=== PATIENT | female | born 1940 | race African-American/Black ===

== ENCOUNTER 2019-12-19 13:45 | Inpatient (IN) | payer MEDICARE, BC, MEDICAID ==
[~2019-12-19] VITALS: Ht 167.6 cm; Wt 73.5 kg
--- NOTE | 2019-12-19 14:00 | NUR ---
ED Nurse Note: Pt brought in by ambulance from [facility] d/t tachypnea, low O2 sat of 88% with cough. Respirations even, but labored with a RR 28. Temp 98.4 @ triage. Pt A+Ox2. Public health called and patient has positive Covid test result. Pt c/o lower back pain. Pt tachy @ 102. O2 saturation of 96% on 4 L NC
[2019-12-19 14:09] VITALS: BP 161/99
--- NOTE | 2019-12-19 14:37 | Emergency Room Report ---
History of Present Illness General Chief Complaint: Dyspnea/Respdistress Source: Medical Record Present Illness HPI Disclaimer: Please note that this report is being documented using [employer] technology. This can lead to erroneous entry secondary to incorrect interpretation by the dictating instrument. HPI: 79-year-old female history of COPD CHF hypertension diabetes, schizophrenia presented from intermediate facility due to hypoxia. Patient reports cough and hypoxia for the past few days. Coronavirus testing was sent and came back positive. Patient sent to the ER for further treatment. Patient denied any fevers nausea or vomiting to me. She uses 2 L of oxygen at baseline currently on 4 L nasal cannula. Allergies: Coded Allergies: ASPIRIN (Verified Allergy, Unknown, 12/19/19) PENICILLINS (Verified Allergy, Unknown, 12/19/19) COVID-19 Screening Contact w/high risk pt: Yes Recent Travel to affected area: No Experienced COVID-19 symptoms?: Yes COVID-19 symptoms experienced: Cough Patient History Reviewed Nursing Documentation: PMH: Agreed; PSxH: Agreed Nursing Documentation-PMH Past Medical History: No History, Except For Hx Cardiac Problems: Yes - Heart failure, UTI Hx COPD: Yes History Of Psychiatric Problem: Yes - Schizophrenia Review of Systems All Other Systems: negative except mentioned in HPI Physical Exam Vital Signs Date Time Temp Pulse Resp B/P (MAP) Pulse Ox O2 Delivery O2 Flow Rate FiO2 12/19/19 13:46 98.1 94 34 148/106 (120) 96 Nasal Cannula 4.0 Sp02 EP Interpretation: reviewed, normal General Appearance: no apparent distress, thin Head: normocephalic, atraumatic Eyes: bilateral eye PERRL, bilateral eye EOMI ENT: hearing grossly normal, moist mucus membranes Neck: full range of motion, supple Respiratory: no retraction, other - Speaking in full sentences, patient tachypneic Cardiovascular #1: normal peripheral pulses, regular rate, rhythm, no murmur Gastrointestinal: non tender, soft, non-distended, no guarding Neurologic: alert, oriented x3, no focal defects Skin: normal color, warm/dry Procedures Critical Care Time Critical Care Time Critical care is made on the patient to presentation with COVID-19 requiring my acute intervention. Critical care time is approximately 35 minutes and excludes procedures. Medical Decision Making Diagnostic Impression: Primary Impression: COVID-19 Additional Impression: UTI (urinary tract infection) ER Course MDM: Patient presented for hypoxia and concern for COVID-19. Coronavirus testing was positive at intermediate facility. Patient has had an increase in oxygen requirement. On my exam she was speaking in full sentences but mildly tachypneic. Septic work-up initiated. Clinical course-IV inserted cardiac monitoring pulse oximetry, patient given IV fluids, IV antibiotics, azithromycin given for diagnosis of coronavirus in addition urinalysis did demonstrate evidence of UTI so Rocephin was given. Patient will be admitted to the medical floor. Labs -sodium 125, urinalysis showed evidence of WBCs in the urine Plan is to admit patient to the hospital. Case discussed with Dr. Alberto Laboratory Tests Test 12/19/19 14:35 White Blood Count 11.8 K/UL (4.8-10.8) H Red Blood Count 4.69 M/UL (4.20-5.40) Hemoglobin 14.1 G/DL (12.0-16.0) Hematocrit 41.4 % (37.0-47.0) Mean Corpuscular Volume 88 FL (80-99) Mean Corpuscular Hemoglobin 30.1 PG (27.0-31.0) Mean Corpuscular Hemoglobin Concent 34.1 G/DL (32.0-36.0) Red Cell Distribution Width 11.3 % (11.6-14.8) L Platelet Count 292 K/UL (150-450) Mean Platelet Volume 5.5 FL (6.5-10.1) L Neutrophils (%) (Auto) % (45.0-75.0) Lymphocytes (%) (Auto) % (20.0-45.0) Monocytes (%) (Auto) % (1.0-10.0) Eosinophils (%) (Auto) % (0.0-3.0) Basophils (%) (Auto) % (0.0-2.0) Differential Total Cells Counted 100 Neutrophils % (Manual) 87 % (45-75) H Lymphocytes % (Manual) 10 % (20-45) L Monocytes % (Manual) 3 % (1-10) Eosinophils % (Manual) 0 % (0-3) Basophils % (Manual) 0 % (0-2) Band Neutrophils 0 % (0-8) Platelet Estimate Adequate Platelet Morphology Normal Red Blood Cell Morphology Normal Urine Color Pale yellow Urine Appearance Cloudy Urine pH 7 (4.5-8.0) Urine Specific [place] 1.005 (1.005-1.035) Urine Protein 2+ (NEGATIVE) H Urine Glucose (UA) 1+ (NEGATIVE) H Urine Ketones Negative (NEGATIVE) Urine Blood 3+ (NEGATIVE) H Urine Nitrite Negative (NEGATIVE) Urine Bilirubin Negative (NEGATIVE) Urine Urobilinogen Normal MG/DL (0.0-1.0) Urine Leukocyte Esterase 3+ (NEGATIVE) H Urine RBC 5-10 /HPF (0 - 2) H Urine WBC Tntc /HPF (0 - 2) H Urine Squamous Epithelial Cells Moderate /LPF (NONE/OCC) H Urine Bacteria Many /HPF (NONE) H Sodium Level 125 MMOL/L (136-145) L Potassium Level 4.5 MMOL/L (3.5-5.1) Chloride Level 84 MMOL/L (98-107) L Carbon Dioxide Level 37 MMOL/L (21-32) H Anion Gap 4 mmol/L (5-15) L Blood Urea Nitrogen 24 mg/dL (7-18) H Creatinine 1.4 MG/DL (0.55-1.30) H Estimated Glomerular Filtration Rate 43.9 mL/min (>60) Glucose Level 259 MG/DL (74-106) H Lactic Acid Level 1.80 mmol/L (0.4-2.0) Calcium Level 9.1 MG/DL (8.5-10.1) Total Bilirubin 0.6 MG/DL (0.2-1.0) Aspartate Amino Transferase (AST) 42 U/L (15-37) H Alanine Aminotransferase (ALT) 35 U/L (12-78) Alkaline Phosphatase 106 U/L (46-116) Total Creatine Kinase 191 U/L (26-308) Creatine Kinase MB 1.5 NG/ML (0.0-3.6) Creatine Kinase MB Relative Index 0.7 Troponin I 0.010 ng/mL (0.000-0.056) Pro-B-Type Natriuretic Peptide 785 pg/mL (0-125) H Total Protein 7.7 G/DL (6.4-8.2) Albumin 3.3 G/DL (3.4-5.0) L Globulin 4.4 g/dL Albumin/Globulin Ratio 0.8 (1.0-2.7) L EKG Diagnostic Results Rate: normal Rhythm: NSR Other Impression Sinus rhythm, rate of 77, incomplete right bundle branch block, peaked T waves laterally. Abnormal EKG Rhythm Strip Diag. Results EP Interpretation: yes Rate: 93 Rhythm: NSR, no PVC's, no ectopy Chest X-Ray Diagnostic Results Chest X-Ray Diagnostic Results : Chest X-Ray Ordered: Yes # of Views/Limited/Complete: 1 View Indication: Shortness of Breath EP Interpretation: Yes Interpretation: no effusion, no pneumothorax, other - Haziness noted in right lung. Impression: Other - Turn for pneumonia and infiltrate Electronically Signed by: Tray Katz MD Last Vital Signs Date Time Temp Pulse Resp B/P (MAP) Pulse Ox O2 Delivery O2 Flow Rate FiO2 12/19/19 14:09 98.2 101 34 161/99 97 Nasal Cannula 4.0 Disposition: ADMITTED INPATIENT Condition: Serious Referrals: Jennifer Alberto MD (PCP) Tray Katz M.D. December 19, 2019 14:37
[2019-12-19] MEDS ORDERED: FAMOTIDINE20 MG ORAL (14:42)
[2019-12-19] MEDS ORDERED: DULCOLAX10 MG RC (14:42)
[2019-12-19] MEDS ORDERED: LISINOPRIL5 MG ORAL (14:42)
[2019-12-19] MEDS ORDERED: DUONEB 0.5-3(2.53 ML HHN (14:42)
[2019-12-19] MEDS ORDERED: PLAVIX75 MG ORAL (14:42)
[2019-12-19] MEDS ORDERED: METOPROLOL TART25 MG ORAL (14:42)
[2019-12-19] MEDS ORDERED: HALOPERIDOL5 MG ORAL (14:42)
[2019-12-19] MEDS ORDERED: ACETAMINOPHEN120 MG RECTAL (14:42)
[2019-12-19] MEDS ORDERED: PROMETHAZI6.25 MG/2 ORAL (14:42)
[2019-12-19] MEDS ORDERED: ATORVASTATIN CA20 MG ORAL (14:42)
[2019-12-19] MEDS ORDERED: HUMALOG100 UNIT/4 SUBQ (14:42)
[2019-12-19] MEDS ORDERED: FLEET ENEMA133 M1 RC (14:42)
[2019-12-19] MEDS ORDERED: MULTIVITAMINS1 EAC8 ORAL (14:42)
[2019-12-19] MEDS ORDERED: PROMETHAZI6.25 MG/1 ORAL (14:42)
[2019-12-19] MEDS ORDERED: MOM30 ML ORAL (14:42)
[2019-12-19] MEDS ORDERED: PREDNISONE5 M4 PO (14:42)
[2019-12-19] MEDS ORDERED: GLUCOTROL XL2.5 MG PO (14:42)
[2019-12-19] MEDS ORDERED: AMLODIPINE BES2.5 MG ORAL (14:42)
[2019-12-19 15:29] LABS: HEMATOCRIT 41.4 % (37.0-47.0); HEMOGLOBIN 14.1 G/DL (12.0-16.0); MEAN CORPUSCULAR VOLUME 88 FL (80-99); PLATELET COUNT 292 K/UL (150-450); RED BLOOD COUNT 4.69 M/UL (4.20-5.40); RED CELL DISTRIBUTION WIDTH 11.3 % (11.6-14.8); WHITE BLOOD COUNT 11.8 K/UL (4.8-10.8)
[2019-12-19 15:30] LABS: APPEARANCE,URINE CLOUDY; BILIRUBIN, URINE NEGATIVE (NEGATIVE); COLOR,URINE PALE YELLOW; GLUCOSE, URINE (UA) 1+ (NEGATIVE); KETONES,URINE NEGATIVE (NEGATIVE); LEUKOCYTE ESTERASE ,URINE 3+ (NEGATIVE); NITRITE,URINE NEGATIVE (NEGATIVE); PH,URINE 7 (4.5-8.0); PROTEIN,URINE 2+ (NEGATIVE); UROBILINOGEN,URINE NORMAL MG/DL (0.0-1.0)
--- NOTE | 2019-12-19 15:41 | NUR ---
ED Nurse Note: lorraine cristobal - grand daughter and POA
[2019-12-19 15:57] LABS: ANION GAP 4 mmol/L (5-15); BLOOD UREA NITROGEN 24 mg/dL (7-18); CALCIUM 9.1 MG/DL (8.5-10.1); CARBON DIOXIDE 37 MMOL/L (21-32); CHLORIDE 84 MMOL/L (98-107); CREATININE 1.4 MG/DL (0.55-1.30); POTASSIUM 4.5 MMOL/L (3.5-5.1); SODIUM 125 MMOL/L (136-145)
[2019-12-19 16:00] VITALS: BP 158/97
[2019-12-19 16:26] LABS: ALANINE AMINOTRANSFERASE 35 U/L (12-78); ALBUMIN 3.3 G/DL (3.4-5.0); ALBUMIN/GLOBULIN RATIO 0.8 (1.0-2.7); ALKALINE PHOSPHATASE 106 U/L (46-116); ASPARTATE AMINO TRANSFERASE 42 U/L (15-37); BILIRUBIN,TOTAL 0.6 MG/DL (0.2-1.0); CKMB 1.5 NG/ML (0.0-3.6); CREATINE KINASE 191 U/L (26-308)
[2019-12-19] MEDS ORDERED: Azithromycin 500 MG in NS 275 ML IV ONE (16:30)
--- NOTE | 2019-12-19 17:30 | NUR ---
ED Nurse Note: Pt had large loose BM. Linen changed. pt noted to have no pressure wounds, but has some perineal excoriation.
[2019-12-19] MEDS ORDERED: cefTRIAXone 1 GM in NS 55 ML IVPB ONE (17:45)
[2019-12-19 18:12] VITALS: BP 148/92
--- NOTE | 2019-12-19 18:23 | NUR ---
ED Nurse Note: Per ED MD, okay to dc cardiac monitoring.
--- NOTE | 2019-12-19 19:15 | NUR ---
HAND-OFF: Report given to FLETCHER Jimenez. Plan of care endorsed. Pt in stable condition.
--- NOTE | 2019-12-19 19:20 | NUR ---
ED Nurse Note: Recieved report from FLETCHER Venegas to resume care, pt is in room, under isolation precautions for Covid infection, awake, alert and oriented x 4, has patent IV site and on cardiac monitoring, pt is waiting for room placement for hospital admission, denies CP or any pain, no sob or labored breathing noted at rest, continues with O2 at 4l n/c, sat=96%, will continue to closely monitor and admit when bed available.
--- NOTE | 2019-12-19 20:40 | NUR ---
ED Nurse Note: Report to floor nurse attempted, un-available a this time, will call back for admission.
--- NOTE | 2019-12-19 20:41 | Diagnostic Imaging Report ---
Indication: Chest pain, shortness of breath Technique: XRAY Chest 1v Comparison: None Findings: Lungs are expanded and there is flattening the diaphragms. Heart size and mediastinal contours are within normal limits. There are atherosclerotic gastric calcifications in a tortuous aorta. There are streaky opacities at the right base. There is no significant pleural effusion. No evidence of pneumothorax. There are degenerative changes of the spine. No acute osseous abnormality. IMPRESSION: Streaky opacities at the right base which may be related to subsegmental atelectasis or scarring. Developing pneumonia is not excluded. Clinical correlation and follow-up recommended. COPD changes. Atherosclerotic disease.
--- NOTE | 2019-12-19 21:00 | NUR ---
ED Nurse Note: Attempted report to floor nurse, un-available at this time, will call back.
--- NOTE | 2019-12-19 21:33 | Consultation ---
History of Present Illness General Date patient seen: December 19, 2019 Time patient seen: 19:20 Chief Complaint: Dyspnea/Respdistress Referring physician: Cristiano Michelle Reason for Consultation: UTI, PNA and COVID 19 infection Present Illness HPI This is an 79-year-old female with past medical history of COPD, CHF, hypertension, diabetes mellitus, and schizophrenia was sent from [facility] to [facility] emergency room for hypoxemia and cough which she had for the last couple of days. Patient was tested positive for coronavirus in her facility so she was sent to the hospital for further evaluation and management. As per report from her facility there was no fever or chills, no nausea or vomiting, patient used 2 L of oxygen at baseline but now she requires 4 L oxygen via nasal cannula. In ER her O2 sat was 96% on 4 L nasal cannula, and her lab work-up revealed UTI with leukocytosis, chest x-ray showed possible right lower lobe infiltration so infectious disease consultation was requested for antimicrobial treatment and further management Allergies: Coded Allergies: ASPIRIN (Verified Allergy, Unknown, 12/19/19) PENICILLINS (Verified Allergy, Unknown, 12/19/19) Medication History Scheduled Amlodipine Besylate* (Amlodipine Besylate*), 2.5 MG ORAL DAILY, (Reported) Atorvastatin Calcium* (Atorvastatin Calcium*), 20 MG ORAL BEDTIME, (Reported) Clopidogrel Bisulfate* (Plavix*), 75 MG ORAL DAILY, (Reported) Famotidine* (Pepcid 20mg tablet*), 20 MG ORAL DAILY, (Reported) Lisinopril (Lisinopril*), 5 MG ORAL DAILY, (Reported) Magnesium Hydroxide (Milk of Magnesia), 30 ML ORAL DAILY, (Reported) Metoprolol Tartrate* (Metoprolol Tartrate*), 25 MG ORAL EVERY 12 HOURS, ( Reported) Multivitamin With Minerals (Multivitamins With Minerals*), 1 TAB ORAL DAILY, ( Reported) Promethazine Hcl (Promethazine Hcl*), 10 ML ORAL Q6H, (Reported) Scheduled PRN Acetaminophen* (Tylenol*), 325 MG RECTAL Q4H PRN for Mild Pain/Temp > 100.5, ( Reported) Promethazine HCl (Promethazine HCl), 5 ML ORAL Q6H PRN for For Cough, (Reported) Miscellaneous Medications Bisacodyl (Dulcolax), 10 MG RC, (Reported) Glipizide (Glucotrol Xl), 2.5 MG PO, (Reported) Haloperidol (Haloperidol), 5 MG ORAL, (Reported) Insulin Lispro (Humalog), 0 SUBQ, (Reported) Ipratropium/Albuterol Sulfate (DuoNeb 0.5-3(2.5)mg/3ml), 3 ML HHN, (Reported) Na Phos,M-B/Na Phos,Di-Ba (Fleet Enema), 133 ML RC, (Reported) Prednisone (Prednisone), 5 MG PO, (Reported) Patient History Limited by: age, medical condition History Provided By: Medical Record, EMS Healthcare decision maker N Resuscitation status Advanced Directive on File Past Medical/Surgical History Past Medical/Surgical History: (1) COPD (chronic obstructive pulmonary disease) (2) HTN (hypertension) (3) Diabetes mellitus Review of Systems Constitutional: Reports: fever, malaise, weakness Eye: Reports: no symptoms ENT: Reports: no symptoms Respiratory: Reports: cough, shortness of breath Cardiovascular: Reports: no symptoms Gastrointestinal: Reports: no symptoms Genitourinary: Reports: no symptoms Musculoskeletal: Reports: no symptoms Skin: Reports: no symptoms Psychiatric: Reports: no symptoms Neurological: Reports: no symptoms Endocrine: Reports: no symptoms Hematologic/Lymphatic: Reports: no symptoms Physical Exam General Appearance: WD/WN, no apparent distress, alert, lethargic, confused Lines, tubes and drains: peripheral HEENT: normocephalic, atraumatic, anicteric, mucous membranes moist, PERRL Neck: non-tender, normal alignment, supple, normal inspection Respiratory/Chest: chest wall non-tender, normal breath sounds, no respiratory distress, no accessory muscle use, decreased breath sounds Cardiovascular/Chest: normal peripheral pulses, normal rate, regular rhythm, no gallop/murmur, no JVD Abdomen: normal bowel sounds, non tender, soft, no organomegaly, no mass, abnormal bowel sounds Genitourinary/Rectal: normal genital exam Extremities: normal range of motion, non-tender, normal inspection, no calf tenderness, normal capillary refill, non-pitting Skin Exam: normal pigmentation, warm/dry Neurologic: alert, responsive Musculoskeletal: normal muscle bulk, no effusion Last 24 Hour Vital Signs Date Time Temp Pulse Resp B/P (MAP) Pulse Ox O2 Delivery O2 Flow Rate FiO2 12/19/19 18:12 98.0 89 34 148/92 97 Nasal Cannula 4.0 12/19/19 16:00 94 34 158/97 96 Nasal Cannula 4.0 12/19/19 14:09 98.2 101 34 161/99 97 Nasal Cannula 4.0 12/19/19 14:00 102 34 Nasal Cannula 4.0 12/19/19 13:46 98.1 94 34 148/106 (120) 96 Nasal Cannula 4.0 Laboratory Tests Test 12/19/19 14:35 White Blood Count 11.8 K/UL (4.8-10.8) H Red Blood Count 4.69 M/UL (4.20-5.40) Hemoglobin 14.1 G/DL (12.0-16.0) Hematocrit 41.4 % (37.0-47.0) Mean Corpuscular Volume 88 FL (80-99) Mean Corpuscular Hemoglobin 30.1 PG (27.0-31.0) Mean Corpuscular Hemoglobin Concent 34.1 G/DL (32.0-36.0) Red Cell Distribution Width 11.3 % (11.6-14.8) L Platelet Count 292 K/UL (150-450) Mean Platelet Volume 5.5 FL (6.5-10.1) L Neutrophils (%) (Auto) % (45.0-75.0) Lymphocytes (%) (Auto) % (20.0-45.0) Monocytes (%) (Auto) % (1.0-10.0) Eosinophils (%) (Auto) % (0.0-3.0) Basophils (%) (Auto) % (0.0-2.0) Differential Total Cells Counted 100 Neutrophils % (Manual) 87 % (45-75) H Lymphocytes % (Manual) 10 % (20-45) L Monocytes % (Manual) 3 % (1-10) Eosinophils % (Manual) 0 % (0-3) Basophils % (Manual) 0 % (0-2) Band Neutrophils 0 % (0-8) Platelet Estimate Adequate Platelet Morphology Normal Red Blood Cell Morphology Normal Urine Color Pale yellow Urine Appearance Cloudy Urine pH 7 (4.5-8.0) Urine Specific [place] 1.005 (1.005-1.035) Urine Protein 2+ (NEGATIVE) H Urine Glucose (UA) 1+ (NEGATIVE) H Urine Ketones Negative (NEGATIVE) Urine Blood 3+ (NEGATIVE) H Urine Nitrite Negative (NEGATIVE) Urine Bilirubin Negative (NEGATIVE) Urine Urobilinogen Normal MG/DL (0.0-1.0) Urine Leukocyte Esterase 3+ (NEGATIVE) H Urine RBC 5-10 /HPF (0 - 2) H Urine WBC Tntc /HPF (0 - 2) H Urine Squamous Epithelial Cells Moderate /LPF (NONE/OCC) H Urine Bacteria Many /HPF (NONE) H Sodium Level 125 MMOL/L (136-145) L Potassium Level 4.5 MMOL/L (3.5-5.1) Chloride Level 84 MMOL/L (98-107) L Carbon Dioxide Level 37 MMOL/L (21-32) H Anion Gap 4 mmol/L (5-15) L Blood Urea Nitrogen 24 mg/dL (7-18) H Creatinine 1.4 MG/DL (0.55-1.30) H Estimat Glomerular Filtration Rate 43.9 mL/min (>60) Glucose Level 259 MG/DL (74-106) H Lactic Acid Level 1.80 mmol/L (0.4-2.0) Calcium Level 9.1 MG/DL (8.5-10.1) Total Bilirubin 0.6 MG/DL (0.2-1.0) Aspartate Amino Transf (AST/SGOT) 42 U/L (15-37) H Alanine Aminotransferase (ALT/SGPT) 35 U/L (12-78) Alkaline Phosphatase 106 U/L (46-116) Total Creatine Kinase 191 U/L (26-308) Creatine Kinase MB 1.5 NG/ML (0.0-3.6) Creatine Kinase MB Relative Index 0.7 Troponin I 0.010 ng/mL (0.000-0.056) Pro-B-Type Natriuretic Peptide 785 pg/mL (0-125) H Total Protein 7.7 G/DL (6.4-8.2) Albumin 3.3 G/DL (3.4-5.0) L Globulin 4.4 g/dL Albumin/Globulin Ratio 0.8 (1.0-2.7) L Microbiology Date/Time Source Procedure Growth Status 12/19/19 14:35 Rectum Received Height (Feet): 5 Height (Inches): 4.00 Weight (Pounds): 130 Medications Current Medications Medications (Trade) Dose Ordered Sig/Daiana Route PRN Reason Start Time Stop Time Status Last Admin Dose Admin Azithromycin 250 mg/Dextrose 275 ml @ 275 mls/hr Q24HRS IV 12/20/19 17:00 12/25/19 16:59 Cefepime HCl 2 gm/ Dextrose 55 ml @ 110 mls/hr Q12HR IVPB 12/19/19 22:00 12/26/19 21:59 Assessment/Plan Problem List: (1) Pneumonia Assessment & Plan: with RLL infiltrates, will start cefepime and azithromycin , monitor CXR, Aspiration precaution ICD Codes: J18.9 - Pneumonia, unspecified organism SNOMED: 905548538 Qualifiers: (2) UTI (urinary tract infection) Assessment & Plan: will start cefepime pending urine culture ICD Codes: N39.0 - Urinary tract infection, site not specified SNOMED: 01606668 Qualifiers: Qualified Codes: N30.00 - Acute cystitis without hematuria (3) COVID-19 Assessment & Plan: will order nasal swab with PCR to confirm if not done in ED , KEEP IN ENHANCED DROPLETS ISOLATION , supportive care ICD Codes: U07.1 - COVID-19 SNOMED: 969432474 (4) Diabetes mellitus Assessment & Plan: recommend tight glycemic control to keep blood glucose between 100-140 ICD Codes: E11.9 - Type 2 diabetes mellitus without complications SNOMED: 52279056 Qualifiers: Qualified Codes: E11.9 - Type 2 diabetes mellitus without complications (5) COPD (chronic obstructive pulmonary disease) Assessment & Plan: continue inhalers , antibiotics and oxygen as needed , AVOID STEROIDS ICD Codes: J44.9 - Chronic obstructive pulmonary disease, unspecified SNOMED: 22476522 Qualifiers: Qualified Codes: J44.1 - Chronic obstructive pulmonary disease with (acute) exacerbation Status: Abigail Lara M.D. December 19, 2019 21:33
--- NOTE | 2019-12-19 21:40 | NUR ---
ED Nurse Note: Report given to floor nurse, pt in bed awake and alert, has all belongings and list completed, IV site patent, pt being taken to floor unit via gurney with [facility] a n d on Covid isolation precautions. nad noted during pt transport.
[2019-12-19 22:00] VITALS: BP 158/92
--- NOTE | 2019-12-19 22:00 | NUR ---
NURSE NOTES: Received patient awake, ambulatory, very confused, uncooperative, no SOB noted.
[2019-12-19] MEDS: Cefepime HCl 2 GM in D5W 55 ML IVPB SCH (22:25)
[2019-12-19] MEDS ORDERED: Zolpidem 5mg tab ORAL PRN (23:30)
[2019-12-19] MEDS ORDERED: Promethazine Plain 6.25mg/5ml ORAL SCH (23:30)
[2019-12-19] MEDS ORDERED: LORazepam Inj 2mg/ml 1ml IV PRN (23:30)
[2019-12-19] MEDS ORDERED: Albuterol/Ipratropium 3ml neb HHN PRN (23:45)
[2019-12-19] MEDS ORDERED: Promethazine Plain 6.25mg/5ml ORAL PRN (23:45)
[2019-12-20] VITALS (7 sets, daily range): BP systolic 120–170; BP diastolic 74–110
--- NOTE | 2019-12-20 04:41 | NUR ---
NURSE NOTES: Patient combative and uncooperative, refused blood to be drawn.
[2019-12-20] MEDS: NovoLOG Insulin Flexpen SUBQ SCH ×4 (05:50→21:00)
--- NOTE | 2019-12-20 07:10 | NUR ---
HAND-OFF: Report given to FLETCHER Jacobsen.
--- NOTE | 2019-12-20 07:33 | NUR ---
NURSE NOTES: Report received from Leti BYNUM. Patient seen on rounds AxOx 2, confused, slightly agitated. On 4lpm via NC, no SOB or distress noted. Nurse reports that patient has been combative and uncooperative on admission, refused accucheck and blood draw in AM. Dr. Alberto made rounds and informed him of events last night and pt's refusal for blood draw. Received orders to put psych consult with Dr. Vogel and notify next of kin. Orders noted and carried out. IV on right AC patent and intact. Pt ambulates and is continent to bladder function. Bed low and locked, siderails up x2, zone alarms on bed 1. Will continue to monitor.
[2019-12-20 08:31] LABS: HEMATOCRIT 44.4 % (37.0-47.0); HEMOGLOBIN 15.2 G/DL (12.0-16.0); MEAN CORPUSCULAR VOLUME 88 FL (80-99); PLATELET COUNT 302 K/UL (150-450); RED BLOOD COUNT 5.05 M/UL (4.20-5.40); RED CELL DISTRIBUTION WIDTH 11.5 % (11.6-14.8); WHITE BLOOD COUNT 12.7 K/UL (4.8-10.8)
[2019-12-20] MEDS: Cefepime HCl 2 GM in D5W 55 ML IVPB SCH (08:46)
[2019-12-20] MEDS: Enoxaparin 40mg Inj SUBQ SCH (08:48)
[2019-12-20 09:01] LABS: ALANINE AMINOTRANSFERASE 36 U/L (12-78); ALBUMIN 3.1 G/DL (3.4-5.0); ALBUMIN/GLOBULIN RATIO 0.7 (1.0-2.7); ALKALINE PHOSPHATASE 109 U/L (46-116); ANION GAP 9 mmol/L (5-15); ASPARTATE AMINO TRANSFERASE 46 U/L (15-37); BILIRUBIN,TOTAL 0.5 MG/DL (0.2-1.0); BLOOD UREA NITROGEN 19 mg/dL (7-18); CALCIUM 9.3 MG/DL (8.5-10.1); CARBON DIOXIDE 34 MMOL/L (21-32); CHLORIDE 90 MMOL/L (98-107); CREATININE 1.3 MG/DL (0.55-1.30); POTASSIUM 4.5 MMOL/L (3.5-5.1); SODIUM 133 MMOL/L (136-145)
--- NOTE | 2019-12-20 09:11 | Consultation ---
Consult Note Consult Note 9AM: I am asked to evaluate the patient for hyponatremia Additional blood and urine tests ordered More complete note after those results 1PM: HPI: 79-year-old female history of COPD CHF hypertension diabetes, schizophrenia [facility]. Patient reports cough and hypoxia for the past few days. Coronavirus testing was sent and came back positive. Patient sent to the ER for further treatment. Patient denied any fevers nausea or vomiting to me. She uses 2 L of oxygen at baseline currently on 4 L nasal cannula. Allergies: ASPIRIN (Verified Allergy, Unknown, 12/19/19) PENICILLINS (Verified Allergy, Unknown, 12/19/19) COVID-19 Screening Contact w/high risk pt: Yes Recent Travel to affected area: No Experienced COVID-19 symptoms?: Yes COVID-19 symptoms experienced: Cough Past Medical History: No History, Except For Hx Cardiac Problems: Yes - Heart failure, UTI Hx COPD: Yes History Of Psychiatric Problem: Yes - Schizophrenia Patient interviewed poor historian Laboratory data reviewed Assessment/Plan Patient presents with hyponatremia, urine spot sodium below 20. Hyponatremia most likely depletional Azotemia / dehydration Sepsis, positive COVID-19 test, UTI Diabetes mellitus [id number] with high hemoglobin A1c History of psych disease slow hydration with saline Antibiotics per ID Monitor electrolytes and renal parameters Per orders Per consultants Rolo Roldan MD December 20, 2019 09:11
[2019-12-20 09:12] LABS: CHOLESTEROL 144 MG/DL (< 200); HDL CHOLESTEROL 73 MG/DL (40-60); TRIGLYCERIDES 101 MG/DL (30-150)
--- NOTE | 2019-12-20 09:27 | NUR ---
NURSE NOTES: Urine collected for ordered labs and sent down to laboratory.
--- NOTE | 2019-12-20 09:36 | History & Physical ---
History and Physical History & Physicial seen and examined. Full Dictation completed Jennifer Alberto MD December 20, 2019 09:36
--- NOTE | 2019-12-20 09:38 | General Progress Note ---
Assessment/Plan Status: stable Assessment/Plan: Full Dictation in progress 1- Sepsis 2- PNA 3- DM 4. HypoNatemia 5. Psych Plan: C/w Empirical abx Pulmonary/ID/Nephro/cario consulted Hepatitis panel Subjective Allergies: Coded Allergies: ASPIRIN (Verified Allergy, Unknown, 12/19/19) PENICILLINS (Verified Allergy, Unknown, 12/19/19) Objective Last 24 Hour Vital Signs Date Time Temp Pulse Resp B/P (MAP) Pulse Ox O2 Delivery O2 Flow Rate FiO2 12/20/19 08:47 100 143/79 12/20/19 08:00 97.9 118 34 143/79 (100) 91 12/20/19 04:00 98.2 111 32 132/107 (115) 91 12/20/19 01:23 100 28 160/94 (116) 94 12/20/19 00:52 24 98 12/20/19 00:37 97.9 130 36 164/110 (128) 86 12/19/19 22:59 Nasal Cannula 2.0 12/19/19 22:00 96.4 121 30 158/92 (114) 95 12/19/19 21:45 98.0 89 34 148/92 97 Nasal Cannula 4.0 12/19/19 18:12 98.0 89 34 148/92 97 Nasal Cannula 4.0 12/19/19 16:00 94 34 158/97 96 Nasal Cannula 4.0 12/19/19 14:09 98.2 101 34 161/99 97 Nasal Cannula 4.0 12/19/19 14:00 102 34 Nasal Cannula 4.0 12/19/19 13:46 98.1 94 34 148/106 (120) 96 Nasal Cannula 4.0 Intake and Output 12/19/19 12/20/19 19:00 07:00 Intake Total 1330 ml 173 ml Balance 1330 ml 173 ml Intake Oral 0 ml IV Total 1330 ml 55 ml Other 118 ml # Voids 4 2 # Bowel Movements 1 1 Laboratory Tests 12/19/19 14:35: White Blood Count 11.8H, Red Blood Count 4.69, Hemoglobin 14.1, Hematocrit 41.4 , Mean Corpuscular Volume 88, Mean Corpuscular Hemoglobin 30.1, Mean Corpuscular Hemoglobin Concent 34.1, Red Cell Distribution Width 11.3L, Platelet Count 292, Mean Platelet Volume 5.5L, Neutrophils (%) (Auto) , Lymphocytes (%) (Auto) , Monocytes (%) (Auto) , Eosinophils (%) (Auto) , Basophils (%) (Auto) , Differential Total Cells Counted 100, Neutrophils % ( Manual) 87H, Lymphocytes % (Manual) 10L, Monocytes % (Manual) 3, Eosinophils % ( Manual) 0, Basophils % (Manual) 0, Band Neutrophils 0, Platelet Estimate Adequate, Platelet Morphology Normal, Red Blood Cell Morphology Normal, Urine Color Pale yellow, Urine Appearance Cloudy, Urine pH 7, Urine Specific [place] 1.005, Urine Protein 2+H, Urine Glucose (UA) 1+H, Urine Ketones Negative, Urine Blood 3+H, Urine Nitrite Negative, Urine Bilirubin Negative, Urine Urobilinogen Normal, Urine Leukocyte Esterase 3+H, Urine RBC 5-10H, Urine WBC TntcH, Urine Squamous Epithelial Cells ModerateH, Urine Bacteria ManyH, Sodium Level 125L, Potassium Level 4.5, Chloride Level 84L, Carbon Dioxide Level 37H, Anion Gap 4L , Blood Urea Nitrogen 24H, Creatinine 1.4H, Estimat Glomerular Filtration Rate 43.9, Glucose Level 259H, Lactic Acid Level 1.80, Calcium Level 9.1, Total Bilirubin 0.6, Aspartate Amino Transf (AST/SGOT) 42H, Alanine Aminotransferase ( ALT/SGPT) 35, Alkaline Phosphatase 106, Total Creatine Kinase 191, Creatine Kinase MB 1.5, Creatine Kinase MB Relative Index 0.7, Troponin I 0.010, Pro-B- Type Natriuretic Peptide 785H, Total Protein 7.7, Albumin 3.3L, Globulin 4.4, Albumin/Globulin Ratio 0.8L 12/20/19 08:00: White Blood Count 12.7H, Red Blood Count 5.05, Hemoglobin 15.2, Hematocrit 44.4 , Mean Corpuscular Volume 88, Mean Corpuscular Hemoglobin 30.1, Mean Corpuscular Hemoglobin Concent 34.2, Red Cell Distribution Width 11.5L, Platelet Count 302, Mean Platelet Volume 5.5L, Neutrophils (%) (Auto) , Lymphocytes (%) (Auto) , Monocytes (%) (Auto) , Eosinophils (%) (Auto) , Basophils (%) (Auto) , Neutrophils % (Manual) [Pending], Lymphocytes % (Manual) [Pending], Platelet Estimate [Pending], Platelet Morphology [Pending], Sodium Level 133L, Potassium Level 4.5, Chloride Level 90L, Carbon Dioxide Level 34H, Anion Gap 9, Blood Urea Nitrogen 19H, Creatinine 1.3, Estimat Glomerular Filtration Rate 47.8, Glucose Level 215H, Calcium Level 9.3, Total Bilirubin 0.5 , Aspartate Amino Transf (AST/SGOT) 46H, Alanine Aminotransferase (ALT/SGPT) 36 , Alkaline Phosphatase 109, Troponin I 0.049, Pro-B-Type Natriuretic Peptide 4372H, Total Protein 7.7, Albumin 3.1L, Globulin 4.6, Albumin/Globulin Ratio 0.7L, Hemoglobin A1c 8.4H, Osmolality 284L, Triglycerides Level 101, Cholesterol Level 144, LDL Cholesterol 48, HDL Cholesterol 73H, Cholesterol/HDL Ratio 2.0L, Thyroid Stimulating Hormone (TSH) 0.272L 12/20/19 09:15: Urine Osmolality [Pending], Urine Random Sodium [Pending] Height (Feet): 5 Height (Inches): 6.00 Weight (Pounds): 150 Jennifer Alberto MD December 20, 2019 09:38
--- NOTE | 2019-12-20 11:00 | NUR ---
NURSE NOTES: Dr. Barrow informed of Troponin and 2d echo results. No new orders at this time.
--- NOTE | 2019-12-20 12:00 | NUR ---
NURSE NOTES: Nasopharyngeal swab collected for Covid test and sent down to laboratory.
--- NOTE | 2019-12-20 14:03 | Cardiac Electrophysiology PN ---
Subjective Subjective [id number] Objective Last 24 Hour Vital Signs Date Time Temp Pulse Resp B/P (MAP) Pulse Ox O2 Delivery O2 Flow Rate FiO2 12/20/19 12:00 98.2 84 20 162/89 (113) 90 12/20/19 09:00 Nasal Cannula 4.0 12/20/19 08:47 100 143/79 12/20/19 08:00 97.9 118 34 143/79 (100) 91 12/20/19 04:00 98.2 111 32 132/107 (115) 91 12/20/19 01:23 100 28 160/94 (116) 94 12/20/19 00:52 24 98 12/20/19 00:37 97.9 130 36 164/110 (128) 86 12/19/19 22:59 Nasal Cannula 2.0 12/19/19 22:00 96.4 121 30 158/92 (114) 95 12/19/19 21:45 98.0 89 34 148/92 97 Nasal Cannula 4.0 12/19/19 18:12 98.0 89 34 148/92 97 Nasal Cannula 4.0 12/19/19 16:00 94 34 158/97 96 Nasal Cannula 4.0 12/19/19 14:09 98.2 101 34 161/99 97 Nasal Cannula 4.0 12/19/19 14:00 102 34 Nasal Cannula 4.0 Intake and Output 12/19/19 12/20/19 19:00 07:00 Intake Total 1330 ml 173 ml Balance 1330 ml 173 ml Intake Oral 0 ml IV Total 1330 ml 55 ml Other 118 ml # Voids 4 2 # Bowel Movements 1 1 Laboratory Tests Test 12/19/19 14:35 12/20/19 08:00 12/20/19 09:15 White Blood Count 11.8 K/UL (4.8-10.8) H 12.7 K/UL (4.8-10.8) H Red Blood Count 4.69 M/UL (4.20-5.40) 5.05 M/UL (4.20-5.40) Hemoglobin 14.1 G/DL (12.0-16.0) 15.2 G/DL (12.0-16.0) Hematocrit 41.4 % (37.0-47.0) 44.4 % (37.0-47.0) Mean Corpuscular Volume 88 FL (80-99) 88 FL (80-99) Mean Corpuscular Hemoglobin 30.1 PG (27.0-31.0) 30.1 PG (27.0-31.0) Mean Corpuscular Hemoglobin Concent 34.1 G/DL (32.0-36.0) 34.2 G/DL (32.0-36.0) Red Cell Distribution Width 11.3 % (11.6-14.8) L 11.5 % (11.6-14.8) L Platelet Count 292 K/UL (150-450) 302 K/UL (150-450) Mean Platelet Volume 5.5 FL (6.5-10.1) L 5.5 FL (6.5-10.1) L Neutrophils (%) (Auto) % (45.0-75.0) % (45.0-75.0) Lymphocytes (%) (Auto) % (20.0-45.0) % (20.0-45.0) Monocytes (%) (Auto) % (1.0-10.0) % (1.0-10.0) Eosinophils (%) (Auto) % (0.0-3.0) % (0.0-3.0) Basophils (%) (Auto) % (0.0-2.0) % (0.0-2.0) Differential Total Cells Counted 100 100 Neutrophils % (Manual) 87 % (45-75) H 87 % (45-75) H Lymphocytes % (Manual) 10 % (20-45) L 10 % (20-45) L Monocytes % (Manual) 3 % (1-10) 3 % (1-10) Eosinophils % (Manual) 0 % (0-3) 0 % (0-3) Basophils % (Manual) 0 % (0-2) 0 % (0-2) Band Neutrophils 0 % (0-8) 0 % (0-8) Platelet Estimate Adequate Adequate Platelet Morphology Normal Normal Red Blood Cell Morphology Normal Normal Urine Color Pale yellow Urine Appearance Cloudy Urine pH 7 (4.5-8.0) Urine Specific [place] 1.005 (1.005-1.035) Urine Protein 2+ (NEGATIVE) H Urine Glucose (UA) 1+ (NEGATIVE) H Urine Ketones Negative (NEGATIVE) Urine Blood 3+ (NEGATIVE) H Urine Nitrite Negative (NEGATIVE) Urine Bilirubin Negative (NEGATIVE) Urine Urobilinogen Normal MG/DL (0.0-1.0) Urine Leukocyte Esterase 3+ (NEGATIVE) H Urine RBC 5-10 /HPF (0 - 2) H Urine WBC Tntc /HPF (0 - 2) H Urine Squamous Epithelial Cells Moderate /LPF (NONE/OCC) H Urine Bacteria Many /HPF (NONE) H Sodium Level 125 MMOL/L (136-145) L 133 MMOL/L (136-145) L Potassium Level 4.5 MMOL/L (3.5-5.1) 4.5 MMOL/L (3.5-5.1) Chloride Level 84 MMOL/L (98-107) L 90 MMOL/L (98-107) L Carbon Dioxide Level 37 MMOL/L (21-32) H 34 MMOL/L (21-32) H Anion Gap 4 mmol/L (5-15) L 9 mmol/L (5-15) Blood Urea Nitrogen 24 mg/dL (7-18) H 19 mg/dL (7-18) H Creatinine 1.4 MG/DL (0.55-1.30) H 1.3 MG/DL (0.55-1.30) Estimat Glomerular Filtration Rate 43.9 mL/min (>60) 47.8 mL/min (>60) Glucose Level 259 MG/DL (74-106) H 215 MG/DL (74-106) H Lactic Acid Level 1.80 mmol/L (0.4-2.0) Calcium Level 9.1 MG/DL (8.5-10.1) 9.3 MG/DL (8.5-10.1) Total Bilirubin 0.6 MG/DL (0.2-1.0) 0.5 MG/DL (0.2-1.0) Aspartate Amino Transf (AST/SGOT) 42 U/L (15-37) H 46 U/L (15-37) H Alanine Aminotransferase (ALT/SGPT) 35 U/L (12-78) 36 U/L (12-78) Alkaline Phosphatase 106 U/L (46-116) 109 U/L (46-116) Total Creatine Kinase 191 U/L (26-308) Creatine Kinase MB 1.5 NG/ML (0.0-3.6) Creatine Kinase MB Relative Index 0.7 Troponin I 0.010 ng/mL (0.000-0.056) 0.049 ng/mL (0.000-0.056) Pro-B-Type Natriuretic Peptide 785 pg/mL (0-125) H 4372 pg/mL (0-125) H Total Protein 7.7 G/DL (6.4-8.2) 7.7 G/DL (6.4-8.2) Albumin 3.3 G/DL (3.4-5.0) L 3.1 G/DL (3.4-5.0) L Globulin 4.4 g/dL 4.6 g/dL Albumin/Globulin Ratio 0.8 (1.0-2.7) L 0.7 (1.0-2.7) L Hemoglobin A1c 8.4 % (4.3-6.0) H Osmolality 284 mOsm/kg (297-317) L Triglycerides Level 101 MG/DL (30-150) Cholesterol Level 144 MG/DL (< 200) LDL Cholesterol 48 mg/dL (<100) HDL Cholesterol 73 MG/DL (40-60) H Cholesterol/HDL Ratio 2.0 (3.3-4.4) L Thyroid Stimulating Hormone (TSH) 0.272 uiU/mL (0.358-3.740) Urine Osmolality 449 mOsm/kg (429-449) Urine Random Sodium < 20 mmol/L (20-110) L Microbiology Date/Time Source Procedure Growth Status 12/19/19 14:35 Urine,Clean Catch Urine Culture - Preliminary Resulted 12/19/19 14:35 Rectum Received Eusebio Barrow MD December 20, 2019 14:03
--- NOTE | 2019-12-20 16:05 | NUR ---
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 98.0 HR 95 RR 34 B/P 148/106 4L NC O2 SAT @ 96% WBC 11.2 NA 125 BUN 24 CR 1.4 GLU 259 BNP 785 AST 42 CXR=Streaky opacities at the right base which may be related to subsegmental atelectasis or scarring. Developing pneumonia is not excluded. Clinical correlation and follow-up recommended. IS: CEFEPIME IV AZITHROMAX IV IV BOLUS NS X 1 LITER ROCEPHIN IV ADMITTED TO MED/SURG MED/SURG STATUS DCP RETURN TO [facility]
--- NOTE | 2019-12-20 16:59 | History and Physical Report ---
DATE OF ADMISSION: 12/19/2019 SOURCE OF INFORMATION: Patient and EMR. HISTORY OF PRESENT ILLNESS: Patient is an 79-year-old female with history of psychiatric coronary artery disease and hypertension problems. Patient has been transferred with abnormal chest x-ray reported in the facility. Patient's facility has reported multiple positive cases of COVID. At the time of evaluation, patient denies any chest pain or shortness of breath. Patient is anxious. Poor historian. source of information. No reported incidents of diarrhea or abnormal bleeding has been reported. REVIEW OF SYSTEMS: All 12 elements of review of systems reviewed as above. PAST MEDICAL AND SURGICAL HISTORY: Including but not limited to hypertension, hyperlipidemia, coronary artery disease, diabetes. FAMILY HISTORY: Reviewed and noncontributory. MEDICATIONS: Current hospital medications including, but not limited to, cefepime, azithromycin. SOCIAL HISTORY: Patient is represented by her daughter, patient denies no documented history of active illicit drug abuse or tobacco use or alcohol abuse. ALLERGIES: Aspirin and penicillin. PHYSICAL EXAMINATION: VITAL SIGNS: Blood pressure 148/100, temperature 98.2, pulse rate 94, respiratory rate is 34, pulse rate 102. HEAD AND NECK: Atraumatic and normocephalic. CHEST: Bronchial breathing sounds. HEART: S1 and S2. Regular rate and rhythm. ABDOMEN: Soft. No organomegaly. MUSCULOSKELETAL: No gross focal motor deficit. NEUROLOGY: Patient is awake, alert x1. Easily distracted. LABORATORY DATA: Dated 12/19/2019 shows WBC 11.8, hemoglobin 14.4, platelets 292. Sodium 125, potassium 4.5, BUN 24, creatinine 1.4. AST of 42. BNP of 785. Chest x-ray dated 12/19/2019 shows opacities in the right base possible concerning for the emerging pneumonia. ASSESSMENT: 1. Sepsis. 2. Pneumonia. 3. Renal failure, age indeterminate. 4. Diabetes type 2. 5. Hypertension. 6. Hyperlipidemia. 7. Coronary artery disease/peripheral arterial disease. Continue with antiplatelet. 8. GI and DVT prophylaxis. PLAN OF CARE: Continue with empiric antibiotic treatment. Infectious Disease, Nephrology, Pulmonary have been consulted. The time of this dictation does not reflect the actual time of encounter, which occurred on 12/19/2019. Candelarioammad Nava Alberto DR: BHAVNA JOB#: [id number] CC:
[2019-12-20] MEDS ORDERED: Azithromycin 250 MG in D5W 275 ML IV SCH (17:00)
[2019-12-20] MEDS: Docusate 100mg cap ORAL SCH (18:00)
--- NOTE | 2019-12-20 18:00 | Consultation ---
DATE OF CONSULTATION: 12/20/2019 PULMONARY CONSULTATION HISTORY OF PRESENT ILLNESS: This is an 79-year-old [facility] resident with history of schizophrenia. She is a resident of [facility]. She has a history of COPD, CHF, hypertension, diabetes. She was brought due to hypoxemia. The patient has been having cough and shortness of breath. She was tested to have COVID-19 and it is positive. She was sent to the hospital. Currently, she is on nasal oxygen. ALLERGIES: To aspirin, penicillin. PAST MEDICAL HISTORY: COPD, CHF, schizophrenia, [facility] resident. REVIEW OF SYSTEMS: Not obtainable. PHYSICAL EXAMINATION: GENERAL: Reveals an 79-year-old female. VITAL SIGNS: O2 saturation % on 4 liters of oxygen. HEENT: Unremarkable. CHEST: Clear breath sounds bilaterally. ABDOMEN: Soft. EXTREMITIES: There is no edema. NEUROLOGIC: Nonfocal. LABORATORY DATA: Urine culture obtained yesterday is pending at this point in time. Other lab testing is notable for white count 12.7, otherwise normal CBC. BMP notable for glucose 215, sodium 133. Troponin 0.01 and 0.04. Lactic acid 1.8. IMAGING STUDIES: X-ray chest obtained yesterday, which shows atelectatic changes in the right base. IMPRESSION: 1. Rule out COVID-19. 2. Possible UTI. 3. Leukocytosis. 4. Hypoxemia. 5. Schizophrenia. 6. Hypertension. 7. Diabetes mellitus. 8. COPD. 9. CHF. DISCUSSION: Admitted to the hospital. Continue broad-spectrum antibiotics. We will order oxygen and pulmonary hygiene. Broad-spectrum antibiotics needed along with fluids. DVT prophylaxis. We will follow carefully. Javi Vincent M.D. DR: Isabelle JOB#: [id number] CC:
[2019-12-20] MEDS: Azithromycin 250 MG in NS 275 ML IV SCH (18:01)
--- NOTE | 2019-12-20 18:59 | NUR ---
HAND-OFF: Report given to FLETCHER Landeros. Endorsed that pt was swabbed for covid today.
--- NOTE | 2019-12-20 19:44 | Infectious Diseases Prog Note ---
Assessment/Plan Problems: (1) Pneumonia Assessment & Plan: with RLL infiltrates, continue cefepime and azithromycin , monitor CXR, Aspiration precaution (2) UTI (urinary tract infection) Assessment & Plan: on cefepime pending urine culture (3) COVID-19 Assessment & Plan: await nasal swab with PCR to confirm if not done in ED , KEEP IN ENHANCED DROPLETS ISOLATION , supportive care (4) Diabetes mellitus Assessment & Plan: recommend tight glycemic control to keep blood glucose between 100-140 (5) COPD (chronic obstructive pulmonary disease) Assessment & Plan: continue inhalers , antibiotics and oxygen as needed , AVOID STEROIDS Subjective ROS Limited/Unobtainable: Yes Allergies: Coded Allergies: ASPIRIN (Verified Allergy, Unknown, 12/19/19) PENICILLINS (Verified Allergy, Unknown, 12/19/19) Subjective she was alert and oriented but confused, has mild cough but no SOB, no fever or chills, no nausea or vomiting , no diarrhea Objective Vital Signs Last 24 Hour Vital Signs Date Time Temp Pulse Resp B/P (MAP) Pulse Ox O2 Delivery O2 Flow Rate FiO2 12/20/19 16:00 98.4 83 21 120/74 (89) 91 12/20/19 12:00 98.2 84 20 162/89 (113) 90 12/20/19 09:00 Nasal Cannula 4.0 12/20/19 08:47 100 143/79 12/20/19 08:00 97.9 118 34 143/79 (100) 91 12/20/19 04:00 98.2 111 32 132/107 (115) 91 12/20/19 01:23 100 28 160/94 (116) 94 12/20/19 00:52 24 98 12/20/19 00:37 97.9 130 36 164/110 (128) 86 12/19/19 22:59 Nasal Cannula 2.0 12/19/19 22:00 96.4 121 30 158/92 (114) 95 12/19/19 21:45 98.0 89 34 148/92 97 Nasal Cannula 4.0 Height (Feet): 5 Height (Inches): 6.00 Weight (Pounds): 150 General Appearance: WD/WN, no acute distress HEENT: normocephalic, atraumatic, anicteric, mucous membranes moist, PERRL Respiratory/Chest: chest wall non-tender, no respiratory distress, no accessory muscle use, decreased breath sounds, crackles/rales Cardiovascular: normal peripheral pulses, normal rate, regular rhythm, no gallop/murmur, no JVD Abdomen: normal bowel sounds, soft, non tender, no organomegaly, non distended , no mass, no scars Genitourinary: normal external genitalia Extremities: no cyanosis, no clubbing Skin: no rash, no lesions, no ulcers Neurologic/Psychiatric: alert, responsive Lymphatic: no neck adenopathy, no groin adenopathy Musculoskeletal: normal muscle bulk, no effusion Microbiology Date/Time Source Procedure Growth Status 12/19/19 14:35 Urine,Clean Catch Urine Culture - Preliminary Resulted 12/19/19 14:35 Rectum Received Laboratory Tests Test 12/20/19 08:00 12/20/19 09:15 White Blood Count 12.7 K/UL (4.8-10.8) H Red Blood Count 5.05 M/UL (4.20-5.40) Hemoglobin 15.2 G/DL (12.0-16.0) Hematocrit 44.4 % (37.0-47.0) Mean Corpuscular Volume 88 FL (80-99) Mean Corpuscular Hemoglobin 30.1 PG (27.0-31.0) Mean Corpuscular Hemoglobin Concent 34.2 G/DL (32.0-36.0) Red Cell Distribution Width 11.5 % (11.6-14.8) L Platelet Count 302 K/UL (150-450) Mean Platelet Volume 5.5 FL (6.5-10.1) L Neutrophils (%) (Auto) % (45.0-75.0) Lymphocytes (%) (Auto) % (20.0-45.0) Monocytes (%) (Auto) % (1.0-10.0) Eosinophils (%) (Auto) % (0.0-3.0) Basophils (%) (Auto) % (0.0-2.0) Differential Total Cells Counted 100 Neutrophils % (Manual) 87 % (45-75) H Lymphocytes % (Manual) 10 % (20-45) L Monocytes % (Manual) 3 % (1-10) Eosinophils % (Manual) 0 % (0-3) Basophils % (Manual) 0 % (0-2) Band Neutrophils 0 % (0-8) Platelet Estimate Adequate Platelet Morphology Normal Red Blood Cell Morphology Normal Sodium Level 133 MMOL/L (136-145) L Potassium Level 4.5 MMOL/L (3.5-5.1) Chloride Level 90 MMOL/L (98-107) L Carbon Dioxide Level 34 MMOL/L (21-32) H Anion Gap 9 mmol/L (5-15) Blood Urea Nitrogen 19 mg/dL (7-18) H Creatinine 1.3 MG/DL (0.55-1.30) Estimat Glomerular Filtration Rate 47.8 mL/min (>60) Glucose Level 215 MG/DL (74-106) H Hemoglobin A1c 8.4 % (4.3-6.0) H Osmolality 284 mOsm/kg (297-317) L Calcium Level 9.3 MG/DL (8.5-10.1) Total Bilirubin 0.5 MG/DL (0.2-1.0) Aspartate Amino Transf (AST/SGOT) 46 U/L (15-37) H Alanine Aminotransferase (ALT/SGPT) 36 U/L (12-78) Alkaline Phosphatase 109 U/L (46-116) Troponin I 0.049 ng/mL (0.000-0.056) Pro-B-Type Natriuretic Peptide 4372 pg/mL (0-125) H Total Protein 7.7 G/DL (6.4-8.2) Albumin 3.1 G/DL (3.4-5.0) L Globulin 4.6 g/dL Albumin/Globulin Ratio 0.7 (1.0-2.7) L Triglycerides Level 101 MG/DL (30-150) Cholesterol Level 144 MG/DL (< 200) LDL Cholesterol 48 mg/dL (<100) HDL Cholesterol 73 MG/DL (40-60) H Cholesterol/HDL Ratio 2.0 (3.3-4.4) L Thyroid Stimulating Hormone (TSH) 0.272 uiU/mL (0.358-3.740) Urine Osmolality 449 mOsm/kg (429-449) Urine Random Sodium < 20 mmol/L (20-110) L Current Medications Medications (Trade) Dose Ordered Sig/Daiana Route PRN Reason Start Time Stop Time Status Last Admin Dose Admin Acetaminophen (Tylenol) 650 mg Q6H PRN ORAL MILD/TEMP 12/19/19 23:30 01/18/20 23:29 12/20/19 08:46 Acetaminophen/ Hydrocodone Bitart ([place] 5/325) 1 tab Q4H PRN ORAL Moderate Pain (Pain Scale 4-6) 12/19/19 23:30 12/26/19 23:29 Albuterol/ Ipratropium (Albuterol/ Ipratropium) 3 ml Q4H PRN HHN Shortness of Breath 12/19/19 23:45 12/24/19 23:44 Azithromycin 250 mg/Sodium Chloride 275 ml @ 275 mls/hr Q24HRS IV 12/20/19 18:00 12/25/19 17:59 12/20/19 18:01 Cefepime HCl 2 gm/ Sodium Chloride 55 ml @ 110 mls/hr Q12HR IVPB 12/20/19 21:00 12/27/19 20:59 Clopidogrel Bisulfate (Plavix) 75 mg DAILY ORAL 12/20/19 09:00 01/19/20 08:59 12/20/19 08:45 Dextrose (Dextrose 50%) 25 ml Q30M PRN IV Hypoglycemia 12/19/19 23:30 03/18/20 23:29 Dextrose (Dextrose 50%) 50 ml Q30M PRN IV Hypoglycemia 12/19/19 23:30 03/18/20 23:29 Docusate Sodium (Colace) 100 mg THREE TIMES A DAY ORAL 12/20/19 18:00 01/19/20 17:59 Enoxaparin Sodium (Lovenox) 40 mg DAILY SUBQ 12/20/19 09:00 03/19/20 08:59 12/20/19 08:48 Haloperidol (Haldol) 5 mg QHS ORAL 12/20/19 21:00 02/03/20 20:59 Insulin Aspart (NovoLOG) BEFORE MEALS AND HS SUBQ 12/20/19 06:30 03/19/20 06:29 12/20/19 11:47 Lorazepam (Ativan 2mg/ml 1ml) 0.5 mg Q4H PRN IV For Anxiety 12/19/19 23:30 12/26/19 23:29 12/20/19 08:50 Metoprolol Tartrate (Lopressor) 50 mg EVERY 12 HOURS ORAL 12/20/19 21:00 03/19/20 08:59 Morphine Sulfate (Morphine Sulfate) 2 mg Q8H PRN IVP Severe Pain (Pain Scale 7-10) 12/19/19 23:30 12/26/19 23:29 Pantoprazole (Protonix) 40 mg EVERY 12 HOURS ORAL 12/20/19 21:00 01/19/20 20:59 Promethazine HCl (Phenergan [place]) 12.5 mg Q6H PRN ORAL For Cough 12/19/19 23:45 01/18/20 23:44 Sodium Chloride 1,000 ml @ 50 mls/hr Q20H IV 12/20/19 13:15 01/19/20 13:14 12/20/19 13:43 Zolpidem Tartrate (Ambien) 5 mg HSPRN PRN ORAL Insomnia 12/19/19 23:30 12/26/19 23:29 Abigail Daugherty M.D. December 20, 2019 19:44
--- NOTE | 2019-12-20 20:00 | NUR ---
NURSE NOTES: Received patient awake, verbal, confused, follows simple command, uncooperative at times, SOB on exertion.
[2019-12-20] MEDS: Metoprolol Tartrate 50mg tab ORAL SCH (21:10)
[2019-12-20] MEDS: Cefepime HCl 2 GM in NS 55 ML IVPB SCH (21:10)
--- NOTE | 2019-12-20 21:30 | Consultation ---
DATE OF CONSULTATION: 12/20/2019 CARDIOLOGY CONSULTATION CONSULTING PHYSICIAN: Eusebio Barrow MD. REFERRING PHYSICIAN: Jennifer Alberto MD. REASON FOR CONSULTATION: Management of hypertension and congestive heart failure. HISTORY OF PRESENT ILLNESS: The patient is an 79-year-old lady with history of hypertension, diabetes, and congestive heart failure as well as COPD and schizophrenia, who was transferred from senior living facility for hypoxemia and cough. The patient was positive for coronavirus in the facility and was transferred for further evaluation. The patient did not have any fever, chills, nausea, or vomiting. She was on 2 L nasal cannula at baseline 4 L oxygen at this time. The patient's lab work revealed leukocytosis, UTI, and right lower lobe infiltrate. Cardiology consultation was obtained for further evaluation and management. The patient also had mildly elevated troponin. REVIEW OF SYSTEMS: Negative. PAST MEDICAL HISTORY: As mentioned above. FAMILY HISTORY: Noncontributory. SOCIAL HISTORY: She is a alf patient. Does not smoke or drink alcohol. PHYSICAL EXAMINATION: VITAL SIGNS: Show blood pressure 162/89, pulse 84, respirations 20, temperature 98.2. HEAD AND NECK: Showed no JVD. LUNGS: Clear. CARDIOVASCULAR: Shows regular S1 and S2 with no gallop. ABDOMEN: Soft. EXTREMITIES: No edema. LABORATORY DATA: Labs show white count 12.7, hemoglobin 15.2, hematocrit of 44, and platelet count 302,000. Sodium 132, potassium 4.5, BUN 19, and creatinine 1.3. Troponin is 0.01 and 0.049. BNP is 4372. ASSESSMENT AND PLAN: 1. Accelerated hypertension. The patient is on metoprolol 25 mg b.i.d. In view of the tachycardia at this point, I will increase to 50 mg b.i.d. I will add p.r.n. clonidine to her medical regimen. 2. History of congestive heart failure. Echocardiogram from today showed poor quality study, but overall ejection fraction was grossly normal with no evidence of left ventricular hypertrophy. 3. Sepsis, on IV antibiotic per Dr. Daugherty. 4. Psychiatric history. 5. Hyponatremia. Thank you very much for allowing me to participate in the care of this patient. Please do not hesitate to contact me for any questions regarding my evaluation. Eusebio Barrow M.D. DR: Patricia JOB#: [id number] CC:
[2019-12-21] VITALS: BP 149/88
--- NOTE | 2019-12-21 03:29 | Consultation ---
DATE OF CONSULTATION: 12/20/2019 HISTORY OF PRESENT ILLNESS: The patient is an 79-year-old female who was admitted to [facility] well known to this physician from that facility. The patient has a history of schizophrenia. The patient is here for cardiology screening. She has multiple medical issues including hypertension, diabetes and schizophrenia. The patient is a poor historian, agitation and disorganized thought process. The patient is refusing care, who is uncooperative. PAST PSYCHIATRIC HISTORY: Schizophrenia. PAST MEDICAL HISTORY: As above. MEDICATIONS: The patient is taking Haldol outside of the hospital and the prison. ALLERGIES: Penicillin. SUBSTANCE ABUSE HISTORY: No known history of illicit drug use or alcohol. MENTAL STATUS EXAMINATION: The patient is alert and oriented to times, self and place. Mood is agitated. Affect is flat. Thought process is concrete. Thought content, no suicidal or homicidal ideation. Cognition is impaired. Insight and judgment non-existent. ASSESSMENT: AXIS I: Schizophrenia. AXIS II: Deferred. AXIS III: As above. AXIS IV: Low. AXIS V: 20. PLAN: 1. She is due to the Haldol. 2. Start the patient on Zyprexa, will stimulate her appetite. 3. Ativan p.r.n. 4. Continue to follow and readjust the medications. Larisa Vogel M.D. DR: Jose JOB#: [id number] CC:
[2019-12-21 04:00] VITALS: BP 156/80
[2019-12-21] MEDS: NovoLOG Insulin Flexpen SUBQ SCH ×4 (06:41→21:51)
[2019-12-21 07:17] LABS: ALANINE AMINOTRANSFERASE 28 U/L (12-78); ALBUMIN 3.2 G/DL (3.4-5.0); ALBUMIN/GLOBULIN RATIO 0.7 (1.0-2.7); ALKALINE PHOSPHATASE 114 U/L (46-116); ANION GAP 8 mmol/L (5-15); ASPARTATE AMINO TRANSFERASE 48 U/L (15-37); BILIRUBIN,TOTAL 0.5 MG/DL (0.2-1.0); BLOOD UREA NITROGEN 17 mg/dL (7-18); CALCIUM 9.4 MG/DL (8.5-10.1); CARBON DIOXIDE 34 MMOL/L (21-32); CHLORIDE 89 MMOL/L (98-107); CREATININE 1.3 MG/DL (0.55-1.30); FERRITIN 925 NG/ML (8-388); GAMMA GLUTAMYL TRANSPEPTIDASE 39 U/L (5-85); LACTATE DEHYDROGENASE 364 U/L (81-234); PHOSPHORUS 2.9 MG/DL (2.5-4.9); POTASSIUM 3.9 MMOL/L (3.5-5.1); SODIUM 131 MMOL/L (136-145)
--- NOTE | 2019-12-21 07:19 | NUR ---
HAND-OFF: Report given to FLETCHER Rivera.
--- NOTE | 2019-12-21 07:28 | NUR ---
NURSE NOTES: Received report from FLETCHER De Paz. Patient awake in bed. On nasal cannula. Patient has SOB with increased movement. IV intact, patent, and infusing IV fluids. Bed in lwoest position with call light in reach. Will continue with plan of care.
[2019-12-21 07:30] LABS: HEMATOCRIT 44.7 % (37.0-47.0); MEAN CORPUSCULAR VOLUME 90 FL (80-99); PLATELET COUNT 303 K/UL (150-450); RED BLOOD COUNT 4.99 M/UL (4.20-5.40); RED CELL DISTRIBUTION WIDTH 11.5 % (11.6-14.8); WHITE BLOOD COUNT 13.1 K/UL (4.8-10.8)
[2019-12-21 07:58] LABS: % IRON SATURATION 13 % (15-50); IRON 27 ug/dL (50-175); TOTAL IRON BINDING CAPACITY 212 ug/dL (250-450)
[2019-12-21 08:00] VITALS: BP 141/96
[2019-12-21] MEDS: Enoxaparin 40mg Inj SUBQ SCH ×2 (09:00→09:40)
[2019-12-21] MEDS: Cefepime HCl 2 GM in NS 55 ML IVPB SCH ×2 (09:34→21:32)
[2019-12-21] MEDS: Docusate 100mg cap ORAL SCH ×3 (09:39→17:45)
[2019-12-21] MEDS: Metoprolol Tartrate 50mg tab ORAL SCH ×2 (09:39→21:44)
[2019-12-21] MEDS: OLANZapine 2.5mg tab ORAL SCH (09:39)
[2019-12-21] MEDS ORDERED: NaCl 3% 500ml 250 ML IV ONE (10:00)
--- NOTE | 2019-12-21 11:20 | NUR ---
NURSE NOTES: Left message to notify Dr. Dolly DIEGO of patient's positive VRE rectum status as well as patient's urine culture results. Charge nurse aware.
--- NOTE | 2019-12-21 11:48 | Pulmonology Progress Note ---
Subjective ROS Limited/Unobtainable: Yes Interval Events: None new Constitutional: Reports: no symptoms HEENT: Repors: no symptoms Respiratory: Reports: no symptoms Cardiovascular: Reports: no symptoms Gastrointestinal/Abdominal: Reports: no symptoms Allergies: Coded Allergies: ASPIRIN (Verified Allergy, Unknown, 12/19/19) PENICILLINS (Verified Allergy, Unknown, 12/19/19) Objective Last 24 Hour Vital Signs Date Time Temp Pulse Resp B/P (MAP) Pulse Ox O2 Delivery O2 Flow Rate FiO2 12/21/19 09:39 109 141/96 12/21/19 08:00 98.4 109 20 141/96 (111) 94 12/21/19 04:00 97.9 96 24 156/80 (105) 95 12/21/19 00:00 98.0 92 32 149/88 (108) 85 12/20/19 21:10 93 170/98 12/20/19 20:22 Nasal Cannula 4.0 12/20/19 20:08 98.2 93 20 170/98 (122) 94 12/20/19 16:00 98.4 83 21 120/74 (89) 91 12/20/19 12:00 98.2 84 20 162/89 (113) 90 Intake and Output 12/20/19 12/21/19 19:00 07:00 Intake Total 755 ml 605 ml Balance 755 ml 605 ml IV Total 355 ml 605 ml Other 400 ml # Voids 3 General Appearance: no acute distress HEENT: normocephalic, atraumatic, anicteric, mucous membranes moist, PERRL Respiratory/Chest: chest wall non-tender Cardiovascular: normal peripheral pulses Abdomen: normal bowel sounds, soft, non tender, no organomegaly, non distended , no scars Microbiology Date/Time Source Procedure Growth Status 12/19/19 14:50 Blood Blood Culture - Preliminary NO GROWTH AFTER 24 HOURS Resulted 12/19/19 14:35 Blood Blood Culture - Preliminary NO GROWTH AFTER 24 HOURS Resulted 12/19/19 14:35 Urine,Clean Catch Urine Culture - Preliminary Gram Negative Bacillus 1 Gram Negative Bacillus 2 Mixed Gram Positive Organism Resulted 12/19/19 14:35 Rectum VRE Culture - Final Enterococcus Faecalis - Vre Complete Laboratory Tests 12/21/19 05:10: White Blood Count 13.1H, Red Blood Count 4.99, Hemoglobin 15.0, Hematocrit 44.7 , Mean Corpuscular Volume 90, Mean Corpuscular Hemoglobin 30.0, Mean Corpuscular Hemoglobin Concent 33.4, Red Cell Distribution Width 11.5L, Platelet Count 303, Mean Platelet Volume 5.5L, Neutrophils (%) (Auto) , Lymphocytes (%) (Auto) , Monocytes (%) (Auto) , Eosinophils (%) (Auto) , Basophils (%) (Auto) , Differential Total Cells Counted 100, Neutrophils % ( Manual) 84H, Lymphocytes % (Manual) 10L, Monocytes % (Manual) 6, Eosinophils % ( Manual) 0, Basophils % (Manual) 0, Band Neutrophils 0, Platelet Estimate Adequate, Platelet Morphology Normal, Red Blood Cell Morphology Normal, Sodium Level 131L, Potassium Level 3.9, Chloride Level 89L, Carbon Dioxide Level 34H, Anion Gap 8, Blood Urea Nitrogen 17, Creatinine 1.3, Estimat Glomerular Filtration Rate 47.8, Glucose Level 195H, Uric Acid 6.2, Calcium Level 9.4, Phosphorus Level 2.9, Magnesium Level 1.9, Iron Level 27L, Total Iron Binding Capacity 212L, Percent Iron Saturation 13L, Unsaturated Iron Binding 185, Ferritin 925H, Total Bilirubin 0.5, Gamma Glutamyl Transpeptidase 39, Aspartate Amino Transf (AST/SGOT) 48H, Alanine Aminotransferase (ALT/SGPT) 28, Alkaline Phosphatase 114, Lactate Dehydrogenase 364H, Troponin I 0.034, C-Reactive Protein, Quantitative 9.8H, Pro-B-Type Natriuretic Peptide 3656H, Total Protein 8.0, Albumin 3.2L, Globulin 4.8, Albumin/Globulin Ratio 0.7L, Vitamin B12 Level 1781H, Folate 13.6 12/21/19 08:10: D-Dimer 0.95H Current Medications Medications (Trade) Dose Ordered Sig/Daiana Route PRN Reason Start Time Stop Time Status Last Admin Dose Admin Acetaminophen (Tylenol) 650 mg Q6H PRN ORAL MILD/TEMP 12/19/19 23:30 01/18/20 23:29 12/20/19 08:46 Acetaminophen/ Hydrocodone Bitart (Cross 5/325) 1 tab Q4H PRN ORAL Moderate Pain (Pain Scale 4-6) 12/19/19 23:30 12/26/19 23:29 Albuterol/ Ipratropium (Albuterol/ Ipratropium) 3 ml Q4H PRN HHN Shortness of Breath 12/19/19 23:45 12/24/19 23:44 Azithromycin 250 mg/Sodium Chloride 275 ml @ 275 mls/hr Q24HRS IV 12/20/19 18:00 12/25/19 17:59 12/20/19 18:01 Cefepime HCl 2 gm/ Sodium Chloride 55 ml @ 110 mls/hr Q12HR IVPB 12/20/19 21:00 12/27/19 20:59 12/21/19 09:34 Clopidogrel Bisulfate (Plavix) 75 mg DAILY ORAL 12/20/19 09:00 01/19/20 08:59 12/21/19 09:39 Dextrose (Dextrose 50%) 25 ml Q30M PRN IV Hypoglycemia 12/19/19 23:30 03/18/20 23:29 Dextrose (Dextrose 50%) 50 ml Q30M PRN IV Hypoglycemia 12/19/19 23:30 03/18/20 23:29 Docusate Sodium (Colace) 100 mg THREE TIMES A DAY ORAL 12/20/19 18:00 01/19/20 17:59 12/21/19 09:39 Enoxaparin Sodium (Lovenox) 40 mg DAILY SUBQ 12/20/19 09:00 03/19/20 08:59 12/20/19 08:48 Insulin Aspart (NovoLOG) BEFORE MEALS AND HS SUBQ 12/20/19 06:30 03/19/20 06:29 12/21/19 06:41 Lorazepam (Ativan) 1 mg Q6H PRN ORAL For Anxiety 12/20/19 23:30 12/27/19 23:29 Metoprolol Tartrate (Lopressor) 50 mg EVERY 12 HOURS ORAL 12/20/19 21:00 03/19/20 08:59 12/21/19 09:39 Morphine Sulfate (Morphine Sulfate) 2 mg Q8H PRN IVP Severe Pain (Pain Scale 7-10) 12/19/19 23:30 12/26/19 23:29 Olanzapine (ZyPREXA) 2.5 mg DAILY ORAL 12/21/19 09:00 02/04/20 08:59 12/21/19 09:39 Olanzapine (ZyPREXA) 5 mg BEDTIME ORAL 12/21/19 21:00 02/04/20 20:59 Pantoprazole (Protonix) 40 mg EVERY 12 HOURS ORAL 12/20/19 21:00 01/19/20 20:59 12/21/19 09:39 Promethazine HCl (Phenergan Plain) 12.5 mg Q6H PRN ORAL For Cough 12/19/19 23:45 01/18/20 23:44 Sodium Chloride 250 ml @ 30 mls/hr ONCE ONCE IV 12/21/19 10:00 12/21/19 18:19 12/21/19 10:44 Zolpidem Tartrate (Ambien) 5 mg HSPRN PRN ORAL Insomnia 12/19/19 23:30 12/26/19 23:29 Assessment/Plan Assessment/Plan IMPRESSION: 1. Rule out COVID-19. 2. Possible UTI. 3. Leukocytosis. 4. Hypoxemia. 5. Schizophrenia. 6. Hypertension. 7. Diabetes mellitus. 8. COPD. 9. CHF. DISCUSSION: Admitted to the hospital. Continue broad-spectrum antibiotics. Continue oxygen and pulmonary hygiene. Broad-spectrum antibiotics needed along with fluids. DVT prophylaxis. I will follow carefully. Nava Benitez Omar Syed MD December 21, 2019 11:48
--- NOTE | 2019-12-21 12:28 | General Progress Note ---
Assessment/Plan Status: stable Assessment/Plan: S, O: poor historian, seems comfortable. Decline cognition PHYSICAL EXAMINATION:HEAD AND NECK: Atraumatic and normocephalic. CHEST: Bronchial breathing sounds.HEART: S1 and S2. Regular rate and rhythm. ABDOMEN: Soft. No organomegaly.MUSCULOSKELETAL: No gross focal motor deficit. NEUROLOGY: Patient is awake, alert x1. Easily distracted. LABORATORY DATA: Dated 12/20 reviewed ASSESSMENT: 1. Sepsis 2. UTI - Gram negative 3. Pneumonia. 3. Renal failure, age indeterminate. 4. Diabetes type 2. 5. Hypertension. 6. Hyperlipidemia. 7. Coronary artery disease/peripheral arterial disease. Continue with antiplatelet. 8. GI and DVT prophylaxis. PLAN OF CARE: Continue with culture-targeted antibiotic treatment. Notes from Infectious Disease, Nephrology, Pulmonary have been reviewed. check hepatitis panel Subjective Allergies: Coded Allergies: ASPIRIN (Verified Allergy, Unknown, 12/19/19) PENICILLINS (Verified Allergy, Unknown, 12/19/19) Objective Last 24 Hour Vital Signs Date Time Temp Pulse Resp B/P (MAP) Pulse Ox O2 Delivery O2 Flow Rate FiO2 12/21/19 09:39 109 141/96 12/21/19 08:00 98.4 109 20 141/96 (111) 94 12/21/19 04:00 97.9 96 24 156/80 (105) 95 12/21/19 00:00 98.0 92 32 149/88 (108) 85 12/20/19 21:10 93 170/98 12/20/19 20:22 Nasal Cannula 4.0 12/20/19 20:08 98.2 93 20 170/98 (122) 94 12/20/19 16:00 98.4 83 21 120/74 (89) 91 Intake and Output 12/20/19 12/21/19 19:00 07:00 Intake Total 755 ml 605 ml Balance 755 ml 605 ml IV Total 355 ml 605 ml Other 400 ml # Voids 3 Laboratory Tests 12/21/19 05:10: White Blood Count 13.1H, Red Blood Count 4.99, Hemoglobin 15.0, Hematocrit 44.7 , Mean Corpuscular Volume 90, Mean Corpuscular Hemoglobin 30.0, Mean Corpuscular Hemoglobin Concent 33.4, Red Cell Distribution Width 11.5L, Platelet Count 303, Mean Platelet Volume 5.5L, Neutrophils (%) (Auto) , Lymphocytes (%) (Auto) , Monocytes (%) (Auto) , Eosinophils (%) (Auto) , Basophils (%) (Auto) , Differential Total Cells Counted 100, Neutrophils % ( Manual) 84H, Lymphocytes % (Manual) 10L, Monocytes % (Manual) 6, Eosinophils % ( Manual) 0, Basophils % (Manual) 0, Band Neutrophils 0, Platelet Estimate Adequate, Platelet Morphology Normal, Red Blood Cell Morphology Normal, Sodium Level 131L, Potassium Level 3.9, Chloride Level 89L, Carbon Dioxide Level 34H, Anion Gap 8, Blood Urea Nitrogen 17, Creatinine 1.3, Estimat Glomerular Filtration Rate 47.8, Glucose Level 195H, Uric Acid 6.2, Calcium Level 9.4, Phosphorus Level 2.9, Magnesium Level 1.9, Iron Level 27L, Total Iron Binding Capacity 212L, Percent Iron Saturation 13L, Unsaturated Iron Binding 185, Ferritin 925H, Total Bilirubin 0.5, Gamma Glutamyl Transpeptidase 39, Aspartate Amino Transf (AST/SGOT) 48H, Alanine Aminotransferase (ALT/SGPT) 28, Alkaline Phosphatase 114, Lactate Dehydrogenase 364H, Troponin I 0.034, C-Reactive Protein, Quantitative 9.8H, Pro-B-Type Natriuretic Peptide 3656H, Total Protein 8.0, Albumin 3.2L, Globulin 4.8, Albumin/Globulin Ratio 0.7L, Vitamin B12 Level 1781H, Folate 13.6 12/21/19 08:10: D-Dimer 0.95H Height (Feet): 5 Height (Inches): 6.00 Weight (Pounds): 150 Jennifer Alberto MD December 21, 2019 12:28
--- NOTE | 2019-12-21 13:20 | Nephrology Progress Note ---
Assessment/Plan Problem List: (1) Hyponatremia Assessment: Likely depletional (2) Diabetes mellitus Assessment: With elevated hemoglobin A1c (3) UTI (urinary tract infection) (4) COVID-19 Assessment Patient presents with hyponatremia, urine spot sodium below 20. Hyponatremia most likely depletional Azotemia / dehydration Sepsis, positive COVID-19 test, UTI Diabetes mellitus [id number] with high hemoglobin A1c History of psych disease Plan Saline hydration Monitor electrolytes and renal parameters Antibiotics per ID Monitor electrolytes and renal parameters Per orders Per consultants Subjective ROS Limited/Unobtainable: No Constitutional: Reports: malaise, weakness Objective Objective Last 24 Hour Vital Signs Date Time Temp Pulse Resp B/P (MAP) Pulse Ox O2 Delivery O2 Flow Rate FiO2 12/21/19 09:39 109 141/96 12/21/19 08:00 98.4 109 20 141/96 (111) 94 12/21/19 04:00 97.9 96 24 156/80 (105) 95 12/21/19 00:00 98.0 92 32 149/88 (108) 85 12/20/19 21:10 93 170/98 12/20/19 20:22 Nasal Cannula 4.0 12/20/19 20:08 98.2 93 20 170/98 (122) 94 12/20/19 16:00 98.4 83 21 120/74 (89) 91 Intake and Output 12/20/19 12/21/19 19:00 07:00 Intake Total 755 ml 605 ml Balance 755 ml 605 ml IV Total 355 ml 605 ml Other 400 ml # Voids 3 Laboratory Tests 12/21/19 05:10: White Blood Count 13.1H, Red Blood Count 4.99, Hemoglobin 15.0, Hematocrit 44.7 , Mean Corpuscular Volume 90, Mean Corpuscular Hemoglobin 30.0, Mean Corpuscular Hemoglobin Concent 33.4, Red Cell Distribution Width 11.5L, Platelet Count 303, Mean Platelet Volume 5.5L, Neutrophils (%) (Auto) , Lymphocytes (%) (Auto) , Monocytes (%) (Auto) , Eosinophils (%) (Auto) , Basophils (%) (Auto) , Differential Total Cells Counted 100, Neutrophils % ( Manual) 84H, Lymphocytes % (Manual) 10L, Monocytes % (Manual) 6, Eosinophils % ( Manual) 0, Basophils % (Manual) 0, Band Neutrophils 0, Platelet Estimate Adequate, Platelet Morphology Normal, Red Blood Cell Morphology Normal, Sodium Level 131L, Potassium Level 3.9, Chloride Level 89L, Carbon Dioxide Level 34H, Anion Gap 8, Blood Urea Nitrogen 17, Creatinine 1.3, Estimat Glomerular Filtration Rate 47.8, Glucose Level 195H, Uric Acid 6.2, Calcium Level 9.4, Phosphorus Level 2.9, Magnesium Level 1.9, Iron Level 27L, Total Iron Binding Capacity 212L, Percent Iron Saturation 13L, Unsaturated Iron Binding 185, Ferritin 925H, Total Bilirubin 0.5, Gamma Glutamyl Transpeptidase 39, Aspartate Amino Transf (AST/SGOT) 48H, Alanine Aminotransferase (ALT/SGPT) 28, Alkaline Phosphatase 114, Lactate Dehydrogenase 364H, Troponin I 0.034, C-Reactive Protein, Quantitative 9.8H, Pro-B-Type Natriuretic Peptide 3656H, Total Protein 8.0, Albumin 3.2L, Globulin 4.8, Albumin/Globulin Ratio 0.7L, Vitamin B12 Level 1781H, Folate 13.6 12/21/19 08:10: D-Dimer 0.95H Height (Feet): 5 Height (Inches): 6.00 Weight (Pounds): 150 General Appearance: no apparent distress Cardiovascular: tachycardia Respiratory/Chest: decreased breath sounds Abdomen: soft Objective No change Rolo Roldan MD December 21, 2019 13:20
--- NOTE | 2019-12-21 13:40 | Cardiac Electrophysiology PN ---
Assessment/Plan Assessment/Plan 1. Accelerated hypertension. On metoprolol 50 mg b.i.d. and p.r.n. clonidine 2. History of congestive heart failure. Echocardiogram overall ejection fraction was grossly normal with no evidence of left ventricular hypertrophy. 3. Sepsis, on IV antibiotic per Dr. Daugherty. 4. Psychiatric history. 5. Hyponatremia. KARLY RN Subjective Subjective Alert in NAD on NMB in [facility]. Objective Last 24 Hour Vital Signs Date Time Temp Pulse Resp B/P (MAP) Pulse Ox O2 Delivery O2 Flow Rate FiO2 12/21/19 09:39 109 141/96 12/21/19 08:00 98.4 109 20 141/96 (111) 94 12/21/19 04:00 97.9 96 24 156/80 (105) 95 12/21/19 00:00 98.0 92 32 149/88 (108) 85 12/20/19 21:10 93 170/98 12/20/19 20:22 Nasal Cannula 4.0 12/20/19 20:08 98.2 93 20 170/98 (122) 94 12/20/19 16:00 98.4 83 21 120/74 (89) 91 Intake and Output 12/20/19 12/21/19 19:00 07:00 Intake Total 755 ml 605 ml Balance 755 ml 605 ml IV Total 355 ml 605 ml Other 400 ml # Voids 3 Laboratory Tests Test 12/21/19 05:10 12/21/19 08:10 White Blood Count 13.1 K/UL (4.8-10.8) H Red Blood Count 4.99 M/UL (4.20-5.40) Hemoglobin 15.0 G/DL (12.0-16.0) Hematocrit 44.7 % (37.0-47.0) Mean Corpuscular Volume 90 FL (80-99) Mean Corpuscular Hemoglobin 30.0 PG (27.0-31.0) Mean Corpuscular Hemoglobin Concent 33.4 G/DL (32.0-36.0) Red Cell Distribution Width 11.5 % (11.6-14.8) L Platelet Count 303 K/UL (150-450) Mean Platelet Volume 5.5 FL (6.5-10.1) L Neutrophils (%) (Auto) % (45.0-75.0) Lymphocytes (%) (Auto) % (20.0-45.0) Monocytes (%) (Auto) % (1.0-10.0) Eosinophils (%) (Auto) % (0.0-3.0) Basophils (%) (Auto) % (0.0-2.0) Differential Total Cells Counted 100 Neutrophils % (Manual) 84 % (45-75) H Lymphocytes % (Manual) 10 % (20-45) L Monocytes % (Manual) 6 % (1-10) Eosinophils % (Manual) 0 % (0-3) Basophils % (Manual) 0 % (0-2) Band Neutrophils 0 % (0-8) Platelet Estimate Adequate Platelet Morphology Normal Red Blood Cell Morphology Normal Sodium Level 131 MMOL/L (136-145) L Potassium Level 3.9 MMOL/L (3.5-5.1) Chloride Level 89 MMOL/L (98-107) L Carbon Dioxide Level 34 MMOL/L (21-32) H Anion Gap 8 mmol/L (5-15) Blood Urea Nitrogen 17 mg/dL (7-18) Creatinine 1.3 MG/DL (0.55-1.30) Estimat Glomerular Filtration Rate 47.8 mL/min (>60) Glucose Level 195 MG/DL (74-106) H Uric Acid 6.2 MG/DL (2.6-7.2) Calcium Level 9.4 MG/DL (8.5-10.1) Phosphorus Level 2.9 MG/DL (2.5-4.9) Magnesium Level 1.9 MG/DL (1.8-2.4) Iron Level 27 ug/dL (50-175) L Total Iron Binding Capacity 212 ug/dL (250-450) L Percent Iron Saturation 13 % (15-50) L Unsaturated Iron Binding 185 ug/dL (112-346) Ferritin 925 NG/ML (8-388) H Total Bilirubin 0.5 MG/DL (0.2-1.0) Gamma Glutamyl Transpeptidase 39 U/L (5-85) Aspartate Amino Transf (AST/SGOT) 48 U/L (15-37) H Alanine Aminotransferase (ALT/SGPT) 28 U/L (12-78) Alkaline Phosphatase 114 U/L (46-116) Lactate Dehydrogenase 364 U/L (81-234) H Troponin I 0.034 ng/mL (0.000-0.056) C-Reactive Protein, Quantitative 9.8 mg/dL (0.00-0.90) H Pro-B-Type Natriuretic Peptide 3656 pg/mL (0-125) H Total Protein 8.0 G/DL (6.4-8.2) Albumin 3.2 G/DL (3.4-5.0) L Globulin 4.8 g/dL Albumin/Globulin Ratio 0.7 (1.0-2.7) L Vitamin B12 Level 1781 PG/ML (193-986) H Folate 13.6 NG/ML (8.6-58.9) D-Dimer 0.95 mg/L FEU (0.00-0.49) H Microbiology Date/Time Source Procedure Growth Status 12/19/19 14:50 Blood Blood Culture - Preliminary NO GROWTH AFTER 24 HOURS Resulted 12/19/19 14:35 Blood Blood Culture - Preliminary NO GROWTH AFTER 24 HOURS Resulted 12/19/19 14:35 Urine,Clean Catch Urine Culture - Preliminary Gram Negative Bacillus 1 Gram Negative Bacillus 2 Mixed Gram Positive Organism Resulted 12/19/19 14:35 Rectum VRE Culture - Final Enterococcus Faecalis - Vre Complete Objective HEAD AND NECK: No JVD. LUNGS: Clear. CARDIOVASCULAR: Regular S1 and S2 with no gallop. ABDOMEN: Soft. EXTREMITIES: No edema. Eusebio Barrow MD December 21, 2019 13:40
[2019-12-21] MEDS: HYDROcodone/Acetamin 5/325 tab ORAL PRN ×2 (14:10→22:49)
--- NOTE | 2019-12-21 15:16 | NUR ---
CASE MANAGEMENT: REVIEW 12/21/2019 SI: SEPSIS. UTI. T 98.4 HR 109 RR 20 B/P 141/96 SATS 94% ON 4L/NC LABS: WBC 13.1 NA 131 CL 89 CO2 34 GLU 195 LDH 364 BNP 3656 IS:LOPRESSOR PO Q12H PLAVIX PO QD INSULIN ASPART SUBQ AC/HS CEFEPIME IV Q12H AZITHROMYCIN IV Q24H MED/SURG
--- NOTE | 2019-12-21 18:27 | NUR ---
NURSE NOTES: Notified Dr. Daugherty about patient's positive VRE rectum results. No orders given.
[2019-12-21] MEDS: Azithromycin 250 MG in NS 275 ML IV SCH (18:51)
--- NOTE | 2019-12-21 21:25 | Infectious Diseases Prog Note ---
Assessment/Plan Problems: (1) Pneumonia Assessment & Plan: with RLL infiltrates, continue cefepime and azithromycin , monitor CXR, Aspiration precaution (2) UTI (urinary tract infection) Assessment & Plan: with multiple gram negative and positive organisms , on cefepime pending final urine culture (3) COVID-19 Assessment & Plan: await nasal swab with PCR to confirm if not done in ED , KEEP IN ENHANCED DROPLETS ISOLATION , supportive care (4) Diabetes mellitus Assessment & Plan: recommend tight glycemic control to keep blood glucose between 100-140 (5) COPD (chronic obstructive pulmonary disease) Assessment & Plan: continue inhalers , antibiotics and oxygen as needed , AVOID STEROIDS Subjective ROS Limited/Unobtainable: Yes Allergies: Coded Allergies: ASPIRIN (Verified Allergy, Unknown, 12/19/19) PENICILLINS (Verified Allergy, Unknown, 12/19/19) Subjective she was alert and oriented but confused, has mild cough but no SOB, no fever or chills, no nausea or vomiting , no diarrhea Objective Vital Signs Last 24 Hour Vital Signs Date Time Temp Pulse Resp B/P (MAP) Pulse Ox O2 Delivery O2 Flow Rate FiO2 12/21/19 09:39 109 141/96 12/21/19 09:00 Nasal Cannula 4.0 12/21/19 08:00 98.4 109 20 141/96 (111) 94 12/21/19 04:00 97.9 96 24 156/80 (105) 95 12/21/19 00:00 98.0 92 32 149/88 (108) 85 Height (Feet): 5 Height (Inches): 6.00 Weight (Pounds): 150 General Appearance: WD/WN, no acute distress HEENT: normocephalic, atraumatic, anicteric, mucous membranes moist, PERRL Respiratory/Chest: chest wall non-tender, lungs clear, normal breath sounds, no respiratory distress, no accessory muscle use Cardiovascular: normal peripheral pulses, normal rate, regular rhythm, no gallop/murmur, no JVD Abdomen: normal bowel sounds, soft, non tender, no organomegaly, non distended , no mass, no scars Genitourinary: normal external genitalia Extremities: no cyanosis, no clubbing Skin: no rash, no lesions, no ulcers Neurologic/Psychiatric: alert Lymphatic: no neck adenopathy, no groin adenopathy Musculoskeletal: normal muscle bulk, no effusion Microbiology Date/Time Source Procedure Growth Status 12/19/19 14:50 Blood Blood Culture - Preliminary NO GROWTH AFTER 24 HOURS Resulted 12/19/19 14:35 Blood Blood Culture - Preliminary NO GROWTH AFTER 24 HOURS Resulted 12/19/19 14:35 Urine,Clean Catch Urine Culture - Preliminary Gram Negative Bacillus 1 Gram Negative Bacillus 2 Mixed Gram Positive Organism Resulted 12/19/19 14:35 Rectum VRE Culture - Final Enterococcus Faecalis - Vre Complete Laboratory Tests Test 12/21/19 05:10 12/21/19 08:10 12/21/19 17:55 White Blood Count 13.1 K/UL (4.8-10.8) H Red Blood Count 4.99 M/UL (4.20-5.40) Hemoglobin 15.0 G/DL (12.0-16.0) Hematocrit 44.7 % (37.0-47.0) Mean Corpuscular Volume 90 FL (80-99) Mean Corpuscular Hemoglobin 30.0 PG (27.0-31.0) Mean Corpuscular Hemoglobin Concent 33.4 G/DL (32.0-36.0) Red Cell Distribution Width 11.5 % (11.6-14.8) L Platelet Count 303 K/UL (150-450) Mean Platelet Volume 5.5 FL (6.5-10.1) L Neutrophils (%) (Auto) % (45.0-75.0) Lymphocytes (%) (Auto) % (20.0-45.0) Monocytes (%) (Auto) % (1.0-10.0) Eosinophils (%) (Auto) % (0.0-3.0) Basophils (%) (Auto) % (0.0-2.0) Differential Total Cells Counted 100 Neutrophils % (Manual) 84 % (45-75) H Lymphocytes % (Manual) 10 % (20-45) L Monocytes % (Manual) 6 % (1-10) Eosinophils % (Manual) 0 % (0-3) Basophils % (Manual) 0 % (0-2) Band Neutrophils 0 % (0-8) Platelet Estimate Adequate Platelet Morphology Normal Red Blood Cell Morphology Normal Sodium Level 131 MMOL/L (136-145) L Potassium Level 3.9 MMOL/L (3.5-5.1) Chloride Level 89 MMOL/L (98-107) L Carbon Dioxide Level 34 MMOL/L (21-32) H Anion Gap 8 mmol/L (5-15) Blood Urea Nitrogen 17 mg/dL (7-18) Creatinine 1.3 MG/DL (0.55-1.30) Estimat Glomerular Filtration Rate 47.8 mL/min (>60) Glucose Level 195 MG/DL (74-106) H Uric Acid 6.2 MG/DL (2.6-7.2) Calcium Level 9.4 MG/DL (8.5-10.1) Phosphorus Level 2.9 MG/DL (2.5-4.9) Magnesium Level 1.9 MG/DL (1.8-2.4) Iron Level 27 ug/dL (50-175) L Total Iron Binding Capacity 212 ug/dL (250-450) L Percent Iron Saturation 13 % (15-50) L Unsaturated Iron Binding 185 ug/dL (112-346) Ferritin 925 NG/ML (8-388) H Total Bilirubin 0.5 MG/DL (0.2-1.0) Gamma Glutamyl Transpeptidase 39 U/L (5-85) Aspartate Amino Transf (AST/SGOT) 48 U/L (15-37) H Alanine Aminotransferase (ALT/SGPT) 28 U/L (12-78) Alkaline Phosphatase 114 U/L (46-116) Lactate Dehydrogenase 364 U/L (81-234) H Troponin I 0.034 ng/mL (0.000-0.056) C-Reactive Protein, Quantitative 9.8 mg/dL (0.00-0.90) H Pro-B-Type Natriuretic Peptide 3656 pg/mL (0-125) H Total Protein 8.0 G/DL (6.4-8.2) Albumin 3.2 G/DL (3.4-5.0) L Globulin 4.8 g/dL Albumin/Globulin Ratio 0.7 (1.0-2.7) L Vitamin B12 Level 1781 PG/ML (193-986) H Folate 13.6 NG/ML (8.6-58.9) D-Dimer 0.95 mg/L FEU (0.00-0.49) H Hepatitis A IgM Antibody Pending Hepatitis B Surface Antigen Pending Hepatitis B Core IgM Antibody Pending Hepatitis C Antibody Pending Current Medications Medications (Trade) Dose Ordered Sig/Daiana Route PRN Reason Start Time Stop Time Status Last Admin Dose Admin Acetaminophen (Tylenol) 650 mg Q6H PRN ORAL MILD/TEMP 12/19/19 23:30 01/18/20 23:29 12/20/19 08:46 Acetaminophen/ Hydrocodone Bitart ([place] 5/325) 1 tab Q4H PRN ORAL Moderate Pain (Pain Scale 4-6) 12/19/19 23:30 12/26/19 23:29 12/21/19 14:10 Albuterol/ Ipratropium (Albuterol/ Ipratropium) 3 ml Q4H PRN HHN Shortness of Breath 12/19/19 23:45 12/24/19 23:44 Azithromycin 250 mg/Sodium Chloride 275 ml @ 275 mls/hr Q24HRS IV 12/20/19 18:00 12/25/19 17:59 12/21/19 18:51 Cefepime HCl 2 gm/ Sodium Chloride 55 ml @ 110 mls/hr Q12HR IVPB 12/20/19 21:00 12/27/19 20:59 12/21/19 09:34 Clopidogrel Bisulfate (Plavix) 75 mg DAILY ORAL 12/20/19 09:00 01/19/20 08:59 12/21/19 09:39 Dextrose (Dextrose 50%) 25 ml Q30M PRN IV Hypoglycemia 12/19/19 23:30 03/18/20 23:29 Dextrose (Dextrose 50%) 50 ml Q30M PRN IV Hypoglycemia 12/19/19 23:30 03/18/20 23:29 Docusate Sodium (Colace) 100 mg THREE TIMES A DAY ORAL 12/20/19 18:00 01/19/20 17:59 12/21/19 17:45 Enoxaparin Sodium (Lovenox) 40 mg DAILY SUBQ 12/20/19 09:00 03/19/20 08:59 12/20/19 08:48 Insulin Aspart (NovoLOG) BEFORE MEALS AND HS SUBQ 12/20/19 06:30 03/19/20 06:29 12/21/19 15:45 Lorazepam (Ativan) 1 mg Q6H PRN ORAL For Anxiety 12/20/19 23:30 12/27/19 23:29 Metoprolol Tartrate (Lopressor) 50 mg EVERY 12 HOURS ORAL 12/20/19 21:00 03/19/20 08:59 12/21/19 09:39 Morphine Sulfate (Morphine Sulfate) 2 mg Q8H PRN IVP Severe Pain (Pain Scale 7-10) 12/19/19 23:30 12/26/19 23:29 Olanzapine (ZyPREXA) 2.5 mg DAILY ORAL 12/21/19 09:00 02/04/20 08:59 12/21/19 09:39 Olanzapine (ZyPREXA) 5 mg BEDTIME ORAL 12/21/19 21:00 02/04/20 20:59 Pantoprazole (Protonix) 40 mg EVERY 12 HOURS ORAL 12/20/19 21:00 01/19/20 20:59 12/21/19 09:39 Promethazine HCl (Phenergan Plain) 12.5 mg Q6H PRN ORAL For Cough 12/19/19 23:45 01/18/20 23:44 Zolpidem Tartrate (Ambien) 5 mg HSPRN PRN ORAL Insomnia 12/19/19 23:30 12/26/19 23:29 Abigail Daugherty M.D. December 21, 2019 21:25
--- NOTE | 2019-12-21 23:48 | Psych Consult Progress Note ---
Psychiatry Progress Note Psychiatry Progress Note Medications Current Medications Medications (Trade) Dose Ordered Sig/Daiana Route PRN Reason Start Time Stop Time Status Last Admin Dose Admin Acetaminophen (Tylenol) 650 mg Q6H PRN ORAL MILD/TEMP 12/19/19 23:30 01/18/20 23:29 12/20/19 08:46 Acetaminophen/ Hydrocodone Bitart ([place] 5/325) 1 tab Q4H PRN ORAL Moderate Pain (Pain Scale 4-6) 12/19/19 23:30 12/26/19 23:29 12/21/19 22:49 Albuterol/ Ipratropium (Albuterol/ Ipratropium) 3 ml Q4H PRN HHN Shortness of Breath 12/19/19 23:45 12/24/19 23:44 Azithromycin 250 mg/Sodium Chloride 275 ml @ 275 mls/hr Q24HRS IV 12/20/19 18:00 12/25/19 17:59 12/21/19 18:51 Cefepime HCl 2 gm/ Sodium Chloride 55 ml @ 110 mls/hr Q12HR IVPB 12/20/19 21:00 12/27/19 20:59 12/21/19 21:32 Clopidogrel Bisulfate (Plavix) 75 mg DAILY ORAL 12/20/19 09:00 01/19/20 08:59 12/21/19 09:39 Dextrose (Dextrose 50%) 25 ml Q30M PRN IV Hypoglycemia 12/19/19 23:30 03/18/20 23:29 Dextrose (Dextrose 50%) 50 ml Q30M PRN IV Hypoglycemia 12/19/19 23:30 03/18/20 23:29 Docusate Sodium (Colace) 100 mg THREE TIMES A DAY ORAL 12/20/19 18:00 01/19/20 17:59 12/21/19 17:45 Enoxaparin Sodium (Lovenox) 40 mg DAILY SUBQ 12/20/19 09:00 03/19/20 08:59 12/20/19 08:48 Insulin Aspart (NovoLOG) BEFORE MEALS AND HS SUBQ 12/20/19 06:30 03/19/20 06:29 12/21/19 15:45 Lorazepam (Ativan) 1 mg Q6H PRN ORAL For Anxiety 12/20/19 23:30 12/27/19 23:29 Metoprolol Tartrate (Lopressor) 50 mg EVERY 12 HOURS ORAL 12/20/19 21:00 03/19/20 08:59 12/21/19 21:44 Morphine Sulfate (Morphine Sulfate) 2 mg Q8H PRN IVP Severe Pain (Pain Scale 7-10) 12/19/19 23:30 12/26/19 23:29 Olanzapine (ZyPREXA) 2.5 mg DAILY ORAL 12/21/19 09:00 02/04/20 08:59 12/21/19 09:39 Olanzapine (ZyPREXA) 5 mg BEDTIME ORAL 12/21/19 21:00 02/04/20 20:59 12/21/19 21:33 Pantoprazole (Protonix) 40 mg EVERY 12 HOURS ORAL 12/20/19 21:00 01/19/20 20:59 12/21/19 21:33 Promethazine HCl (Phenergan Plain) 12.5 mg Q6H PRN ORAL For Cough 12/19/19 23:45 01/18/20 23:44 Zolpidem Tartrate (Ambien) 5 mg HSPRN PRN ORAL Insomnia 12/19/19 23:30 12/26/19 23:29 Neurological/Psychiatric: Reports: anxiety, depressed Allergies: Coded Allergies: ASPIRIN (Verified Allergy, Unknown, 12/19/19) PENICILLINS (Verified Allergy, Unknown, 12/19/19) Objective Data Height (Feet): 5 Height (Inches): 6.00 Weight (Pounds): 150 General Appearance: no apparent distress, alert, alert oriented x3 Additional Comments: alert and oriented to times, self and place. Mood is agitated. Affect is flat. Thought process is concrete. Thought content, no suicidal or homicidal ideation. Cognition is impaired. Insight and judgment non-existent. Assessment/Plan [place] I: ASSESSMENT: [place] I: Schizophrenia. Status: stable Assessment/Plan: PLAN: 1. Start the patient on Zyprexa, will stimulate her appetite. 3. Ativan p.r.n. 4. Continue to follow and readjust the medications. Larisa Vogel MD December 21, 2019 23:48
[2019-12-22] VITALS: BP 138/76
--- NOTE | 2019-12-22 | NUR ---
HAND-OFF: Report given to FLETCHER Hess.
--- NOTE | 2019-12-22 00:06 | NUR ---
NURSE NOTES: Received report from mika. patient is lying on bed with legs hanging on the edge. patient said" its a comfortable position for her". per mika, " he prefers that position". mika called the respiratory therapist regarding the saturation of 85 and complaints of shortness of breath. the RT put her to 1 lpm per nasal cannula at 97%. patient denies any pain or discomfort at the moment. iv line on the right hand, saline lock. reiterated to call and ask for help when going to the bathroom to prevent fall. bed locked and in lowest position. call light and light button within easy reach. will continue plan of care.
--- NOTE | 2019-12-22 02:41 | NUR ---
NURSE NOTES: patient is having shortness of breath with 02 sat of 75%. on nasal cannula at 1 lpm. head of bed elevated. called respiratory therapist (RT). RT came and assessed the patient with 02 sat of 75%. he changed to venturi mask with fi02 of 55; saturating at 90-94%. reiterated to patient to keep the mask on, and do not attempt to remove it. patient verbalized understanding. advised patient to use the call light if she still complaints of SOB. call light and light button within easy reach. charge nurse made aware
[2019-12-22] MEDS: NovoLOG Insulin Flexpen SUBQ SCH ×4 (05:49→21:00)
--- NOTE | 2019-12-22 06:00 | NUR ---
NURSE NOTES: Patient refused blood draw. lety ([employer])) tried , patient still refused. per lety, she will try again later. charge nurse made aware.
--- NOTE | 2019-12-22 07:46 | NUR ---
HAND-OFF: Report given to zara alvarez rn.
[2019-12-22 08:00] VITALS: BP 137/83
--- NOTE | 2019-12-22 08:00 | NUR ---
NURSE NOTES: Patient awake and alert,respirations unlabored.patient on venturi mask,patient sitting up in bed.Breakfast at bedide,bed alarm on,call light within reach.
[2019-12-22] MEDS: Enoxaparin 40mg Inj SUBQ SCH (09:04)
[2019-12-22] MEDS: Docusate 100mg cap ORAL SCH ×3 (09:05→18:00)
[2019-12-22] MEDS: OLANZapine 2.5mg tab ORAL SCH (09:05)
[2019-12-22] MEDS: Metoprolol Tartrate 50mg tab ORAL SCH ×3 (09:11→22:29)
[2019-12-22] MEDS: Cefepime HCl 2 GM in NS 55 ML IVPB SCH ×2 (09:11→22:30)
[2019-12-22] MEDS: HYDROcodone/Acetamin 5/325 tab ORAL PRN (11:54)
--- NOTE | 2019-12-22 12:21 | Pulmonology Progress Note ---
Subjective ROS Limited/Unobtainable: Yes Interval Events: None new Constitutional: Reports: no symptoms HEENT: Repors: no symptoms Respiratory: Reports: no symptoms Cardiovascular: Reports: no symptoms Gastrointestinal/Abdominal: Reports: no symptoms Allergies: Coded Allergies: ASPIRIN (Verified Allergy, Unknown, 12/19/19) PENICILLINS (Verified Allergy, Unknown, 12/19/19) Objective Last 24 Hour Vital Signs Date Time Temp Pulse Resp B/P (MAP) Pulse Ox O2 Delivery O2 Flow Rate FiO2 12/22/19 09:11 94 150/106 12/22/19 09:00 Nasal Cannula 1.0 12/22/19 08:00 98.1 80 17 137/83 (101) 98 12/22/19 00:00 97.8 97 20 138/76 (96) 89 12/21/19 21:44 103 157/83 12/21/19 21:00 Nasal Cannula 1.0 12/21/19 20:18 97 Nasal Cannula 5.0 40 Intake and Output 12/21/19 12/22/19 19:00 07:00 Intake Total 480 ml 350 ml Balance 480 ml 350 ml Intake Oral 480 ml 350 ml # Voids 6 2 General Appearance: no acute distress HEENT: normocephalic Respiratory: chest wall non-tender Cardiovascular: normal peripheral pulses Abdomen: normal bowel sounds Microbiology Date/Time Source Procedure Growth Status 12/19/19 14:50 Blood Blood Culture - Preliminary NO GROWTH AFTER 48 HOURS Resulted 12/19/19 14:35 Blood Blood Culture - Preliminary NO GROWTH AFTER 48 HOURS Resulted 12/20/19 11:53 Nasopharynx Coronavirus COVID-19 PCR ([facility]) - Final Complete 12/19/19 14:35 Nasal Nares MRSA Culture - Final NO METHICILLIN RESISTANT STAPH AUREUS... Complete 12/19/19 14:35 Urine,Clean Catch Urine Culture - Final Klebsiella Pneumoniae Providencia Stuartii Mixed Gram Positive Organism Complete 12/19/19 14:35 Rectum - Final NO CARBAPENEM-RESISTANT ENTEROBACTERI... Complete 12/19/19 14:35 Rectum VRE Culture - Final Enterococcus Faecalis - Vre Complete Laboratory Tests 12/21/19 17:55: Hepatitis A IgM Antibody Negative, Hepatitis B Surface Antigen Negative, Hepatitis B Core IgM Antibody Negative, Hepatitis C Antibody <0.1 Current Medications Medications (Trade) Dose Ordered Sig/Daiana Route PRN Reason Start Time Stop Time Status Last Admin Dose Admin Acetaminophen (Tylenol) 650 mg Q6H PRN ORAL MILD/TEMP 12/19/19 23:30 01/18/20 23:29 12/20/19 08:46 Acetaminophen/ Hydrocodone Bitart ([place] 5/325) 1 tab Q4H PRN ORAL Moderate Pain (Pain Scale 4-6) 12/19/19 23:30 12/26/19 23:29 12/22/19 11:54 Albuterol/ Ipratropium (Albuterol/ Ipratropium) 3 ml Q4H PRN HHN Shortness of Breath 12/19/19 23:45 12/24/19 23:44 Azithromycin 250 mg/Sodium Chloride 275 ml @ 275 mls/hr Q24HRS IV 12/20/19 18:00 12/25/19 17:59 12/21/19 18:51 Cefepime HCl 2 gm/ Sodium Chloride 55 ml @ 110 mls/hr Q12HR IVPB 12/20/19 21:00 12/27/19 20:59 12/22/19 09:11 Clopidogrel Bisulfate (Plavix) 75 mg DAILY ORAL 12/20/19 09:00 01/19/20 08:59 12/22/19 09:05 Dextrose (Dextrose 50%) 25 ml Q30M PRN IV Hypoglycemia 12/19/19 23:30 03/18/20 23:29 Dextrose (Dextrose 50%) 50 ml Q30M PRN IV Hypoglycemia 12/19/19 23:30 03/18/20 23:29 Docusate Sodium (Colace) 100 mg THREE TIMES A DAY ORAL 12/20/19 18:00 01/19/20 17:59 12/22/19 09:05 Enoxaparin Sodium (Lovenox) 40 mg DAILY SUBQ 12/20/19 09:00 03/19/20 08:59 12/22/19 09:04 Insulin Aspart (NovoLOG) BEFORE MEALS AND HS SUBQ 12/20/19 06:30 03/19/20 06:29 12/22/19 11:52 Lorazepam (Ativan) 1 mg Q6H PRN ORAL For Anxiety 12/20/19 23:30 12/27/19 23:29 Metoprolol Tartrate (Lopressor) 50 mg EVERY 12 HOURS ORAL 12/20/19 21:00 8/12/20 08:59 12/22/19 09:11 Morphine Sulfate (Morphine Sulfate) 2 mg Q8H PRN IVP Severe Pain (Pain Scale 7-10) 12/19/19 23:30 12/26/19 23:29 Olanzapine (ZyPREXA) 2.5 mg DAILY ORAL 12/21/19 09:00 02/04/20 08:59 12/22/19 09:05 Olanzapine (ZyPREXA) 5 mg BEDTIME ORAL 12/21/19 21:00 02/04/20 20:59 12/21/19 21:33 Pantoprazole (Protonix) 40 mg EVERY 12 HOURS ORAL 12/20/19 21:00 01/19/20 20:59 12/22/19 09:05 Promethazine HCl (Phenergan Plain) 12.5 mg Q6H PRN ORAL For Cough 12/19/19 23:45 01/18/20 23:44 Zolpidem Tartrate (Ambien) 5 mg HSPRN PRN ORAL Insomnia 12/19/19 23:30 12/26/19 23:29 Assessment/Plan Assessment/Plan IMPRESSION: 1. Positive COVID-19. 2. Possible UTI. 3. Leukocytosis. 4. Hypoxemia. 5. Schizophrenia. 6. Hypertension. 7. Diabetes mellitus. 8. COPD. 9. CHF. DISCUSSION: Continue broad-spectrum antibiotics. Continue oxygen and pulmonary hygiene. DVT prophylaxis. I will follow carefully. Nava Benitez Omar Syed MD December 22, 2019 12:21
--- NOTE | 2019-12-22 12:30 | General Progress Note ---
Assessment/Plan Status: stable Assessment/Plan: S, O: poor historian, seems comfortable. Decline cognition PHYSICAL EXAMINATION:HEAD AND NECK: Atraumatic and normocephalic. CHEST: Bronchial breathing sounds.HEART: S1 and S2. Regular rate and rhythm. ABDOMEN: Soft. No organomegaly.MUSCULOSKELETAL: No gross focal motor deficit. NEUROLOGY: Patient is awake, alert x1. Easily distracted. LABORATORY DATA: Dated 12/21 reviewed ASSESSMENT: 1. Sepsis 2. UTI - Gram negative 3. Pneumonia. 3. Renal failure, age indeterminate. 4. Diabetes type 2. 5. Hypertension. 6. Hyperlipidemia. 7. Coronary artery disease/peripheral arterial disease. Continue with antiplatelet. 8. GI and DVT prophylaxis. 9. Anemia: likely chronic disease PLAN OF CARE: Continue with culture-targeted antibiotic treatment. Notes from Infectious Disease, Nephrology, Pulmonary have been reviewed. check hepatitis panel worsening wbc, will monitor Stool for ob Subjective Allergies: Coded Allergies: ASPIRIN (Verified Allergy, Unknown, 12/19/19) PENICILLINS (Verified Allergy, Unknown, 12/19/19) Objective Last 24 Hour Vital Signs Date Time Temp Pulse Resp B/P (MAP) Pulse Ox O2 Delivery O2 Flow Rate FiO2 12/22/19 09:11 94 150/106 12/22/19 09:00 Nasal Cannula 1.0 12/22/19 08:00 98.1 80 17 137/83 (101) 98 12/22/19 00:00 97.8 97 20 138/76 (96) 89 12/21/19 21:44 103 157/83 12/21/19 21:00 Nasal Cannula 1.0 12/21/19 20:18 97 Nasal Cannula 5.0 40 Intake and Output 12/21/19 12/22/19 19:00 07:00 Intake Total 480 ml 350 ml Balance 480 ml 350 ml Intake Oral 480 ml 350 ml # Voids 6 2 Laboratory Tests 12/21/19 17:55: Hepatitis A IgM Antibody Negative, Hepatitis B Surface Antigen Negative, Hepatitis B Core IgM Antibody Negative, Hepatitis C Antibody <0.1 Height (Feet): 5 Height (Inches): 6.00 Weight (Pounds): 150 Jennifer Alberto MD December 22, 2019 12:30
--- NOTE | 2019-12-22 12:48 | Cardiac Electrophysiology PN ---
Assessment/Plan Assessment/Plan 1. Accelerated hypertension. On metoprolol 50 mg b.i.d. and p.r.n. clonidine 2. History of congestive heart failure. Echocardiogram overall ejection fraction was grossly normal with no evidence of left ventricular hypertrophy. 3. Sepsis, on IV antibiotic per Dr. Daugherty. 4. Psychiatric history. 5. Hyponatremia. KARLY RN Subjective Subjective Alert in NAD on NMB in Covid isolation.Placement pending Objective Last 24 Hour Vital Signs Date Time Temp Pulse Resp B/P (MAP) Pulse Ox O2 Delivery O2 Flow Rate FiO2 12/22/19 09:11 94 150/106 12/22/19 09:00 Nasal Cannula 1.0 12/22/19 08:00 98.1 80 17 137/83 (101) 98 12/22/19 00:00 97.8 97 20 138/76 (96) 89 12/21/19 21:44 103 157/83 12/21/19 21:00 Nasal Cannula 1.0 12/21/19 20:18 97 Nasal Cannula 5.0 40 Intake and Output 12/21/19 12/22/19 19:00 07:00 Intake Total 480 ml 350 ml Balance 480 ml 350 ml Intake Oral 480 ml 350 ml # Voids 6 2 Laboratory Tests Test 12/21/19 17:55 Hepatitis A IgM Antibody Negative (Negative) Hepatitis B Surface Antigen Negative (Negative) Hepatitis B Core IgM Antibody Negative (Negative) Hepatitis C Antibody <0.1 s/co ratio Microbiology Date/Time Source Procedure Growth Status 12/19/19 14:50 Blood Blood Culture - Preliminary NO GROWTH AFTER 48 HOURS Resulted 12/19/19 14:35 Blood Blood Culture - Preliminary NO GROWTH AFTER 48 HOURS Resulted 12/20/19 11:53 Nasopharynx Coronavirus COVID-19 PCR ([facility]) - Final Complete 12/19/19 14:35 Nasal Nares MRSA Culture - Final NO METHICILLIN RESISTANT STAPH AUREUS... Complete 12/19/19 14:35 Urine,Clean Catch Urine Culture - Final Klebsiella Pneumoniae Providencia Stuartii Mixed Gram Positive Organism Complete 12/19/19 14:35 Rectum - Final NO CARBAPENEM-RESISTANT ENTEROBACTERI... Complete 12/19/19 14:35 Rectum VRE Culture - Final Enterococcus Faecalis - Vre Complete Objective HEAD AND NECK: No JVD. LUNGS: Clear. CARDIOVASCULAR: Regular S1 and S2 with no gallop. ABDOMEN: Soft. EXTREMITIES: No edema. Eusebio Barrow MD December 22, 2019 12:48
--- NOTE | 2019-12-22 13:18 | Nephrology Progress Note ---
Assessment/Plan Problem List: (1) Hyponatremia Assessment: Likely depletional (2) Diabetes mellitus Assessment: With elevated hemoglobin A1c (3) UTI (urinary tract infection) (4) COVID-19 Assessment Patient presents with hyponatremia, urine spot sodium below 20. Hyponatremia most likely depletional Azotemia / dehydration Sepsis, positive COVID-19 test, UTI Diabetes mellitus [id number] with high hemoglobin A1c History of psych disease Plan Today's blood work still pending at 1:30 PM! Saline hydration Monitor electrolytes and renal parameters Antibiotics per ID Monitor electrolytes and renal parameters Per orders Per consultants Subjective ROS Limited/Unobtainable: No Constitutional: Reports: malaise Objective Objective Last 24 Hour Vital Signs Date Time Temp Pulse Resp B/P (MAP) Pulse Ox O2 Delivery O2 Flow Rate FiO2 12/22/19 09:11 94 150/106 12/22/19 09:00 Nasal Cannula 1.0 12/22/19 08:00 98.1 80 17 137/83 (101) 98 12/22/19 00:00 97.8 97 20 138/76 (96) 89 12/21/19 21:44 103 157/83 12/21/19 21:00 Nasal Cannula 1.0 12/21/19 20:18 97 Nasal Cannula 5.0 40 Intake and Output 12/21/19 12/22/19 19:00 07:00 Intake Total 480 ml 350 ml Balance 480 ml 350 ml Intake Oral 480 ml 350 ml # Voids 6 2 Laboratory Tests 12/21/19 17:55: Hepatitis A IgM Antibody Negative, Hepatitis B Surface Antigen Negative, Hepatitis B Core IgM Antibody Negative, Hepatitis C Antibody <0.1 Height (Feet): 5 Height (Inches): 6.00 Weight (Pounds): 150 General Appearance: no apparent distress Cardiovascular: tachycardia Respiratory/Chest: decreased breath sounds Abdomen: soft Objective No change Rolo Roldan MD December 22, 2019 13:18
[2019-12-22] MEDS: Azithromycin 250 MG in NS 275 ML IV SCH (18:00)
--- NOTE | 2019-12-22 18:30 | NUR ---
NURSE NOTES: Patient has poor appetite,encourage patient .patient voided small amount ,encourage po fluids.Bed alarm on,call light within reach.
--- NOTE | 2019-12-22 19:20 | NUR ---
NURSE NOTES: The Patient is awake but was confused and resistant to her ADL's. The patient was noted on venturi mask with Fio2 at 50 % . Presently sitting up in bed, offered food but she refused eating. will continue to monitor. Bed in low level ,call light within reach and will continue to monitor.
--- NOTE | 2019-12-22 19:35 | NUR ---
HAND-OFF: Report given to LESLIE rn,aware of fall risk..
[2019-12-22 20:00] VITALS: BP 123/83
--- NOTE | 2019-12-22 20:35 | Infectious Diseases Prog Note ---
Assessment/Plan Problems: (1) Pneumonia Assessment & Plan: with RLL infiltrates, continue cefepime and azithromycin , monitor CXR, Aspiration precaution (2) UTI (urinary tract infection) Assessment & Plan: with multiple gram negative and positive organisms , on cefepime pending final urine culture (3) COVID-19 Assessment & Plan: confirmed with nasal swab and positive PCR , KEEP IN ENHANCED DROPLETS ISOLATION , supportive care for now (4) Diabetes mellitus Assessment & Plan: recommend tight glycemic control to keep blood glucose between 100-140 (5) COPD (chronic obstructive pulmonary disease) Assessment & Plan: continue inhalers , antibiotics and oxygen as needed , AVOID STEROIDS Subjective ROS Limited/Unobtainable: Yes Allergies: Coded Allergies: ASPIRIN (Verified Allergy, Unknown, 12/19/19) PENICILLINS (Verified Allergy, Unknown, 12/19/19) Subjective she was alert and awake but confused, has mild cough but no SOB, no fever or chills, no nausea or vomiting , no diarrhea Objective Vital Signs Last 24 Hour Vital Signs Date Time Temp Pulse Resp B/P (MAP) Pulse Ox O2 Delivery O2 Flow Rate FiO2 12/22/19 09:11 94 150/106 12/22/19 09:00 Nasal Cannula 1.0 12/22/19 08:00 98.1 80 17 137/83 (101) 98 12/22/19 00:00 97.8 97 20 138/76 (96) 89 12/21/19 21:44 103 157/83 12/21/19 21:00 Nasal Cannula 1.0 Height (Feet): 5 Height (Inches): 6.00 Weight (Pounds): 150 General Appearance: WD/WN, no acute distress HEENT: normocephalic, atraumatic, anicteric, mucous membranes moist, PERRL Respiratory/Chest: chest wall non-tender, lungs clear, normal breath sounds, no respiratory distress, no accessory muscle use Cardiovascular: normal peripheral pulses, normal rate, regular rhythm, no gallop/murmur, no JVD Abdomen: normal bowel sounds, soft, non tender, no organomegaly, non distended , no mass, no scars Genitourinary: normal external genitalia Extremities: no cyanosis, no clubbing Skin: no rash, no lesions Neurologic/Psychiatric: alert, responsive Lymphatic: no neck adenopathy, no groin adenopathy Microbiology Date/Time Source Procedure Growth Status 12/20/19 11:53 Nasopharynx Coronavirus COVID-19 PCR ([facility]) - Final Complete Current Medications Medications (Trade) Dose Ordered Sig/Daiana Route PRN Reason Start Time Stop Time Status Last Admin Dose Admin Acetaminophen (Tylenol) 650 mg Q6H PRN ORAL MILD/TEMP 12/19/19 23:30 01/18/20 23:29 12/20/19 08:46 Acetaminophen/ Hydrocodone Bitart ([place] 5/325) 1 tab Q4H PRN ORAL Moderate Pain (Pain Scale 4-6) 12/19/19 23:30 12/26/19 23:29 12/22/19 11:54 Albuterol/ Ipratropium (Albuterol/ Ipratropium) 3 ml Q4H PRN HHN Shortness of Breath 12/19/19 23:45 12/24/19 23:44 Azithromycin 250 mg/Sodium Chloride 275 ml @ 275 mls/hr Q24HRS IV 12/20/19 18:00 12/25/19 17:59 12/22/19 18:00 Cefepime HCl 2 gm/ Sodium Chloride 55 ml @ 110 mls/hr Q12HR IVPB 12/20/19 21:00 12/27/19 20:59 12/22/19 09:11 Clopidogrel Bisulfate (Plavix) 75 mg DAILY ORAL 12/20/19 09:00 01/19/20 08:59 12/22/19 09:05 Dextrose (Dextrose 50%) 25 ml Q30M PRN IV Hypoglycemia 12/19/19 23:30 03/18/20 23:29 Dextrose (Dextrose 50%) 50 ml Q30M PRN IV Hypoglycemia 12/19/19 23:30 03/18/20 23:29 Docusate Sodium (Colace) 100 mg THREE TIMES A DAY ORAL 12/20/19 18:00 01/19/20 17:59 12/22/19 18:00 Enoxaparin Sodium (Lovenox) 40 mg DAILY SUBQ 12/20/19 09:00 03/19/20 08:59 12/22/19 09:04 Insulin Aspart (NovoLOG) BEFORE MEALS AND HS SUBQ 12/20/19 06:30 03/19/20 06:29 12/22/19 11:52 Lorazepam (Ativan) 1 mg Q6H PRN ORAL For Anxiety 12/20/19 23:30 12/27/19 23:29 Metoprolol Tartrate (Lopressor) 50 mg EVERY 12 HOURS ORAL 12/20/19 21:00 03/19/20 08:59 12/22/19 09:11 Morphine Sulfate (Morphine Sulfate) 2 mg Q8H PRN IVP Severe Pain (Pain Scale 7-10) 12/19/19 23:30 12/26/19 23:29 Olanzapine (ZyPREXA) 2.5 mg DAILY ORAL 12/21/19 09:00 02/04/20 08:59 12/22/19 09:05 Olanzapine (ZyPREXA) 5 mg BEDTIME ORAL 12/21/19 21:00 02/04/20 20:59 12/21/19 21:33 Pantoprazole (Protonix) 40 mg EVERY 12 HOURS ORAL 12/20/19 21:00 01/19/20 20:59 12/22/19 09:05 Promethazine HCl (Phenergan Plain) 12.5 mg Q6H PRN ORAL For Cough 12/19/19 23:45 01/18/20 23:44 Zolpidem Tartrate (Ambien) 5 mg HSPRN PRN ORAL Insomnia 12/19/19 23:30 12/26/19 23:29 Abigail Daugherty M.D. December 22, 2019 20:35
[2019-12-23] VITALS: BP 130/54
[2019-12-23] MEDS: Morphine Sulfate 2mg/ml Inj(IV/IM USE ONLY) IVP PRN (01:22)
--- NOTE | 2019-12-23 05:14 | NUR ---
NURSE NOTES: The resident is alert and awake with episodes of agitation and combative behavior noted. she was resistance with her care and did not want to be help with a bed moses to urinate. She complained of severed pain and was given her PRN Morphine sulphate and was able to relaxed. She remained on venturi max to assist her respiration. The is no evidence of SOB or acute distress noted at this time.The bed in low level and call light within reach
[2019-12-23] MEDS: NovoLOG Insulin Flexpen SUBQ SCH ×4 (06:45→21:15)
[2019-12-23 07:28] LABS: ALANINE AMINOTRANSFERASE 26 U/L (12-78); ALBUMIN 2.6 G/DL (3.4-5.0); ALBUMIN/GLOBULIN RATIO 0.5 (1.0-2.7); ALKALINE PHOSPHATASE 92 U/L (46-116); ANION GAP 11 mmol/L (5-15); ASPARTATE AMINO TRANSFERASE 32 U/L (15-37); BILIRUBIN,TOTAL 0.4 MG/DL (0.2-1.0); BLOOD UREA NITROGEN 23 mg/dL (7-18); CALCIUM 9.1 MG/DL (8.5-10.1); CARBON DIOXIDE 30 MMOL/L (21-32); CHLORIDE 96 MMOL/L (98-107); CREATININE 1.4 MG/DL (0.55-1.30); PHOSPHORUS 2.2 MG/DL (2.5-4.9); SODIUM 137 MMOL/L (136-145)
--- NOTE | 2019-12-23 07:31 | NUR ---
HAND-OFF: Report given to Alisson BYNUM, she was informed patient remained at fall risk.Was also notified to titrate oxygen down.
[2019-12-23 08:00] VITALS: BP 130/80
--- NOTE | 2019-12-23 08:14 | NUR ---
NURSE NOTES: Patient awake and alert to name,patient on venturi mask at 50 %.Patient breakfast at bedside,will encourage patient eat.Bed alarm on,call light within reach.
--- NOTE | 2019-12-23 08:57 | Pulmonology Progress Note ---
Subjective ROS Limited/Unobtainable: Yes Interval Events: None new Constitutional: Reports: no symptoms HEENT: Repors: no symptoms Respiratory: Reports: no symptoms Cardiovascular: Reports: no symptoms Gastrointestinal/Abdominal: Reports: no symptoms Allergies: Coded Allergies: ASPIRIN (Verified Allergy, Unknown, 12/19/19) PENICILLINS (Verified Allergy, Unknown, 12/19/19) Objective Last 24 Hour Vital Signs Date Time Temp Pulse Resp B/P (MAP) Pulse Ox O2 Delivery O2 Flow Rate FiO2 12/23/19 00:00 98.5 20 130/54 (79) 96 12/22/19 22:29 94 150/106 12/22/19 22:23 94 150/106 12/22/19 21:00 Venturi Mask 12/22/19 20:00 95 Venturi Mask 8.0 40 12/22/19 20:00 98.4 20 123/83 (96) 97 12/22/19 09:11 94 150/106 12/22/19 09:00 Nasal Cannula 1.0 Intake and Output 12/22/19 12/23/19 19:00 07:00 Intake Total 655 ml Output Total 1000 ml Balance -345 ml IV Total 55 ml Other 600 ml Output Urine Total 1000 ml # Voids 1 General Appearance: no acute distress HEENT: normocephalic Respiratory: chest wall non-tender Cardiovascular: normal peripheral pulses Abdomen: normal bowel sounds Microbiology Date/Time Source Procedure Growth Status 12/20/19 11:53 Nasopharynx Coronavirus COVID-19 PCR ([facility]) - Final Complete Laboratory Tests 12/23/19 06:35: Sodium Level 137, Potassium Level 4.0, Chloride Level 96L, Carbon Dioxide Level 30, Anion Gap 11, Blood Urea Nitrogen 23H, Creatinine 1.4H, Estimat Glomerular Filtration Rate 43.9, Glucose Level 144H, Osmolality 304, Uric Acid 7.1, Calcium Level 9.1, Phosphorus Level 2.2L, Magnesium Level 2.0, Total Bilirubin 0.4, Aspartate Amino Transf (AST/SGOT) 32, Alanine Aminotransferase (ALT/SGPT) 26, Alkaline Phosphatase 92, Total Protein 7.4, Albumin 2.6L, Globulin 4.8, Albumin/Globulin Ratio 0.5L Current Medications Medications (Trade) Dose Ordered Sig/Daiana Route PRN Reason Start Time Stop Time Status Last Admin Dose Admin Acetaminophen (Tylenol) 650 mg Q6H PRN ORAL MILD/TEMP 12/19/19 23:30 01/18/20 23:29 12/20/19 08:46 Acetaminophen/ Hydrocodone Bitart ([place] 5/325) 1 tab Q4H PRN ORAL Moderate Pain (Pain Scale 4-6) 12/19/19 23:30 12/26/19 23:29 12/22/19 11:54 Albuterol/ Ipratropium (Albuterol/ Ipratropium) 3 ml Q4H PRN HHN Shortness of Breath 12/19/19 23:45 12/24/19 23:44 Azithromycin 250 mg/Sodium Chloride 275 ml @ 275 mls/hr Q24HRS IV 12/20/19 18:00 12/25/19 17:59 12/22/19 18:00 Cefepime HCl 2 gm/ Sodium Chloride 55 ml @ 110 mls/hr Q24H IVPB 12/23/19 21:00 12/30/19 20:59 Clopidogrel Bisulfate (Plavix) 75 mg DAILY ORAL 12/20/19 09:00 01/19/20 08:59 12/22/19 09:05 Dextrose (Dextrose 50%) 25 ml Q30M PRN IV Hypoglycemia 12/19/19 23:30 03/18/20 23:29 Dextrose (Dextrose 50%) 50 ml Q30M PRN IV Hypoglycemia 12/19/19 23:30 03/18/20 23:29 Docusate Sodium (Colace) 100 mg THREE TIMES A DAY ORAL 12/20/19 18:00 01/19/20 17:59 12/22/19 18:00 Enoxaparin Sodium (Lovenox) 40 mg DAILY SUBQ 12/20/19 09:00 03/19/20 08:59 12/22/19 09:04 Insulin Aspart (NovoLOG) BEFORE MEALS AND HS SUBQ 12/20/19 06:30 03/19/20 06:29 12/23/19 06:45 Lorazepam (Ativan) 1 mg Q6H PRN ORAL For Anxiety 12/20/19 23:30 12/27/19 23:29 Metoprolol Tartrate (Lopressor) 50 mg EVERY 12 HOURS ORAL 12/20/19 21:00 03/19/20 08:59 12/22/19 22:29 Morphine Sulfate (Morphine Sulfate) 2 mg Q8H PRN IVP Severe Pain (Pain Scale 7-10) 12/19/19 23:30 12/26/19 23:29 12/23/19 01:22 Olanzapine (ZyPREXA) 2.5 mg DAILY ORAL 12/21/19 09:00 02/04/20 08:59 12/22/19 09:05 Olanzapine (ZyPREXA) 5 mg BEDTIME ORAL 12/21/19 21:00 02/04/20 20:59 12/22/19 22:29 Pantoprazole (Protonix) 40 mg EVERY 12 HOURS ORAL 12/20/19 21:00 01/19/20 20:59 12/22/19 22:30 Promethazine HCl (Phenergan Plain) 12.5 mg Q6H PRN ORAL For Cough 12/19/19 23:45 01/18/20 23:44 Zolpidem Tartrate (Ambien) 5 mg HSPRN PRN ORAL Insomnia 12/19/19 23:30 12/26/19 23:29 Assessment/Plan Assessment/Plan IMPRESSION: 1. Positive COVID-19. 2. Possible UTI. 3. Leukocytosis. 4. Hypoxemia. 5. Schizophrenia. 6. Hypertension. 7. Diabetes mellitus. 8. COPD. 9. CHF. DISCUSSION: Continue broad-spectrum antibiotics. Continue oxygen and pulmonary hygiene. DVT prophylaxis. I will follow carefully. Now on 40% Ventimask Nava Benitez Omar Syed MD December 23, 2019 08:57
[2019-12-23] MEDS: Docusate 100mg cap ORAL SCH ×3 (09:36→18:12)
[2019-12-23] MEDS: Metoprolol Tartrate 50mg tab ORAL SCH ×2 (09:59→20:44)
[2019-12-23] MEDS: OLANZapine 2.5mg tab ORAL SCH (10:00)
[2019-12-23] MEDS: Enoxaparin 40mg Inj SUBQ SCH (10:01)
--- NOTE | 2019-12-23 10:15 | NUR ---
NURSE NOTES: patient noted shortness of breath,o2 sat 85,patient takes off mask,reinforce to patient to keep on 02,respiratory therapist notified and patient put on non rebreather mask,will monitor.
--- NOTE | 2019-12-23 11:28 | Nephrology Progress Note ---
Assessment/Plan Problem List: (1) Hyponatremia Assessment: Likely depletional (2) Diabetes mellitus Assessment: With elevated hemoglobin A1c (3) UTI (urinary tract infection) (4) COVID-19 Assessment Patient presents with hyponatremia, urine spot sodium below 20. Hyponatremia most likely depletional Azotemia / dehydration Sepsis, positive COVID-19 test, UTI Diabetes mellitus [id number] with high hemoglobin A1c History of psych disease Plan Serum creatinine livia to 1.4 Serum sodium now normalized Saline hydration as needed Monitor electrolytes and renal parameters Antibiotics per ID Monitor electrolytes and renal parameters Per orders Per consultants Subjective ROS Limited/Unobtainable: No Constitutional: Reports: malaise, weakness Objective Objective Last 24 Hour Vital Signs Date Time Temp Pulse Resp B/P (MAP) Pulse Ox O2 Delivery O2 Flow Rate FiO2 12/23/19 09:59 122 133/70 12/23/19 09:00 Nasal Cannula 1.0 12/23/19 00:00 98.5 20 130/54 (79) 96 12/22/19 22:29 94 150/106 12/22/19 22:23 94 150/106 12/22/19 21:00 Venturi Mask 12/22/19 20:00 95 Venturi Mask 8.0 40 12/22/19 20:00 98.4 20 123/83 (96) 97 Intake and Output 12/22/19 12/23/19 19:00 07:00 Intake Total 655 ml Output Total 1000 ml Balance -345 ml IV Total 55 ml Other 600 ml Output Urine Total 1000 ml # Voids 1 Laboratory Tests 12/23/19 06:35: Sodium Level 137, Potassium Level 4.0, Chloride Level 96L, Carbon Dioxide Level 30, Anion Gap 11, Blood Urea Nitrogen 23H, Creatinine 1.4H, Estimat Glomerular Filtration Rate 43.9, Glucose Level 144H, Osmolality 304, Uric Acid 7.1, Calcium Level 9.1, Phosphorus Level 2.2L, Magnesium Level 2.0, Total Bilirubin 0.4, Aspartate Amino Transf (AST/SGOT) 32, Alanine Aminotransferase (ALT/SGPT) 26, Alkaline Phosphatase 92, Total Protein 7.4, Albumin 2.6L, Globulin 4.8, Albumin/Globulin Ratio 0.5L Height (Feet): 5 Height (Inches): 6.00 Weight (Pounds): 150 General Appearance: mild distress EENT: other - On Ventimask keeps removing it Cardiovascular: tachycardia Respiratory/Chest: decreased breath sounds Abdomen: distended Objective No change Rolo Roldan MD December 23, 2019 11:28
[2019-12-23 12:00] VITALS: BP 111/68
[2019-12-23] MEDS: HYDROcodone/Acetamin 5/325 tab ORAL PRN (12:03)
[2019-12-23] MEDS: Phospha 250 Neutral tab ORAL SCH ×2 (13:29→18:12)
--- NOTE | 2019-12-23 14:43 | Cardiac Electrophysiology PN ---
Assessment/Plan Assessment/Plan 1. Accelerated hypertension. On metoprolol 50 mg b.i.d. and p.r.n. clonidine 2. History of congestive heart failure. Echocardiogram overall ejection fraction was grossly normal with no evidence of left ventricular hypertrophy. 3. Sepsis, on IV antibiotic per Dr. Daugherty. 4. Psychiatric history. 5. Hyponatremia. Placement pending Subjective Subjective Alert in NAD in Covid isolation.Placement pending Objective Last 24 Hour Vital Signs Date Time Temp Pulse Resp B/P (MAP) Pulse Ox O2 Delivery O2 Flow Rate FiO2 12/23/19 12:00 98.5 84 18 111/68 (82) 98 12/23/19 09:59 122 133/70 12/23/19 09:00 Nasal Cannula 1.0 12/23/19 08:00 97.5 81 18 130/80 (97) 92 12/23/19 00:00 98.5 20 130/54 (79) 96 12/22/19 22:29 94 150/106 12/22/19 22:23 94 150/106 12/22/19 21:00 Venturi Mask 12/22/19 20:00 95 Venturi Mask 8.0 40 12/22/19 20:00 98.4 20 123/83 (96) 97 Intake and Output 12/22/19 12/23/19 19:00 07:00 Intake Total 655 ml Output Total 1000 ml Balance -345 ml IV Total 55 ml Other 600 ml Output Urine Total 1000 ml # Voids 1 Laboratory Tests Test 12/23/19 06:35 Sodium Level 137 MMOL/L (136-145) Potassium Level 4.0 MMOL/L (3.5-5.1) Chloride Level 96 MMOL/L (98-107) L Carbon Dioxide Level 30 MMOL/L (21-32) Anion Gap 11 mmol/L (5-15) Blood Urea Nitrogen 23 mg/dL (7-18) H Creatinine 1.4 MG/DL (0.55-1.30) H Estimat Glomerular Filtration Rate 43.9 mL/min (>60) Glucose Level 144 MG/DL (74-106) H Osmolality 304 mOsm/kg (297-317) Uric Acid 7.1 MG/DL (2.6-7.2) Calcium Level 9.1 MG/DL (8.5-10.1) Phosphorus Level 2.2 MG/DL (2.5-4.9) L Magnesium Level 2.0 MG/DL (1.8-2.4) Total Bilirubin 0.4 MG/DL (0.2-1.0) Aspartate Amino Transf (AST/SGOT) 32 U/L (15-37) Alanine Aminotransferase (ALT/SGPT) 26 U/L (12-78) Alkaline Phosphatase 92 U/L (46-116) Total Protein 7.4 G/DL (6.4-8.2) Albumin 2.6 G/DL (3.4-5.0) L Globulin 4.8 g/dL Albumin/Globulin Ratio 0.5 (1.0-2.7) L Objective HEAD AND NECK: No JVD. LUNGS: Clear. CARDIOVASCULAR: Regular S1 and S2 with no gallop. ABDOMEN: Soft. EXTREMITIES: No edema. Eusebio Barrow MD December 23, 2019 14:43
[2019-12-23] MEDS ORDERED: Tubing IV Secondary IV ONE (15:58)
[2019-12-23] MEDS ORDERED: NS 275ml ONE (15:58)
[2019-12-23 16:00] VITALS: BP 117/54
--- NOTE | 2019-12-23 16:42 | Infectious Diseases Prog Note ---
Assessment/Plan Problems: (1) Pneumonia Assessment & Plan: with RLL infiltrates, continue cefepime and azithromycin , monitor CXR, Aspiration precaution (2) UTI (urinary tract infection) Assessment & Plan: with multiple gram negative and positive organisms , on cefepime pending final urine culture (3) COVID-19 Assessment & Plan: confirmed with nasal swab and positive PCR , KEEP IN ENHANCED DROPLETS ISOLATION , supportive care for now (4) Diabetes mellitus Assessment & Plan: recommend tight glycemic control to keep blood glucose between 100-140 (5) COPD (chronic obstructive pulmonary disease) Assessment & Plan: continue inhalers , antibiotics and oxygen as needed , AVOID STEROIDS Subjective Allergies: Coded Allergies: ASPIRIN (Verified Allergy, Unknown, 12/19/19) PENICILLINS (Verified Allergy, Unknown, 12/19/19) Subjective she was alert and awake but confused, has mild cough but no SOB, no fever or chills, no nausea or vomiting , no diarrhea Objective Vital Signs Last 24 Hour Vital Signs Date Time Temp Pulse Resp B/P (MAP) Pulse Ox O2 Delivery O2 Flow Rate FiO2 12/23/19 16:00 98.0 78 18 117/54 (75) 95 12/23/19 12:00 98.5 84 18 111/68 (82) 98 12/23/19 09:59 122 133/70 12/23/19 09:00 Nasal Cannula 1.0 12/23/19 08:00 97.5 81 18 130/80 (97) 92 12/23/19 00:00 98.5 20 130/54 (79) 96 12/22/19 22:29 94 150/106 12/22/19 22:23 94 150/106 12/22/19 21:00 Venturi Mask 12/22/19 20:00 95 Venturi Mask 8.0 40 12/22/19 20:00 98.4 20 123/83 (96) 97 Height (Feet): 5 Height (Inches): 6.00 Weight (Pounds): 150 Laboratory Tests Test 12/23/19 06:35 Sodium Level 137 MMOL/L (136-145) Potassium Level 4.0 MMOL/L (3.5-5.1) Chloride Level 96 MMOL/L (98-107) L Carbon Dioxide Level 30 MMOL/L (21-32) Anion Gap 11 mmol/L (5-15) Blood Urea Nitrogen 23 mg/dL (7-18) H Creatinine 1.4 MG/DL (0.55-1.30) H Estimat Glomerular Filtration Rate 43.9 mL/min (>60) Glucose Level 144 MG/DL (74-106) H Osmolality 304 mOsm/kg (297-317) Uric Acid 7.1 MG/DL (2.6-7.2) Calcium Level 9.1 MG/DL (8.5-10.1) Phosphorus Level 2.2 MG/DL (2.5-4.9) L Magnesium Level 2.0 MG/DL (1.8-2.4) Total Bilirubin 0.4 MG/DL (0.2-1.0) Aspartate Amino Transf (AST/SGOT) 32 U/L (15-37) Alanine Aminotransferase (ALT/SGPT) 26 U/L (12-78) Alkaline Phosphatase 92 U/L (46-116) Total Protein 7.4 G/DL (6.4-8.2) Albumin 2.6 G/DL (3.4-5.0) L Globulin 4.8 g/dL Albumin/Globulin Ratio 0.5 (1.0-2.7) L Current Medications Medications (Trade) Dose Ordered Sig/Daiana Route PRN Reason Start Time Stop Time Status Last Admin Dose Admin Acetaminophen (Tylenol) 650 mg Q6H PRN ORAL MILD/TEMP 12/19/19 23:30 01/18/20 23:29 12/20/19 08:46 Acetaminophen/ Hydrocodone Bitart ([place] 5/325) 1 tab Q4H PRN ORAL Moderate Pain (Pain Scale 4-6) 12/19/19 23:30 12/26/19 23:29 12/23/19 12:03 Albuterol/ Ipratropium (Albuterol/ Ipratropium) 3 ml Q4H PRN HHN Shortness of Breath 12/19/19 23:45 12/24/19 23:44 Azithromycin 250 mg/Sodium Chloride 275 ml @ 275 mls/hr Q24HRS IV 12/20/19 18:00 12/25/19 17:59 12/22/19 18:00 Cefepime HCl 2 gm/ Sodium Chloride 55 ml @ 110 mls/hr Q24H IVPB 12/23/19 21:00 12/30/19 20:59 Clopidogrel Bisulfate (Plavix) 75 mg DAILY ORAL 12/20/19 09:00 01/19/20 08:59 12/23/19 09:35 Dextrose (Dextrose 50%) 25 ml Q30M PRN IV Hypoglycemia 12/19/19 23:30 03/18/20 23:29 Dextrose (Dextrose 50%) 50 ml Q30M PRN IV Hypoglycemia 12/19/19 23:30 03/18/20 23:29 Docusate Sodium (Colace) 100 mg THREE TIMES A DAY ORAL 12/20/19 18:00 01/19/20 17:59 12/23/19 13:29 Enoxaparin Sodium (Lovenox) 40 mg DAILY SUBQ 12/20/19 09:00 03/19/20 08:59 12/23/19 10:01 Insulin Aspart (NovoLOG) BEFORE MEALS AND HS SUBQ 12/20/19 06:30 03/19/20 06:29 12/23/19 11:56 Lorazepam (Ativan) 1 mg Q6H PRN ORAL For Anxiety 12/20/19 23:30 12/27/19 23:29 Metoprolol Tartrate (Lopressor) 50 mg EVERY 12 HOURS ORAL 12/23/19 09:55 03/22/20 09:54 12/23/19 09:59 Morphine Sulfate (Morphine Sulfate) 2 mg Q8H PRN IVP Severe Pain (Pain Scale 7-10) 12/19/19 23:30 12/26/19 23:29 12/23/19 01:22 Olanzapine (ZyPREXA) 2.5 mg DAILY ORAL 12/21/19 09:00 02/04/20 08:59 12/23/19 10:00 Olanzapine (ZyPREXA) 5 mg BEDTIME ORAL 12/21/19 21:00 02/04/20 20:59 12/22/19 22:29 Pantoprazole (Protonix) 40 mg EVERY 12 HOURS ORAL 12/23/19 09:55 01/22/20 09:54 12/23/19 09:59 Phosphorus (Phospha 250 Neutral) 250 mg THREE TIMES A DAY ORAL 12/23/19 13:00 01/22/20 12:59 12/23/19 13:29 Promethazine HCl (Phenergan Plain) 12.5 mg Q6H PRN ORAL For Cough 12/19/19 23:45 01/18/20 23:44 Zolpidem Tartrate (Ambien) 5 mg HSPRN PRN ORAL Insomnia 12/19/19 23:30 12/26/19 23:29 Abigail Daugherty M.D. December 23, 2019 16:42
--- NOTE | 2019-12-23 18:00 | NUR ---
NURSE NOTES: DR Roldan ,DR Daugherty here today and updated on patient,orders were received,patient incontinent of urine,skin care given,patient keeping on
[2019-12-23] MEDS: Azithromycin 250 MG in NS 275 ML IV SCH (18:12)
--- NOTE | 2019-12-23 18:13 | Diagnostic Imaging Report ---
EXAM: XR Chest, 1 View CLINICAL HISTORY: SOB TECHNIQUE: Frontal view of the chest. COMPARISON: None FINDINGS: Lungs: There is a patchy infiltrate at the right lung base. There may be a small right pleural effusion. There is interstitial prominence throughout the lungs. Pleural space: See above. Heart: The heart size at the upper limits of normal. Mediastinum: Unremarkable. Bones/joints: Unremarkable. Vasculature: Atherosclerotic calcifications are seen within the aorta. IMPRESSION: Probable chronic interstitial lung disease with patchy right basilar infiltrate, worrisome for pneumonia.
--- NOTE | 2019-12-23 19:25 | NUR ---
HAND-OFF: Report given to JOSE RN /LESLIE RN.Aware of fall risk.
--- NOTE | 2019-12-23 19:46 | NUR ---
NURSE NOTES: Patient resting,02 mask non rebreather remains on,02 sats 95%,will continue to monitor.
[2019-12-23] MEDS: LORazepam 1mg tab ORAL PRN (20:37)
[2019-12-23] MEDS ORDERED: Cefepime HCl 2 GM in NS 55 ML IVPB SCH (21:00)
--- NOTE | 2019-12-23 21:05 | NUR ---
Received a call from Patient grand Daughter Ed Kennedy )she wanted to know if her grand mother lower back pain is being addressed. The MD( Dr. Alberto) was notified with a voice message to call the grand daughter back and explain the plan of care.
--- NOTE | 2019-12-23 22:15 | General Progress Note ---
Assessment/Plan Status: stable Assessment/Plan: S, O: poor historian, seems comfortable. Decline cognition PHYSICAL EXAMINATION:HEAD AND NECK: Atraumatic and normocephalic. CHEST: Bronchial breathing sounds.HEART: S1 and S2. Regular rate and rhythm. ABDOMEN: Soft. No organomegaly.MUSCULOSKELETAL: No gross focal motor deficit. NEUROLOGY: Patient is awake, alert x1. Easily distracted. LABORATORY DATA: Dated 12/22 reviewed ASSESSMENT: 1. Sepsis 2. metabolic encephalopathy 2. UTI - Gram negative 3. COVD 19- Pneumonia. 3. Renal failure, age indeterminate. 4. Diabetes type 2. 5. Hypertension. 6. Hyperlipidemia. 7. Coronary artery disease/peripheral arterial disease. Continue with antiplatelet. 8. GI and DVT prophylaxis. 9. Anemia: likely chronic disease PLAN OF CARE: Continue with culture-targeted antibiotic treatment. Notes from Infectious Disease, Nephrology, Pulmonary have been reviewed. check hepatitis panel worsening wbc, will monitor Stool for ob c/w current abx treatment Subjective Allergies: Coded Allergies: ASPIRIN (Verified Allergy, Unknown, 12/19/19) PENICILLINS (Verified Allergy, Unknown, 12/19/19) Objective Last 24 Hour Vital Signs Date Time Temp Pulse Resp B/P (MAP) Pulse Ox O2 Delivery O2 Flow Rate FiO2 12/23/19 20:44 82 127/78 12/23/19 16:00 98.0 78 18 117/54 (75) 95 12/23/19 12:00 98.5 84 18 111/68 (82) 98 12/23/19 09:59 122 133/70 12/23/19 09:00 Nasal Cannula 1.0 12/23/19 08:00 97.5 81 18 130/80 (97) 92 12/23/19 00:00 98.5 20 130/54 (79) 96 12/22/19 22:29 94 150/106 12/22/19 22:23 94 150/106 Intake and Output 12/22/19 12/23/19 19:00 07:00 Intake Total 655 ml Output Total 1000 ml Balance -345 ml IV Total 55 ml Other 600 ml Output Urine Total 1000 ml # Voids 1 Laboratory Tests 12/23/19 06:35: Sodium Level 137, Potassium Level 4.0, Chloride Level 96L, Carbon Dioxide Level 30, Anion Gap 11, Blood Urea Nitrogen 23H, Creatinine 1.4H, Estimat Glomerular Filtration Rate 43.9, Glucose Level 144H, Osmolality 304, Uric Acid 7.1, Calcium Level 9.1, Phosphorus Level 2.2L, Magnesium Level 2.0, Total Bilirubin 0.4, Aspartate Amino Transf (AST/SGOT) 32, Alanine Aminotransferase (ALT/SGPT) 26, Alkaline Phosphatase 92, Total Protein 7.4, Albumin 2.6L, Globulin 4.8, Albumin/Globulin Ratio 0.5L Height (Feet): 5 Height (Inches): 6.00 Weight (Pounds): 150 Jennifer Alberto MD December 23, 2019 22:15
--- NOTE | 2019-12-23 23:20 | NUR ---
NURSE NOTES: Patient grand Daughter Ed Kennedy ) want to be call if patient refused to do a procedure so that she can talk her down because the patient can be very difficult and will at time only listen to the family
[2019-12-24 04:00] VITALS: BP 144/80
[2019-12-24] MEDS: NovoLOG Insulin Flexpen SUBQ SCH ×4 (06:23→21:46)
[2019-12-24 07:07] LABS: HEMOGLOBIN 12.7 G/DL (12.0-16.0); MEAN CORPUSCULAR VOLUME 91 FL (80-99); PLATELET COUNT 270 K/UL (150-450); RED BLOOD COUNT 4.29 M/UL (4.20-5.40); RED CELL DISTRIBUTION WIDTH 11.8 % (11.6-14.8); WHITE BLOOD COUNT 9.1 K/UL (4.8-10.8)
--- NOTE | 2019-12-24 07:30 | NUR ---
HAND-OFF: Report given to Davide Adkins RN. Informed pt is fall risk. endorsed to follow up with RT for ABG.
[2019-12-24 07:33] LABS: ALANINE AMINOTRANSFERASE 24 U/L (12-78); ALBUMIN 2.2 G/DL (3.4-5.0); ALBUMIN/GLOBULIN RATIO 0.5 (1.0-2.7); ALKALINE PHOSPHATASE 71 U/L (46-116); ANION GAP 6 mmol/L (5-15); BILIRUBIN,TOTAL 0.3 MG/DL (0.2-1.0); BLOOD UREA NITROGEN 34 mg/dL (7-18); CALCIUM 8.8 MG/DL (8.5-10.1); CARBON DIOXIDE 34 MMOL/L (21-32); CHLORIDE 100 MMOL/L (98-107); POTASSIUM 4.2 MMOL/L (3.5-5.1); SODIUM 140 MMOL/L (136-145)
[2019-12-24 08:00] VITALS: BP 125/92
[2019-12-24 08:12] LABS: ASPARTATE AMINO TRANSFERASE 30 U/L (15-37)
--- NOTE | 2019-12-24 08:50 | NUR ---
RESPIRATORY NOTE: Pt been refusing ABG. Explained to her the importance of ABG, but still refused. Tried calling the daughter and grand daughter, no answer. FLETCHER Arteaga aware. Will try again later.
--- NOTE | 2019-12-24 09:04 | Pulmonology Progress Note ---
Subjective ROS Limited/Unobtainable: No Interval Events: None new Constitutional: Reports: no symptoms HEENT: Repors: no symptoms Respiratory: Reports: no symptoms Cardiovascular: Reports: no symptoms Gastrointestinal/Abdominal: Reports: no symptoms Allergies: Coded Allergies: ASPIRIN (Verified Allergy, Unknown, 12/19/19) PENICILLINS (Verified Allergy, Unknown, 12/19/19) Objective Last 24 Hour Vital Signs Date Time Temp Pulse Resp B/P (MAP) Pulse Ox O2 Delivery O2 Flow Rate FiO2 12/24/19 08:00 97.6 79 17 125/92 (103) 98 12/24/19 04:00 97.0 75 18 144/80 (101) 97 12/23/19 23:00 Venturi Mask 12/23/19 20:44 82 127/78 12/23/19 16:00 98.0 78 18 117/54 (75) 95 12/23/19 12:00 98.5 84 18 111/68 (82) 98 12/23/19 09:59 122 133/70 Intake and Output 12/23/19 12/24/19 19:00 07:00 Intake Total 500 ml Output Total 200 ml Balance 300 ml Other 500 ml Output Urine Total 200 ml # Voids 1 General Appearance: no acute distress HEENT: normocephalic Respiratory: chest wall non-tender Cardiovascular: normal peripheral pulses Abdomen: normal bowel sounds Laboratory Tests 12/24/19 06:15: White Blood Count 9.1, Red Blood Count 4.29, Hemoglobin 12.7, Hematocrit 39.0, Mean Corpuscular Volume 91, Mean Corpuscular Hemoglobin 29.6, Mean Corpuscular Hemoglobin Concent 32.5, Red Cell Distribution Width 11.8, Platelet Count 270, Mean Platelet Volume 5.6L, Neutrophils (%) (Auto) , Lymphocytes (%) (Auto) , Monocytes (%) (Auto) , Eosinophils (%) (Auto) , Basophils (%) (Auto) , Neutrophils % (Manual) [Pending], Lymphocytes % (Manual) [Pending], Platelet Estimate [Pending], Platelet Morphology [Pending], D-Dimer 0.90H, Sodium Level 140, Potassium Level 4.2, Chloride Level 100, Carbon Dioxide Level 34H, Anion Gap 6, Blood Urea Nitrogen 34H, Creatinine 2.0H, Estimat Glomerular Filtration Rate 29.1, Glucose Level 167H, Calcium Level 8.8, Phosphorus Level 4.0, Magnesium Level 2.2, Total Bilirubin 0.3, Aspartate Amino Transf (AST/SGOT) 30, Alanine Aminotransferase (ALT/SGPT) 24, Alkaline Phosphatase 71, Troponin I 0.049, Total Protein 6.7, Albumin 2.2L, Globulin 4.5, Albumin/Globulin Ratio 0.5L Current Medications Medications (Trade) Dose Ordered Sig/Daiana Route PRN Reason Start Time Stop Time Status Last Admin Dose Admin Acetaminophen (Tylenol) 650 mg Q6H PRN ORAL MILD/TEMP 12/19/19 23:30 01/18/20 23:29 12/20/19 08:46 Acetaminophen/ Hydrocodone Bitart ([place] 5/325) 1 tab Q4H PRN ORAL Moderate Pain (Pain Scale 4-6) 12/19/19 23:30 12/26/19 23:29 12/23/19 12:03 Albuterol/ Ipratropium (Albuterol/ Ipratropium) 3 ml Q4H PRN HHN Shortness of Breath 12/19/19 23:45 12/24/19 23:44 Azithromycin 250 mg/Sodium Chloride 275 ml @ 275 mls/hr Q24HRS IV 12/20/19 18:00 12/25/19 17:59 12/23/19 18:12 Cefepime HCl 2 gm/ Sodium Chloride 55 ml @ 110 mls/hr Q24H IVPB 12/23/19 21:00 12/30/19 20:59 12/23/19 20:46 Clopidogrel Bisulfate (Plavix) 75 mg DAILY ORAL 12/20/19 09:00 01/19/20 08:59 12/23/19 09:35 Dextrose (Dextrose 50%) 25 ml Q30M PRN IV Hypoglycemia 12/19/19 23:30 03/18/20 23:29 Dextrose (Dextrose 50%) 50 ml Q30M PRN IV Hypoglycemia 12/19/19 23:30 03/18/20 23:29 Docusate Sodium (Colace) 100 mg THREE TIMES A DAY ORAL 12/20/19 18:00 01/19/20 17:59 12/23/19 18:12 Enoxaparin Sodium (Lovenox) 40 mg DAILY SUBQ 12/20/19 09:00 03/19/20 08:59 12/23/19 10:01 Insulin Aspart (NovoLOG) BEFORE MEALS AND HS SUBQ 12/20/19 06:30 03/19/20 06:29 12/24/19 06:23 Lorazepam (Ativan) 1 mg Q6H PRN ORAL For Anxiety 12/20/19 23:30 12/27/19 23:29 12/23/19 20:37 Metoprolol Tartrate (Lopressor) 50 mg EVERY 12 HOURS ORAL 12/23/19 09:55 03/22/20 09:54 12/23/19 20:44 Morphine Sulfate (Morphine Sulfate) 2 mg Q8H PRN IVP Severe Pain (Pain Scale 7-10) 12/19/19 23:30 12/26/19 23:29 12/23/19 01:22 Olanzapine (ZyPREXA) 2.5 mg DAILY ORAL 12/21/19 09:00 02/04/20 08:59 12/23/19 10:00 Olanzapine (ZyPREXA) 5 mg BEDTIME ORAL 12/21/19 21:00 02/04/20 20:59 12/23/19 20:36 Pantoprazole (Protonix) 40 mg EVERY 12 HOURS ORAL 12/23/19 09:55 01/22/20 09:54 12/23/19 20:36 Phosphorus (Phospha 250 Neutral) 250 mg THREE TIMES A DAY ORAL 12/23/19 13:00 01/22/20 12:59 12/23/19 18:12 Promethazine HCl (Phenergan Plain) 12.5 mg Q6H PRN ORAL For Cough 12/19/19 23:45 01/18/20 23:44 Zolpidem Tartrate (Ambien) 5 mg HSPRN PRN ORAL Insomnia 12/19/19 23:30 12/26/19 23:29 12/23/19 20:37 Assessment/Plan Assessment/Plan IMPRESSION: 1. Positive COVID-19. 2. Possible UTI. 3. Leukocytosis. 4. Hypoxemia. 5. Schizophrenia. 6. Hypertension. 7. Diabetes mellitus. 8. COPD. 9. CHF. DISCUSSION: Continue broad-spectrum antibiotics. Continue oxygen and pulmonary hygiene. DVT prophylaxis. I will follow carefully. Now on 40% Ventimask Nava Benitez Omar Syed MD December 24, 2019 09:04
[2019-12-24] MEDS: Phospha 250 Neutral tab ORAL SCH (09:28)
[2019-12-24] MEDS: OLANZapine 2.5mg tab ORAL SCH (09:28)
[2019-12-24] MEDS: Morphine Sulfate 2mg/ml Inj(IV/IM USE ONLY) IVP PRN (09:29)
[2019-12-24] MEDS: Docusate 100mg cap ORAL SCH ×3 (09:29→17:13)
[2019-12-24] MEDS: Metoprolol Tartrate 50mg tab ORAL SCH ×2 (09:29→21:22)
[2019-12-24] MEDS: Enoxaparin 40mg Inj SUBQ SCH (09:30)
[2019-12-24] MEDS: LORazepam 1mg tab ORAL PRN (09:40)
--- NOTE | 2019-12-24 09:56 | NUR ---
RADIOLOGY: PCXR COMPLETED 0900 HRS. NF
--- NOTE | 2019-12-24 10:01 | Cardiac Electrophysiology PN ---
Assessment/Plan Assessment/Plan 1. Accelerated hypertension. On metoprolol 50 mg b.i.d. and p.r.n. clonidine 2. History of congestive heart failure. Echocardiogram normal EF with no evidence of left ventricular hypertrophy. 3. Sepsis, on antibiotic per Dr. Daugherty. 4. Psychiatric history. 5. Hyponatremia. Placement pending DW RN Subjective Subjective Alert in NAD in Covid isolation. Refusing Meds, labs. Objective Last 24 Hour Vital Signs Date Time Temp Pulse Resp B/P (MAP) Pulse Ox O2 Delivery O2 Flow Rate FiO2 12/24/19 09:29 79 125/92 12/24/19 08:00 97.6 79 17 125/92 (103) 98 12/24/19 04:00 97.0 75 18 144/80 (101) 97 12/23/19 23:00 Venturi Mask 12/23/19 20:44 82 127/78 12/23/19 16:00 98.0 78 18 117/54 (75) 95 12/23/19 12:00 98.5 84 18 111/68 (82) 98 Intake and Output 12/23/19 12/24/19 19:00 07:00 Intake Total 500 ml Output Total 200 ml Balance 300 ml Other 500 ml Output Urine Total 200 ml # Voids 1 Laboratory Tests Test 12/24/19 06:15 White Blood Count 9.1 K/UL (4.8-10.8) Red Blood Count 4.29 M/UL (4.20-5.40) Hemoglobin 12.7 G/DL (12.0-16.0) Hematocrit 39.0 % (37.0-47.0) Mean Corpuscular Volume 91 FL (80-99) Mean Corpuscular Hemoglobin 29.6 PG (27.0-31.0) Mean Corpuscular Hemoglobin Concent 32.5 G/DL (32.0-36.0) Red Cell Distribution Width 11.8 % (11.6-14.8) Platelet Count 270 K/UL (150-450) Mean Platelet Volume 5.6 FL (6.5-10.1) L Neutrophils (%) (Auto) % (45.0-75.0) Lymphocytes (%) (Auto) % (20.0-45.0) Monocytes (%) (Auto) % (1.0-10.0) Eosinophils (%) (Auto) % (0.0-3.0) Basophils (%) (Auto) % (0.0-2.0) Differential Total Cells Counted 100 Neutrophils % (Manual) 86 % (45-75) H Lymphocytes % (Manual) 9 % (20-45) L Monocytes % (Manual) 5 % (1-10) Eosinophils % (Manual) 0 % (0-3) Basophils % (Manual) 0 % (0-2) Band Neutrophils 0 % (0-8) Platelet Estimate Adequate Platelet Morphology Normal Red Blood Cell Morphology Normal D-Dimer 0.90 mg/L FEU (0.00-0.49) H Sodium Level 140 MMOL/L (136-145) Potassium Level 4.2 MMOL/L (3.5-5.1) Chloride Level 100 MMOL/L (98-107) Carbon Dioxide Level 34 MMOL/L (21-32) H Anion Gap 6 mmol/L (5-15) Blood Urea Nitrogen 34 mg/dL (7-18) H Creatinine 2.0 MG/DL (0.55-1.30) H Estimat Glomerular Filtration Rate 29.1 mL/min (>60) Glucose Level 167 MG/DL (74-106) H Calcium Level 8.8 MG/DL (8.5-10.1) Phosphorus Level 4.0 MG/DL (2.5-4.9) Magnesium Level 2.2 MG/DL (1.8-2.4) Total Bilirubin 0.3 MG/DL (0.2-1.0) Aspartate Amino Transf (AST/SGOT) 30 U/L (15-37) Alanine Aminotransferase (ALT/SGPT) 24 U/L (12-78) Alkaline Phosphatase 71 U/L (46-116) Troponin I 0.049 ng/mL (0.000-0.056) Total Protein 6.7 G/DL (6.4-8.2) Albumin 2.2 G/DL (3.4-5.0) L Globulin 4.5 g/dL Albumin/Globulin Ratio 0.5 (1.0-2.7) L Objective HEAD AND NECK: No JVD. LUNGS: Clear. CARDIOVASCULAR: Regular S1 and S2 with no gallop. ABDOMEN: Soft. EXTREMITIES: No edema. Eusebio Barrow MD December 24, 2019 10:00
--- NOTE | 2019-12-24 10:12 | Diagnostic Imaging Report ---
Procedure: XRAY Chest 1v Reason for study: Shortness of breath. Comparison films: 12/23/2019. FINDINGS: A single one view chest is obtained. Vascularity is normal. Diffuse interstitial densities noted along with bibasilar infiltrates. Left basilar infiltrate slightly increased. Cardiac and mediastinal silhouette are within normal limits. Right effusion unchanged. The bony thorax appear unremarkable. IMPRESSION: Bibasilar disease. Left basilar infiltrate is increased.
--- NOTE | 2019-12-24 11:00 | NUR ---
NURSE NOTES: PT STATED SHE HAS A LOT OF BACK PAIN AND RN EDUCATED PT ON AVAILABLE PRN MORPHINE 2MG IV FOR SEVERE PAIN. PT AGREED TO TAKE MORPHINE. RN ADMINISTERED ORDERED. PT ABLE TO TAKE ORAL MEDS WITH ENCOURAGEMENT. PT AGREED TO HAVE ABG DRAWN BY RESPIRATORY THERAPIST. RN SPOKE TO BRAIN AND MADE AWARE. PER [facility], THEY WILL SEND UP THERAPIST TO DRAW ABG. PT DID NOT WANT TO EAT BREAKFAST BUT DRANK 1 DIET CRANBERRY JUICE. PT RESTING IN BED IN NO APPARENT DISTRESS AT THIS TIME. BED IN LOWEST POSITION WITH BEDSIDE RAILS X3 RAISED. BED ALARM ON. CALL LIGHT WITHIN REACH. WILL CONTINUE TO MONITOR.
--- NOTE | 2019-12-24 11:43 | Nephrology Progress Note ---
Assessment/Plan Problem List: (1) MATTHEW (acute kidney injury) Assessment: Serum creatinine livia to 2 (2) Hyponatremia Assessment: Likely depletional (3) Diabetes mellitus Assessment: With elevated hemoglobin A1c (4) UTI (urinary tract infection) (5) COVID-19 Assessment Patient presents with hyponatremia, urine spot sodium below 20. Hyponatremia most likely depletional Azotemia / dehydration Sepsis, positive COVID-19 test, UTI Diabetes mellitus [id number] with high hemoglobin A1c History of psych disease Plan Serum creatinine livia to 2 Will order a Kohler catheter and give 1 L of IV bolus Patient ejection fraction is normal on 2D echo Serum sodium now normalized Monitor electrolytes and renal parameters Antibiotics per ID Monitor electrolytes and renal parameters Per orders Per consultants Subjective ROS Limited/Unobtainable: No Constitutional: Reports: malaise, weakness Objective Objective Last 24 Hour Vital Signs Date Time Temp Pulse Resp B/P (MAP) Pulse Ox O2 Delivery O2 Flow Rate FiO2 12/24/19 09:29 79 125/92 12/24/19 09:00 Non-Rebreather 15.0 12/24/19 08:00 97.6 79 17 125/92 (103) 98 12/24/19 04:00 97.0 75 18 144/80 (101) 97 12/23/19 23:00 Venturi Mask 12/23/19 20:44 82 127/78 12/23/19 16:00 98.0 78 18 117/54 (75) 95 12/23/19 12:00 98.5 84 18 111/68 (82) 98 Intake and Output 12/23/19 12/24/19 19:00 07:00 Intake Total 500 ml Output Total 200 ml Balance 300 ml Other 500 ml Output Urine Total 200 ml # Voids 1 Laboratory Tests 12/24/19 06:15: White Blood Count 9.1, Red Blood Count 4.29, Hemoglobin 12.7, Hematocrit 39.0, Mean Corpuscular Volume 91, Mean Corpuscular Hemoglobin 29.6, Mean Corpuscular Hemoglobin Concent 32.5, Red Cell Distribution Width 11.8, Platelet Count 270, Mean Platelet Volume 5.6L, Neutrophils (%) (Auto) , Lymphocytes (%) (Auto) , Monocytes (%) (Auto) , Eosinophils (%) (Auto) , Basophils (%) (Auto) , Differential Total Cells Counted 100, Neutrophils % (Manual) 86H, Lymphocytes % (Manual) 9L, Monocytes % (Manual) 5, Eosinophils % (Manual) 0, Basophils % ( Manual) 0, Band Neutrophils 0, Platelet Estimate Adequate, Platelet Morphology Normal, Red Blood Cell Morphology Normal, D-Dimer 0.90H, Sodium Level 140, Potassium Level 4.2, Chloride Level 100, Carbon Dioxide Level 34H, Anion Gap 6, Blood Urea Nitrogen 34H, Creatinine 2.0H, Estimat Glomerular Filtration Rate 29.1, Glucose Level 167H, Calcium Level 8.8, Phosphorus Level 4.0, Magnesium Level 2.2, Total Bilirubin 0.3, Aspartate Amino Transf (AST/SGOT) 30, Alanine Aminotransferase (ALT/SGPT) 24, Alkaline Phosphatase 71, Troponin I 0.049, Total Protein 6.7, Albumin 2.2L, Globulin 4.5, Albumin/Globulin Ratio 0.5L 12/24/19 11:28: Arterial Blood pH 7.312L, Arterial Blood Partial Pressure CO2 71.9*H, Arterial Blood Partial Pressure O2 148.0H, Arterial Blood HCO3 35.6H, Arterial Blood Oxygen Saturation 98.7, Arterial Blood Base Excess 6.9H, Dread Test Positive Height (Feet): 5 Height (Inches): 6.00 Weight (Pounds): 150 General Appearance: confused Cardiovascular: tachycardia Respiratory/Chest: decreased breath sounds Abdomen: soft Objective No change Rolo Roldan MD December 24, 2019 11:43
--- NOTE | 2019-12-24 11:45 | NUR ---
NURSE NOTES: ABG WAS DRAWN AND PCO2 71.9 CRITICAL VALUE REPORTED TO RN BY RESPIRATORY THERAPIST. RN SPOKE TO DR CERDA AND MADE AWARE OF ABG RESULTS AND PT CURRENTLY ON NON-REBREATHER 15L O2. NO NEW ORDERS GIVEN.
[2019-12-24 12:00] VITALS: BP 122/68
--- NOTE | 2019-12-24 12:00 | NUR ---
NURSE NOTES: PT'S PULSE REPORTED TO BE 51. RN PALPATED PT'S PULSE, 67-68. PT IN NO APPARENT DISTRESS AT THIS TIME. WILL CONTINUE TO MONITOR.
--- NOTE | 2019-12-24 14:37 | NUR ---
NURSE NOTES: ORDER TO INSERT LOZANO CATH NOTED. RN INSERTED 18F LOZANO CATH. DRAINING CLEAR YELLOW URINE BY GRAVITY. IN NO APPARENT DISTRESS AT THIS TIME. WILL CONTINUE TO MONITOR.
[2019-12-24] MEDS: D5 1/2NS 1,000 ML IV SCH (14:53)
--- NOTE | 2019-12-24 15:24 | General Progress Note ---
Assessment/Plan Status: stable Assessment/Plan: S, O: poor historian, seems comfortable. Declined cognition and poor historian PHYSICAL EXAMINATION:HEAD AND NECK: Atraumatic and normocephalic. CHEST: Bronchial breathing sounds.HEART: S1 and S2. Regular rate and rhythm. ABDOMEN: Soft. No organomegaly.MUSCULOSKELETAL: No gross focal motor deficit. NEUROLOGY: Patient is awake, alert x1. Easily distracted. LABORATORY DATA: Dated 12/23 reviewed ASSESSMENT: 1. Sepsis 2. metabolic encephalopathy 2. UTI - Gram negative 3. COVD 19- Pneumonia. 3. Renal failure, age indeterminate. 4. Diabetes type 2. 5. Hypertension. 6. Hyperlipidemia. 7. Coronary artery disease/peripheral arterial disease. Continue with antiplatelet. 8. GI and DVT prophylaxis. 9. Anemia: likely chronic disease PLAN OF CARE: Continue with culture-targeted antibiotic treatment. Notes from Infectious Disease, Nephrology, Pulmonary have been reviewed. check hepatitis panel c/w current abx treatment US renal ordered Subjective Allergies: Coded Allergies: ASPIRIN (Verified Allergy, Unknown, 12/19/19) PENICILLINS (Verified Allergy, Unknown, 12/19/19) Objective Last 24 Hour Vital Signs Date Time Temp Pulse Resp B/P (MAP) Pulse Ox O2 Delivery O2 Flow Rate FiO2 12/24/19 14:45 Non-Rebreather 15.0 12/24/19 12:05 67 12/24/19 12:00 98.0 51 18 122/68 (86) 100 12/24/19 09:29 79 125/92 12/24/19 09:00 Non-Rebreather 15.0 12/24/19 08:00 97.6 79 17 125/92 (103) 98 12/24/19 04:00 97.0 75 18 144/80 (101) 97 12/23/19 23:00 Venturi Mask 12/23/19 20:44 82 127/78 12/23/19 16:00 98.0 78 18 117/54 (75) 95 Intake and Output 12/23/19 12/24/19 19:00 07:00 Intake Total 500 ml Output Total 200 ml Balance 300 ml Other 500 ml Output Urine Total 200 ml # Voids 1 Laboratory Tests 12/24/19 06:15: White Blood Count 9.1, Red Blood Count 4.29, Hemoglobin 12.7, Hematocrit 39.0, Mean Corpuscular Volume 91, Mean Corpuscular Hemoglobin 29.6, Mean Corpuscular Hemoglobin Concent 32.5, Red Cell Distribution Width 11.8, Platelet Count 270, Mean Platelet Volume 5.6L, Neutrophils (%) (Auto) , Lymphocytes (%) (Auto) , Monocytes (%) (Auto) , Eosinophils (%) (Auto) , Basophils (%) (Auto) , Differential Total Cells Counted 100, Neutrophils % (Manual) 86H, Lymphocytes % (Manual) 9L, Monocytes % (Manual) 5, Eosinophils % (Manual) 0, Basophils % ( Manual) 0, Band Neutrophils 0, Platelet Estimate Adequate, Platelet Morphology Normal, Red Blood Cell Morphology Normal, D-Dimer 0.90H, Sodium Level 140, Potassium Level 4.2, Chloride Level 100, Carbon Dioxide Level 34H, Anion Gap 6, Blood Urea Nitrogen 34H, Creatinine 2.0H, Estimat Glomerular Filtration Rate 29.1, Glucose Level 167H, Calcium Level 8.8, Phosphorus Level 4.0, Magnesium Level 2.2, Total Bilirubin 0.3, Aspartate Amino Transf (AST/SGOT) 30, Alanine Aminotransferase (ALT/SGPT) 24, Alkaline Phosphatase 71, Troponin I 0.049, Total Protein 6.7, Albumin 2.2L, Globulin 4.5, Albumin/Globulin Ratio 0.5L 12/24/19 11:28: Arterial Blood pH 7.312L, Arterial Blood Partial Pressure CO2 71.9*H, Arterial Blood Partial Pressure O2 148.0H, Arterial Blood HCO3 35.6H, Arterial Blood Oxygen Saturation 98.7, Arterial Blood Base Excess 6.9H, Dread Test Positive 12/24/19 12:00: Urine Random Sodium 28 Height (Feet): 5 Height (Inches): 6.00 Weight (Pounds): 150 Jennifer Alberto MD December 24, 2019 15:24
[2019-12-24 16:00] VITALS: BP 129/60
--- NOTE | 2019-12-24 16:46 | NUR ---
CASE MANAGEMENT:REVIEW SI;COVID-19 PNA. SEPSIS. ENCEPHALOPATHY. GRAM (-) UTI. 97.0 51 18 150/106 92% VENTURI MASK BUN 34 CR 2.0 BG 167 ALB 2.2 IS;CEFEPIME IV Q24 HRS IVF D5 @ 100 ML/HR PROTONIX PO Q12 HRS LOPRESSOR PO Q12 HRS ZITHROMAX IV Q24 HRS LOVENOX SUBQ QD MED SURG STATUS DCP;[facility]
[2019-12-24] MEDS: Azithromycin 250 MG in NS 275 ML IV SCH (17:13)
--- NOTE | 2019-12-24 19:23 | NUR ---
HAND-OFF: Report given to Mark ACE RN.
--- NOTE | 2019-12-24 19:30 | Infectious Diseases Prog Note ---
Assessment/Plan Problems: (1) Pneumonia Assessment & Plan: with increasing LLL infiltrates on repeated CXR today , continue cefepime and azithromycin , monitor CXR, Aspiration precaution (2) UTI (urinary tract infection) Assessment & Plan: with klebsiella Pneumonia and Providencia stuarttii already on cefepime (3) COVID-19 Assessment & Plan: confirmed with nasal swab and positive PCR , KEEP IN ENHANCED DROPLETS ISOLATION , supportive care for now (4) Diabetes mellitus Assessment & Plan: recommend tight glycemic control to keep blood glucose between 100-140 (5) COPD (chronic obstructive pulmonary disease) Assessment & Plan: continue inhalers , antibiotics and oxygen as needed , AVOID STEROIDS (6) Hypoxemia Assessment & Plan: not explained by her lung infiltrates rule out PE , will order CT ANGIO of the chest Subjective ROS Limited/Unobtainable: Yes Allergies: Coded Allergies: ASPIRIN (Verified Allergy, Unknown, 12/19/19) PENICILLINS (Verified Allergy, Unknown, 12/19/19) Subjective she was altered and confused, has cough and congested , but no SOB, no fever or chills, no nausea or vomiting , no diarrhea, now on NRB mask due to hypoxemia Objective Vital Signs Last 24 Hour Vital Signs Date Time Temp Pulse Resp B/P (MAP) Pulse Ox O2 Delivery O2 Flow Rate FiO2 12/24/19 16:00 97.8 59 18 129/60 (83) 98 12/24/19 14:45 Non-Rebreather 15.0 12/24/19 12:05 67 12/24/19 12:00 98.0 51 18 122/68 (86) 100 12/24/19 09:29 79 125/92 12/24/19 09:00 Non-Rebreather 15.0 12/24/19 08:00 97.6 79 17 125/92 (103) 98 12/24/19 04:00 97.0 75 18 144/80 (101) 97 12/23/19 23:00 Venturi Mask 12/23/19 20:44 82 127/78 Height (Feet): 5 Height (Inches): 6.00 Weight (Pounds): 150 General Appearance: WD/WN, no acute distress HEENT: normocephalic, atraumatic, anicteric, mucous membranes moist Respiratory/Chest: chest wall non-tender, lungs clear, normal breath sounds, no respiratory distress, no accessory muscle use Cardiovascular: normal peripheral pulses, normal rate, regular rhythm, no gallop/murmur, no JVD Abdomen: normal bowel sounds, soft, non tender, no organomegaly, non distended , no mass, no scars Genitourinary: normal external genitalia Extremities: no cyanosis, no clubbing Skin: no rash, no lesions Neurologic/Psychiatric: unresponsiveness Lymphatic: no neck adenopathy, no groin adenopathy Musculoskeletal: normal muscle bulk, no effusion Laboratory Tests Test 12/24/19 06:15 12/24/19 11:28 12/24/19 12:00 White Blood Count 9.1 K/UL (4.8-10.8) Red Blood Count 4.29 M/UL (4.20-5.40) Hemoglobin 12.7 G/DL (12.0-16.0) Hematocrit 39.0 % (37.0-47.0) Mean Corpuscular Volume 91 FL (80-99) Mean Corpuscular Hemoglobin 29.6 PG (27.0-31.0) Mean Corpuscular Hemoglobin Concent 32.5 G/DL (32.0-36.0) Red Cell Distribution Width 11.8 % (11.6-14.8) Platelet Count 270 K/UL (150-450) Mean Platelet Volume 5.6 FL (6.5-10.1) L Neutrophils (%) (Auto) % (45.0-75.0) Lymphocytes (%) (Auto) % (20.0-45.0) Monocytes (%) (Auto) % (1.0-10.0) Eosinophils (%) (Auto) % (0.0-3.0) Basophils (%) (Auto) % (0.0-2.0) Differential Total Cells Counted 100 Neutrophils % (Manual) 86 % (45-75) H Lymphocytes % (Manual) 9 % (20-45) L Monocytes % (Manual) 5 % (1-10) Eosinophils % (Manual) 0 % (0-3) Basophils % (Manual) 0 % (0-2) Band Neutrophils 0 % (0-8) Platelet Estimate Adequate Platelet Morphology Normal Red Blood Cell Morphology Normal D-Dimer 0.90 mg/L FEU (0.00-0.49) H Sodium Level 140 MMOL/L (136-145) Potassium Level 4.2 MMOL/L (3.5-5.1) Chloride Level 100 MMOL/L (98-107) Carbon Dioxide Level 34 MMOL/L (21-32) H Anion Gap 6 mmol/L (5-15) Blood Urea Nitrogen 34 mg/dL (7-18) H Creatinine 2.0 MG/DL (0.55-1.30) H Estimat Glomerular Filtration Rate 29.1 mL/min (>60) Glucose Level 167 MG/DL (74-106) H Calcium Level 8.8 MG/DL (8.5-10.1) Phosphorus Level 4.0 MG/DL (2.5-4.9) Magnesium Level 2.2 MG/DL (1.8-2.4) Total Bilirubin 0.3 MG/DL (0.2-1.0) Aspartate Amino Transf (AST/SGOT) 30 U/L (15-37) Alanine Aminotransferase (ALT/SGPT) 24 U/L (12-78) Alkaline Phosphatase 71 U/L (46-116) Troponin I 0.049 ng/mL (0.000-0.056) Total Protein 6.7 G/DL (6.4-8.2) Albumin 2.2 G/DL (3.4-5.0) L Globulin 4.5 g/dL Albumin/Globulin Ratio 0.5 (1.0-2.7) L Arterial Blood pH 7.312 (7.350-7.450) Arterial Blood Partial Pressure CO2 71.9 mmHg (35.0-45.0) *H Arterial Blood Partial Pressure O2 148.0 mmHg (75.0-100.0) H Arterial Blood HCO3 35.6 mmol/L (22.0-26.0) H Arterial Blood Oxygen Saturation 98.7 % (95-100) Arterial Blood Base Excess 6.9 (-2-2) H Dread Test Positive Urine Random Sodium 28 mmol/L (20-110) Current Medications Medications (Trade) Dose Ordered Sig/Adiana Route PRN Reason Start Time Stop Time Status Last Admin Dose Admin Acetaminophen (Tylenol) 650 mg Q6H PRN ORAL MILD/TEMP 12/19/19 23:30 01/18/20 23:29 12/20/19 08:46 Acetaminophen/ Hydrocodone Bitart ([place] 5/325) 1 tab Q4H PRN ORAL Moderate Pain (Pain Scale 4-6) 12/19/19 23:30 12/26/19 23:29 12/23/19 12:03 Albuterol/ Ipratropium (Albuterol/ Ipratropium) 3 ml Q4H PRN HHN Shortness of Breath 12/19/19 23:45 12/24/19 23:44 Azithromycin 250 mg/Sodium Chloride 275 ml @ 275 mls/hr Q24HRS IV 12/20/19 18:00 12/25/19 17:59 12/24/19 17:13 Cefepime HCl 1 gm/ Sodium Chloride 55 ml @ 110 mls/hr Q24H IVPB 12/24/19 21:00 12/31/19 20:59 Clopidogrel Bisulfate (Plavix) 75 mg DAILY ORAL 12/20/19 09:00 01/19/20 08:59 12/24/19 09:28 Dextrose (Dextrose 50%) 25 ml Q30M PRN IV Hypoglycemia 12/19/19 23:30 03/18/20 23:29 Dextrose (Dextrose 50%) 50 ml Q30M PRN IV Hypoglycemia 12/19/19 23:30 03/18/20 23:29 Dextrose/Sodium Chloride 1,000 ml @ 100 mls/hr Q10H IV 12/24/19 14:45 01/23/20 14:44 12/24/19 14:53 Docusate Sodium (Colace) 100 mg THREE TIMES A DAY ORAL 12/20/19 18:00 01/19/20 17:59 12/24/19 09:29 Enoxaparin Sodium (Lovenox) 40 mg DAILY SUBQ 12/20/19 09:00 03/19/20 08:59 12/24/19 09:30 Insulin Aspart (NovoLOG) BEFORE MEALS AND HS SUBQ 12/20/19 06:30 03/19/20 06:29 12/24/19 06:23 Lorazepam (Ativan) 1 mg Q6H PRN ORAL For Anxiety 12/20/19 23:30 12/27/19 23:29 12/24/19 09:40 Metoprolol Tartrate (Lopressor) 50 mg EVERY 12 HOURS ORAL 12/23/19 09:55 03/22/20 09:54 12/24/19 09:29 Morphine Sulfate (Morphine Sulfate) 2 mg Q8H PRN IVP Severe Pain (Pain Scale 7-10) 12/19/19 23:30 12/26/19 23:29 12/24/19 09:29 Olanzapine (ZyPREXA) 2.5 mg DAILY ORAL 12/21/19 09:00 02/04/20 08:59 12/24/19 09:28 Olanzapine (ZyPREXA) 5 mg BEDTIME ORAL 12/21/19 21:00 02/04/20 20:59 12/23/19 20:36 Pantoprazole (Protonix) 40 mg EVERY 12 HOURS ORAL 12/23/19 09:55 01/22/20 09:54 12/24/19 09:29 Promethazine HCl (Phenergan [place]) 12.5 mg Q6H PRN ORAL For Cough 12/19/19 23:45 01/18/20 23:44 Zolpidem Tartrate (Ambien) 5 mg HSPRN PRN ORAL Insomnia 12/19/19 23:30 12/26/19 23:29 12/23/19 20:37 Abigail Daugherty M.D. December 24, 2019 19:30
[2019-12-24 20:00] VITALS: BP 130/78
[2019-12-24] MEDS ORDERED: Omnipaque-300 100ml vial INJ PRN (21:00)
[2019-12-24] MEDS ORDERED: Cefepime HCl 1 GM in NS 55 ML IVPB SCH (21:00)
--- NOTE | 2019-12-24 21:00 | NUR ---
NURSE NOTES: Patient's daughter and granddaughter gave consent for CT chest with contrast. Witnessed by FLETCHER Bae. Spoke with Weston of radio and he wanted to know if Dr. Daugherty wanted to proceed with it even the pt's kidney function doesn't look good. Called Dr. Daugherty and he cancelled CT and will order NM later. Weston made aware and he will call Dr. Daugherty for clarification.
[2019-12-25] VITALS: BP 146/69
[2019-12-25] MEDS: D5 1/2NS 1,000 ML IV SCH (03:00)
--- NOTE | 2019-12-25 05:44 | Progress Note ---
DATE: 12/24/2019 SUBJECTIVE: The patient is irritable, calmer, is still confused and is unable to provide any meaningful information. MENTAL STATUS EXAMINATION: The patient is awake, disoriented. Mood is anxious. Affect is flat. Thought process is concrete. Thought content, no suicidal or homicidal ideation. Cognition is impaired. Insight and judgment are impaired. ASSESSMENT: 1. Acute encephalopathy. 2. Dementia. PLAN: 1. Olanzapine 2.5 in the morning, 5 mg at bedtime. 2. Discussed with the nurse. Larisa Vogel M.D. DR: LEN JOB#: [id number] CC: FARRUKH
[2019-12-25] MEDS: NovoLOG Insulin Flexpen SUBQ SCH ×4 (05:46→21:00)
--- NOTE | 2019-12-25 07:18 | NUR ---
HAND-OFF: Report given to FLETCHER Lynch.
[2019-12-25 08:00] VITALS: BP 146/69
--- NOTE | 2019-12-25 08:27 | NUR ---
NURSE NOTES: pt awake alert, no distress. no sob. call light within reach. bed in lowest position, locked. attempted to wean to RA but pt desats to 80 and becomes tachypneic, applied nrbm at 100%, ear lobe pulse ox since pt has nail guamanian on fingers and toes.
[2019-12-25] MEDS: Enoxaparin 40mg Inj SUBQ SCH (09:20)
[2019-12-25] MEDS: Metoprolol Tartrate 50mg tab ORAL SCH ×2 (09:20→21:12)
[2019-12-25] MEDS: Docusate 100mg cap ORAL SCH ×3 (09:20→18:00)
[2019-12-25] MEDS: OLANZapine 2.5mg tab ORAL SCH (09:20)
--- NOTE | 2019-12-25 09:31 | General Progress Note ---
Assessment/Plan Status: stable Assessment/Plan: S, O: poor historian, seems in mild sob. Declined cognition and poor historian PHYSICAL EXAMINATION:HEAD AND NECK: Atraumatic and normocephalic. CHEST: Bronchial breathing sounds.HEART: S1 and S2. Regular rate and rhythm. ABDOMEN: Soft. No organomegaly.MUSCULOSKELETAL: No gross focal motor deficit. NEUROLOGY: Patient is awake, alert x1. Easily distracted. LABORATORY DATA: Dated 12/23 reviewed Imaging: CXR, dated 12/23 reveiwed ASSESSMENT: 1. Sepsis 2. metabolic encephalopathy 2. UTI - Gram negative 3. COVD 19- Pneumonia. 3. Renal failure, age indeterminate. 4. Diabetes type 2. 5. Hypertension. 6. Hyperlipidemia. 7. Coronary artery disease/peripheral arterial disease. Continue with antiplatelet. 8. GI and DVT prophylaxis. 9. Anemia: likely chronic disease PLAN OF CARE: Continue with culture-targeted antibiotic treatment. Notes from Infectious Disease, Nephrology, Pulmonary have been reviewed. check hepatitis panel c/w current abx treatment US renal ordered High o2 requirement. complicated PNA ? Will F/u with pulmonary Subjective Allergies: Coded Allergies: ASPIRIN (Verified Allergy, Unknown, 12/19/19) PENICILLINS (Verified Allergy, Unknown, 12/19/19) Objective Last 24 Hour Vital Signs Date Time Temp Pulse Resp B/P (MAP) Pulse Ox O2 Delivery O2 Flow Rate FiO2 12/25/19 09:20 67 146/69 12/25/19 08:00 98.1 67 22 146/69 (94) 100 12/25/19 00:00 98.1 67 22 146/69 (94) 90 12/24/19 21:22 85 130/78 12/24/19 21:00 Non-Rebreather 15.0 12/24/19 20:00 97.7 85 21 130/78 (95) 100 12/24/19 19:53 94 Venturi Mask 8.0 40 12/24/19 16:00 97.8 59 18 129/60 (83) 98 12/24/19 14:45 Non-Rebreather 15.0 12/24/19 12:05 67 12/24/19 12:00 98.0 51 18 122/68 (86) 100 12/24/19 09:29 79 125/92 Intake and Output 12/24/19 12/25/19 19:00 07:00 Intake Total 715 ml Output Total 750 ml 400 ml Balance -35 ml -400 ml Intake Oral 240 ml IV Total 475 ml Output Urine Total 750 ml 400 ml Laboratory Tests 12/24/19 11:28: Arterial Blood pH 7.312L, Arterial Blood Partial Pressure CO2 71.9*H, Arterial Blood Partial Pressure O2 148.0H, Arterial Blood HCO3 35.6H, Arterial Blood Oxygen Saturation 98.7, Arterial Blood Base Excess 6.9H, Dreda Test Positive 12/24/19 12:00: Urine Random Sodium 28 Height (Feet): 5 Height (Inches): 6.00 Weight (Pounds): 150 Jennifer Alberto MD December 25, 2019 09:31
[2019-12-25] MEDS ORDERED: Nail Polish Remover TOPIC SCH (10:00)
--- NOTE | 2019-12-25 10:09 | Pulmonology Progress Note ---
Subjective ROS Limited/Unobtainable: Yes Interval Events: more SOB today Constitutional: Reports: no symptoms HEENT: Repors: no symptoms Respiratory: Reports: dry cough Cardiovascular: Reports: no symptoms Gastrointestinal/Abdominal: Reports: no symptoms Allergies: Coded Allergies: ASPIRIN (Verified Allergy, Unknown, 12/19/19) PENICILLINS (Verified Allergy, Unknown, 12/19/19) Objective Last 24 Hour Vital Signs Date Time Temp Pulse Resp B/P (MAP) Pulse Ox O2 Delivery O2 Flow Rate FiO2 12/25/19 09:20 67 146/69 12/25/19 08:00 98.1 67 22 146/69 (94) 100 12/25/19 00:00 98.1 67 22 146/69 (94) 90 12/24/19 21:22 85 130/78 12/24/19 21:00 Non-Rebreather 15.0 12/24/19 20:00 97.7 85 21 130/78 (95) 100 12/24/19 19:53 94 Venturi Mask 8.0 40 12/24/19 16:00 97.8 59 18 129/60 (83) 98 12/24/19 14:45 Non-Rebreather 15.0 12/24/19 12:05 67 12/24/19 12:00 98.0 51 18 122/68 (86) 100 Intake and Output 12/24/19 12/25/19 19:00 07:00 Intake Total 715 ml Output Total 750 ml 400 ml Balance -35 ml -400 ml Intake Oral 240 ml IV Total 475 ml Output Urine Total 750 ml 400 ml General Appearance: no acute distress HEENT: normocephalic Respiratory: chest wall non-tender Cardiovascular: normal peripheral pulses Abdomen: normal bowel sounds Laboratory Tests 12/24/19 11:28: Arterial Blood pH 7.312L, Arterial Blood Partial Pressure CO2 71.9*H, Arterial Blood Partial Pressure O2 148.0H, Arterial Blood HCO3 35.6H, Arterial Blood Oxygen Saturation 98.7, Arterial Blood Base Excess 6.9H, Dread Test Positive 12/24/19 12:00: Urine Random Sodium 28 Current Medications Medications (Trade) Dose Ordered Sig/Daiana Route PRN Reason Start Time Stop Time Status Last Admin Dose Admin Acetaminophen (Tylenol) 650 mg Q6H PRN ORAL MILD/TEMP 12/19/19 23:30 01/18/20 23:29 12/20/19 08:46 Acetaminophen/ Hydrocodone Bitart ([place] 5/325) 1 tab Q4H PRN ORAL Moderate Pain (Pain Scale 4-6) 12/19/19 23:30 12/26/19 23:29 12/23/19 12:03 Azithromycin 250 mg/Sodium Chloride 275 ml @ 275 mls/hr Q24HRS IV 12/20/19 18:00 12/25/19 17:59 12/24/19 17:13 Cefepime HCl 1 gm/ Sodium Chloride 55 ml @ 110 mls/hr Q24H IVPB 12/24/19 21:00 12/31/19 20:59 12/24/19 21:23 Clopidogrel Bisulfate (Plavix) 75 mg DAILY ORAL 12/20/19 09:00 01/19/20 08:59 12/25/19 09:20 Dextrose (Dextrose 50%) 25 ml Q30M PRN IV Hypoglycemia 12/19/19 23:30 03/18/20 23:29 Dextrose (Dextrose 50%) 50 ml Q30M PRN IV Hypoglycemia 12/19/19 23:30 03/18/20 23:29 Dextrose/Sodium Chloride 1,000 ml @ 100 mls/hr Q10H IV 12/24/19 14:45 01/23/20 14:44 12/25/19 03:00 Docusate Sodium (Colace) 100 mg THREE TIMES A DAY ORAL 12/20/19 18:00 01/19/20 17:59 12/25/19 09:20 Enoxaparin Sodium (Lovenox) 40 mg DAILY SUBQ 12/20/19 09:00 03/19/20 08:59 12/25/19 09:20 Insulin Aspart (NovoLOG) BEFORE MEALS AND HS SUBQ 12/20/19 06:30 03/19/20 06:29 12/25/19 05:46 Iohexol (OMNIPAQUE-300 100ml) 100 ml ONCE PRN INJ radiology procedure 12/24/19 21:00 12/26/19 20:59 Lorazepam (Ativan) 1 mg Q6H PRN ORAL For Anxiety 12/20/19 23:30 12/27/19 23:29 12/24/19 09:40 Metoprolol Tartrate (Lopressor) 50 mg EVERY 12 HOURS ORAL 12/23/19 09:55 03/22/20 09:54 12/25/19 09:20 Morphine Sulfate (Morphine Sulfate) 2 mg Q8H PRN IVP Severe Pain (Pain Scale 7-10) 12/19/19 23:30 12/26/19 23:29 12/24/19 09:29 Olanzapine (ZyPREXA) 2.5 mg DAILY ORAL 12/21/19 09:00 02/04/20 08:59 12/25/19 09:20 Olanzapine (ZyPREXA) 5 mg BEDTIME ORAL 12/21/19 21:00 02/04/20 20:59 12/24/19 21:22 Pantoprazole (Protonix) 40 mg EVERY 12 HOURS ORAL 12/23/19 09:55 01/22/20 09:54 12/25/19 09:20 Promethazine HCl (Phenergan Plain) 12.5 mg Q6H PRN ORAL For Cough 12/19/19 23:45 01/18/20 23:44 Zolpidem Tartrate (Ambien) 5 mg HSPRN PRN ORAL Insomnia 12/19/19 23:30 12/26/19 23:29 12/23/19 20:37 Assessment/Plan Assessment/Plan IMPRESSION: 1. Positive COVID-19. 2. Possible UTI. 3. Leukocytosis. 4. Hypoxemia. 5. Schizophrenia. 6. Hypertension. 7. Diabetes mellitus. 8. COPD. 9. CHF. DISCUSSION: Continue broad-spectrum antibiotics. Continue oxygen and pulmonary hygiene. DVT prophylaxis. I will follow carefully. Will transfer to SDU DC IV fluids Added LAsix Start BiPAP Nava Benitez Omar Syed MD December 25, 2019 10:09
--- NOTE | 2019-12-25 10:10 | NUR ---
NURSE NOTES: relayed to dr Vincent upon rounds re abg results, rn asked if diamox or bipap, per md bipap on this floor if need to have neg pressure then kerry transfer, Maeve Arrington made aware, working on bed placement
--- NOTE | 2019-12-25 10:37 | NUR ---
NURSE NOTES: APPLIED NAIL [employer] ISLANDER REMOVER TO FINGERS, PT INITIALLY 96-100% RA, RELAYED TO MD ORDERS RECEIVED FOR ABG AT NOON AND PT CAN STAY MEDSURGE , BUT PT DESATTED TO 70% RELAYED TO MD , CONTINUE W TRANSFER AND BIPAP TREATMENT
--- NOTE | 2019-12-25 12:00 | NUR ---
NURSE NOTES: transferred pt to 237-1 in stable condition, on nrb 15L , verbal oriented. call light within reach. patient has all belongings, Cecilia MAYO received the patient.
--- NOTE | 2019-12-25 12:24 | Cardiac Electrophysiology PN ---
Assessment/Plan Assessment/Plan 1. Accelerated hypertension. On metoprolol 50 mg b.i.d.Lasix 40 iv bid and p.r.n. clonidine 2. History of congestive heart failure. Echocardiogram normal EF with no evidence of left ventricular hypertrophy. On Lasix 40 iv bid 3. Sepsis, on antibiotic per Dr. Daugherty. 4. Psychiatric history. 5. Hyponatremia. 6. Hypercapnea and respiratory failure. S/P VQ scan today. Going on BIPAP. FU Dr Melisa BRANDT RN Subjective Subjective Alert in NAD in Covid isolation. Refusing Meds, labs. Had VQ scan for positive DDimer. PCO2 up to high 70s on NRB FM. Ordered to be started on BIPAP. Objective Last 24 Hour Vital Signs Date Time Temp Pulse Resp B/P (MAP) Pulse Ox O2 Delivery O2 Flow Rate FiO2 12/25/19 09:20 67 146/69 12/25/19 09:00 Non-Rebreather 15.0 12/25/19 08:00 98.1 67 22 146/69 (94) 100 12/25/19 00:00 98.1 67 22 146/69 (94) 90 12/24/19 21:22 85 130/78 12/24/19 21:00 Non-Rebreather 15.0 12/24/19 20:00 97.7 85 21 130/78 (95) 100 12/24/19 19:53 94 Venturi Mask 8.0 40 12/24/19 16:00 97.8 59 18 129/60 (83) 98 12/24/19 14:45 Non-Rebreather 15.0 Intake and Output 12/24/19 12/25/19 19:00 07:00 Intake Total 715 ml Output Total 750 ml 400 ml Balance -35 ml -400 ml Intake Oral 240 ml IV Total 475 ml Output Urine Total 750 ml 400 ml Objective HEAD AND NECK: No JVD. LUNGS: Coarse rhonchi CARDIOVASCULAR: Regular S1 and S2 with no gallop. ABDOMEN: Soft. EXTREMITIES: No edema. Eusebio Barrow MD December 25, 2019 12:24
[2019-12-25 13:10] VITALS: BP 101/60
[2019-12-25] MEDS ORDERED: HYDROcodone/Acetamin 5/325 tab ORAL PRN (13:11)
[2019-12-25] MEDS ORDERED: Morphine Sulfate 2mg/ml Inj(IV/IM USE ONLY) IVP PRN (13:12)
[2019-12-25] MEDS ORDERED: Promethazine Plain 6.25mg/5ml ORAL PRN (13:12)
[2019-12-25] MEDS ORDERED: Omnipaque-300 100ml vial INJ PRN (13:12)
[2019-12-25] MEDS ORDERED: Zolpidem 5mg tab ORAL PRN (13:13)
--- NOTE | 2019-12-25 13:44 | Diagnostic Imaging Report ---
EXAM: NUCLEAR MEDICINE VENTILATION/PERFUSION SCAN. CLINICAL HISTORY: Shortness of breath. Patient is COVID 19 positive. COMPARISON: None TECHNIQUE: Ventilation segment of the study is not performed in accordance with ACR guidelines for Covid 19 patients to mitigate spread of virus. 5 mCi technetium 99 MAA was used for the perfusion portion. SPECT images are obtained in multiple planes. FINDINGS: Mildly heterogeneous uptake noted in both lungs on perfusion images but there is no segmental defect demonstrated. Cardiac silhouette is within normal limits. There is no effusion. IMPRESSION: Perfusion exam only. No discrete segmental perfusion defect demonstrated. Overall study is of low probability for pulmonary embolism by modified PIOPED criteria.
--- NOTE | 2019-12-25 14:44 | Nephrology Progress Note ---
Assessment/Plan Problem List: (1) MATTHEW (acute kidney injury) Assessment: Serum creatinine livia to 2 (2) Hyponatremia Assessment: Likely depletional (3) Diabetes mellitus Assessment: With elevated hemoglobin A1c (4) UTI (urinary tract infection) (5) COVID-19 Assessment Patient presents with hyponatremia, urine spot sodium below 20. Hyponatremia most likely depletional Azotemia / dehydration Sepsis, positive COVID-19 test, UTI Diabetes mellitus [id number] with high hemoglobin A1c History of psych disease Plan Serum creatinine livia to 2 yesterday, no blood work today , will check lab tomorrow Will order a Kohler catheter and give 1 L of IV bolus Patient ejection fraction is normal on 2D echo Serum sodium now normalized Monitor electrolytes and renal parameters Antibiotics per ID Monitor electrolytes and renal parameters Per orders Per consultants Subjective ROS Limited/Unobtainable: No Constitutional: Reports: malaise, weakness Objective Objective Last 24 Hour Vital Signs Date Time Temp Pulse Resp B/P (MAP) Pulse Ox O2 Delivery O2 Flow Rate FiO2 12/25/19 13:29 75 20 92 35 12/25/19 13:10 97.7 63 17 101/60 (74) 95 12/25/19 09:20 67 146/69 12/25/19 09:00 Non-Rebreather 15.0 12/25/19 08:00 98.1 67 22 146/69 (94) 100 12/25/19 00:00 98.1 67 22 146/69 (94) 90 12/24/19 21:22 85 130/78 12/24/19 21:00 Non-Rebreather 15.0 12/24/19 20:00 97.7 85 21 130/78 (95) 100 12/24/19 19:53 94 Venturi Mask 8.0 40 12/24/19 16:00 97.8 59 18 129/60 (83) 98 12/24/19 14:45 Non-Rebreather 15.0 Intake and Output 12/24/19 12/25/19 19:00 07:00 Intake Total 715 ml Output Total 750 ml 400 ml Balance -35 ml -400 ml Intake Oral 240 ml IV Total 475 ml Output Urine Total 750 ml 400 ml Laboratory Tests 12/25/19 13:10: Arterial Blood pH 7.355, Arterial Blood Partial Pressure CO2 64.8*H, Arterial Blood Partial Pressure O2 127.3H, Arterial Blood HCO3 35.4H, Arterial Blood Oxygen Saturation 98.1, Arterial Blood Base Excess 7.7H, Dread Test Positive No can panel today Height (Feet): 5 Height (Inches): 6.00 Weight (Pounds): 150 General Appearance: mild distress Cardiovascular: tachycardia Respiratory/Chest: decreased breath sounds Abdomen: distended Objective No change Rolo Roldan MD December 25, 2019 14:44
--- NOTE | 2019-12-25 15:00 | NUR ---
CASE MANAGEMENT: REVIEW SI: MATTHEW . DM . COVID-19 T 97.7 HR 63 RR 17 BP 146/69 SAT 92% NON-REBREATHER FLOW RATE 15.0 BUN 34 CR 2.0 ABG: PCO2 64.8 PO2 127.3 HCO3 35.4 IS: AZITHROMYCIN IV Q24HR LASIX 40MG Q12HR CEFEPIME IV Q24HR NOVOLOG SUBQ QD LOVENOX SUBQ QD STEP DOWN UNIT STATUS DCP: PATIENT IS FROM [facility]
--- NOTE | 2019-12-25 16:29 | Diagnostic Imaging Report ---
EXAM: ULTRASOUND US Renal Comp CLINICAL HISTORY: Abdominal pain. COMPARISON: None TECHNIQUE: Ultrasound examination of the kidneys includes grayscale images, and color and spectral doppler analysis. FINDINGS: The right kidney measures 8.5 x 3.6 x 3.7 cm and the left kidney measures 8.6 x 4.2 x 4.2 cm. Both kidneys are somewhat echogenic perhaps reflecting medical renal disease. No hydronephrosis or stone seen bilaterally. Urinary bladder appears unremarkable. IMPRESSION: BOTH KIDNEYS SLIGHTLY SMALL WITH SLIGHT INCREASE IN ECHOGENICITY LIKELY REFLECTING MEDICAL RENAL DISEASE. NO SIGN OF OBSTRUCTIVE UROPATHY.
[2019-12-25] MEDS ORDERED: Azithromycin 250 MG in NS 275 ML IV SCH (18:00)
--- NOTE | 2019-12-25 19:00 | NUR ---
RESPIRATORY NOTE:pt recieved on bipap no signs of SOB or discomfort, no skin tear noted, tape in place, sat 95% will continue to monitor the pt
--- NOTE | 2019-12-25 19:30 | NUR ---
NURSE NOTES: Received report from FLETCHER Chinchilla. Patient asleep in bed, afebrile and no respiratory distress noted. On bipap intact. Patient tolerating it. Saturating at 97%. With right wrist 24 g SL, intact and asymptomatic. With alvarado catheter to urine bag draining well. HOB elevated to comfortable position. Bed wheels are locked and side rails are up. Continue to monitor patient.
--- NOTE | 2019-12-25 19:36 | NUR ---
HAND-OFF: Report given to AMBERLY RN. Pt. remain stable.
[2019-12-25 20:00] VITALS: BP 156/70
[2019-12-25] MEDS ORDERED: Cefepime HCl 1 GM in NS 55 ML IVPB SCH (21:00)
[2019-12-25] MEDS: Meropenem 500 MG in NS 55 ML IV SCH (21:17)
--- NOTE | 2019-12-25 21:41 | Infectious Diseases Prog Note ---
Assessment/Plan Problems: (1) Pneumonia Assessment & Plan: with increasing LLL infiltrates on repeated CXR and worsening hypoxemia , will upgrade her antibiotics to meropenem and zyvox and send sputum culture , monitor CXR, Aspiration precaution (2) UTI (urinary tract infection) Assessment & Plan: with klebsiella Pneumonia and Providencia stuarttii , now on meropenem (3) COVID-19 Assessment & Plan: confirmed with nasal swab and positive PCR , KEEP IN ENHANCED DROPLETS ISOLATION , supportive care for now (4) Diabetes mellitus Assessment & Plan: recommend tight glycemic control to keep blood glucose between 100-140 (5) COPD (chronic obstructive pulmonary disease) Assessment & Plan: continue inhalers , antibiotics and oxygen as needed , AVOID STEROIDS (6) Hypoxemia Assessment & Plan: suspect due to the above with Negative VQ scan for PE , started on BIPAP BY pulmonary , may need early intubation to improve her oxygenation and survival . pulmonary is following Subjective ROS Limited/Unobtainable: Yes Allergies: Coded Allergies: ASPIRIN (Verified Allergy, Unknown, 12/19/19) PENICILLINS (Verified Allergy, Unknown, 12/19/19) Subjective she was still altered and confused, congested , requiered higher oxygen supply and [facility] no fever or chills, no nausea or vomiting , no diarrhea. Objective Vital Signs Last 24 Hour Vital Signs Date Time Temp Pulse Resp B/P (MAP) Pulse Ox O2 Delivery O2 Flow Rate FiO2 12/25/19 21:12 75 154/66 12/25/19 19:34 88 12/25/19 19:12 96 Bi-Pap 8.0 40 12/25/19 19:12 89 23 96 45 12/25/19 16:33 87 12/25/19 16:11 88 12/25/19 16:00 Bi-pap 12/25/19 16:00 40 12/25/19 15:49 86 24 93 45 12/25/19 13:29 75 20 92 35 12/25/19 13:10 97.7 63 17 101/60 (74) 95 12/25/19 13:09 75 24 92 Bi-Pap 35 12/25/19 09:20 67 146/69 12/25/19 09:00 Non-Rebreather 15.0 12/25/19 08:05 93 Venturi Mask 8.0 40 12/25/19 08:00 98.1 67 22 146/69 (94) 100 12/25/19 00:00 98.1 67 22 146/69 (94) 90 Height (Feet): 5 Height (Inches): 6.00 Weight (Pounds): 150 General Appearance: WD/WN, no acute distress HEENT: normocephalic, atraumatic, anicteric, mucous membranes moist, PERRL Respiratory/Chest: chest wall non-tender, no respiratory distress, no accessory muscle use, decreased breath sounds, crackles/rales Cardiovascular: normal peripheral pulses, normal rate, regular rhythm, no gallop/murmur, no JVD Abdomen: normal bowel sounds, soft, non tender, no organomegaly, non distended , no mass, no scars Genitourinary: normal external genitalia Extremities: no cyanosis, no clubbing Skin: no rash, no lesions Neurologic/Psychiatric: alert, unresponsiveness Lymphatic: no neck adenopathy, no groin adenopathy Musculoskeletal: normal muscle bulk, no effusion Laboratory Tests Test 12/25/19 13:10 Arterial Blood pH 7.355 (7.350-7.450) Arterial Blood Partial Pressure CO2 64.8 mmHg (35.0-45.0) *H Arterial Blood Partial Pressure O2 127.3 mmHg (75.0-100.0) H Arterial Blood HCO3 35.4 mmol/L (22.0-26.0) H Arterial Blood Oxygen Saturation 98.1 % (95-100) Arterial Blood Base Excess 7.7 (-2-2) H Dread Test Positive Current Medications Medications (Trade) Dose Ordered Sig/Daiana Route PRN Reason Start Time Stop Time Status Last Admin Dose Admin Acetaminophen (Tylenol) 650 mg Q6H PRN ORAL MILD/TEMP 12/25/19 13:11 01/24/20 13:10 Acetaminophen/ Hydrocodone Bitart ([place] 5/325) 1 tab Q4H PRN ORAL Moderate Pain (Pain Scale 4-6) 12/25/19 13:11 01/01/20 13:10 Clopidogrel Bisulfate (Plavix) 75 mg DAILY ORAL 12/26/19 09:00 01/19/20 08:59 Dextrose (Dextrose 50%) 25 ml Q30M PRN IV Hypoglycemia 12/25/19 13:11 03/24/20 13:10 Dextrose (Dextrose 50%) 50 ml Q30M PRN IV Hypoglycemia 12/25/19 13:30 03/18/20 23:29 Docusate Sodium (Colace) 100 mg THREE TIMES A DAY ORAL 12/25/19 13:13 01/24/20 13:12 Enoxaparin Sodium (Lovenox) 40 mg DAILY SUBQ 12/26/19 09:00 03/19/20 08:59 Furosemide (Lasix) 40 mg EVERY 12 HOURS IV 12/25/19 21:00 12/26/19 09:01 12/25/19 21:12 Insulin Aspart (NovoLOG) BEFORE MEALS AND HS SUBQ 12/25/19 16:30 03/19/20 06:29 Iohexol (OMNIPAQUE-300 100ml) 100 ml ONCE PRN INJ RADIOLOGY 12/25/19 13:12 12/26/19 23:59 Linezolid 300 ml @ 300 mls/hr Q12HR IVPB 12/25/19 18:00 01/01/20 17:59 Lorazepam (Ativan) 1 mg Q6H PRN ORAL For Anxiety 12/25/19 13:12 01/01/20 13:11 Meropenem 500 mg/ Sodium Chloride 55 ml @ 110 mls/hr Q12HR IV 12/25/19 21:00 12/30/19 20:59 12/25/19 21:17 Metoprolol Tartrate (Lopressor) 50 mg EVERY 12 HOURS ORAL 12/25/19 21:00 03/22/20 09:54 12/25/19 21:12 Morphine Sulfate (Morphine Sulfate) 2 mg Q8H PRN IVP Severe Pain (Pain Scale 7-10) 12/25/19 13:12 01/01/20 13:11 Olanzapine (ZyPREXA) 2.5 mg DAILY ORAL 12/26/19 09:00 02/04/20 08:59 Olanzapine (ZyPREXA) 5 mg BEDTIME ORAL 12/25/19 21:00 02/04/20 20:59 12/25/19 21:11 Pantoprazole (Protonix) 40 mg EVERY 12 HOURS ORAL 12/25/19 21:00 01/22/20 09:54 12/25/19 21:12 Promethazine HCl (Phenergan Plain) 12.5 mg Q6H PRN ORAL For Cough 12/25/19 13:12 01/24/20 13:11 Zolpidem Tartrate (Ambien) 5 mg HSPRN PRN ORAL Insomnia 12/25/19 13:13 01/01/20 13:12 Abigail Daugherty M.D. December 25, 2019 21:41
[2019-12-25] MEDS: LORazepam 1mg tab ORAL PRN (21:47)
[2019-12-26] VITALS: BP 114/59
--- NOTE | 2019-12-26 02:15 | NUR ---
NURSE NOTES: Patient asleep in bed, no complaints or any discomforts. On BIPAP saturating 97-100% oxygen. Continue to monitor the patient
--- NOTE | 2019-12-26 04:45 | NUR ---
HAND-OFF: Report given to FLETCHER Castillo. Pt asleep on bipap, saturating 100%, tolerating well and stable.
[2019-12-26] MEDS: LORazepam 1mg tab ORAL PRN (06:05)
[2019-12-26] MEDS: NovoLOG Insulin Flexpen SUBQ SCH ×4 (06:10→21:00)
--- NOTE | 2019-12-26 07:17 | NUR ---
HAND-OFF: Report given to FLETCHER Metz.
--- NOTE | 2019-12-26 07:21 | NUR ---
NURSE NOTES: Received report from FLETCHER Castillo. Patient is resting in bed, in stable condition. No s/sx of SOB, breathing is even and unlabored. Pt noted on BiPap settings as ordered. Per night nurse patient noted with moments of confusion and takes off Bipap. Noted. Observed no presence of pain or discomfort at this time. Bed is in lowest position, brakes engaged. Call light is kept within easy reach. Will continue to monitor patient.
[2019-12-26 07:43] VITALS: BP 118/56
[2019-12-26 08:20] LABS: HEMATOCRIT 37.7 % (37.0-47.0); HEMOGLOBIN 12.3 G/DL (12.0-16.0); MEAN CORPUSCULAR VOLUME 89 FL (80-99); PLATELET COUNT 288 K/UL (150-450); RED BLOOD COUNT 4.23 M/UL (4.20-5.40); RED CELL DISTRIBUTION WIDTH 11.7 % (11.6-14.8); WHITE BLOOD COUNT 7.5 K/UL (4.8-10.8)
--- NOTE | 2019-12-26 08:46 | NUR ---
RD ASSESSMENT & RECOMMENDATIONS SEE CARE ACTIVITY FOR COMPLETE ASSESSMENT DAILY ESTIMATED NEEDS: Needs based on DM, Pulmonary, CHF/ 68kg 25-30 kcals/kg 1811-0318 total kcals 1-1.5 g protein/kg 68-102 g total protein 20-25 mL/kg 5829-6421 total fluid mLs NUTRITION DIAGNOSIS: Inadequate oral intake R/T decreased appetite, clinical condition as evidenced by pt noted w/ refusing recent meals, now on BIPAP CURRENT DIET:[facility] MED PO DIET RECOMMENDATIONS: Liberalized regular w/ poor PO (texture per MULE TENDER) ADDITIONAL RECOMMENDATIONS: * Per SNF: HT=62" last known wt (unknown date)=161lbs -> rec calibrated bedscale wt, daily wt monitoring given CHF dx, on Laix * Monitor PO intake closely: refusing meals, now on BIPAP * Consider MULE TENDER eval for appropriate texture, safety of oral intake * Monitor lytes w/ Lasix, replete as needed * Monitor for hypoglycemia w/ poor PO (D5 dc'ed at this time) * Add Glucerna BID w/ meals -> monitor acceptance, need to adjust frequency
[2019-12-26 08:53] LABS: ALANINE AMINOTRANSFERASE 23 U/L (12-78); ALBUMIN 2.1 G/DL (3.4-5.0); ALBUMIN/GLOBULIN RATIO 0.4 (1.0-2.7); ALKALINE PHOSPHATASE 71 U/L (46-116); ANION GAP 5 mmol/L (5-15); ASPARTATE AMINO TRANSFERASE 23 U/L (15-37); BILIRUBIN,TOTAL 0.5 MG/DL (0.2-1.0); BLOOD UREA NITROGEN 25 mg/dL (7-18); CALCIUM 8.8 MG/DL (8.5-10.1); CARBON DIOXIDE 37 MMOL/L (21-32); CHLORIDE 100 MMOL/L (98-107); CREATININE 1.6 MG/DL (0.55-1.30); POTASSIUM 3.2 MMOL/L (3.5-5.1); SODIUM 142 MMOL/L (136-145)
[2019-12-26] MEDS: Docusate 100mg cap ORAL SCH ×3 (09:00→17:46)
[2019-12-26] MEDS: Metoprolol Tartrate 50mg tab ORAL SCH ×2 (09:05→21:00)
[2019-12-26] MEDS: Meropenem 500 MG in NS 55 ML IV SCH ×2 (09:06→21:00)
[2019-12-26] MEDS: Enoxaparin 40mg Inj SUBQ SCH (09:07)
[2019-12-26] MEDS: OLANZapine 2.5mg tab ORAL SCH (09:07)
--- NOTE | 2019-12-26 09:16 | Diagnostic Imaging Report ---
Procedure: XRAY Chest 1v Reason for study: Shortness of breath. Comparison films: 12/24/2019. FINDINGS: A single one view chest is obtained. Vascularity is normal. There is improved aeration with decrease alveolar infiltrates in the lung bases. Diffuse interstitial densities remain. Cardiac and mediastinal silhouette are within normal limits. Small effusions bilaterally. The bony thorax appear unremarkable. IMPRESSION: Improved aeration in the lung bases with decreased infiltrates.
--- NOTE | 2019-12-26 09:29 | Cardiac Electrophysiology PN ---
Assessment/Plan Assessment/Plan 1. Accelerated hypertension. On metoprolol 50 mg bid and p.r.n. clonidine 2. History of CHF/ DD. Echo normal EF . 3. Sepsis, on antibiotic per Dr. Daugherty. 4. Psychiatric history. 5. Hyponatremia. 6. Hypercapnea and respiratory failure. VQ scan no PE. On BIPAP. FU Dr Vincent 7. Acute renal failure Cr up to 2. Lasix was DCed. Now 1.6 DW RN Subjective Subjective Alert in NAD in Covid isolation. Refusing Meds, labs. VQ scan for positive DDimer was negative for PE. PCO2 up to high 70s . Now on BIPAP. Objective Last 24 Hour Vital Signs Date Time Temp Pulse Resp B/P (MAP) Pulse Ox O2 Delivery O2 Flow Rate FiO2 12/26/19 09:05 71 118/56 12/26/19 08:57 Bi-pap 12/26/19 08:00 40 12/26/19 07:43 96.5 71 17 118/56 (76) 92 12/26/19 07:30 83 20 96 45 12/26/19 07:30 96 Bi-Pap 45 12/26/19 07:27 72 12/26/19 04:00 40 12/26/19 04:00 Bi-pap 12/26/19 03:59 63 12/26/19 02:38 84 24 96 45 12/26/19 00:00 97.3 69 17 114/59 (77) 95 12/26/19 00:00 Bi-pap 12/25/19 23:32 73 12/25/19 23:18 86 23 95 45 12/25/19 21:12 75 154/66 12/25/19 20:00 98.1 72 17 156/70 (98) 95 12/25/19 20:00 40 12/25/19 20:00 Bi-pap 12/25/19 19:34 88 12/25/19 19:12 96 Bi-Pap 8.0 40 12/25/19 19:12 89 23 96 45 12/25/19 16:33 87 12/25/19 16:11 88 12/25/19 16:00 Bi-pap 12/25/19 16:00 40 12/25/19 15:49 86 24 93 45 12/25/19 13:29 75 20 92 35 12/25/19 13:10 97.7 63 17 101/60 (74) 95 12/25/19 13:09 75 24 92 Bi-Pap 35 Intake and Output 12/25/19 12/26/19 19:00 07:00 Intake Total 110 ml Output Total 1300 ml 625 ml Balance -1300 ml -515 ml IV Total 110 ml Output Urine Total 1300 ml 625 ml # Bowel Movements 1 1 Laboratory Tests Test 12/25/19 13:10 12/26/19 07:35 12/26/19 07:55 Arterial Blood pH 7.355 (7.350-7.450) 7.447 (7.350-7.450) Arterial Blood Partial Pressure CO2 64.8 mmHg (35.0-45.0) *H 53.5 mmHg (35.0-45.0) H Arterial Blood Partial Pressure O2 127.3 mmHg (75.0-100.0) H 63.7 mmHg (75.0-100.0) L Arterial Blood HCO3 35.4 mmol/L (22.0-26.0) H 36.1 mmol/L (22.0-26.0) H Arterial Blood Oxygen Saturation 98.1 % (95-100) 93.1 % (95-100) L Arterial Blood Base Excess 7.7 (-2-2) H 10.3 (-2-2) *H Dread Test Positive Positive White Blood Count 7.5 K/UL (4.8-10.8) Red Blood Count 4.23 M/UL (4.20-5.40) Hemoglobin 12.3 G/DL (12.0-16.0) Hematocrit 37.7 % (37.0-47.0) Mean Corpuscular Volume 89 FL (80-99) Mean Corpuscular Hemoglobin 29.2 PG (27.0-31.0) Mean Corpuscular Hemoglobin Concent 32.7 G/DL (32.0-36.0) Red Cell Distribution Width 11.7 % (11.6-14.8) Platelet Count 288 K/UL (150-450) Mean Platelet Volume 5.3 FL (6.5-10.1) L Neutrophils (%) (Auto) % (45.0-75.0) Lymphocytes (%) (Auto) % (20.0-45.0) Monocytes (%) (Auto) % (1.0-10.0) Eosinophils (%) (Auto) % (0.0-3.0) Basophils (%) (Auto) % (0.0-2.0) Neutrophils % (Manual) Pending Lymphocytes % (Manual) Pending Platelet Estimate Pending Platelet Morphology Pending Sodium Level 142 MMOL/L (136-145) Potassium Level 3.2 MMOL/L (3.5-5.1) L Chloride Level 100 MMOL/L (98-107) Carbon Dioxide Level 37 MMOL/L (21-32) H Anion Gap 5 mmol/L (5-15) Blood Urea Nitrogen 25 mg/dL (7-18) H Creatinine 1.6 MG/DL (0.55-1.30) H Estimat Glomerular Filtration Rate 37.6 mL/min (>60) Glucose Level 155 MG/DL (74-106) H Uric Acid 8.1 MG/DL (2.6-7.2) H Calcium Level 8.8 MG/DL (8.5-10.1) Phosphorus Level 2.0 MG/DL (2.5-4.9) L Magnesium Level 1.7 MG/DL (1.8-2.4) L Total Bilirubin 0.5 MG/DL (0.2-1.0) Aspartate Amino Transf (AST/SGOT) 23 U/L (15-37) Alanine Aminotransferase (ALT/SGPT) 23 U/L (12-78) Alkaline Phosphatase 71 U/L (46-116) C-Reactive Protein, Quantitative 16.9 mg/dL (0.00-0.90) H Pro-B-Type Natriuretic Peptide 3415 pg/mL (0-125) H Total Protein 6.8 G/DL (6.4-8.2) Albumin 2.1 G/DL (3.4-5.0) L Globulin 4.7 g/dL Albumin/Globulin Ratio 0.4 (1.0-2.7) L Objective HEAD AND NECK: No JVD. LUNGS: Coarse rhonchi CARDIOVASCULAR: Regular S1 and S2 with no gallop. ABDOMEN: Soft. EXTREMITIES: No edema. Eusebio Barrow MD December 26, 2019 09:29
--- NOTE | 2019-12-26 10:00 | NUR ---
NURSE NOTES: Reported new ABG results, pH 7.44, pCO2 53.5, pO2 63.7, HCO3 36.1, SpO2 93%, and base excess 10.3, to Dr. Vincent. Dr. Vincent acknowledged
--- NOTE | 2019-12-26 10:47 | NUR ---
NURSE NOTES: Called and spoke with Dr. Vincent via telephone. Informed Dr. Vincent of ABG results today, pH 7.447, pCO2 53.5, pO2 63.7, HCO3 36.1, O2 saturation 93%, Base excess 10.3, ABG taken while patient on BiPAP 15/5 FiO2 45%. Dr. Vincent acknowledged and ordered to keep BiPAP for now, no order for ABG at this time. Inquired if Dr. Vincent would like an end tidal wave volume order as that patient has history of COPD. Dr. Vincent acknowledged, no order for End tidal wave volume at this time. Will continue to monitor patient. Addendum: 12/26/19 at 1053 by BK POTTS RN NURSE NOTES: Addendum per end tidal wave volume inquiry, per Dr. Vincent pCO2 known on ABG. Noted. Addendum: 12/27/19 at 0726 by BK POTTS RN NURSE NOTES: Late entry: Regarding BiPAP instructions, informed Dr. Vincent patient is diabetic and if would like to keep patient NPO. Dr. Vincent acknowledged and informed this nurse "okay to take off BiPap so patient can eat meals." Order entered and noted.
[2019-12-26 12:00] VITALS: BP 97/56
--- NOTE | 2019-12-26 12:01 | Nephrology Progress Note ---
Assessment/Plan Problem List: (1) MATTHEW (acute kidney injury) Assessment: Serum creatinine livia to 2 (2) Hyponatremia Assessment: Likely depletional (3) Diabetes mellitus Assessment: With elevated hemoglobin A1c (4) UTI (urinary tract infection) (5) COVID-19 Assessment Patient presents with hyponatremia, urine spot sodium below 20. Hyponatremia most likely depletional Azotemia / dehydration Sepsis, positive COVID-19 test, UTI Diabetes mellitus [id number] with high hemoglobin A1c History of psych disease Plan ABG indicative of hypoxia, patient on BiPAP Serum creatinine down to 1.6 today Will replace potassium and phosphorus Continue per team manager and high school business teacher advice Previously: Will order a Kohler catheter and give 1 L of IV bolus Patient ejection fraction is normal on 2D echo Serum sodium now normalized Monitor electrolytes and renal parameters Antibiotics per ID Monitor electrolytes and renal parameters Per orders Per consultants Subjective ROS Limited/Unobtainable: Yes Objective Objective Last 24 Hour Vital Signs Date Time Temp Pulse Resp B/P (MAP) Pulse Ox O2 Delivery O2 Flow Rate FiO2 12/26/19 10:45 68 16 93 45 12/26/19 09:05 71 118/56 12/26/19 08:57 Bi-pap 12/26/19 08:00 40 12/26/19 07:43 96.5 71 17 118/56 (76) 92 12/26/19 07:30 83 20 96 45 12/26/19 07:30 96 Bi-Pap 45 12/26/19 07:27 72 12/26/19 04:00 40 12/26/19 04:00 Bi-pap 12/26/19 03:59 63 12/26/19 02:38 84 24 96 45 12/26/19 00:00 97.3 69 17 114/59 (77) 95 12/26/19 00:00 Bi-pap 12/25/19 23:32 73 12/25/19 23:18 86 23 95 45 12/25/19 21:12 75 154/66 12/25/19 20:00 98.1 72 17 156/70 (98) 95 12/25/19 20:00 40 12/25/19 20:00 Bi-pap 12/25/19 19:34 88 12/25/19 19:12 96 Bi-Pap 8.0 40 12/25/19 19:12 89 23 96 45 12/25/19 16:33 87 12/25/19 16:11 88 12/25/19 16:00 Bi-pap 12/25/19 16:00 40 12/25/19 15:49 86 24 93 45 12/25/19 13:29 75 20 92 35 12/25/19 13:10 97.7 63 17 101/60 (74) 95 12/25/19 13:09 75 24 92 Bi-Pap 35 Intake and Output 12/25/19 12/26/19 19:00 07:00 Intake Total 110 ml Output Total 1300 ml 625 ml Balance -1300 ml -515 ml IV Total 110 ml Output Urine Total 1300 ml 625 ml # Bowel Movements 1 1 Laboratory Tests 12/25/19 13:10: Arterial Blood pH 7.355, Arterial Blood Partial Pressure CO2 64.8*H, Arterial Blood Partial Pressure O2 127.3H, Arterial Blood HCO3 35.4H, Arterial Blood Oxygen Saturation 98.1, Arterial Blood Base Excess 7.7H, Dread Test Positive 12/26/19 07:35: Arterial Blood pH 7.447, Arterial Blood Partial Pressure CO2 53.5H, Arterial Blood Partial Pressure O2 63.7L, Arterial Blood HCO3 36.1H, Arterial Blood Oxygen Saturation 93.1L, Arterial Blood Base Excess 10.3*H, Dread Test Positive 12/26/19 07:55: White Blood Count 7.5, Red Blood Count 4.23, Hemoglobin 12.3, Hematocrit 37.7, Mean Corpuscular Volume 89, Mean Corpuscular Hemoglobin 29.2, Mean Corpuscular Hemoglobin Concent 32.7, Red Cell Distribution Width 11.7, Platelet Count 288, Mean Platelet Volume 5.3L, Neutrophils (%) (Auto) , Lymphocytes (%) (Auto) , Monocytes (%) (Auto) , Eosinophils (%) (Auto) , Basophils (%) (Auto) , Differential Total Cells Counted 100, Neutrophils % (Manual) 79H, Lymphocytes % (Manual) 12L, Monocytes % (Manual) 8, Eosinophils % (Manual) 1, Basophils % ( Manual) 0, Band Neutrophils 0, Platelet Estimate Adequate, Platelet Morphology Normal, Red Blood Cell Morphology Normal, Sodium Level 142, Potassium Level 3.2L , Chloride Level 100, Carbon Dioxide Level 37H, Anion Gap 5, Blood Urea Nitrogen 25H, Creatinine 1.6H, Estimat Glomerular Filtration Rate 37.6, Glucose Level 155H, Uric Acid 8.1H, Calcium Level 8.8, Phosphorus Level 2.0L, Magnesium Level 1.7L, Total Bilirubin 0.5, Aspartate Amino Transf (AST/SGOT) 23, Alanine Aminotransferase (ALT/SGPT) 23, Alkaline Phosphatase 71, C-Reactive Protein, Quantitative 16.9H, Pro-B-Type Natriuretic Peptide 3415H, Total Protein 6.8, Albumin 2.1L, Globulin 4.7, Albumin/Globulin Ratio 0.4L Height (Feet): 5 Height (Inches): 6.00 Weight (Pounds): 158 General Appearance: mild distress EENT: other - Patient on BiPAP Cardiovascular: normal rate Respiratory/Chest: decreased breath sounds Abdomen: distended Objective No change Rolo Roldan MD December 26, 2019 12:01
--- NOTE | 2019-12-26 12:06 | Pulmonology Progress Note ---
Subjective ROS Limited/Unobtainable: Yes Interval Events: looking better Constitutional: Reports: no symptoms HEENT: Repors: no symptoms Respiratory: Reports: dry cough Cardiovascular: Reports: no symptoms Gastrointestinal/Abdominal: Reports: no symptoms Allergies: Coded Allergies: ASPIRIN (Verified Allergy, Unknown, 12/19/19) PENICILLINS (Verified Allergy, Unknown, 12/19/19) Objective Last 24 Hour Vital Signs Date Time Temp Pulse Resp B/P (MAP) Pulse Ox O2 Delivery O2 Flow Rate FiO2 12/26/19 10:45 68 16 93 45 12/26/19 09:05 71 118/56 12/26/19 08:57 Bi-pap 12/26/19 08:00 40 12/26/19 07:43 96.5 71 17 118/56 (76) 92 12/26/19 07:30 83 20 96 45 12/26/19 07:30 96 Bi-Pap 45 12/26/19 07:27 72 12/26/19 04:00 40 12/26/19 04:00 Bi-pap 12/26/19 03:59 63 12/26/19 02:38 84 24 96 45 12/26/19 00:00 97.3 69 17 114/59 (77) 95 12/26/19 00:00 Bi-pap 12/25/19 23:32 73 12/25/19 23:18 86 23 95 45 12/25/19 21:12 75 154/66 12/25/19 20:00 98.1 72 17 156/70 (98) 95 12/25/19 20:00 40 12/25/19 20:00 Bi-pap 12/25/19 19:34 88 12/25/19 19:12 96 Bi-Pap 8.0 40 12/25/19 19:12 89 23 96 45 12/25/19 16:33 87 12/25/19 16:11 88 12/25/19 16:00 Bi-pap 12/25/19 16:00 40 12/25/19 15:49 86 24 93 45 12/25/19 13:29 75 20 92 35 12/25/19 13:10 97.7 63 17 101/60 (74) 95 12/25/19 13:09 75 24 92 Bi-Pap 35 Intake and Output 12/25/19 12/26/19 19:00 07:00 Intake Total 110 ml Output Total 1300 ml 625 ml Balance -1300 ml -515 ml IV Total 110 ml Output Urine Total 1300 ml 625 ml # Bowel Movements 1 1 General Appearance: no acute distress HEENT: normocephalic Respiratory: chest wall non-tender, decreased breath sounds Cardiovascular: normal peripheral pulses Abdomen: normal bowel sounds Laboratory Tests 12/25/19 13:10: Arterial Blood pH 7.355, Arterial Blood Partial Pressure CO2 64.8*H, Arterial Blood Partial Pressure O2 127.3H, Arterial Blood HCO3 35.4H, Arterial Blood Oxygen Saturation 98.1, Arterial Blood Base Excess 7.7H, Dread Test Positive 12/26/19 07:35: Arterial Blood pH 7.447, Arterial Blood Partial Pressure CO2 53.5H, Arterial Blood Partial Pressure O2 63.7L, Arterial Blood HCO3 36.1H, Arterial Blood Oxygen Saturation 93.1L, Arterial Blood Base Excess 10.3*H, Dread Test Positive 12/26/19 07:55: White Blood Count 7.5, Red Blood Count 4.23, Hemoglobin 12.3, Hematocrit 37.7, Mean Corpuscular Volume 89, Mean Corpuscular Hemoglobin 29.2, Mean Corpuscular Hemoglobin Concent 32.7, Red Cell Distribution Width 11.7, Platelet Count 288, Mean Platelet Volume 5.3L, Neutrophils (%) (Auto) , Lymphocytes (%) (Auto) , Monocytes (%) (Auto) , Eosinophils (%) (Auto) , Basophils (%) (Auto) , Differential Total Cells Counted 100, Neutrophils % (Manual) 79H, Lymphocytes % (Manual) 12L, Monocytes % (Manual) 8, Eosinophils % (Manual) 1, Basophils % ( Manual) 0, Band Neutrophils 0, Platelet Estimate Adequate, Platelet Morphology Normal, Red Blood Cell Morphology Normal, Sodium Level 142, Potassium Level 3.2L , Chloride Level 100, Carbon Dioxide Level 37H, Anion Gap 5, Blood Urea Nitrogen 25H, Creatinine 1.6H, Estimat Glomerular Filtration Rate 37.6, Glucose Level 155H, Uric Acid 8.1H, Calcium Level 8.8, Phosphorus Level 2.0L, Magnesium Level 1.7L, Total Bilirubin 0.5, Aspartate Amino Transf (AST/SGOT) 23, Alanine Aminotransferase (ALT/SGPT) 23, Alkaline Phosphatase 71, C-Reactive Protein, Quantitative 16.9H, Pro-B-Type Natriuretic Peptide 3415H, Total Protein 6.8, Albumin 2.1L, Globulin 4.7, Albumin/Globulin Ratio 0.4L Current Medications Medications (Trade) Dose Ordered Sig/Daiana Route PRN Reason Start Time Stop Time Status Last Admin Dose Admin Acetaminophen (Tylenol) 650 mg Q6H PRN ORAL MILD/TEMP 12/25/19 13:11 01/24/20 13:10 Acetaminophen/ Hydrocodone Bitart ([place] 5/325) 1 tab Q4H PRN ORAL Moderate Pain (Pain Scale 4-6) 12/25/19 13:11 01/01/20 13:10 Clopidogrel Bisulfate (Plavix) 75 mg DAILY ORAL 12/26/19 09:00 01/19/20 08:59 12/26/19 09:06 Dextrose (Dextrose 50%) 25 ml Q30M PRN IV Hypoglycemia 12/25/19 13:11 03/24/20 13:10 Dextrose (Dextrose 50%) 50 ml Q30M PRN IV Hypoglycemia 12/25/19 13:30 03/18/20 23:29 Docusate Sodium (Colace) 100 mg THREE TIMES A DAY ORAL 12/25/19 13:13 01/24/20 13:12 Enoxaparin Sodium (Lovenox) 40 mg DAILY SUBQ 12/26/19 09:00 03/19/20 08:59 12/26/19 09:07 Insulin Aspart (NovoLOG) BEFORE MEALS AND HS SUBQ 12/25/19 16:30 03/19/20 06:29 12/26/19 06:10 Iohexol (OMNIPAQUE-300 100ml) 100 ml ONCE PRN INJ RADIOLOGY 12/25/19 13:12 12/26/19 23:59 Linezolid 300 ml @ 300 mls/hr Q12HR IVPB 12/25/19 18:00 01/01/20 17:59 12/26/19 10:14 Lorazepam (Ativan) 1 mg Q6H PRN ORAL For Anxiety 12/25/19 13:12 01/01/20 13:11 12/25/19 21:47 Meropenem 500 mg/ Sodium Chloride 55 ml @ 110 mls/hr Q12HR IV 12/25/19 21:00 12/30/19 20:59 12/26/19 09:06 Metoprolol Tartrate (Lopressor) 50 mg EVERY 12 HOURS ORAL 12/25/19 21:00 03/22/20 09:54 12/26/19 09:05 Morphine Sulfate (Morphine Sulfate) 2 mg Q8H PRN IVP Severe Pain (Pain Scale 7-10) 12/25/19 13:12 01/01/20 13:11 Olanzapine (ZyPREXA) 2.5 mg DAILY ORAL 12/26/19 09:00 02/04/20 08:59 12/26/19 09:07 Olanzapine (ZyPREXA) 5 mg BEDTIME ORAL 12/25/19 21:00 02/04/20 20:59 12/25/19 21:11 Pantoprazole (Protonix) 40 mg EVERY 12 HOURS ORAL 12/25/19 21:00 01/22/20 09:54 12/26/19 09:06 Promethazine HCl (Phenergan [place]) 12.5 mg Q6H PRN ORAL For Cough 12/25/19 13:12 01/24/20 13:11 Zolpidem Tartrate (Ambien) 5 mg HSPRN PRN ORAL Insomnia 12/25/19 13:13 01/01/20 13:12 Assessment/Plan Assessment/Plan IMPRESSION: 1. Positive COVID-19. 2. COPD with exacerbation 3. Leukocytosis. 4. Hypoxemia. 5. Schizophrenia. 6. Hypertension. 7. Diabetes mellitus. 8. Respiratory failure 9. CHF. DISCUSSION: Continue broad-spectrum antibiotics. Continue oxygen and pulmonary hygiene. DVT prophylaxis. I will follow carefully. CXR and ABG much better today Is negative 1300 ml last 24 hours OK to dc Lasix Will add steroids for COPD Continue BiPAP another 24 hours Off IV fluids Nava Benitez Omar Syed MD December 26, 2019 12:06
--- NOTE | 2019-12-26 12:17 | General Progress Note ---
Assessment/Plan Status: stable Assessment/Plan: S, O: poor historian, seems in mild sob. Declined cognition and poor historian PHYSICAL EXAMINATION:HEAD AND NECK: Atraumatic and normocephalic. CHEST: Bronchial breathing sounds.HEART: S1 and S2. Regular rate and rhythm. ABDOMEN: Soft. No organomegaly.MUSCULOSKELETAL: No gross focal motor deficit. NEUROLOGY: Patient is awake, alert x1. Easily distracted. LABORATORY DATA: Dated 12/25 reviewed Imaging: CXR, dated reveiwed ASSESSMENT: 1. Sepsis 2. metabolic encephalopathy 2. UTI - Gram negative 3. COVD 19- Pneumonia. 3. Renal failure, age indeterminate. 4. Diabetes type 2. 5. Hypertension. 6. Hyperlipidemia. 7. Coronary artery disease/peripheral arterial disease. Continue with antiplatelet. 8. GI and DVT prophylaxis. 9. Anemia: likely chronic disease PLAN OF CARE: Continue with culture-targeted antibiotic treatment. Notes from Infectious Disease, Nephrology, Pulmonary have been reviewed. check hepatitis panel c/w current abx treatment US renal ordered D/w pulmonary Non tolerating BIPAP, seems agitated at times Subjective Allergies: Coded Allergies: ASPIRIN (Verified Allergy, Unknown, 12/19/19) PENICILLINS (Verified Allergy, Unknown, 12/19/19) Objective Last 24 Hour Vital Signs Date Time Temp Pulse Resp B/P (MAP) Pulse Ox O2 Delivery O2 Flow Rate FiO2 12/26/19 10:45 68 16 93 45 12/26/19 09:05 71 118/56 12/26/19 08:57 Bi-pap 12/26/19 08:00 40 12/26/19 07:43 96.5 71 17 118/56 (76) 92 12/26/19 07:30 83 20 96 45 12/26/19 07:30 96 Bi-Pap 45 12/26/19 07:27 72 12/26/19 04:00 40 12/26/19 04:00 Bi-pap 12/26/19 03:59 63 12/26/19 02:38 84 24 96 45 12/26/19 00:00 97.3 69 17 114/59 (77) 95 12/26/19 00:00 Bi-pap 12/25/19 23:32 73 12/25/19 23:18 86 23 95 45 12/25/19 21:12 75 154/66 12/25/19 20:00 98.1 72 17 156/70 (98) 95 12/25/19 20:00 40 12/25/19 20:00 Bi-pap 12/25/19 19:34 88 12/25/19 19:12 96 Bi-Pap 8.0 40 12/25/19 19:12 89 23 96 45 12/25/19 16:33 87 12/25/19 16:11 88 12/25/19 16:00 Bi-pap 12/25/19 16:00 40 12/25/19 15:49 86 24 93 45 12/25/19 13:29 75 20 92 35 12/25/19 13:10 97.7 63 17 101/60 (74) 95 12/25/19 13:09 75 24 92 Bi-Pap 35 Intake and Output 12/25/19 12/26/19 19:00 07:00 Intake Total 110 ml Output Total 1300 ml 625 ml Balance -1300 ml -515 ml IV Total 110 ml Output Urine Total 1300 ml 625 ml # Bowel Movements 1 1 Laboratory Tests 12/25/19 13:10: Arterial Blood pH 7.355, Arterial Blood Partial Pressure CO2 64.8*H, Arterial Blood Partial Pressure O2 127.3H, Arterial Blood HCO3 35.4H, Arterial Blood Oxygen Saturation 98.1, Arterial Blood Base Excess 7.7H, Dread Test Positive 12/26/19 07:35: Arterial Blood pH 7.447, Arterial Blood Partial Pressure CO2 53.5H, Arterial Blood Partial Pressure O2 63.7L, Arterial Blood HCO3 36.1H, Arterial Blood Oxygen Saturation 93.1L, Arterial Blood Base Excess 10.3*H, Dread Test Positive 12/26/19 07:55: White Blood Count 7.5, Red Blood Count 4.23, Hemoglobin 12.3, Hematocrit 37.7, Mean Corpuscular Volume 89, Mean Corpuscular Hemoglobin 29.2, Mean Corpuscular Hemoglobin Concent 32.7, Red Cell Distribution Width 11.7, Platelet Count 288, Mean Platelet Volume 5.3L, Neutrophils (%) (Auto) , Lymphocytes (%) (Auto) , Monocytes (%) (Auto) , Eosinophils (%) (Auto) , Basophils (%) (Auto) , Differential Total Cells Counted 100, Neutrophils % (Manual) 79H, Lymphocytes % (Manual) 12L, Monocytes % (Manual) 8, Eosinophils % (Manual) 1, Basophils % ( Manual) 0, Band Neutrophils 0, Platelet Estimate Adequate, Platelet Morphology Normal, Red Blood Cell Morphology Normal, Sodium Level 142, Potassium Level 3.2L , Chloride Level 100, Carbon Dioxide Level 37H, Anion Gap 5, Blood Urea Nitrogen 25H, Creatinine 1.6H, Estimat Glomerular Filtration Rate 37.6, Glucose Level 155H, Uric Acid 8.1H, Calcium Level 8.8, Phosphorus Level 2.0L, Magnesium Level 1.7L, Total Bilirubin 0.5, Aspartate Amino Transf (AST/SGOT) 23, Alanine Aminotransferase (ALT/SGPT) 23, Alkaline Phosphatase 71, C-Reactive Protein, Quantitative 16.9H, Pro-B-Type Natriuretic Peptide 3415H, Total Protein 6.8, Albumin 2.1L, Globulin 4.7, Albumin/Globulin Ratio 0.4L Height (Feet): 5 Height (Inches): 6.00 Weight (Pounds): 158 Jennifer Alberto MD December 26, 2019 12:17
[2019-12-26] MEDS ORDERED: Solu-MEDROL 40mg Inj IVP SCH (12:30)
--- NOTE | 2019-12-26 14:00 | NUR ---
NURSE NOTES: Contacted and informed Dr. Barrow that patient noted with BP of 99/54 HR 55, pt noted with Metoprolol 50 mg Q12HR with no parameters at this time. Dr. Barrow acknowledged and ordered hold Metoprolol 50 mg PO Q12HR if SBP <100 mmHg and HR <55 bpm. Orders entered, noted, and carried out. Will continue to monitor patient.
--- NOTE | 2019-12-26 14:49 | NUR ---
CASE MANAGEMENT: REVIEW SI: MATTHEW . DM . COVID-19 T 97.2 HR 55 RR 18 BP 97/56 SAT 100% BIPAP FI2 45 K 3.2 BUN 25 CR 1.6 URIC ACID 8.1 PHOS 2.0 MAG 1.7 BNP 3415 IS: MEROPENEM IV Q12HR SOLU-MEDROL IV Q6HR ZYVOX IV Q12HR PLAVIX PO QD NOVOLOG SUBQ QD LOVENOX SUBQ QD STEP DOWN UNIT STATUS DCP: PATIENT IS FROM [facility]
[2019-12-26 16:00] VITALS: BP 152/86
[2019-12-26] MEDS: Solu-MEDROL 40mg Inj IVP SCH (17:47)
--- NOTE | 2019-12-26 18:41 | NUR ---
NURSE NOTES: Called Dr. Roldan and follow up regarding potassium level of 3.2 and phosphorus level of 2.0, inquired MD if would like to replace at this time. Dr. Roldan acknowledged and gave no new orders at this time. Will continue to monitor patient.
--- NOTE | 2019-12-26 19:22 | NUR ---
HAND-OFF: Report given to FLETCHER Hinds.
--- NOTE | 2019-12-26 19:42 | NUR ---
NURSE NOTES: Received report from FLETCHER Metz. Patient is resting in bed, in stable condition. No s/sx of SOB, breathing is even and unlabored. Pt noted on BiPap settings as ordered. Reports of moments of confusion during which patient removes Bipap. Observed no presence of pain or discomfort at this time. Bed is in lowest position, brakes engaged. Call light is kept within easy reach. Will continue to monitor patient.
[2019-12-26 20:00] VITALS: BP 135/95
--- NOTE | 2019-12-26 20:55 | Infectious Diseases Prog Note ---
Assessment/Plan Problems: (1) Pneumonia Assessment & Plan: with increasing LLL infiltrates on repeated CXR and worsening hypoxemia , continue meropenem and zyvox to broaden her coverage pending sputum culture , monitor CXR, Aspiration precaution. avoid steroids at this stage . (2) UTI (urinary tract infection) Assessment & Plan: with klebsiella Pneumonia and Providencia stuarttii , now on meropenem (3) COVID-19 Assessment & Plan: confirmed with nasal swab and positive PCR , KEEP IN ENHANCED DROPLETS ISOLATION , continue supportive care for now , ADVISED AGAINST STEROIDS AT THIS STAGE . D/W primary (4) Diabetes mellitus Assessment & Plan: recommend tight glycemic control to keep blood glucose between 100-140 (5) COPD (chronic obstructive pulmonary disease) Assessment & Plan: continue inhalers , antibiotics and oxygen as needed , AVOID STEROIDS (6) Hypoxemia Assessment & Plan: suspect due to the above with Negative VQ scan for PE , on BIPAP BY pulmonary , may need early intubation to improve her oxygenation and survival . pulmonary is following Subjective ROS Limited/Unobtainable: Yes Allergies: Coded Allergies: ASPIRIN (Verified Allergy, Unknown, 12/19/19) PENICILLINS (Verified Allergy, Unknown, 12/19/19) Subjective she was still confused, on BIPAP in SDU for close monitoring , no fever or chills, no nausea or vomiting , no diarrhea. Objective Vital Signs Last 24 Hour Vital Signs Date Time Temp Pulse Resp B/P (MAP) Pulse Ox O2 Delivery O2 Flow Rate FiO2 12/26/19 19:30 97 26 92 30 12/26/19 19:30 92 Bi-Pap 30 12/26/19 16:00 45 12/26/19 16:00 97.8 85 18 152/86 (108) 100 12/26/19 16:00 54 12/26/19 16:00 Bi-pap 12/26/19 15:20 66 18 100 45 12/26/19 12:00 97.2 55 18 97/56 (70) 100 12/26/19 12:00 45 12/26/19 12:00 Bi-pap 12/26/19 12:00 70 12/26/19 10:45 68 16 93 45 12/26/19 09:05 71 118/56 12/26/19 08:57 Bi-pap 12/26/19 08:00 40 12/26/19 07:43 96.5 71 17 118/56 (76) 92 12/26/19 07:30 83 20 96 45 12/26/19 07:30 96 Bi-Pap 45 12/26/19 07:27 72 12/26/19 04:00 40 12/26/19 04:00 Bi-pap 12/26/19 03:59 63 12/26/19 02:38 84 24 96 45 12/26/19 00:00 97.3 69 17 114/59 (77) 95 12/26/19 00:00 Bi-pap 12/25/19 23:32 73 12/25/19 23:18 86 23 95 45 12/25/19 21:12 75 154/66 Height (Feet): 5 Height (Inches): 6.00 Weight (Pounds): 158 General Appearance: WD/WN, no acute distress HEENT: normocephalic, atraumatic, anicteric, mucous membranes moist, PERRL Respiratory/Chest: chest wall non-tender, no respiratory distress, no accessory muscle use, decreased breath sounds, crackles/rales Cardiovascular: normal peripheral pulses, normal rate, regular rhythm, no gallop/murmur, no JVD Abdomen: normal bowel sounds, soft, non tender, no organomegaly, non distended , no mass Genitourinary: normal external genitalia Extremities: no cyanosis, no clubbing Skin: no rash, no lesions Neurologic/Psychiatric: unresponsiveness Lymphatic: no neck adenopathy, no groin adenopathy Musculoskeletal: normal muscle bulk, no effusion Laboratory Tests Test 12/26/19 07:35 12/26/19 07:55 Arterial Blood pH 7.447 (7.350-7.450) Arterial Blood Partial Pressure CO2 53.5 mmHg (35.0-45.0) H Arterial Blood Partial Pressure O2 63.7 mmHg (75.0-100.0) L Arterial Blood HCO3 36.1 mmol/L (22.0-26.0) H Arterial Blood Oxygen Saturation 93.1 % (95-100) L Arterial Blood Base Excess 10.3 (-2-2) *H Dread Test Positive White Blood Count 7.5 K/UL (4.8-10.8) Red Blood Count 4.23 M/UL (4.20-5.40) Hemoglobin 12.3 G/DL (12.0-16.0) Hematocrit 37.7 % (37.0-47.0) Mean Corpuscular Volume 89 FL (80-99) Mean Corpuscular Hemoglobin 29.2 PG (27.0-31.0) Mean Corpuscular Hemoglobin Concent 32.7 G/DL (32.0-36.0) Red Cell Distribution Width 11.7 % (11.6-14.8) Platelet Count 288 K/UL (150-450) Mean Platelet Volume 5.3 FL (6.5-10.1) L Neutrophils (%) (Auto) % (45.0-75.0) Lymphocytes (%) (Auto) % (20.0-45.0) Monocytes (%) (Auto) % (1.0-10.0) Eosinophils (%) (Auto) % (0.0-3.0) Basophils (%) (Auto) % (0.0-2.0) Differential Total Cells Counted 100 Neutrophils % (Manual) 79 % (45-75) H Lymphocytes % (Manual) 12 % (20-45) L Monocytes % (Manual) 8 % (1-10) Eosinophils % (Manual) 1 % (0-3) Basophils % (Manual) 0 % (0-2) Band Neutrophils 0 % (0-8) Platelet Estimate Adequate Platelet Morphology Normal Red Blood Cell Morphology Normal Sodium Level 142 MMOL/L (136-145) Potassium Level 3.2 MMOL/L (3.5-5.1) L Chloride Level 100 MMOL/L (98-107) Carbon Dioxide Level 37 MMOL/L (21-32) H Anion Gap 5 mmol/L (5-15) Blood Urea Nitrogen 25 mg/dL (7-18) H Creatinine 1.6 MG/DL (0.55-1.30) H Estimat Glomerular Filtration Rate 37.6 mL/min (>60) Glucose Level 155 MG/DL (74-106) H Uric Acid 8.1 MG/DL (2.6-7.2) H Calcium Level 8.8 MG/DL (8.5-10.1) Phosphorus Level 2.0 MG/DL (2.5-4.9) L Magnesium Level 1.7 MG/DL (1.8-2.4) L Total Bilirubin 0.5 MG/DL (0.2-1.0) Aspartate Amino Transf (AST/SGOT) 23 U/L (15-37) Alanine Aminotransferase (ALT/SGPT) 23 U/L (12-78) Alkaline Phosphatase 71 U/L (46-116) C-Reactive Protein, Quantitative 16.9 mg/dL (0.00-0.90) H Pro-B-Type Natriuretic Peptide 3415 pg/mL (0-125) H Total Protein 6.8 G/DL (6.4-8.2) Albumin 2.1 G/DL (3.4-5.0) L Globulin 4.7 g/dL Albumin/Globulin Ratio 0.4 (1.0-2.7) L Current Medications Medications (Trade) Dose Ordered Sig/Daiana Route PRN Reason Start Time Stop Time Status Last Admin Dose Admin Acetaminophen (Tylenol) 650 mg Q6H PRN ORAL MILD/TEMP 12/25/19 13:11 01/24/20 13:10 Acetaminophen/ Hydrocodone Bitart ([place] 5/325) 1 tab Q4H PRN ORAL Moderate Pain (Pain Scale 4-6) 12/25/19 13:11 01/01/20 13:10 Clopidogrel Bisulfate (Plavix) 75 mg DAILY ORAL 12/26/19 09:00 01/19/20 08:59 12/26/19 09:06 Dextrose (Dextrose 50%) 25 ml Q30M PRN IV Hypoglycemia 12/25/19 13:11 03/24/20 13:10 Dextrose (Dextrose 50%) 50 ml Q30M PRN IV Hypoglycemia 12/25/19 13:30 03/18/20 23:29 Docusate Sodium (Colace) 100 mg THREE TIMES A DAY ORAL 12/25/19 13:13 01/24/20 13:12 Enoxaparin Sodium (Lovenox) 40 mg DAILY SUBQ 12/26/19 09:00 03/19/20 08:59 12/26/19 09:07 Insulin Aspart (NovoLOG) BEFORE MEALS AND HS SUBQ 12/25/19 16:30 03/19/20 06:29 12/26/19 06:10 Iohexol (OMNIPAQUE-300 100ml) 100 ml ONCE PRN INJ RADIOLOGY 12/25/19 13:12 12/26/19 23:59 Linezolid 300 ml @ 300 mls/hr Q12HR IVPB 12/25/19 18:00 01/01/20 17:59 12/26/19 10:14 Lorazepam (Ativan) 1 mg Q6H PRN ORAL For Anxiety 12/25/19 13:12 01/01/20 13:11 12/25/19 21:47 Meropenem 500 mg/ Sodium Chloride 55 ml @ 110 mls/hr Q12HR IV 12/25/19 21:00 12/30/19 20:59 12/26/19 09:06 Methylprednisolone Sodium Succinate (Solu-MEDROL) 40 mg EVERY 6 HOURS IVP 12/26/19 18:00 03/25/20 17:59 12/26/19 17:47 Metoprolol Tartrate (Lopressor) 50 mg EVERY 12 HOURS ORAL 12/26/19 21:00 03/22/20 09:54 Morphine Sulfate (Morphine Sulfate) 2 mg Q8H PRN IVP Severe Pain (Pain Scale 7-10) 12/25/19 13:12 01/01/20 13:11 Olanzapine (ZyPREXA) 2.5 mg DAILY ORAL 12/26/19 09:00 02/04/20 08:59 12/26/19 09:07 Olanzapine (ZyPREXA) 5 mg BEDTIME ORAL 12/25/19 21:00 02/04/20 20:59 12/25/19 21:11 Pantoprazole (Protonix) 40 mg EVERY 12 HOURS ORAL 12/25/19 21:00 01/22/20 09:54 12/26/19 09:06 Potassium Phosphate 20 mm/ Sodium Chloride 281.6667 ml @ 46.944 m... ONCE ONCE IV 12/26/19 21:00 12/27/19 02:59 Promethazine HCl (Phenergan Plain) 12.5 mg Q6H PRN ORAL For Cough 12/25/19 13:12 01/24/20 13:11 Zolpidem Tartrate (Ambien) 5 mg HSPRN PRN ORAL Insomnia 12/25/19 13:13 01/01/20 13:12 Abigail Daugherty M.D. December 26, 2019 20:55
[2019-12-26] MEDS ORDERED: Potassium Phosphate 20 MM in NS 275 ML IV ONE (21:00)
--- NOTE | 2019-12-26 22:00 | NUR ---
NURSE NOTES: Patient lost IV access. Attempted to place new IV unsuccessful. Asked another nurse to try with Veinfinder.
--- NOTE | 2019-12-26 23:15 | Progress Note ---
DATE: 12/26/2019 SUBJECTIVE: Patient in bed. No acute distress noted. Confused. Easily agitated. Continues to remove her BiPAP. Patient does not have bilateral restraints. MENTAL STATUS EXAMINATION: Awake, disoriented. Mood is anxious. Affect is flat. Thought process is concrete. Thought content, no suicidal or homicidal ideation. Cognition is impaired. Insight and judgment is impaired. ASSESSMENT: 1. Acute encephalopathy. 2. Dementia. PLAN: 1. Zyprexa 5 mg at bedtime. 2. Ativan per Dr. Vincent. 3. Discussed with charge nurse. Larisa Vogel M.D. DR: DIMAS JOB#: [id number] CC:
[2019-12-27] VITALS: BP 134/68
--- NOTE | 2019-12-27 | NUR ---
NURSE NOTES: FLETCHER Castillo attempted to place new IV patient refused and became aggressive. Will try again.
--- NOTE | 2019-12-27 03:17 | NUR ---
NURSE NOTES: Attempted to start IV once more and draw morning labs. Patient refused once more became combative. Patient educated on the importance of having IV access and lab work done. Patient still refused.
[2019-12-27] MEDS: Solu-MEDROL 40mg Inj IVP SCH ×4 (06:00→17:28)
[2019-12-27 06:30] VITALS: BP 149/100
[2019-12-27] MEDS: NovoLOG Insulin Flexpen SUBQ SCH ×4 (06:30→21:05)
--- NOTE | 2019-12-27 07:15 | NUR ---
NURSE NOTES: RECEIVED REPORT FROM ISHAAN BYNUM STAFF OF [facility]. RECEIVE PT ON DROPLET PRECAUTIONS ISOLATION ROOM.PT IS POSITIVE COVID-19 X2. RECEIVED PT WITH HOB ELEVATED 45 DEGREE AWAKE AND ALERT ,USING BIPAP 15/5, 45% FIO2,SAT 95 %. PT REFUSED ABG,S .PT NON-COMPLAINT WITH INSTRUCTIONS. PLACED A TELEPHONE CALL TO DR LOYA AND MADE AWARE AND NOTIFIED REGARDING PT IS VERY HARD STICK AND UNABLE TO INSERT AN PERIPHERAL I.V,ALSO REFUSED ABG,S AND AM LAB,S.FULL BODY ASSESSMENT DONE.PT IS A FULL CODE STATUS.NO ACUTE DISTRESS NOTED AT THIS TIME. V/S STABLE. WILL CONT TO MONITOR.
--- NOTE | 2019-12-27 07:21 | NUR ---
HAND-OFF: Report given to FLETCHER Spence. Patient in bed resting. Informed AM RN that patient refused labs and IV access. aware. Patient stable at hand-off.
--- NOTE | 2019-12-27 07:37 | NUR ---
RESPIRATORY NOTE: received pt holding bipap mask [facility] off face. informed and educated pt on effects not using bipap. found with saturation of 74% alert and responsive. pt allowed me then to fix mask and adjust to her comfort. informed ABG draw is requested from the doctor and refused. RN will be notified. bipap mask now on with spo2 of 98% with minimal leak. no foam tape in place because pt also refusing. no skin irritation seen.
[2019-12-27 08:00] VITALS: BP 136/88
--- NOTE | 2019-12-27 08:00 | NUR ---
NURSE NOTES: PLACED A TELEPHONE CALL DR WRIGHT .ALEX I.D AND MADE AWARE AND NOTIFIED REGARDING PT DON,T HAVE I.V ACCESS AND UNABLE TO GIVE MEROPENEN 500MG IVPB,ZYVOX 300MG IVPB. NO NEW ORDERS NOTED AT THIS TIME.WILL CONT TO MONITOR.
[2019-12-27 08:23] LABS: BASOPHILS % (AUTO) 1.6 % (0.0-2.0); EOSINOPHILS % (AUTO) 0.1 % (0.0-3.0); HEMATOCRIT 41.2 % (37.0-47.0); HEMOGLOBIN 13.9 G/DL (12.0-16.0); LYMPHOCYTES % (AUTO) 11.9 % (20.0-45.0); MEAN CORPUSCULAR VOLUME 89 FL (80-99); MONOCYTES % (AUTO) 11.9 % (1.0-10.0); NEUTROPHILS % (AUTO) 74.4 % (45.0-75.0); PLATELET COUNT 353 K/UL (150-450); RED BLOOD COUNT 4.63 M/UL (4.20-5.40); RED CELL DISTRIBUTION WIDTH 11.6 % (11.6-14.8); WHITE BLOOD COUNT 6.3 K/UL (4.8-10.8)
[2019-12-27 08:50] LABS: ALANINE AMINOTRANSFERASE 22 U/L (12-78); ALBUMIN 2.5 G/DL (3.4-5.0); ALBUMIN/GLOBULIN RATIO 0.5 (1.0-2.7); ALKALINE PHOSPHATASE 81 U/L (46-116); ANION GAP 5 mmol/L (5-15); ASPARTATE AMINO TRANSFERASE 22 U/L (15-37); BILIRUBIN,TOTAL 0.5 MG/DL (0.2-1.0); BLOOD UREA NITROGEN 34 mg/dL (7-18); CALCIUM 9.8 MG/DL (8.5-10.1); CARBON DIOXIDE 39 MMOL/L (21-32); CHLORIDE 98 MMOL/L (98-107); CREATININE 1.5 MG/DL (0.55-1.30); PHOSPHORUS 1.9 MG/DL (2.5-4.9); POTASSIUM 3.7 MMOL/L (3.5-5.1); SODIUM 142 MMOL/L (136-145)
[2019-12-27] MEDS: Meropenem 500 MG in NS 55 ML IV SCH (09:00)
[2019-12-27] MEDS: OLANZapine 2.5mg tab ORAL SCH (09:13)
[2019-12-27] MEDS: Metoprolol Tartrate 50mg tab ORAL SCH ×2 (09:13→21:52)
[2019-12-27] MEDS: Docusate 100mg cap ORAL SCH ×3 (09:14→17:28)
[2019-12-27] MEDS: Enoxaparin 40mg Inj SUBQ SCH (09:15)
--- NOTE | 2019-12-27 10:08 | Pulmonology Progress Note ---
Subjective ROS Limited/Unobtainable: Yes Interval Events: looking better Constitutional: Reports: no symptoms HEENT: Repors: no symptoms Respiratory: Reports: dry cough Cardiovascular: Reports: no symptoms Gastrointestinal/Abdominal: Reports: no symptoms Allergies: Coded Allergies: ASPIRIN (Verified Allergy, Unknown, 12/19/19) PENICILLINS (Verified Allergy, Unknown, 12/19/19) Objective Last 24 Hour Vital Signs Date Time Temp Pulse Resp B/P (MAP) Pulse Ox O2 Delivery O2 Flow Rate FiO2 12/27/19 09:13 74 149/100 12/27/19 08:00 97.8 83 21 136/88 (104) 95 12/27/19 07:36 78 21 98 30 12/27/19 07:35 98 Bi-Pap 30 12/27/19 06:30 96.3 101 16 149/100 (116) 99 12/27/19 04:00 Bi-pap 12/27/19 04:00 45 12/27/19 03:30 72 15 97 30 12/27/19 03:23 72 12/27/19 01:10 87 12/27/19 00:00 Bi-pap 12/27/19 00:00 96.9 78 16 134/68 (90) 94 12/26/19 23:30 85 21 94 30 12/26/19 21:00 104 135/95 12/26/19 20:00 Bi-pap 12/26/19 20:00 97.3 104 14 135/95 (108) 100 12/26/19 20:00 45 12/26/19 19:30 97 26 92 30 12/26/19 19:30 92 Bi-Pap 30 12/26/19 19:05 81 12/26/19 16:00 45 12/26/19 16:00 97.8 85 18 152/86 (108) 100 12/26/19 16:00 54 12/26/19 16:00 Bi-pap 12/26/19 15:20 66 18 100 45 12/26/19 12:00 97.2 55 18 97/56 (70) 100 12/26/19 12:00 45 12/26/19 12:00 Bi-pap 12/26/19 12:00 70 12/26/19 10:45 68 16 93 45 Intake and Output 12/26/19 12/27/19 19:00 07:00 Intake Total 150 ml Output Total 1600 ml 350 ml Balance -1450 ml -350 ml Intake Oral 150 ml Output Urine Total 1600 ml 350 ml General Appearance: no acute distress HEENT: normocephalic Respiratory: chest wall non-tender, decreased breath sounds Cardiovascular: normal peripheral pulses Abdomen: normal bowel sounds Laboratory Tests 12/27/19 08:00: White Blood Count 6.3, Red Blood Count 4.63, Hemoglobin 13.9, Hematocrit 41.2, Mean Corpuscular Volume 89, Mean Corpuscular Hemoglobin 30.0, Mean Corpuscular Hemoglobin Concent 33.7, Red Cell Distribution Width 11.6, Platelet Count 353, Mean Platelet Volume 5.2L, Neutrophils (%) (Auto) 74.4, Lymphocytes (%) (Auto) 11.9L, Monocytes (%) (Auto) 11.9H, Eosinophils (%) (Auto) 0.1, Basophils (%) ( Auto) 1.6, Sodium Level 142, Potassium Level 3.7, Chloride Level 98, Carbon Dioxide Level 39H, Anion Gap 5, Blood Urea Nitrogen 34H, Creatinine 1.5H, Estimat Glomerular Filtration Rate 40.5, Glucose Level 238H, Uric Acid 8.8H, Calcium Level 9.8, Phosphorus Level 1.9L, Magnesium Level 2.1, Total Bilirubin 0.5, Aspartate Amino Transf (AST/SGOT) 22, Alanine Aminotransferase (ALT/SGPT) 22, Alkaline Phosphatase 81, Troponin I 0.024, C-Reactive Protein, Quantitative 12.9H, Pro-B-Type Natriuretic Peptide 2365H, Total Protein 7.7, Albumin 2.5L, Globulin 5.2, Albumin/Globulin Ratio 0.5L Current Medications Medications (Trade) Dose Ordered Sig/Daiana Route PRN Reason Start Time Stop Time Status Last Admin Dose Admin Acetaminophen (Tylenol) 650 mg Q6H PRN ORAL MILD/TEMP 12/25/19 13:11 01/24/20 13:10 Acetaminophen/ Hydrocodone Bitart ([place] 5/325) 1 tab Q4H PRN ORAL Moderate Pain (Pain Scale 4-6) 12/25/19 13:11 01/01/20 13:10 Clopidogrel Bisulfate (Plavix) 75 mg DAILY ORAL 12/26/19 09:00 01/19/20 08:59 12/27/19 09:14 Dextrose (Dextrose 50%) 25 ml Q30M PRN IV Hypoglycemia 12/25/19 13:11 03/24/20 13:10 Dextrose (Dextrose 50%) 50 ml Q30M PRN IV Hypoglycemia 12/25/19 13:30 03/18/20 23:29 Docusate Sodium (Colace) 100 mg THREE TIMES A DAY ORAL 12/25/19 13:13 01/24/20 13:12 12/27/19 09:14 Enoxaparin Sodium (Lovenox) 40 mg DAILY SUBQ 12/26/19 09:00 03/19/20 08:59 12/27/19 09:15 Insulin Aspart (NovoLOG) BEFORE MEALS AND HS SUBQ 12/25/19 16:30 03/19/20 06:29 12/26/19 21:00 Linezolid 300 ml @ 300 mls/hr Q12HR IVPB 12/25/19 18:00 01/01/20 17:59 12/26/19 21:00 Lorazepam (Ativan) 1 mg Q6H PRN ORAL For Anxiety 12/25/19 13:12 01/01/20 13:11 12/25/19 21:47 Meropenem 500 mg/ Sodium Chloride 55 ml @ 110 mls/hr Q12HR IV 12/25/19 21:00 12/30/19 20:59 12/26/19 21:00 Methylprednisolone Sodium Succinate (Solu-MEDROL) 40 mg EVERY 6 HOURS IVP 12/26/19 18:00 03/25/20 17:59 12/26/19 17:47 Metoprolol Tartrate (Lopressor) 50 mg EVERY 12 HOURS ORAL 12/26/19 21:00 03/22/20 09:54 12/27/19 09:13 Morphine Sulfate (Morphine Sulfate) 2 mg Q8H PRN IVP Severe Pain (Pain Scale 7-10) 12/25/19 13:12 01/01/20 13:11 Olanzapine (ZyPREXA) 2.5 mg DAILY ORAL 12/26/19 09:00 02/04/20 08:59 12/27/19 09:13 Olanzapine (ZyPREXA) 5 mg BEDTIME ORAL 12/25/19 21:00 02/04/20 20:59 12/26/19 21:00 Pantoprazole (Protonix) 40 mg EVERY 12 HOURS ORAL 12/25/19 21:00 01/22/20 09:54 12/27/19 09:13 Promethazine HCl (Phenergan Plain) 12.5 mg Q6H PRN ORAL For Cough 12/25/19 13:12 01/24/20 13:11 Zolpidem Tartrate (Ambien) 5 mg HSPRN PRN ORAL Insomnia 12/25/19 13:13 01/01/20 13:12 Assessment/Plan Assessment/Plan IMPRESSION: 1. Positive COVID-19. 2. COPD with exacerbation 3. Leukocytosis. 4. Hypoxemia. 5. Schizophrenia. 6. Hypertension. 7. Diabetes mellitus. 8. Respiratory failure 9. CHF. DISCUSSION: Continue broad-spectrum antibiotics. Continue oxygen and pulmonary hygiene. DVT prophylaxis. I will follow carefully. CXR and ABG much better today Is negative 1300 ml last 24 hours Off Lasix On steroids for COPD Will wean off BiPAP Javi Vincent M.D. Javi Vincent MD December 27, 2019 10:08
--- NOTE | 2019-12-27 10:15 | NUR ---
NURSE NOTES:DR CERDA CAME TO SEE THE PT AND MADE AWARE & NOTIFIED REGARDING PT REFUSED ABG,S . M.D ORDER TO STOOP BIPAP AND PLACE THE PT IN VM 8/L, 40%. MELANIE HE PLACE THE PT ON VM PER M.D.PT O2 SAT 94%. NO ACUTE RESPIRATORY DISTRESS NOTED AT THIS TIME. WILL CONT TO MONITOR.
--- NOTE | 2019-12-27 10:30 | Infectious Diseases Prog Note ---
Assessment/Plan Assessment/Plan A; COVID19 pneumonia UTI treated COPD DM Chronic kidney disease Hypercapnic respiratory failure P: Stop Zyvox & Meropenem Repeat COVID19 test Subjective ROS Limited/Unobtainable: Yes Constitutional: Denies: fever Cardiovascular: Reports: other - no IV access Allergies: Coded Allergies: ASPIRIN (Verified Allergy, Unknown, 12/19/19) PENICILLINS (Verified Allergy, Unknown, 12/19/19) Objective Vital Signs Last 24 Hour Vital Signs Date Time Temp Pulse Resp B/P (MAP) Pulse Ox O2 Delivery O2 Flow Rate FiO2 12/27/19 09:13 74 149/100 12/27/19 08:00 97.8 83 21 136/88 (104) 95 12/27/19 07:36 78 21 98 30 12/27/19 07:35 98 Bi-Pap 30 12/27/19 07:29 75 12/27/19 06:30 96.3 101 16 149/100 (116) 99 12/27/19 04:00 Bi-pap 12/27/19 04:00 45 12/27/19 03:30 72 15 97 30 12/27/19 03:23 72 12/27/19 01:10 87 12/27/19 00:00 Bi-pap 12/27/19 00:00 96.9 78 16 134/68 (90) 94 12/26/19 23:30 85 21 94 30 12/26/19 21:00 104 135/95 12/26/19 20:00 Bi-pap 12/26/19 20:00 97.3 104 14 135/95 (108) 100 12/26/19 20:00 45 12/26/19 19:30 97 26 92 30 12/26/19 19:30 92 Bi-Pap 30 12/26/19 19:05 81 12/26/19 16:00 45 12/26/19 16:00 97.8 85 18 152/86 (108) 100 12/26/19 16:00 54 12/26/19 16:00 Bi-pap 12/26/19 15:20 66 18 100 45 12/26/19 12:00 97.2 55 18 97/56 (70) 100 12/26/19 12:00 45 12/26/19 12:00 Bi-pap 12/26/19 12:00 70 12/26/19 10:45 68 16 93 45 Height (Feet): 5 Height (Inches): 6.00 Weight (Pounds): 158 HEENT: mucous membranes moist Respiratory/Chest: other - on BIPAP Cardiovascular: normal rate Abdomen: soft, non tender Neurologic/Psychiatric: other - sleeping Laboratory Tests Test 12/27/19 08:00 White Blood Count 6.3 K/UL (4.8-10.8) Red Blood Count 4.63 M/UL (4.20-5.40) Hemoglobin 13.9 G/DL (12.0-16.0) Hematocrit 41.2 % (37.0-47.0) Mean Corpuscular Volume 89 FL (80-99) Mean Corpuscular Hemoglobin 30.0 PG (27.0-31.0) Mean Corpuscular Hemoglobin Concent 33.7 G/DL (32.0-36.0) Red Cell Distribution Width 11.6 % (11.6-14.8) Platelet Count 353 K/UL (150-450) Mean Platelet Volume 5.2 FL (6.5-10.1) L Neutrophils (%) (Auto) 74.4 % (45.0-75.0) Lymphocytes (%) (Auto) 11.9 % (20.0-45.0) L Monocytes (%) (Auto) 11.9 % (1.0-10.0) H Eosinophils (%) (Auto) 0.1 % (0.0-3.0) Basophils (%) (Auto) 1.6 % (0.0-2.0) Sodium Level 142 MMOL/L (136-145) Potassium Level 3.7 MMOL/L (3.5-5.1) Chloride Level 98 MMOL/L (98-107) Carbon Dioxide Level 39 MMOL/L (21-32) H Anion Gap 5 mmol/L (5-15) Blood Urea Nitrogen 34 mg/dL (7-18) H Creatinine 1.5 MG/DL (0.55-1.30) H Estimat Glomerular Filtration Rate 40.5 mL/min (>60) Glucose Level 238 MG/DL (74-106) H Uric Acid 8.8 MG/DL (2.6-7.2) H Calcium Level 9.8 MG/DL (8.5-10.1) Phosphorus Level 1.9 MG/DL (2.5-4.9) L Magnesium Level 2.1 MG/DL (1.8-2.4) Total Bilirubin 0.5 MG/DL (0.2-1.0) Aspartate Amino Transf (AST/SGOT) 22 U/L (15-37) Alanine Aminotransferase (ALT/SGPT) 22 U/L (12-78) Alkaline Phosphatase 81 U/L (46-116) Troponin I 0.024 ng/mL (0.000-0.056) C-Reactive Protein, Quantitative 12.9 mg/dL (0.00-0.90) H Pro-B-Type Natriuretic Peptide 2365 pg/mL (0-125) H Total Protein 7.7 G/DL (6.4-8.2) Albumin 2.5 G/DL (3.4-5.0) L Globulin 5.2 g/dL Albumin/Globulin Ratio 0.5 (1.0-2.7) L Current Medications Medications (Trade) Dose Ordered Sig/Daiana Route PRN Reason Start Time Stop Time Status Last Admin Dose Admin Acetaminophen (Tylenol) 650 mg Q6H PRN ORAL MILD/TEMP 12/25/19 13:11 01/24/20 13:10 Acetaminophen/ Hydrocodone Bitart ([place] 5/325) 1 tab Q4H PRN ORAL Moderate Pain (Pain Scale 4-6) 12/25/19 13:11 01/01/20 13:10 Clopidogrel Bisulfate (Plavix) 75 mg DAILY ORAL 12/26/19 09:00 01/19/20 08:59 12/27/19 09:14 Dextrose (Dextrose 50%) 25 ml Q30M PRN IV Hypoglycemia 12/25/19 13:11 03/24/20 13:10 Dextrose (Dextrose 50%) 50 ml Q30M PRN IV Hypoglycemia 12/25/19 13:30 03/18/20 23:29 Docusate Sodium (Colace) 100 mg THREE TIMES A DAY ORAL 12/25/19 13:13 01/24/20 13:12 12/27/19 09:14 Enoxaparin Sodium (Lovenox) 40 mg DAILY SUBQ 12/26/19 09:00 03/19/20 08:59 12/27/19 09:15 Insulin Aspart (NovoLOG) BEFORE MEALS AND HS SUBQ 12/25/19 16:30 03/19/20 06:29 12/26/19 21:00 Linezolid 300 ml @ 300 mls/hr Q12HR IVPB 12/25/19 18:00 01/01/20 17:59 12/26/19 21:00 Lorazepam (Ativan) 1 mg Q6H PRN ORAL For Anxiety 12/25/19 13:12 01/01/20 13:11 12/25/19 21:47 Meropenem 500 mg/ Sodium Chloride 55 ml @ 110 mls/hr Q12HR IV 12/25/19 21:00 12/30/19 20:59 12/26/19 21:00 Methylprednisolone Sodium Succinate (Solu-MEDROL) 40 mg EVERY 6 HOURS IVP 12/26/19 18:00 03/25/20 17:59 12/26/19 17:47 Metoprolol Tartrate (Lopressor) 50 mg EVERY 12 HOURS ORAL 12/26/19 21:00 03/22/20 09:54 12/27/19 09:13 Morphine Sulfate (Morphine Sulfate) 2 mg Q8H PRN IVP Severe Pain (Pain Scale 7-10) 12/25/19 13:12 01/01/20 13:11 Olanzapine (ZyPREXA) 2.5 mg DAILY ORAL 12/26/19 09:00 02/04/20 08:59 12/27/19 09:13 Olanzapine (ZyPREXA) 5 mg BEDTIME ORAL 12/25/19 21:00 02/04/20 20:59 12/26/19 21:00 Pantoprazole (Protonix) 40 mg EVERY 12 HOURS ORAL 12/25/19 21:00 01/22/20 09:54 12/27/19 09:13 Promethazine HCl (Phenergan Plain) 12.5 mg Q6H PRN ORAL For Cough 12/25/19 13:12 01/24/20 13:11 Zolpidem Tartrate (Ambien) 5 mg HSPRN PRN ORAL Insomnia 12/25/19 13:13 01/01/20 13:12 Jim Fisher MD December 27, 2019 10:30
--- NOTE | 2019-12-27 10:35 | NUR ---
RESPIRATORY NOTE: place pt on VM 40%. tolerating well at this time. spo2 94%
--- NOTE | 2019-12-27 10:55 | Nephrology Progress Note ---
Assessment/Plan Problem List: (1) MATTHEW (acute kidney injury) Assessment: Serum creatinine livia to 2 (2) Hyponatremia Assessment: Likely depletional (3) Diabetes mellitus Assessment: With elevated hemoglobin A1c (4) UTI (urinary tract infection) (5) COVID-19 Assessment Patient presents with hyponatremia, urine spot sodium below 20. Hyponatremia most likely depletional Azotemia / dehydration Sepsis, positive COVID-19 test, UTI Diabetes mellitus [id number] with high hemoglobin A1c History of psych disease Plan December 26: Patient does not have an IV line Refuses p.o. medication and at times lab draw Today ABG not done as patient refused Serum creatinine down to 1.5 Will give oral phosphate supplement Continue per pulmonary December 25: ABG indicative of hypoxia, patient on BiPAP Serum creatinine down to 1.6 today Will replace potassium and phosphorus Continue per senior application security consultant and clarification operator advice Previously: Will order a Kohler catheter and give 1 L of IV bolus Patient ejection fraction is normal on 2D echo Serum sodium now normalized Monitor electrolytes and renal parameters Antibiotics per ID Monitor electrolytes and renal parameters Per orders Per consultants Subjective ROS Limited/Unobtainable: No Constitutional: Reports: malaise, weakness Objective Objective Last 24 Hour Vital Signs Date Time Temp Pulse Resp B/P (MAP) Pulse Ox O2 Delivery O2 Flow Rate FiO2 12/27/19 09:13 74 149/100 12/27/19 08:00 97.8 83 21 136/88 (104) 95 12/27/19 07:36 78 21 98 30 12/27/19 07:35 98 Bi-Pap 30 12/27/19 07:29 75 12/27/19 06:30 96.3 101 16 149/100 (116) 99 12/27/19 04:00 Bi-pap 12/27/19 04:00 45 12/27/19 03:30 72 15 97 30 12/27/19 03:23 72 12/27/19 01:10 87 12/27/19 00:00 Bi-pap 12/27/19 00:00 96.9 78 16 134/68 (90) 94 12/26/19 23:30 85 21 94 30 12/26/19 21:00 104 135/95 12/26/19 20:00 Bi-pap 12/26/19 20:00 97.3 104 14 135/95 (108) 100 12/26/19 20:00 45 12/26/19 19:30 97 26 92 30 12/26/19 19:30 92 Bi-Pap 30 12/26/19 19:05 81 12/26/19 16:00 45 12/26/19 16:00 97.8 85 18 152/86 (108) 100 12/26/19 16:00 54 12/26/19 16:00 Bi-pap 12/26/19 15:20 66 18 100 45 12/26/19 12:00 97.2 55 18 97/56 (70) 100 12/26/19 12:00 45 12/26/19 12:00 Bi-pap 12/26/19 12:00 70 Intake and Output 12/26/19 12/27/19 19:00 07:00 Intake Total 150 ml Output Total 1600 ml 350 ml Balance -1450 ml -350 ml Intake Oral 150 ml Output Urine Total 1600 ml 350 ml Laboratory Tests 12/27/19 08:00: White Blood Count 6.3, Red Blood Count 4.63, Hemoglobin 13.9, Hematocrit 41.2, Mean Corpuscular Volume 89, Mean Corpuscular Hemoglobin 30.0, Mean Corpuscular Hemoglobin Concent 33.7, Red Cell Distribution Width 11.6, Platelet Count 353, Mean Platelet Volume 5.2L, Neutrophils (%) (Auto) 74.4, Lymphocytes (%) (Auto) 11.9L, Monocytes (%) (Auto) 11.9H, Eosinophils (%) (Auto) 0.1, Basophils (%) ( Auto) 1.6, Sodium Level 142, Potassium Level 3.7, Chloride Level 98, Carbon Dioxide Level 39H, Anion Gap 5, Blood Urea Nitrogen 34H, Creatinine 1.5H, Estimat Glomerular Filtration Rate 40.5, Glucose Level 238H, Uric Acid 8.8H, Calcium Level 9.8, Phosphorus Level 1.9L, Magnesium Level 2.1, Total Bilirubin 0.5, Aspartate Amino Transf (AST/SGOT) 22, Alanine Aminotransferase (ALT/SGPT) 22, Alkaline Phosphatase 81, Troponin I 0.024, C-Reactive Protein, Quantitative 12.9H, Pro-B-Type Natriuretic Peptide 2365H, Total Protein 7.7, Albumin 2.5L, Globulin 5.2, Albumin/Globulin Ratio 0.5L Height (Feet): 5 Height (Inches): 6.00 Weight (Pounds): 158 General Appearance: mild distress EENT: other - On BiPAP Cardiovascular: other - Variable rate Respiratory/Chest: decreased breath sounds Abdomen: distended Objective No change Rolo Roldan MD December 27, 2019 10:55
[2019-12-27 12:00] VITALS: BP 160/77
[2019-12-27] MEDS: Phospha 250 Neutral tab ORAL SCH ×2 (13:18→17:28)
--- NOTE | 2019-12-27 13:54 | NUR ---
CASE MANAGEMENT: REVIEW 12/27/2019 SI:Positive COVID-19. COPD with exacerbation. VS: T 97.7 HR 74 RR 24 B/P 160/77 SATS 94% ON BIPAP 30% LABS: CO2 39 BUN 34 CR 1.5 GLU 238 IS:SOLU MEDROL IV Q6H LOPRESSOR PO Q12H PLAVIX PO QD INSULIN ASPART SUBQ AC/HS SDU PLAN OF CARE: 12/26 COVID RESULT PENDING Patient does not have an IV line Refuses p.o. medication and at times lab draw Today ABG not done as patient refused
--- NOTE | 2019-12-27 14:00 | NUR ---
DISCHARGE PLANNING: NOTE PATIENT IS REFUSING THERAPIES AND CARE POSSIBLE CHANGE FROM BIPAP TO [facility]IC[facility] FAXED TO [facility] FOR DC PLANNING Addendum: 12/27/19 at 1410 by Funmi Cerda CM MARCE SOLITARIO-ORDER 12/26 - RESULTS PENDING
[2019-12-27 16:00] VITALS: BP 165/78
--- NOTE | 2019-12-27 16:22 | Cardiac Electrophysiology PN ---
Assessment/Plan Assessment/Plan 1. Accelerated hypertension. On metoprolol 50 mg bid and p.r.n. clonidine 2. History of CHF/ DD. Echo normal EF . 3. Sepsis, on antibiotic per Dr. Daugherty. 4. Psychiatric history. 5. Hyponatremia. 6. Hypercapnea and respiratory failure. VQ scan no PE. On BIPAP. FU Dr Vincent 7. Acute renal failure Cr up to 2. Off lasix down to 1.5 DW RN Subjective Subjective Alert in NAD in Covid isolation. Refusing Meds, labs. VQ scan was negative for PE. PCO2 up to high 70s on BIPAP. Had midline placed . Refused ABG. Objective Last 24 Hour Vital Signs Date Time Temp Pulse Resp B/P (MAP) Pulse Ox O2 Delivery O2 Flow Rate FiO2 12/27/19 12:00 97.7 74 24 160/77 (104) 94 12/27/19 12:00 8.0 40 12/27/19 12:00 Bi-pap 12/27/19 11:31 62 12/27/19 09:13 74 149/100 12/27/19 08:00 97.8 83 21 136/88 (104) 95 12/27/19 08:00 Bi-pap 12/27/19 08:00 45 12/27/19 07:36 78 21 98 30 12/27/19 07:35 98 Bi-Pap 30 12/27/19 07:29 75 12/27/19 06:30 96.3 101 16 149/100 (116) 99 12/27/19 04:00 Bi-pap 12/27/19 04:00 45 12/27/19 03:30 72 15 97 30 12/27/19 03:23 72 12/27/19 01:10 87 12/27/19 00:00 Bi-pap 12/27/19 00:00 96.9 78 16 134/68 (90) 94 12/26/19 23:30 85 21 94 30 12/26/19 21:00 104 135/95 12/26/19 20:00 Bi-pap 12/26/19 20:00 97.3 104 14 135/95 (108) 100 12/26/19 20:00 45 12/26/19 19:30 97 26 92 30 12/26/19 19:30 92 Bi-Pap 30 12/26/19 19:05 81 Intake and Output 12/26/19 12/27/19 19:00 07:00 Intake Total 150 ml Output Total 1600 ml 350 ml Balance -1450 ml -350 ml Intake Oral 150 ml Output Urine Total 1600 ml 350 ml Laboratory Tests Test 12/27/19 08:00 White Blood Count 6.3 K/UL (4.8-10.8) Red Blood Count 4.63 M/UL (4.20-5.40) Hemoglobin 13.9 G/DL (12.0-16.0) Hematocrit 41.2 % (37.0-47.0) Mean Corpuscular Volume 89 FL (80-99) Mean Corpuscular Hemoglobin 30.0 PG (27.0-31.0) Mean Corpuscular Hemoglobin Concent 33.7 G/DL (32.0-36.0) Red Cell Distribution Width 11.6 % (11.6-14.8) Platelet Count 353 K/UL (150-450) Mean Platelet Volume 5.2 FL (6.5-10.1) L Neutrophils (%) (Auto) 74.4 % (45.0-75.0) Lymphocytes (%) (Auto) 11.9 % (20.0-45.0) L Monocytes (%) (Auto) 11.9 % (1.0-10.0) H Eosinophils (%) (Auto) 0.1 % (0.0-3.0) Basophils (%) (Auto) 1.6 % (0.0-2.0) Sodium Level 142 MMOL/L (136-145) Potassium Level 3.7 MMOL/L (3.5-5.1) Chloride Level 98 MMOL/L (98-107) Carbon Dioxide Level 39 MMOL/L (21-32) H Anion Gap 5 mmol/L (5-15) Blood Urea Nitrogen 34 mg/dL (7-18) H Creatinine 1.5 MG/DL (0.55-1.30) H Estimat Glomerular Filtration Rate 40.5 mL/min (>60) Glucose Level 238 MG/DL (74-106) H Uric Acid 8.8 MG/DL (2.6-7.2) H Calcium Level 9.8 MG/DL (8.5-10.1) Phosphorus Level 1.9 MG/DL (2.5-4.9) L Magnesium Level 2.1 MG/DL (1.8-2.4) Total Bilirubin 0.5 MG/DL (0.2-1.0) Aspartate Amino Transf (AST/SGOT) 22 U/L (15-37) Alanine Aminotransferase (ALT/SGPT) 22 U/L (12-78) Alkaline Phosphatase 81 U/L (46-116) Troponin I 0.024 ng/mL (0.000-0.056) C-Reactive Protein, Quantitative 12.9 mg/dL (0.00-0.90) H Pro-B-Type Natriuretic Peptide 2365 pg/mL (0-125) H Total Protein 7.7 G/DL (6.4-8.2) Albumin 2.5 G/DL (3.4-5.0) L Globulin 5.2 g/dL Albumin/Globulin Ratio 0.5 (1.0-2.7) L Objective HEAD AND NECK: No JVD. LUNGS: Coarse rhonchi CARDIOVASCULAR: Regular S1 and S2 with no gallop. ABDOMEN: Soft. EXTREMITIES: No edema. Eusebio Barrow MD December 27, 2019 16:22
--- NOTE | 2019-12-27 19:15 | NUR ---
HAND-OFF: Report given to .SHARON BYNUM.
--- NOTE | 2019-12-27 19:16 | NUR ---
NURSE NOTES: received pt from Jordy BYNUM., pt is awake , AOx 2 at this moment. pt is on venturi 8L and O2sat is at 94%. no SOB noted. pt states no pain at this time. alvarado cath is clean and draining well with gravity. right AC 20G Iv site intact, clean, and patent. call light within reach. bed at the lowest position, alarmed, and locked. will continue to monitor pt with plan of care.
[2019-12-27 20:00] VITALS: BP 147/80
--- NOTE | 2019-12-27 22:24 | General Progress Note ---
Assessment/Plan Status: stable Assessment/Plan: S, O: poor historian, seems in mild sob. Declined cognition and poor historian . on O2 Mask PHYSICAL EXAMINATION:HEAD AND NECK: Atraumatic and normocephalic. CHEST: Bronchial breathing sounds.HEART: S1 and S2. Regular rate and rhythm. ABDOMEN: Soft. No organomegaly.MUSCULOSKELETAL: No gross focal motor deficit. NEUROLOGY: Patient is awake, alert x1. Easily distracted. LABORATORY DATA: Dated 12/26 reviewed Imaging: CXR, dated reveiwed ASSESSMENT: 1. Sepsis 2. metabolic encephalopathy 2. UTI - Gram negative 3. COVD 19- Pneumonia. 3. Renal failure, age indeterminate. 4. Diabetes type 2. 5. Hypertension. 6. Hyperlipidemia. 7. Coronary artery disease/peripheral arterial disease. Continue with antiplatelet. 8. GI and DVT prophylaxis. 9. Anemia: likely chronic disease PLAN OF CARE: Continue with culture-targeted antibiotic treatment. Notes from Infectious Disease, Nephrology, Pulmonary have been reviewed. check hepatitis panel c/w current abx treatment US renal ordered D/w pulmonary Non tolerating BIPAP, seems agitated at times D/w grand daughter, on December 26 around 5 PM No capacity for making medical decisions at times, d/w RN to use soft restraint if needed for patient saftey Subjective Allergies: Coded Allergies: ASPIRIN (Verified Allergy, Unknown, 12/19/19) PENICILLINS (Verified Allergy, Unknown, 12/19/19) Objective Last 24 Hour Vital Signs Date Time Temp Pulse Resp B/P (MAP) Pulse Ox O2 Delivery O2 Flow Rate FiO2 12/27/19 21:52 72 147/80 12/27/19 20:00 96.8 72 30 147/80 (102) 96 12/27/19 20:00 Bi-pap 12/27/19 20:00 8.0 40 12/27/19 19:29 63 12/27/19 19:07 96 Venturi Mask 8.0 40 12/27/19 16:00 60 12/27/19 16:00 Bi-pap 12/27/19 16:00 8.0 40 12/27/19 16:00 97.4 99 30 165/78 (107) 98 12/27/19 12:00 97.7 74 24 160/77 (104) 94 12/27/19 12:00 8.0 40 12/27/19 12:00 Bi-pap 12/27/19 11:31 62 12/27/19 09:13 74 149/100 12/27/19 08:00 97.8 83 21 136/88 (104) 95 12/27/19 08:00 Bi-pap 12/27/19 08:00 45 12/27/19 07:36 78 21 98 30 12/27/19 07:35 98 Bi-Pap 30 12/27/19 07:29 75 12/27/19 06:30 96.3 101 16 149/100 (116) 99 12/27/19 04:00 Bi-pap 12/27/19 04:00 45 12/27/19 03:30 72 15 97 30 12/27/19 03:23 72 12/27/19 01:10 87 12/27/19 00:00 Bi-pap 12/27/19 00:00 96.9 78 16 134/68 (90) 94 12/26/19 23:30 85 21 94 30 Intake and Output 12/26/19 12/27/19 19:00 07:00 Intake Total 150 ml Output Total 1600 ml 350 ml Balance -1450 ml -350 ml Intake Oral 150 ml Output Urine Total 1600 ml 350 ml Laboratory Tests 12/27/19 08:00: White Blood Count 6.3, Red Blood Count 4.63, Hemoglobin 13.9, Hematocrit 41.2, Mean Corpuscular Volume 89, Mean Corpuscular Hemoglobin 30.0, Mean Corpuscular Hemoglobin Concent 33.7, Red Cell Distribution Width 11.6, Platelet Count 353, Mean Platelet Volume 5.2L, Neutrophils (%) (Auto) 74.4, Lymphocytes (%) (Auto) 11.9L, Monocytes (%) (Auto) 11.9H, Eosinophils (%) (Auto) 0.1, Basophils (%) ( Auto) 1.6, Sodium Level 142, Potassium Level 3.7, Chloride Level 98, Carbon Dioxide Level 39H, Anion Gap 5, Blood Urea Nitrogen 34H, Creatinine 1.5H, Estimat Glomerular Filtration Rate 40.5, Glucose Level 238H, Uric Acid 8.8H, Calcium Level 9.8, Phosphorus Level 1.9L, Magnesium Level 2.1, Total Bilirubin 0.5, Aspartate Amino Transf (AST/SGOT) 22, Alanine Aminotransferase (ALT/SGPT) 22, Alkaline Phosphatase 81, Troponin I 0.024, C-Reactive Protein, Quantitative 12.9H, Pro-B-Type Natriuretic Peptide 2365H, Total Protein 7.7, Albumin 2.5L, Globulin 5.2, Albumin/Globulin Ratio 0.5L Height (Feet): 5 Height (Inches): 6.00 Weight (Pounds): 158 Jennifer Alberto MD December 27, 2019 22:24
[2019-12-28] VITALS: BP 141/75
[2019-12-28] MEDS: Solu-MEDROL 40mg Inj IVP SCH ×2 (00:18→05:31)
--- NOTE | 2019-12-28 02:00 | NUR ---
NURSE NOTES: cleaned pt, provided new gown, provided new blankets. no SOB noted at this moment. pt states no pain at this time. call light within reach. bed at the lowest position, alarmed, and locked. will continue to monitor pt with plan of care.
[2019-12-28 04:00] VITALS: BP 137/80
--- NOTE | 2019-12-28 04:15 | Progress Note ---
DATE: 12/19/2019 SUBJECTIVE: The patient is disoriented, confused, is declining. Has reasonable agitation. Continues to be noncompliant although she has been cared. She is unable to understand process, communicate rationally. The patient may now refuse medications and laboratories. She would be given anxiolytics and continue to treat the patient against her will. MENTAL STATUS EXAMINATION: The patient is awake, disoriented. Mood is agitated. Affect is flat. Thought process, there is a paucity of thought content. Thought content, no suicidal or homicidal ideation. Cognition is impaired. Insight and judgment is impaired. ASSESSMENT: 1. Dementia with behavior disturbance. 2. Psychosis. PLAN: 1. Continue the Zyprexa. 2. The patient lacks capacity and may not refuse care or medications. 3. Continue to treat her against her will. Larisa Vogel M.D. DR: VALORIE JOB#: [id number] CC:
[2019-12-28] MEDS: NovoLOG Insulin Flexpen SUBQ SCH ×4 (06:53→21:38)
--- NOTE | 2019-12-28 07:20 | NUR ---
HAND-OFF: Report given to Tracie BYNUM., pt is stable condition, endorsed plan of care.
--- NOTE | 2019-12-28 07:30 | NUR ---
NURSE NOTES: Received report from FLETCHER Nash. The patient is AOx2 and able to make needs known but combative and aggressive. The patient is resting on the bed without acute distress or shortness of breath. The patient's bed in the lowest position, call light in reach, and fall and aspiration precaution reinforced. The patient is on 8L Venturi with FiO2 of 40%. The patient has right upper arm 20G that is intact and patent and kept SL. Per FLETCHER Nash, the patient has been refusing majority of the care. Will follow up the orders. Will continue plan of care.
[2019-12-28 08:00] VITALS: BP 147/94
[2019-12-28] MEDS: Docusate 100mg cap ORAL SCH ×3 (08:34→17:08)
[2019-12-28] MEDS: OLANZapine 2.5mg tab ORAL SCH (08:35)
[2019-12-28] MEDS: Metoprolol Tartrate 50mg tab ORAL SCH ×2 (08:35→21:20)
[2019-12-28] MEDS: Phospha 250 Neutral tab ORAL SCH ×3 (08:35→17:08)
[2019-12-28] MEDS: Enoxaparin 40mg Inj SUBQ SCH (08:36)
--- NOTE | 2019-12-28 08:53 | NUR ---
CASE MANAGEMENT: REVIEW 12/28/2019 SI:Positive COVID-19. COPD with exacerbation. VS: T 97 HR 97 RR 18 B/P 147/94 SATS 96% ON 8L/VENTURI MASK LABS: NO LABS TODAY COVID RESULTS PENDING IS:SOLU MEDROL IV Q6H LOPRESSOR PO Q12H PLAVIX PO QD INSULIN ASPART SUBQ AC/HS SDU PLAN OF CARE: 12/26 COVID RESULT PENDING DC PLANNING TO SNF PENDING COVID RESULTS
--- NOTE | 2019-12-28 08:58 | NUR ---
RESPIRATORY NOTE: Pt refused arterial blood gas
--- NOTE | 2019-12-28 09:00 | NUR ---
NURSE NOTES: Morning medication administered per order. The patient is stable at this time. Vital signs noted. No acute distress at this time. Will continue plan of care.
--- NOTE | 2019-12-28 09:25 | Cardiac Electrophysiology PN ---
Assessment/Plan Assessment/Plan 1. Accelerated hypertension. On metoprolol 50 mg bid and p.r.n. clonidine 2. History of CHF/ DD. Echo normal EF . 3. Sepsis, on antibiotic per Dr. Daugherty. 4. Psychiatric history. 5. Hyponatremia. 6. Hypercapnea and respiratory failure. VQ scan no PE. BIPAP changed to Venturi. FU Dr Vincent 7. Acute renal failure Cr up to 2. Off lasix down to 1.5 DW RN Subjective Subjective Alert in NAD in Covid isolation. Refusing labs. VQ scan was negative for PE. PCO2 up to high 70s on BIPAP that was changed to Venturi Mask this am. Had midline placed Objective Last 24 Hour Vital Signs Date Time Temp Pulse Resp B/P (MAP) Pulse Ox O2 Delivery O2 Flow Rate FiO2 12/28/19 08:57 97 Venturi Mask 8.0 40 12/28/19 08:35 97 147/94 12/28/19 08:00 97.0 97 18 147/94 (111) 96 12/28/19 08:00 8.0 40 12/28/19 04:00 96.9 85 19 137/80 (99) 96 12/28/19 04:00 8.0 40 12/28/19 04:00 Venturi Mask 8.0 12/28/19 03:49 92 12/28/19 00:00 Venturi Mask 8.0 12/28/19 00:00 97.0 82 25 141/75 (97) 98 12/27/19 23:45 81 12/27/19 21:52 72 147/80 12/27/19 20:00 96.8 72 30 147/80 (102) 96 12/27/19 20:00 Venturi Mask 8.0 12/27/19 20:00 8.0 40 12/27/19 19:29 63 12/27/19 19:07 96 Venturi Mask 8.0 40 12/27/19 16:00 60 12/27/19 16:00 Bi-pap 12/27/19 16:00 8.0 40 12/27/19 16:00 97.4 99 30 165/78 (107) 98 12/27/19 12:00 97.7 74 24 160/77 (104) 94 12/27/19 12:00 8.0 40 12/27/19 12:00 Bi-pap 12/27/19 11:31 62 Intake and Output 12/27/19 12/28/19 19:00 07:00 Intake Total 320 ml Output Total 450 ml 450 ml Balance -130 ml -450 ml Intake Oral 320 ml Output Urine Total 450 ml 450 ml Microbiology Date/Time Source Procedure Growth Status 12/25/19 18:55 Blood Blood Culture - Preliminary NO GROWTH AFTER 24 HOURS Resulted 12/25/19 18:40 Blood Blood Culture - Preliminary NO GROWTH AFTER 24 HOURS Resulted Objective HEAD AND NECK: No JVD. LUNGS: Coarse rhonchi CARDIOVASCULAR: Regular S1 and S2 with no gallop. ABDOMEN: Soft. EXTREMITIES: No edema. Eusebio Barrow MD December 28, 2019 09:25
--- NOTE | 2019-12-28 10:47 | NUR ---
RD ASSESSMENT & RECOMMENDATIONS SEE CARE ACTIVITY FOR COMPLETE ASSESSMENT DAILY ESTIMATED NEEDS: Needs based on DM, Pulmonary, CHF/ 68kg 25-30 kcals/kg 8200-7558 total kcals 1-1.5 g protein/kg 68-102 g total protein 20-25 mL/kg 0014-8547 total fluid mLs NUTRITION DIAGNOSIS: Inadequate oral intake R/T decreased appetite, clinical condition as evidenced by pt w/ poor PO intake w/ many refusing meals, BIPAP upon adm -> now on venturi mask. CURRENT DIET:[facility] MED PO DIET RECOMMENDATIONS: Liberalized regular w/ poor PO (texture per AUTOMATIC FANCY MACHINE OPERATOR) + Glucerna TID ENTERAL NUTRITION RECOMMENDATIONS: Consult RD for TF if part of POC ADDITIONAL RECOMMENDATIONS: * Per SNF: HT=62" last known wt (unknown date)=161lbs -> rec calibrated bedscale wt, daily wt monitoring given CHF dx, on Laix * Monitor PO intake closely: refusing meals, BIPAP now removed, on venturi * Consider AUTOMATIC FANCY MACHINE OPERATOR eval for appropriate texture * Consider NGT feeding w/ continued poor PO, many refusing meals * Consider appetite stimulant w/ continued oral intake- poor PO * Monitor BGs closely w/ Solumedrol (elev 300 223)
--- NOTE | 2019-12-28 11:00 | NUR ---
NURSE NOTES: The patient is stable without acute distress or shortness of breath. Tolerating Venturi mas well. The patient refused lab and ABG and notified to Dr. Roldan and Dr. Vincent. No new order at this time. Will continue plan of care.
--- NOTE | 2019-12-28 11:34 | Pulmonology Progress Note ---
Subjective ROS Limited/Unobtainable: No Interval Events: looking better Constitutional: Denies: fever HEENT: Repors: no symptoms Respiratory: Reports: dry cough Cardiovascular: Reports: no symptoms Gastrointestinal/Abdominal: Reports: no symptoms Allergies: Coded Allergies: ASPIRIN (Verified Allergy, Unknown, 12/19/19) PENICILLINS (Verified Allergy, Unknown, 12/19/19) Objective Last 24 Hour Vital Signs Date Time Temp Pulse Resp B/P (MAP) Pulse Ox O2 Delivery O2 Flow Rate FiO2 12/28/19 08:57 97 Venturi Mask 8.0 40 12/28/19 08:35 97 147/94 12/28/19 08:00 97.0 97 18 147/94 (111) 96 12/28/19 08:00 73 12/28/19 08:00 8.0 40 12/28/19 08:00 Venturi Mask 8.0 12/28/19 04:00 96.9 85 19 137/80 (99) 96 12/28/19 04:00 8.0 40 12/28/19 04:00 Venturi Mask 8.0 12/28/19 03:49 92 12/28/19 00:00 Venturi Mask 8.0 12/28/19 00:00 97.0 82 25 141/75 (97) 98 12/27/19 23:45 81 12/27/19 21:52 72 147/80 12/27/19 20:00 96.8 72 30 147/80 (102) 96 12/27/19 20:00 Venturi Mask 8.0 12/27/19 20:00 8.0 40 12/27/19 19:29 63 12/27/19 19:07 96 Venturi Mask 8.0 40 12/27/19 16:00 60 12/27/19 16:00 Bi-pap 12/27/19 16:00 8.0 40 12/27/19 16:00 97.4 99 30 165/78 (107) 98 12/27/19 12:00 97.7 74 24 160/77 (104) 94 12/27/19 12:00 8.0 40 12/27/19 12:00 Bi-pap Intake and Output 12/27/19 12/28/19 19:00 07:00 Intake Total 320 ml Output Total 450 ml 450 ml Balance -130 ml -450 ml Intake Oral 320 ml Output Urine Total 450 ml 450 ml General Appearance: no acute distress HEENT: normocephalic Respiratory: chest wall non-tender, decreased breath sounds Cardiovascular: normal peripheral pulses Abdomen: normal bowel sounds Microbiology Date/Time Source Procedure Growth Status 12/25/19 18:55 Blood Blood Culture - Preliminary NO GROWTH AFTER 24 HOURS Resulted 12/25/19 18:40 Blood Blood Culture - Preliminary NO GROWTH AFTER 24 HOURS Resulted Current Medications Medications (Trade) Dose Ordered Sig/Daiana Route PRN Reason Start Time Stop Time Status Last Admin Dose Admin Acetaminophen (Tylenol) 650 mg Q6H PRN ORAL MILD/TEMP 12/25/19 13:11 01/24/20 13:10 Acetaminophen/ Hydrocodone Bitart ([place] 5/325) 1 tab Q4H PRN ORAL Moderate Pain (Pain Scale 4-6) 12/25/19 13:11 01/01/20 13:10 Clopidogrel Bisulfate (Plavix) 75 mg DAILY ORAL 12/26/19 09:00 01/19/20 08:59 12/28/19 08:35 Dextrose (Dextrose 50%) 25 ml Q30M PRN IV Hypoglycemia 12/25/19 13:11 03/24/20 13:10 Dextrose (Dextrose 50%) 50 ml Q30M PRN IV Hypoglycemia 12/25/19 13:30 03/18/20 23:29 Docusate Sodium (Colace) 100 mg THREE TIMES A DAY ORAL 12/25/19 13:13 01/24/20 13:12 12/28/19 08:34 Enoxaparin Sodium (Lovenox) 40 mg DAILY SUBQ 12/26/19 09:00 03/19/20 08:59 12/28/19 08:36 Insulin Aspart (NovoLOG) BEFORE MEALS AND HS SUBQ 12/25/19 16:30 03/19/20 06:29 12/28/19 06:53 Lorazepam (Ativan) 1 mg Q6H PRN ORAL For Anxiety 12/25/19 13:12 01/01/20 13:11 12/25/19 21:47 Methylprednisolone Sodium Succinate (Solu-MEDROL) 40 mg EVERY 6 HOURS IVP 12/26/19 18:00 03/25/20 17:59 12/28/19 05:31 Metoprolol Tartrate (Lopressor) 50 mg EVERY 12 HOURS ORAL 12/26/19 21:00 03/22/20 09:54 12/28/19 08:35 Morphine Sulfate (Morphine Sulfate) 2 mg Q8H PRN IVP Severe Pain (Pain Scale 7-10) 12/25/19 13:12 01/01/20 13:11 Olanzapine (ZyPREXA) 2.5 mg DAILY ORAL 12/26/19 09:00 02/04/20 08:59 12/28/19 08:35 Olanzapine (ZyPREXA) 5 mg BEDTIME ORAL 12/25/19 21:00 02/04/20 20:59 12/27/19 20:24 Pantoprazole (Protonix) 40 mg EVERY 12 HOURS ORAL 12/25/19 21:00 01/22/20 09:54 12/28/19 08:35 Phosphorus (Phospha 250 Neutral) 500 mg THREE TIMES A DAY ORAL 12/27/19 13:00 01/26/20 12:59 12/28/19 08:35 Promethazine HCl (Phenergan Plain) 12.5 mg Q6H PRN ORAL For Cough 12/25/19 13:12 01/24/20 13:11 Zolpidem Tartrate (Ambien) 5 mg HSPRN PRN ORAL Insomnia 12/25/19 13:13 01/01/20 13:12 Assessment/Plan Assessment/Plan IMPRESSION: 1. Positive COVID-19. 2. COPD with exacerbation 3. Leukocytosis. 4. Hypoxemia. 5. Schizophrenia. 6. Hypertension. 7. Diabetes mellitus. 8. Respiratory failure 9. CHF. DISCUSSION: Continue broad-spectrum antibiotics. Continue oxygen and pulmonary hygiene. DVT prophylaxis. I will follow carefully. CXR and ABG much better today Is negative 1300 ml last 24 hours Off Lasix On steroids for COPD No longer on BiPAP On 40% VTM Transfer to tele Nvaa Benitez Omar Syed MD December 28, 2019 11:34
[2019-12-28 12:00] VITALS: BP 142/80
--- NOTE | 2019-12-28 12:14 | Infectious Diseases Prog Note ---
Assessment/Plan Assessment/Plan A; COVID19 pneumonia UTI treated COPD DM Chronic kidney disease Hypercapnic respiratory failure P: Observe off antibiotic Will f/u repeated COVID19 test Subjective ROS Limited/Unobtainable: Yes Constitutional: Reports: other - doing better; Denies: fever Respiratory: Reports: no symptoms Gastrointestinal/Abdominal: Denies: diarrhea Allergies: Coded Allergies: ASPIRIN (Verified Allergy, Unknown, 12/19/19) PENICILLINS (Verified Allergy, Unknown, 12/19/19) Objective Vital Signs Last 24 Hour Vital Signs Date Time Temp Pulse Resp B/P (MAP) Pulse Ox O2 Delivery O2 Flow Rate FiO2 12/28/19 08:57 97 Venturi Mask 8.0 40 12/28/19 08:35 97 147/94 12/28/19 08:00 97.0 97 18 147/94 (111) 96 12/28/19 08:00 73 12/28/19 08:00 8.0 40 12/28/19 08:00 Venturi Mask 8.0 12/28/19 04:00 96.9 85 19 137/80 (99) 96 12/28/19 04:00 8.0 40 12/28/19 04:00 Venturi Mask 8.0 12/28/19 03:49 92 12/28/19 00:00 Venturi Mask 8.0 12/28/19 00:00 97.0 82 25 141/75 (97) 98 12/27/19 23:45 81 12/27/19 21:52 72 147/80 12/27/19 20:00 96.8 72 30 147/80 (102) 96 12/27/19 20:00 Venturi Mask 8.0 12/27/19 20:00 8.0 40 12/27/19 19:29 63 12/27/19 19:07 96 Venturi Mask 8.0 40 12/27/19 16:00 60 12/27/19 16:00 Bi-pap 12/27/19 16:00 8.0 40 12/27/19 16:00 97.4 99 30 165/78 (107) 98 Height (Feet): 5 Height (Inches): 6.00 Weight (Pounds): 158 HEENT: mucous membranes moist Respiratory/Chest: other - oxygen by Venturi mask Cardiovascular: normal rate Abdomen: soft, non tender Neurologic/Psychiatric: alert, responsive Microbiology Date/Time Source Procedure Growth Status 12/25/19 18:55 Blood Blood Culture - Preliminary NO GROWTH AFTER 24 HOURS Resulted 12/25/19 18:40 Blood Blood Culture - Preliminary NO GROWTH AFTER 24 HOURS Resulted Current Medications Medications (Trade) Dose Ordered Sig/Daiana Route PRN Reason Start Time Stop Time Status Last Admin Dose Admin Acetaminophen (Tylenol) 650 mg Q6H PRN ORAL MILD/TEMP 12/25/19 13:11 01/24/20 13:10 Acetaminophen/ Hydrocodone Bitart ([place] 5/325) 1 tab Q4H PRN ORAL Moderate Pain (Pain Scale 4-6) 12/25/19 13:11 01/01/20 13:10 Clopidogrel Bisulfate (Plavix) 75 mg DAILY ORAL 12/26/19 09:00 01/19/20 08:59 12/28/19 08:35 Dextrose (Dextrose 50%) 25 ml Q30M PRN IV Hypoglycemia 12/25/19 13:11 03/24/20 13:10 Dextrose (Dextrose 50%) 50 ml Q30M PRN IV Hypoglycemia 12/25/19 13:30 03/18/20 23:29 Docusate Sodium (Colace) 100 mg THREE TIMES A DAY ORAL 12/25/19 13:13 01/24/20 13:12 12/28/19 12:06 Enoxaparin Sodium (Lovenox) 40 mg DAILY SUBQ 12/26/19 09:00 03/19/20 08:59 12/28/19 08:36 Insulin Aspart (NovoLOG) BEFORE MEALS AND HS SUBQ 12/25/19 16:30 03/19/20 06:29 12/28/19 06:53 Lorazepam (Ativan) 1 mg Q6H PRN ORAL For Anxiety 12/25/19 13:12 01/01/20 13:11 12/25/19 21:47 Methylprednisolone Sodium Succinate (Solu-MEDROL) 40 mg EVERY 12 HOURS IVP 12/28/19 21:00 03/25/20 17:59 Metoprolol Tartrate (Lopressor) 50 mg EVERY 12 HOURS ORAL 12/26/19 21:00 03/22/20 09:54 12/28/19 08:35 Morphine Sulfate (Morphine Sulfate) 2 mg Q8H PRN IVP Severe Pain (Pain Scale 7-10) 12/25/19 13:12 01/01/20 13:11 Olanzapine (ZyPREXA) 2.5 mg DAILY ORAL 12/26/19 09:00 02/04/20 08:59 12/28/19 08:35 Olanzapine (ZyPREXA) 5 mg BEDTIME ORAL 12/25/19 21:00 02/04/20 20:59 12/27/19 20:24 Pantoprazole (Protonix) 40 mg EVERY 12 HOURS ORAL 12/25/19 21:00 01/22/20 09:54 12/28/19 08:35 Phosphorus (Phospha 250 Neutral) 500 mg THREE TIMES A DAY ORAL 12/27/19 13:00 01/26/20 12:59 12/28/19 12:07 Promethazine HCl (Phenergan Plain) 12.5 mg Q6H PRN ORAL For Cough 12/25/19 13:12 01/24/20 13:11 Zolpidem Tartrate (Ambien) 5 mg HSPRN PRN ORAL Insomnia 12/25/19 13:13 01/01/20 13:12 Jim Fisher MD December 28, 2019 12:14
--- NOTE | 2019-12-28 12:46 | General Progress Note ---
Assessment/Plan Status: stable Assessment/Plan: S, O: poor historian, seems in mild sob. Declined cognition and poor historian . on O2 Mask PHYSICAL EXAMINATION:HEAD AND NECK: Atraumatic and normocephalic. CHEST: Bronchial breathing sounds.HEART: S1 and S2. Regular rate and rhythm. ABDOMEN: Soft. No organomegaly.MUSCULOSKELETAL: No gross focal motor deficit. NEUROLOGY: Patient is awake, alert x1. Easily distracted. LABORATORY DATA: Dated 12/27 reviewed Imaging: CXR, dated reveiwed ASSESSMENT: 1. Sepsis 2. metabolic encephalopathy 2. UTI - Gram negative 3. COVD 19- Pneumonia. 3. Renal failure, age indeterminate. 4. Diabetes type 2. 5. Hypertension. 6. Hyperlipidemia. 7. Coronary artery disease/peripheral arterial disease. Continue with antiplatelet. 8. GI and DVT prophylaxis. 9. Anemia: likely chronic disease 10. Refusal of treatment PLAN OF CARE: Continue with culture-targeted antibiotic treatment. Notes from Infectious Disease, Nephrology, Pulmonary have been reviewed. D/w pulmonary Non tolerating BIPAP, seems agitated at times D/w grand daughter, on December 26 around 5 PM No capacity for making medical decisions at times, d/w RN to use soft restraint if needed for patient safety Re-Establish IV medication Subjective Allergies: Coded Allergies: ASPIRIN (Verified Allergy, Unknown, 12/19/19) PENICILLINS (Verified Allergy, Unknown, 12/19/19) Objective Last 24 Hour Vital Signs Date Time Temp Pulse Resp B/P (MAP) Pulse Ox O2 Delivery O2 Flow Rate FiO2 12/28/19 12:00 97.0 82 18 142/80 (100) 99 12/28/19 08:57 97 Venturi Mask 8.0 40 12/28/19 08:35 97 147/94 12/28/19 08:00 97.0 97 18 147/94 (111) 96 12/28/19 08:00 73 12/28/19 08:00 8.0 40 12/28/19 08:00 Venturi Mask 8.0 12/28/19 04:00 96.9 85 19 137/80 (99) 96 12/28/19 04:00 8.0 40 12/28/19 04:00 Venturi Mask 8.0 12/28/19 03:49 92 12/28/19 00:00 Venturi Mask 8.0 12/28/19 00:00 97.0 82 25 141/75 (97) 98 12/27/19 23:45 81 12/27/19 21:52 72 147/80 12/27/19 20:00 96.8 72 30 147/80 (102) 96 12/27/19 20:00 Venturi Mask 8.0 12/27/19 20:00 8.0 40 12/27/19 19:29 63 12/27/19 19:07 96 Venturi Mask 8.0 40 12/27/19 16:00 60 12/27/19 16:00 Bi-pap 12/27/19 16:00 8.0 40 12/27/19 16:00 97.4 99 30 165/78 (107) 98 Intake and Output 12/27/19 12/28/19 19:00 07:00 Intake Total 320 ml Output Total 450 ml 450 ml Balance -130 ml -450 ml Intake Oral 320 ml Output Urine Total 450 ml 450 ml Height (Feet): 5 Height (Inches): 6.00 Weight (Pounds): 158 Jennifer Alberto MD December 28, 2019 12:46
--- NOTE | 2019-12-28 13:00 | NUR ---
NURSE NOTES: The patient is stable without acute distress or shortness of breath at this time. The patient is less agitated at this time. Will closely monitor the patient. Will continue plan of care.
--- NOTE | 2019-12-28 13:39 | Nephrology Progress Note ---
Assessment/Plan Problem List: (1) MATTHEW (acute kidney injury) Assessment: Serum creatinine livia to 2 (2) Hyponatremia Assessment: Likely depletional (3) Diabetes mellitus Assessment: With elevated hemoglobin A1c (4) UTI (urinary tract infection) (5) COVID-19 Assessment Patient presents with hyponatremia, urine spot sodium below 20. Hyponatremia most likely depletional Azotemia / dehydration Sepsis, positive COVID-19 test, UTI Diabetes mellitus [id number] with high hemoglobin A1c History of psych disease Plan December 27: Respiratory status improved Remains noncompliant with taking medication and blood draw December 26: Patient does not have an IV line Refuses p.o. medication and at times lab draw Today ABG not done as patient refused Serum creatinine down to 1.5 Will give oral phosphate supplement Continue per pulmonary December 25: ABG indicative of hypoxia, patient on BiPAP Serum creatinine down to 1.6 today Will replace potassium and phosphorus Continue per turn down attendant and slat basket top maker advice Previously: Will order a Kohler catheter and give 1 L of IV bolus Patient ejection fraction is normal on 2D echo Serum sodium now normalized Monitor electrolytes and renal parameters Antibiotics per ID Monitor electrolytes and renal parameters Per orders Per consultants Subjective ROS Limited/Unobtainable: No Constitutional: Reports: malaise, weakness Objective Objective Last 24 Hour Vital Signs Date Time Temp Pulse Resp B/P (MAP) Pulse Ox O2 Delivery O2 Flow Rate FiO2 12/28/19 12:00 97.0 82 18 142/80 (100) 99 12/28/19 12:00 Venturi Mask 8.0 12/28/19 12:00 8.0 40 12/28/19 12:00 88 12/28/19 08:57 97 Venturi Mask 8.0 40 12/28/19 08:35 97 147/94 12/28/19 08:00 97.0 97 18 147/94 (111) 96 12/28/19 08:00 73 12/28/19 08:00 8.0 40 12/28/19 08:00 Venturi Mask 8.0 12/28/19 04:00 96.9 85 19 137/80 (99) 96 12/28/19 04:00 8.0 40 12/28/19 04:00 Venturi Mask 8.0 12/28/19 03:49 92 12/28/19 00:00 Venturi Mask 8.0 12/28/19 00:00 97.0 82 25 141/75 (97) 98 12/27/19 23:45 81 12/27/19 21:52 72 147/80 12/27/19 20:00 96.8 72 30 147/80 (102) 96 12/27/19 20:00 Venturi Mask 8.0 12/27/19 20:00 8.0 40 12/27/19 19:29 63 12/27/19 19:07 96 Venturi Mask 8.0 40 12/27/19 16:00 60 12/27/19 16:00 Bi-pap 12/27/19 16:00 8.0 40 12/27/19 16:00 97.4 99 30 165/78 (107) 98 Intake and Output 12/27/19 12/28/19 19:00 07:00 Intake Total 320 ml Output Total 450 ml 450 ml Balance -130 ml -450 ml Intake Oral 320 ml Output Urine Total 450 ml 450 ml Refused blood draw today Height (Feet): 5 Height (Inches): 6.00 Weight (Pounds): 158 General Appearance: no apparent distress, lethargic Cardiovascular: tachycardia Respiratory/Chest: decreased breath sounds Abdomen: distended Objective No change Rolo Roldan MD December 28, 2019 13:39
[2019-12-28 16:00] VITALS: BP 118/85
--- NOTE | 2019-12-28 16:00 | NUR ---
NURSE NOTES: Bed bath given. The patient is stable at this time. No skin issue noted. Tolerating Venturi mask well. Will continue plan of care.
--- NOTE | 2019-12-28 18:00 | NUR ---
NURSE NOTES: Medication administered per order. Dinner feeding completed. The patient is stable at this time. The patient is on 8L Venturi mask and oxygen saturation within normal range. Will continue plan of care.
--- NOTE | 2019-12-28 19:20 | NUR ---
HAND-OFF: Report given to FLETCHER Nash. The patient is on stable condition. Endorsed plan of care.
--- NOTE | 2019-12-28 19:22 | NUR ---
NURSE NOTES: received pt from Tracie BYNUM., pt is awake , AOx 2 at this moment. pt is on venturi 8L and O2sat is at 95%. no SOB noted. pt states no pain at this time. alvarado cath is clean and draining well with gravity. right upper arm 20G Iv site intact, clean, and patent. call light within reach. bed at the lowest position, alarmed, and locked. will continue to monitor pt with plan of care.
[2019-12-28 20:00] VITALS: BP 125/75
[2019-12-28] MEDS ORDERED: Solu-MEDROL 40mg Inj IVP SCH (21:00)
--- NOTE | 2019-12-28 22:39 | Psych Consult Progress Note ---
Psychiatry Progress Note Psychiatry Progress Note Medications Current Medications Medications (Trade) Dose Ordered Sig/Daiana Route PRN Reason Start Time Stop Time Status Last Admin Dose Admin Acetaminophen (Tylenol) 650 mg Q6H PRN ORAL MILD/TEMP 12/25/19 13:11 01/24/20 13:10 Acetaminophen/ Hydrocodone Bitart ([place] 5/325) 1 tab Q4H PRN ORAL Moderate Pain (Pain Scale 4-6) 12/25/19 13:11 01/01/20 13:10 Clopidogrel Bisulfate (Plavix) 75 mg DAILY ORAL 12/26/19 09:00 01/19/20 08:59 12/28/19 08:35 Dextrose (Dextrose 50%) 25 ml Q30M PRN IV Hypoglycemia 12/25/19 13:11 03/24/20 13:10 Dextrose (Dextrose 50%) 50 ml Q30M PRN IV Hypoglycemia 12/25/19 13:30 03/18/20 23:29 Docusate Sodium (Colace) 100 mg THREE TIMES A DAY ORAL 12/25/19 13:13 01/24/20 13:12 12/28/19 17:08 Enoxaparin Sodium (Lovenox) 40 mg DAILY SUBQ 12/26/19 09:00 03/19/20 08:59 12/28/19 08:36 Insulin Aspart (NovoLOG) BEFORE MEALS AND HS SUBQ 12/25/19 16:30 03/19/20 06:29 12/28/19 21:38 Lorazepam (Ativan) 1 mg Q6H PRN ORAL For Anxiety 12/25/19 13:12 01/01/20 13:11 12/25/19 21:47 Methylprednisolone Sodium Succinate (Solu-MEDROL) 40 mg EVERY 12 HOURS IVP 12/28/19 21:00 03/25/20 17:59 12/28/19 21:19 Metoprolol Tartrate (Lopressor) 50 mg EVERY 12 HOURS ORAL 12/26/19 21:00 03/22/20 09:54 12/28/19 21:20 Morphine Sulfate (Morphine Sulfate) 2 mg Q8H PRN IVP Severe Pain (Pain Scale 7-10) 12/25/19 13:12 01/01/20 13:11 Olanzapine (ZyPREXA) 2.5 mg DAILY ORAL 12/26/19 09:00 02/04/20 08:59 12/28/19 08:35 Olanzapine (ZyPREXA) 5 mg BEDTIME ORAL 12/25/19 21:00 02/04/20 20:59 12/28/19 21:19 Pantoprazole (Protonix) 40 mg EVERY 12 HOURS ORAL 12/25/19 21:00 01/22/20 09:54 12/28/19 21:19 Phosphorus (Phospha 250 Neutral) 500 mg THREE TIMES A DAY ORAL 12/27/19 13:00 01/26/20 12:59 12/28/19 17:08 Promethazine HCl (Phenergan [place]) 12.5 mg Q6H PRN ORAL For Cough 12/25/19 13:12 01/24/20 13:11 Zolpidem Tartrate (Ambien) 5 mg HSPRN PRN ORAL Insomnia 12/25/19 13:13 01/01/20 13:12 Neurological/Psychiatric: Reports: anxiety Allergies: Coded Allergies: ASPIRIN (Verified Allergy, Unknown, 12/19/19) PENICILLINS (Verified Allergy, Unknown, 12/19/19) Objective Data Height (Feet): 5 Height (Inches): 6.00 Weight (Pounds): 158 General Appearance: alert, confused, agitated Behavior Mannerisms: poor eye contact Mental Status Exam - Mood: anxious, agitated Speech: clear Mental Status Exam - Thought P: illogical, tangential, confusion Mental Status Exam - Suicidal: not present Assessment/Plan [place] I: Schizophrenia. dementia Status: stable Assessment/Plan: PLAN: 1. Zyprexa, 3. Ativan p.r.n. 4. Continue to follow and readjust the medications. Larisa Vogel MD December 28, 2019 22:39
[2019-12-29] VITALS (16 sets, daily range): BP systolic 94–140; BP diastolic 49–80
--- NOTE | 2019-12-29 03:20 | NUR ---
NURSE NOTES: pt refused to take draw the blood at this moment. endorsed to Umug (micro lab analyst) to endorse morning central sterile supply technician to try to draw the blood in the morning. will continue to monitor pt.
--- NOTE | 2019-12-29 03:30 | NUR ---
NURSE NOTES: cleaned pt, provided new gown, new blanket. oral care given. attempted to draw blood for AM, yet pt refused to draw blood for lab. explained the risk of not drawing the blood at this moment. pt states pt understands. will try to attempt for second in few hours. no SOB noted, pt bleeding noted. call light within reach. pt states no pain at this time.
[2019-12-29] MEDS: NovoLOG Insulin Flexpen SUBQ SCH ×3 (05:48→21:23)
--- NOTE | 2019-12-29 05:59 | NUR ---
HAND-OFF: Report given to Leslie BYNUM., pt remains stable condition at this moment. no SOB noted with venturi mask. pt states no pain. no active bleeding noted. endorsed plan of care.
--- NOTE | 2019-12-29 06:00 | NUR ---
NURSE NOTES: Received report from Ashley Flores RN. Pt is stable, denies any pain at this time, no signs or symptoms of acute distress noted at this time. Bed in lowest position, bed alarm armed, call light within reach. Instructed to use call light for assistance, verbalized understanding. BP 137/97, P 107, T 97.5, o2 93% on venturi mask. Venturi mask settings: 8 LPM FiO2 40%. Will continue plan of care and close monitoring.
[2019-12-29] MEDS ORDERED: NovoLOG Insulin Flexpen SUBQ SCH (06:30)
[2019-12-29] MEDS ORDERED: LORazepam 1mg tab ORAL PRN ×2 (06:30→12:30)
[2019-12-29] MEDS ORDERED: Promethazine Plain 6.25mg/5ml ORAL PRN ×2 (06:30→12:30)
[2019-12-29] MEDS ORDERED: Morphine Sulfate 2mg/ml Inj(IV/IM USE ONLY) IVP PRN ×2 (06:30→12:00)
--- NOTE | 2019-12-29 07:04 | NUR ---
HAND-OFF: Report given to Leslie BYNUM., pt remains stable condition at this moment. no SOB noted with venturi mask. pt states no pain. no active bleeding noted. endorsed plan of care. Addendum: 12/29/19 at 0706 by LUISANA TILLEY RN wrong time
--- NOTE | 2019-12-29 07:41 | NUR ---
HAND-OFF: Report given to Tess Harris RN and Ashley Harris RN. Pt is in stable condition. Plan of care endorsed.
--- NOTE | 2019-12-29 07:53 | NUR ---
NURSE NOTES: received report from FLETCHER Nelson. Pt asleep comfortably in bed. No s/s of acute respiratory and cardiac distress. Pt refused labs this morning. On venturi mask @ 8L. F/C draining by gravity. SL on right AC. Bed low, side rails x3 and call light within reach. Will continue with plan of care.
[2019-12-29] MEDS ORDERED: Phospha 250 Neutral tab ORAL SCH (09:00)
[2019-12-29] MEDS ORDERED: Enoxaparin 40mg Inj SUBQ SCH (09:00)
[2019-12-29] MEDS ORDERED: OLANZapine 2.5mg tab ORAL SCH (09:00)
[2019-12-29] MEDS ORDERED: Solu-MEDROL 40mg Inj IVP SCH (09:00)
[2019-12-29] MEDS ORDERED: Metoprolol Tartrate 50mg tab ORAL SCH (09:00)
[2019-12-29] MEDS ORDERED: Docusate 100mg cap ORAL SCH (09:00)
[2019-12-29] MEDS ORDERED: HYDROcodone/Acetamin 5/325 tab ORAL PRN ×2 (09:15→12:00)
[2019-12-29 10:08] LABS: BASOPHILS % (AUTO) 0.1 % (0.0-2.0); EOSINOPHILS % (AUTO) 0.2 % (0.0-3.0); HEMATOCRIT 37.5 % (37.0-47.0); HEMOGLOBIN 12.3 G/DL (12.0-16.0); LYMPHOCYTES % (AUTO) 16.1 % (20.0-45.0); MEAN CORPUSCULAR VOLUME 89 FL (80-99); MONOCYTES % (AUTO) 9.8 % (1.0-10.0); NEUTROPHILS % (AUTO) 73.7 % (45.0-75.0); PLATELET COUNT 381 K/UL (150-450); RED BLOOD COUNT 4.23 M/UL (4.20-5.40); RED CELL DISTRIBUTION WIDTH 11.6 % (11.6-14.8); WHITE BLOOD COUNT 8.7 K/UL (4.8-10.8)
[2019-12-29] MEDS ORDERED: NS 275ml ONE (10:23)
--- NOTE | 2019-12-29 10:25 | NUR ---
NURSE NOTES: Patient's HR elevated to 180's. Patient complaining that she does not feel good with shortness of breath, tachypnic at 32 RR, and chest pain to LT chest. GARAGE WORKER called. Dr. Barrow contacted. Order received for stat ekg, transfer to ICU and cardizem drip at 10mg/hr.
[2019-12-29] MEDS ORDERED: Digoxin 0.5mg/2ml Inj IVP SCH ×2 (10:30→14:00)
[2019-12-29] MEDS ORDERED: dilTIAZem HCl 25mg/5ml Inj IVP SCH (10:30)
--- NOTE | 2019-12-29 10:30 | NUR ---
NURSE NOTES: Informed that ICU bed is not availble at this time. Order received for Cardizem 20mg IVP an Dig 0.5 IVP stat. Unable to order stat. Pharmacist contacted and will make medication available right away.
--- NOTE | 2019-12-29 10:35 | NUR ---
NURSE NOTES: Cardizem and Digoxin given IVP. No change in patient condition noted at this time HR is still elevated to 170-180's.
[2019-12-29 10:41] LABS: ALANINE AMINOTRANSFERASE 25 U/L (12-78); ALBUMIN 2.4 G/DL (3.4-5.0); ALBUMIN/GLOBULIN RATIO 0.5 (1.0-2.7); ALKALINE PHOSPHATASE 67 U/L (46-116); ANION GAP 5 mmol/L (5-15); ASPARTATE AMINO TRANSFERASE 29 U/L (15-37); BILIRUBIN,TOTAL 0.5 MG/DL (0.2-1.0); BLOOD UREA NITROGEN 32 mg/dL (7-18); CALCIUM 7.6 MG/DL (8.5-10.1); CHLORIDE 101 MMOL/L (98-107); CREATININE 1.3 MG/DL (0.55-1.30); PHOSPHORUS 3.9 MG/DL (2.5-4.9); POTASSIUM 3.2 MMOL/L (3.5-5.1); SODIUM 147 MMOL/L (136-145)
[2019-12-29 10:43] LABS: CARBON DIOXIDE 42 MMOL/L (21-32)
--- NOTE | 2019-12-29 10:55 | NUR ---
NURSE NOTES: HR is labile going as low as 148 but climbing back up to 180's. Still no change to patient condition. Dr. Barrow notified.
--- NOTE | 2019-12-29 11:15 | NUR ---
NURSE NOTES: Pt was transferred to ICU from Tele per Dr Barrow's order for SVT, HR in the 180's. Pt was transferred via hospital bed. Received transfer report from Kim BYNUM. Pt is awake, alert, oriented x2, impulsive, resistive to care, combative and restless. Pt is currently on Venturi mask at 8L/40% FIO2 with 96-100% O2Sat. ST to SVT on cardiac cath lab technologist, heart rate fluctuating from 130-150's. Temp 98.7F axillary. Pt has one peripheral IV access on right UA #20G, saline locked, patent/intact. Kohler catheter is noted, draining clear/yellow urine to gravity. Skin is intact. HOB at 30 degrees, bed locked, in lowest position, three side rails up. Will continue to monitor pt and follow plan of care.
--- NOTE | 2019-12-29 11:18 | Pulmonology Progress Note ---
Subjective ROS Limited/Unobtainable: No Interval Events: Transferred to ICU for SVT Constitutional: Reports: other - doing better; Denies: fever HEENT: Repors: no symptoms Respiratory: Reports: dry cough Cardiovascular: Reports: no symptoms Gastrointestinal/Abdominal: Denies: diarrhea Allergies: Coded Allergies: ASPIRIN (Verified Allergy, Unknown, 12/19/19) PENICILLINS (Verified Allergy, Unknown, 12/19/19) Objective Last 24 Hour Vital Signs Date Time Temp Pulse Resp B/P (MAP) Pulse Ox O2 Delivery O2 Flow Rate FiO2 12/29/19 09:50 86 128/71 12/29/19 08:00 97.7 86 20 128/71 (90) 97 12/29/19 07:00 97 Venturi Mask 8.0 40 12/29/19 04:00 8.0 40 12/29/19 04:00 97.0 88 19 140/80 (100) 97 12/29/19 04:00 Venturi Mask 8.0 12/29/19 03:48 79 12/29/19 00:00 Venturi Mask 8.0 12/29/19 00:00 97.2 97 19 130/77 (94) 98 12/29/19 00:00 88 12/29/19 00:00 8.0 40 12/28/19 21:20 80 125/71 12/28/19 20:41 97 Venturi Mask 8.0 40 12/28/19 20:00 88 12/28/19 20:00 8.0 40 12/28/19 20:00 Venturi Mask 8.0 12/28/19 20:00 97.0 99 18 125/75 (92) 100 12/28/19 16:00 87 12/28/19 16:00 Venturi Mask 8.0 12/28/19 16:00 8.0 40 12/28/19 16:00 97.3 77 18 118/85 (96) 98 12/28/19 12:00 97.0 82 18 142/80 (100) 99 12/28/19 12:00 Venturi Mask 8.0 12/28/19 12:00 8.0 40 12/28/19 12:00 88 Intake and Output 12/28/19 12/29/19 19:00 07:00 Intake Total 800 ml 350 ml Output Total 800 ml 500 ml Balance 0 ml -150 ml Intake Oral 800 ml 350 ml Output Urine Total 800 ml 500 ml # Bowel Movements 2 HEENT: normocephalic Respiratory: chest wall non-tender, decreased breath sounds Cardiovascular: normal peripheral pulses Abdomen: normal bowel sounds Laboratory Tests 12/29/19 08:49: Arterial Blood pH 7.501H, Arterial Blood Partial Pressure CO2 53.0H, Arterial Blood Partial Pressure O2 72.3L, Arterial Blood HCO3 40.5*H, Arterial Blood Oxygen Saturation 94.7L, Arterial Blood Base Excess 15.1*H, Dread Test Positive 12/29/19 09:45: White Blood Count 8.7, Red Blood Count 4.23, Hemoglobin 12.3, Hematocrit 37.5, Mean Corpuscular Volume 89, Mean Corpuscular Hemoglobin 29.2, Mean Corpuscular Hemoglobin Concent 32.9, Red Cell Distribution Width 11.6, Platelet Count 381, Mean Platelet Volume 5.5L, Neutrophils (%) (Auto) 73.7, Lymphocytes (%) (Auto) 16.1L, Monocytes (%) (Auto) 9.8, Eosinophils (%) (Auto) 0.2, Basophils (%) (Auto ) 0.1, Sodium Level 147H, Potassium Level 3.2L, Chloride Level 101, Carbon Dioxide Level 42*H, Anion Gap 5, Blood Urea Nitrogen 32H, Creatinine 1.3, Estimat Glomerular Filtration Rate 47.8, Glucose Level 207H, Uric Acid 6.6, Calcium Level 7.6L, Phosphorus Level 3.9, Magnesium Level 2.0, Total Bilirubin 0.5, Aspartate Amino Transf (AST/SGOT) 29, Alanine Aminotransferase (ALT/SGPT) 25, Alkaline Phosphatase 67, Troponin I 0.044, C-Reactive Protein, Quantitative 3.8H, Pro-B-Type Natriuretic Peptide 3380H, Total Protein 6.9, Albumin 2.4L, Globulin 4.5, Albumin/Globulin Ratio 0.5L Current Medications Medications (Trade) Dose Ordered Sig/Daiana Route PRN Reason Start Time Stop Time Status Last Admin Dose Admin Acetaminophen (Tylenol) 650 mg Q6H PRN ORAL MILD/TEMP 12/29/19 06:30 01/24/20 06:29 Acetaminophen/ Hydrocodone Bitart ([place] 5/325) 1 tab Q4H PRN ORAL Moderate Pain (Pain Scale 4-6) 12/29/19 09:15 01/01/20 13:10 Clopidogrel Bisulfate (Plavix) 75 mg DAILY ORAL 12/29/19 09:00 01/19/20 08:59 12/29/19 09:51 Dextrose (Dextrose 50%) 25 ml Q30M PRN IV Hypoglycemia 12/29/19 06:15 03/24/20 13:10 Dextrose (Dextrose 50%) 50 ml Q30M PRN IV Hypoglycemia 12/29/19 06:30 03/18/20 23:29 Digoxin (Lanoxin) 0.5 mg ONCE IVP 12/29/19 10:30 12/29/19 11:30 Diltiazem HCl 125 ml @ 10 mls/hr Q12H IVPB 12/29/19 11:30 12/30/19 11:29 Diltiazem HCl (Cardizem) 20 mg ONCE IVP 12/29/19 10:30 12/29/19 11:30 Docusate Sodium (Colace) 100 mg THREE TIMES A DAY ORAL 12/29/19 09:00 01/24/20 13:12 12/29/19 09:50 Enoxaparin Sodium (Lovenox) 40 mg DAILY SUBQ 12/29/19 09:00 03/19/20 08:59 12/29/19 09:53 Insulin Aspart (NovoLOG) BEFORE MEALS AND HS SUBQ 12/29/19 06:30 03/19/20 06:29 Lorazepam (Ativan) 1 mg Q6H PRN ORAL For Anxiety 12/29/19 06:30 01/01/20 06:29 Methylprednisolone Sodium Succinate (Solu-MEDROL) 40 mg EVERY 12 HOURS IVP 12/29/19 09:00 03/25/20 17:59 12/29/19 09:49 Metoprolol Tartrate (Lopressor) 50 mg EVERY 12 HOURS ORAL 12/29/19 09:00 03/22/20 09:54 12/29/19 09:50 Morphine Sulfate (Morphine Sulfate) 2 mg Q8H PRN IVP Severe Pain (Pain Scale 7-10) 12/29/19 06:30 01/01/20 06:29 Olanzapine (ZyPREXA) 2.5 mg DAILY ORAL 12/29/19 09:00 02/04/20 08:59 12/29/19 09:52 Olanzapine (ZyPREXA) 5 mg BEDTIME ORAL 12/29/19 21:00 02/04/20 20:59 Pantoprazole (Protonix) 40 mg EVERY 12 HOURS ORAL 12/29/19 09:00 01/22/20 09:54 12/29/19 09:51 Phosphorus (Phospha 250 Neutral) 500 mg THREE TIMES A DAY ORAL 12/29/19 09:00 01/26/20 12:59 12/29/19 09:51 Promethazine HCl (Phenergan Plain) 12.5 mg Q6H PRN ORAL For Cough 12/29/19 06:30 01/24/20 06:29 Zolpidem Tartrate (Ambien) 5 mg HSPRN PRN ORAL Insomnia 12/29/19 13:15 01/01/20 13:12 Assessment/Plan Assessment/Plan IMPRESSION: 1. Positive COVID-19. 2. COPD with exacerbation 3. Leukocytosis. 4. Hypoxemia. 5. Schizophrenia. 6. Hypertension. 7. Diabetes mellitus. 8. Respiratory failure 9. CHF. DISCUSSION: Continue broad-spectrum antibiotics. Continue oxygen and pulmonary hygiene. DVT prophylaxis. I will follow carefully. Transferred to ICU for SVT Was hypotensive Off Lasix On steroids for COPD No longer on BiPAP On 40% VTM Nava Benitez Omar Syed MD December 29, 2019 11:18
--- NOTE | 2019-12-29 11:20 | NUR ---
HAND-OFF: Report given to Ketty BYNUM. Patient's HR 177. BP low at 74/36. Patient's condition unchaged with complaints of chest pain to LT chest and with SOB, RR 35. All belongings with patient including phone and customs appraiser.
[2019-12-29] MEDS ORDERED: dilTIAZem Premix 125mg/125ml 125 ML IVPB SCH ×3 (11:30→16:11)
[2019-12-29] MEDS: Phospha 250 Neutral tab ORAL SCH ×2 (12:36→17:03)
[2019-12-29] MEDS: Docusate 100mg cap ORAL SCH ×2 (12:36→17:03)
--- NOTE | 2019-12-29 12:36 | NUR ---
NURSE NOTES: Pt was started on Cardizem drip at fixed rate of 10mg/hr per Dr Barrow's order for SVT and ST, HR 150's-180's.
--- NOTE | 2019-12-29 12:37 | NUR ---
NURSE NOTES: Pt was administered Morphine and Ativan per PRN order for severe pain and anxiety, as pt reports having pain, with facial grimacing and is very restless. VS remain stable while pt is started on Cardizem IV per Dr Barrow'r order for SVT-ST, HR in the 150s'.
[2019-12-29] MEDS ORDERED: Zolpidem 5mg tab ORAL PRN ×2 (13:15)
--- NOTE | 2019-12-29 13:52 | Cardiac Electrophysiology PN ---
Assessment/Plan Assessment/Plan 1. Accelerated hypertension. On metoprolol 50 mg bid and p.r.n. clonidine 2. History of CHF/ DD. Echo normal EF . 3. Recurrent SVT. Got .5 iv dig. Will give another 0.25 iv Dig and cardizem drip. 4. Sepsis, on antibiotic per Dr. Daugherty. 5. Hyponatremia. 6. Hypercapnea and respiratory failure. VQ scan no PE. BIPAP changed to Venturi. FU Dr Vincent 7. Acute renal failure Cr up to 2. Off lasix down to 1.5 8. Psychiatric history. DW RN Subjective Subjective Alert in NAD in [facility] isolation. VQ scan was negative for PE. PCO2 up to high 70s on BIPAP that was changed to Venturi Mask Developed recurret SVT that was unresponsive to Dig 0.5 iv or Cardizem 20 mg ivp. Transferred to ICU on Cardizem drip. BP 80s Objective Last 24 Hour Vital Signs Date Time Temp Pulse Resp B/P (MAP) Pulse Ox O2 Delivery O2 Flow Rate FiO2 12/29/19 13:07 97.7 12/29/19 10:35 183 12/29/19 10:35 183 128/71 12/29/19 09:50 86 128/71 12/29/19 08:00 97.7 86 20 128/71 (90) 97 12/29/19 08:00 99 12/29/19 08:00 Venturi Mask 8.0 12/29/19 08:00 8.0 40 12/29/19 07:00 97 Venturi Mask 8.0 40 12/29/19 04:00 8.0 40 12/29/19 04:00 97.0 88 19 140/80 (100) 97 12/29/19 04:00 Venturi Mask 8.0 12/29/19 03:48 79 12/29/19 00:00 Venturi Mask 8.0 12/29/19 00:00 97.2 97 19 130/77 (94) 98 12/29/19 00:00 88 12/29/19 00:00 8.0 40 12/28/19 21:20 80 125/71 12/28/19 20:41 97 Venturi Mask 8.0 40 12/28/19 20:00 88 12/28/19 20:00 8.0 40 12/28/19 20:00 Venturi Mask 8.0 12/28/19 20:00 97.0 99 18 125/75 (92) 100 12/28/19 16:00 87 12/28/19 16:00 Venturi Mask 8.0 12/28/19 16:00 8.0 40 12/28/19 16:00 97.3 77 18 118/85 (96) 98 Intake and Output 12/28/19 12/29/19 19:00 07:00 Intake Total 800 ml 350 ml Output Total 800 ml 500 ml Balance 0 ml -150 ml Intake Oral 800 ml 350 ml Output Urine Total 800 ml 500 ml # Bowel Movements 2 Laboratory Tests Test 12/29/19 08:49 12/29/19 09:45 Arterial Blood pH 7.501 (7.350-7.450) Arterial Blood Partial Pressure CO2 53.0 mmHg (35.0-45.0) H Arterial Blood Partial Pressure O2 72.3 mmHg (75.0-100.0) L Arterial Blood HCO3 40.5 mmol/L (22.0-26.0) *H Arterial Blood Oxygen Saturation 94.7 % (95-100) L Arterial Blood Base Excess 15.1 (-2-2) *H Dread Test Positive White Blood Count 8.7 K/UL (4.8-10.8) Red Blood Count 4.23 M/UL (4.20-5.40) Hemoglobin 12.3 G/DL (12.0-16.0) Hematocrit 37.5 % (37.0-47.0) Mean Corpuscular Volume 89 FL (80-99) Mean Corpuscular Hemoglobin 29.2 PG (27.0-31.0) Mean Corpuscular Hemoglobin Concent 32.9 G/DL (32.0-36.0) Red Cell Distribution Width 11.6 % (11.6-14.8) Platelet Count 381 K/UL (150-450) Mean Platelet Volume 5.5 FL (6.5-10.1) L Neutrophils (%) (Auto) 73.7 % (45.0-75.0) Lymphocytes (%) (Auto) 16.1 % (20.0-45.0) L Monocytes (%) (Auto) 9.8 % (1.0-10.0) Eosinophils (%) (Auto) 0.2 % (0.0-3.0) Basophils (%) (Auto) 0.1 % (0.0-2.0) Sodium Level 147 MMOL/L (136-145) H Potassium Level 3.2 MMOL/L (3.5-5.1) L Chloride Level 101 MMOL/L (98-107) Carbon Dioxide Level 42 MMOL/L (21-32) *H Anion Gap 5 mmol/L (5-15) Blood Urea Nitrogen 32 mg/dL (7-18) H Creatinine 1.3 MG/DL (0.55-1.30) Estimat Glomerular Filtration Rate 47.8 mL/min (>60) Glucose Level 207 MG/DL (74-106) H Uric Acid 6.6 MG/DL (2.6-7.2) Calcium Level 7.6 MG/DL (8.5-10.1) L Phosphorus Level 3.9 MG/DL (2.5-4.9) Magnesium Level 2.0 MG/DL (1.8-2.4) Total Bilirubin 0.5 MG/DL (0.2-1.0) Aspartate Amino Transf (AST/SGOT) 29 U/L (15-37) Alanine Aminotransferase (ALT/SGPT) 25 U/L (12-78) Alkaline Phosphatase 67 U/L (46-116) Troponin I 0.044 ng/mL (0.000-0.056) C-Reactive Protein, Quantitative 3.8 mg/dL (0.00-0.90) H Pro-B-Type Natriuretic Peptide 3380 pg/mL (0-125) H Total Protein 6.9 G/DL (6.4-8.2) Albumin 2.4 G/DL (3.4-5.0) L Globulin 4.5 g/dL Albumin/Globulin Ratio 0.5 (1.0-2.7) L Objective HEAD AND NECK: No JVD. LUNGS: Coarse rhonchi CARDIOVASCULAR: IrrRegular tachy S1 and S2 with no gallop. ABDOMEN: Soft. EXTREMITIES: No edema. Eusebio Barrow MD December 29, 2019 13:52
--- NOTE | 2019-12-29 13:58 | Nephrology Progress Note ---
Assessment/Plan Problem List: (1) MATTHEW (acute kidney injury) Assessment: Serum creatinine livia to 2 (2) Hyponatremia Assessment: Likely depletional (3) Diabetes mellitus Assessment: With elevated hemoglobin A1c (4) UTI (urinary tract infection) (5) COVID-19 Assessment Patient presents with hyponatremia, urine spot sodium below 20. Hyponatremia most likely depletional Azotemia / dehydration Sepsis, positive COVID-19 test, UTI Diabetes mellitus [id number] with high hemoglobin A1c History of psych disease Plan Patient's condition deteriorated with low blood pressure and difficulty breathing Now on Venturi mask being transferred to ICU Renal parameters overall stable Continue per pulmonary We will follow-up on renal parameters On steroids and Cardizem drip December 27: Respiratory status improved Remains noncompliant with taking medication and blood draw December 26: Patient does not have an IV line Refuses p.o. medication and at times lab draw Today ABG not done as patient refused Serum creatinine down to 1.5 Will give oral phosphate supplement Continue per pulmonary December 25: ABG indicative of hypoxia, patient on BiPAP Serum creatinine down to 1.6 today Will replace potassium and phosphorus Continue per cocoa room operator and circuit rider advice Previously: Will order a Kohler catheter and give 1 L of IV bolus Patient ejection fraction is normal on 2D echo Serum sodium now normalized Monitor electrolytes and renal parameters Antibiotics per ID Monitor electrolytes and renal parameters Per orders Per consultants Subjective ROS Limited/Unobtainable: Yes Interval Events/Complaints Transferred to ICU due to hypotension Constitutional: Reports: malaise, weakness Objective Objective Last 24 Hour Vital Signs Date Time Temp Pulse Resp B/P (MAP) Pulse Ox O2 Delivery O2 Flow Rate FiO2 12/29/19 13:07 97.7 12/29/19 10:35 183 12/29/19 10:35 183 128/71 12/29/19 09:50 86 128/71 12/29/19 08:00 97.7 86 20 128/71 (90) 97 12/29/19 08:00 99 12/29/19 08:00 Venturi Mask 8.0 12/29/19 08:00 8.0 40 12/29/19 07:00 97 Venturi Mask 8.0 40 12/29/19 04:00 8.0 40 12/29/19 04:00 97.0 88 19 140/80 (100) 97 12/29/19 04:00 Venturi Mask 8.0 12/29/19 03:48 79 12/29/19 00:00 Venturi Mask 8.0 12/29/19 00:00 97.2 97 19 130/77 (94) 98 12/29/19 00:00 88 12/29/19 00:00 8.0 40 12/28/19 21:20 80 125/71 12/28/19 20:41 97 Venturi Mask 8.0 40 12/28/19 20:00 88 12/28/19 20:00 8.0 40 12/28/19 20:00 Venturi Mask 8.0 12/28/19 20:00 97.0 99 18 125/75 (92) 100 12/28/19 16:00 87 12/28/19 16:00 Venturi Mask 8.0 12/28/19 16:00 8.0 40 12/28/19 16:00 97.3 77 18 118/85 (96) 98 Intake and Output 12/28/19 12/29/19 19:00 07:00 Intake Total 800 ml 350 ml Output Total 800 ml 500 ml Balance 0 ml -150 ml Intake Oral 800 ml 350 ml Output Urine Total 800 ml 500 ml # Bowel Movements 2 Laboratory Tests 12/29/19 08:49: Arterial Blood pH 7.501H, Arterial Blood Partial Pressure CO2 53.0H, Arterial Blood Partial Pressure O2 72.3L, Arterial Blood HCO3 40.5*H, Arterial Blood Oxygen Saturation 94.7L, Arterial Blood Base Excess 15.1*H, Dread Test Positive 12/29/19 09:45: White Blood Count 8.7, Red Blood Count 4.23, Hemoglobin 12.3, Hematocrit 37.5, Mean Corpuscular Volume 89, Mean Corpuscular Hemoglobin 29.2, Mean Corpuscular Hemoglobin Concent 32.9, Red Cell Distribution Width 11.6, Platelet Count 381, Mean Platelet Volume 5.5L, Neutrophils (%) (Auto) 73.7, Lymphocytes (%) (Auto) 16.1L, Monocytes (%) (Auto) 9.8, Eosinophils (%) (Auto) 0.2, Basophils (%) (Auto ) 0.1, Sodium Level 147H, Potassium Level 3.2L, Chloride Level 101, Carbon Dioxide Level 42*H, Anion Gap 5, Blood Urea Nitrogen 32H, Creatinine 1.3, Estimat Glomerular Filtration Rate 47.8, Glucose Level 207H, Uric Acid 6.6, Calcium Level 7.6L, Phosphorus Level 3.9, Magnesium Level 2.0, Total Bilirubin 0.5, Aspartate Amino Transf (AST/SGOT) 29, Alanine Aminotransferase (ALT/SGPT) 25, Alkaline Phosphatase 67, Troponin I 0.044, C-Reactive Protein, Quantitative 3.8H, Pro-B-Type Natriuretic Peptide 3380H, Total Protein 6.9, Albumin 2.4L, Globulin 4.5, Albumin/Globulin Ratio 0.5L Height (Feet): 5 Height (Inches): 6.00 Weight (Pounds): 158 General Appearance: mild distress Cardiovascular: tachycardia Respiratory/Chest: decreased breath sounds Abdomen: soft, distended Objective No change Rolo Roldan MD December 29, 2019 13:58
[2019-12-29] MEDS ORDERED: Digoxin 0.5mg/2ml Inj IVP ONE (14:00)
--- NOTE | 2019-12-29 14:00 | NUR ---
NURSE NOTES: Pt was administered NS bolus x1 dose per Dr Barrow's order.
--- NOTE | 2019-12-29 15:00 | NUR ---
NURSE NOTES: Received order from Dr Barrow to switch Cardizem drip from fixed rate to titratable rate. Cardizem drip was stopped due to HR dropping below 60. Digoxin one time dose was also held and Dr Barrow was notified. No new orders were received at this time.
--- NOTE | 2019-12-29 15:10 | General Progress Note ---
Assessment/Plan Status: stable Assessment/Plan: S, O: poor historian, seems in mild sob. Declined cognition and poor historian . on O2 Mask PHYSICAL EXAMINATION:HEAD AND NECK: Atraumatic and normocephalic. CHEST: Bronchial breathing sounds.HEART: S1 and S2. Regular rate and rhythm. ABDOMEN: Soft. No organomegaly.MUSCULOSKELETAL: No gross focal motor deficit. NEUROLOGY: Patient is awake, alert x1. Easily distracted. LABORATORY DATA: Dated 12/28 reviewed Echo: Dated reviewed ASSESSMENT: 1. Sepsis 2. SVT with hypotension 3. metabolic encephalopathy 2. UTI - Gram negative 3. COVD 19- Pneumonia. 3. Renal failure, age indeterminate. 4. Diabetes type 2. 5. Hypertension. 6. Hyperlipidemia. 7. Coronary artery disease/peripheral arterial disease. Continue with antiplatelet. 8. GI and DVT prophylaxis. 9. Anemia: likely chronic disease 10. Refusal of treatment PLAN OF CARE: Continue with culture-targeted antibiotic treatment. Notes from Infectious Disease, Nephrology, Pulmonary have been reviewed. D/w pulmonary Non tolerating BIPAP, seems agitated at times D/w grand daughter, on December 26 around 5 PM No capacity for making medical decisions at times, d/w RN to use soft restraint if needed for patient safety Re-Establish IV medication Transfer to ICU, on CCB drip, notes from cardiology reviewed Subjective Allergies: Coded Allergies: ASPIRIN (Verified Allergy, Unknown, 12/19/19) PENICILLINS (Verified Allergy, Unknown, 12/19/19) Objective Last 24 Hour Vital Signs Date Time Temp Pulse Resp B/P (MAP) Pulse Ox O2 Delivery O2 Flow Rate FiO2 12/29/19 13:07 97.7 12/29/19 10:35 183 12/29/19 10:35 183 128/71 12/29/19 09:50 86 128/71 12/29/19 08:00 97.7 86 20 128/71 (90) 97 12/29/19 08:00 99 12/29/19 08:00 Venturi Mask 8.0 12/29/19 08:00 8.0 40 12/29/19 07:00 97 Venturi Mask 8.0 40 12/29/19 04:00 8.0 40 12/29/19 04:00 97.0 88 19 140/80 (100) 97 12/29/19 04:00 Venturi Mask 8.0 12/29/19 03:48 79 12/29/19 00:00 Venturi Mask 8.0 12/29/19 00:00 97.2 97 19 130/77 (94) 98 12/29/19 00:00 88 12/29/19 00:00 8.0 40 12/28/19 21:20 80 125/71 12/28/19 20:41 97 Venturi Mask 8.0 40 12/28/19 20:00 88 12/28/19 20:00 8.0 40 12/28/19 20:00 Venturi Mask 8.0 12/28/19 20:00 97.0 99 18 125/75 (92) 100 12/28/19 16:00 87 12/28/19 16:00 Venturi Mask 8.0 12/28/19 16:00 8.0 40 12/28/19 16:00 97.3 77 18 118/85 (96) 98 Intake and Output 12/28/19 12/29/19 19:00 07:00 Intake Total 800 ml 350 ml Output Total 800 ml 500 ml Balance 0 ml -150 ml Intake Oral 800 ml 350 ml Output Urine Total 800 ml 500 ml # Bowel Movements 2 Laboratory Tests 12/29/19 08:49: Arterial Blood pH 7.501H, Arterial Blood Partial Pressure CO2 53.0H, Arterial Blood Partial Pressure O2 72.3L, Arterial Blood HCO3 40.5*H, Arterial Blood Oxygen Saturation 94.7L, Arterial Blood Base Excess 15.1*H, Dread Test Positive 12/29/19 09:45: White Blood Count 8.7, Red Blood Count 4.23, Hemoglobin 12.3, Hematocrit 37.5, Mean Corpuscular Volume 89, Mean Corpuscular Hemoglobin 29.2, Mean Corpuscular Hemoglobin Concent 32.9, Red Cell Distribution Width 11.6, Platelet Count 381, Mean Platelet Volume 5.5L, Neutrophils (%) (Auto) 73.7, Lymphocytes (%) (Auto) 16.1L, Monocytes (%) (Auto) 9.8, Eosinophils (%) (Auto) 0.2, Basophils (%) (Auto ) 0.1, Sodium Level 147H, Potassium Level 3.2L, Chloride Level 101, Carbon Dioxide Level 42*H, Anion Gap 5, Blood Urea Nitrogen 32H, Creatinine 1.3, Estimat Glomerular Filtration Rate 47.8, Glucose Level 207H, Uric Acid 6.6, Calcium Level 7.6L, Phosphorus Level 3.9, Magnesium Level 2.0, Total Bilirubin 0.5, Aspartate Amino Transf (AST/SGOT) 29, Alanine Aminotransferase (ALT/SGPT) 25, Alkaline Phosphatase 67, Troponin I 0.044, C-Reactive Protein, Quantitative 3.8H, Pro-B-Type Natriuretic Peptide 3380H, Total Protein 6.9, Albumin 2.4L, Globulin 4.5, Albumin/Globulin Ratio 0.5L, Digoxin Level < 0.2L Height (Feet): 5 Height (Inches): 6.00 Weight (Pounds): 158 Jennifer Alberto MD December 29, 2019 15:10
--- NOTE | 2019-12-29 16:00 | NUR ---
NURSE NOTES: Pt was cleaned, gown/bed linens were changed. Pt is resting with stable VS in no apparent distress.
--- NOTE | 2019-12-29 18:00 | NUR ---
NURSE NOTES: Pt consumed 75% dinner meal, denies any pain or discomfort at this time.
--- NOTE | 2019-12-29 19:30 | NUR ---
NURSE NOTES: Received report from FLETCHER Hdez. Pt is resting on the bed awake, oriented x2, impulsive, resistive to care, combative and restless. Given realty orientation. IV site intact and no sign of infiltration noted. On O2 8L via Venturi mask FiO2 40% and SaO2 98% noted. On telemetry monitor with SB and HR: 59's. No fever noted. BP is stable at this time. Placed fall precaution. Will continue to care plan.
--- NOTE | 2019-12-29 19:30 | NUR ---
HAND-OFF: Report given to Joshua BYNUM. VS remain stable. Endorsed plan of care.
[2019-12-29] MEDS: Metoprolol Tartrate 50mg tab ORAL SCH (21:00)
[2019-12-29] MEDS: Solu-MEDROL 40mg Inj IVP SCH (21:12)
--- NOTE | 2019-12-29 22:00 | NUR ---
NURSE NOTES: Pt is sleeping on the bed and no sign of acute distress noted. Provided oral hydration. Encouraged reposition. Will continue to monitor any change of condition.
[2019-12-30] VITALS (17 sets, daily range): BP systolic 120–169; BP diastolic 60–132
--- NOTE | 2019-12-30 | NUR ---
NURSE NOTES: Pt is sleeping on the bed and no sign of acute distress noted. on O2 3L via nasal cannula and SaO2 95% noted. Provided good sleep environment. Will continue to monitor any change of condition.
--- NOTE | 2019-12-30 02:00 | NUR ---
NURSE NOTES: Pt is sleeping on the bed and no sign of acute distress noted. Placed fall precaution. Will continue to monitor any change of condition.
--- NOTE | 2019-12-30 04:00 | NUR ---
NURSE NOTES: Pt is sleeping on the bed and impulsive, resistive to care. Morning care was done. Cleaned Pt and applied lotion and cream. Noted small amount BM. SaO2 95% with O2 4L via nasal cannula. On youth nutritional monitor with SR. BP is stable. No fever noted. Will continue to monitor any change of condition.
[2019-12-30 05:35] LABS: HEMOGLOBIN 11.8 G/DL (12.0-16.0); MEAN CORPUSCULAR VOLUME 91 FL (80-99); PLATELET COUNT 348 K/UL (150-450); RED BLOOD COUNT 3.96 M/UL (4.20-5.40); RED CELL DISTRIBUTION WIDTH 11.9 % (11.6-14.8); WHITE BLOOD COUNT 10.9 K/UL (4.8-10.8)
[2019-12-30 06:19] LABS: ALANINE AMINOTRANSFERASE 30 U/L (12-78); ALBUMIN 2.3 G/DL (3.4-5.0); ALBUMIN/GLOBULIN RATIO 0.6 (1.0-2.7); ALKALINE PHOSPHATASE 66 U/L (46-116); ANION GAP 5 mmol/L (5-15); ASPARTATE AMINO TRANSFERASE 34 U/L (15-37); BILIRUBIN,TOTAL 0.6 MG/DL (0.2-1.0); BLOOD UREA NITROGEN 33 mg/dL (7-18); CALCIUM 8.4 MG/DL (8.5-10.1); CARBON DIOXIDE 38 MMOL/L (21-32); CHLORIDE 100 MMOL/L (98-107); CREATININE 1.4 MG/DL (0.55-1.30); PHOSPHORUS 5.2 MG/DL (2.5-4.9); POTASSIUM 4.4 MMOL/L (3.5-5.1); SODIUM 143 MMOL/L (136-145)
[2019-12-30] MEDS: NovoLOG Insulin Flexpen SUBQ SCH ×4 (06:30→22:10)
--- NOTE | 2019-12-30 07:19 | NUR ---
HAND-OFF: Report given to FLETCHER Hodges. Pt is sleeping on the bed and no sing of acute distress noted.
--- NOTE | 2019-12-30 07:20 | NUR ---
NURSE NOTES: Received report from FLETCHER Lewis. On the way of transferring from [facility] to [facility] on 12/28, the patient had episode of SVT with HR of 180s and transferred to ICU For Cardizem drip. The patient is sleeping on the bed without acute distress or shortness of breath and HR of 70s noted at this time. The patient's bed in the lowest position, call light in reach, and fall and aspiration precaution reinforced. The patient is on 4L NC and oxygen saturation within normal range. The patient has R upper arm 20G and R hand 22G that is intact and patent and SL. Skin is intact. Will follow up the lab. Will continue plan of care.
--- NOTE | 2019-12-30 08:30 | NUR ---
NURSE NOTES: Breakfast provided and feeding completed. Tolerating well. Will closely monitor the patient. Will continue plan of care.
[2019-12-30] MEDS: Metoprolol Tartrate 50mg tab ORAL SCH (08:56)
[2019-12-30] MEDS: Solu-MEDROL 40mg Inj IVP SCH (08:56)
[2019-12-30] MEDS: Phospha 250 Neutral tab ORAL SCH ×2 (08:56→12:05)
[2019-12-30] MEDS: Docusate 100mg cap ORAL SCH ×2 (08:56→12:05)
[2019-12-30] MEDS ORDERED: OLANZapine 2.5mg tab ORAL SCH (09:00)
[2019-12-30] MEDS ORDERED: Enoxaparin 40mg Inj SUBQ SCH (09:00)
[2019-12-30] MEDS ORDERED: NS 275ml ONE (09:28)
--- NOTE | 2019-12-30 09:30 | NUR ---
NURSE NOTES: The patient is stable without acute distress or shortness of breath. Will closely monitor the patient. Will continue plan of care.
--- NOTE | 2019-12-30 09:30 | NUR ---
NURSE NOTES: Morning medication administered per order. Refused Enoxaparin by the patient. Will closely monitor the patient. Will continue plan of care.
--- NOTE | 2019-12-30 10:00 | NUR ---
NURSE NOTES: The patient is sleeping on the bed. The patient is agitated, combative, and resistant in care. Will continue to monitor the patient. Will continue plan of care. Addendum: 12/30/19 at 1152 by Sylvester Marti RN Time change to 1100.
--- NOTE | 2019-12-30 10:00 | NUR ---
NURSE NOTES: Dr. Vincent at the bedside assessed the patient. Dr. Vincent ordered the patient to be transferred to tele. Notified the order to the charge nurse. Will continue plan of care.
--- NOTE | 2019-12-30 10:34 | Infectious Diseases Prog Note ---
Assessment/Plan Assessment/Plan A; COVID19 pneumonia UTI treated COPD DM Chronic kidney disease Hypercapnic respiratory failure SVT P: Observe off antibiotic Will f/u repeated COVID19 test Subjective ROS Limited/Unobtainable: Yes Constitutional: Reports: other - decreased appetite; Denies: fever Respiratory: Reports: productive cough Allergies: Coded Allergies: ASPIRIN (Verified Allergy, Unknown, 12/19/19) PENICILLINS (Verified Allergy, Unknown, 12/19/19) Objective Vital Signs Last 24 Hour Vital Signs Date Time Temp Pulse Resp B/P (MAP) Pulse Ox O2 Delivery O2 Flow Rate FiO2 12/30/19 10:00 64 11 137/71 (93) 100 12/30/19 09:00 93 20 151/84 (106) 96 12/30/19 08:56 66 121/64 12/30/19 08:00 53 12/30/19 08:00 Nasal Cannula 4.0 12/30/19 08:00 4.0 12/30/19 08:00 98.2 62 12 121/64 (83) 100 12/30/19 07:00 72 11 159/72 (101) 12/30/19 07:00 72 11 159/72 (101) 100 12/30/19 06:00 65 14 126/62 (83) 100 12/30/19 05:00 71 15 133/65 (87) 97 12/30/19 04:00 65 12/30/19 04:00 Nasal Cannula 3.0 12/30/19 04:00 4.0 12/30/19 04:00 98.4 70 15 135/66 (89) 95 12/30/19 03:00 68 18 149/132 (138) 95 12/30/19 02:00 66 16 120/60 (80) 93 12/30/19 01:00 64 15 128/60 (82) 93 12/30/19 00:00 59 12/30/19 00:00 98.3 61 12 123/65 (84) 95 12/30/19 00:00 3.0 12/30/19 00:00 Nasal Cannula 3.0 12/29/19 23:00 61 13 118/58 (78) 99 12/29/19 22:00 60 13 121/61 (81) 99 12/29/19 21:00 59 15 118/57 (77) 99 12/29/19 21:00 60 94/80 12/29/19 20:00 8.0 40 12/29/19 20:00 98.4 68 19 94/80 (85) 98 12/29/19 20:00 65 12/29/19 20:00 Venturi Mask 8.0 12/29/19 19:00 62 12 126/49 (74) 100 12/29/19 18:00 62 12 122/56 (78) 100 12/29/19 17:00 68 18 126/54 (78) 98 12/29/19 16:00 8.0 40 12/29/19 16:00 98.7 57 25 123/57 (79) 99 12/29/19 16:00 Venturi Mask 8.0 12/29/19 16:00 53 12/29/19 15:00 82 18 98/57 (71) 96 12/29/19 14:00 120 22 126/68 (87) 99 12/29/19 14:00 59 12/29/19 13:07 97.7 12/29/19 13:00 128 22 130/70 (90) 99 12/29/19 12:00 8.0 40 12/29/19 12:00 98.7 132 22 128/72 (90) 98 12/29/19 12:00 Venturi Mask 8.0 12/29/19 12:00 130 12/29/19 11:00 98.7 130 24 130/76 (94) 100 12/29/19 10:35 183 12/29/19 10:35 183 128/71 Height (Feet): 5 Height (Inches): 6.00 Weight (Pounds): 158 General Appearance: no acute distress HEENT: mucous membranes moist, other - poor dentition Respiratory/Chest: other - oxygen by nasal cannula Cardiovascular: normal rate Abdomen: soft, non tender Extremities: no edema Neurologic/Psychiatric: alert, responsive Laboratory Tests Test 12/30/19 04:25 White Blood Count 10.9 K/UL (4.8-10.8) H Red Blood Count 3.96 M/UL (4.20-5.40) L Hemoglobin 11.8 G/DL (12.0-16.0) L Hematocrit 36.0 % (37.0-47.0) L Mean Corpuscular Volume 91 FL (80-99) Mean Corpuscular Hemoglobin 29.8 PG (27.0-31.0) Mean Corpuscular Hemoglobin Concent 32.8 G/DL (32.0-36.0) Red Cell Distribution Width 11.9 % (11.6-14.8) Platelet Count 348 K/UL (150-450) Mean Platelet Volume 5.3 FL (6.5-10.1) L Neutrophils (%) (Auto) % (45.0-75.0) Lymphocytes (%) (Auto) % (20.0-45.0) Monocytes (%) (Auto) % (1.0-10.0) Eosinophils (%) (Auto) % (0.0-3.0) Basophils (%) (Auto) % (0.0-2.0) Differential Total Cells Counted 100 Neutrophils % (Manual) 88 % (45-75) H Lymphocytes % (Manual) 11 % (20-45) L Monocytes % (Manual) 1 % (1-10) Eosinophils % (Manual) 0 % (0-3) Basophils % (Manual) 0 % (0-2) Band Neutrophils 0 % (0-8) Platelet Estimate Adequate Platelet Morphology Normal Anisocytosis 1+ Sodium Level 143 MMOL/L (136-145) Potassium Level 4.4 MMOL/L (3.5-5.1) Chloride Level 100 MMOL/L (98-107) Carbon Dioxide Level 38 MMOL/L (21-32) H Anion Gap 5 mmol/L (5-15) Blood Urea Nitrogen 33 mg/dL (7-18) H Creatinine 1.4 MG/DL (0.55-1.30) H Estimat Glomerular Filtration Rate 43.9 mL/min (>60) Glucose Level 331 MG/DL (74-106) #H Calcium Level 8.4 MG/DL (8.5-10.1) L Phosphorus Level 5.2 MG/DL (2.5-4.9) H Magnesium Level 1.9 MG/DL (1.8-2.4) Total Bilirubin 0.6 MG/DL (0.2-1.0) Aspartate Amino Transf (AST/SGOT) 34 U/L (15-37) Alanine Aminotransferase (ALT/SGPT) 30 U/L (12-78) Alkaline Phosphatase 66 U/L (46-116) C-Reactive Protein, Quantitative 3.1 mg/dL (0.00-0.90) H Pro-B-Type Natriuretic Peptide 5459 pg/mL (0-125) H Total Protein 6.3 G/DL (6.4-8.2) L Albumin 2.3 G/DL (3.4-5.0) L Globulin 4.0 g/dL Albumin/Globulin Ratio 0.6 (1.0-2.7) L Current Medications Medications (Trade) Dose Ordered Sig/Daiana Route PRN Reason Start Time Stop Time Status Last Admin Dose Admin Acetaminophen (Tylenol) 650 mg Q6H PRN ORAL MILD/TEMP 12/29/19 12:30 01/24/20 06:29 Acetaminophen/ Hydrocodone Bitart (Amistad 5/325) 1 tab Q4H PRN ORAL Moderate Pain (Pain Scale 4-6) 12/29/19 12:00 01/01/20 11:59 Clopidogrel Bisulfate (Plavix) 75 mg DAILY ORAL 12/30/19 09:00 01/19/20 08:59 12/30/19 08:57 Dextrose (Dextrose 50%) 25 ml Q30M PRN IV Hypoglycemia 12/29/19 11:45 03/24/20 13:10 Dextrose (Dextrose 50%) 50 ml Q30M PRN IV Hypoglycemia 12/29/19 12:00 03/18/20 23:29 Diltiazem HCl 125 ml @ 0 mls/hr Q24H IVPB 12/29/19 16:11 01/22/20 16:10 Docusate Sodium (Colace) 100 mg THREE TIMES A DAY ORAL 12/29/19 13:00 01/24/20 13:12 12/30/19 08:56 Enoxaparin Sodium (Lovenox) 40 mg DAILY SUBQ 12/30/19 09:00 03/19/20 08:59 Insulin Aspart (NovoLOG) BEFORE MEALS AND HS SUBQ 12/29/19 16:30 03/19/20 06:29 12/29/19 21:23 Lorazepam (Ativan) 1 mg Q6H PRN ORAL For Anxiety 12/29/19 12:30 01/01/20 06:29 12/29/19 12:36 Methylprednisolone Sodium Succinate (Solu-MEDROL) 40 mg EVERY 12 HOURS IVP 12/29/19 21:00 03/25/20 17:59 12/30/19 08:56 Metoprolol Tartrate (Lopressor) 50 mg EVERY 12 HOURS ORAL 12/29/19 21:00 03/22/20 09:54 12/30/19 08:56 Morphine Sulfate (Morphine Sulfate) 2 mg Q8H PRN IVP Severe Pain (Pain Scale 7-10) 12/29/19 12:00 01/01/20 11:59 12/29/19 12:37 Olanzapine (ZyPREXA) 2.5 mg DAILY ORAL 12/30/19 09:00 02/04/20 08:59 12/30/19 08:57 Olanzapine (ZyPREXA) 5 mg BEDTIME ORAL 12/29/19 21:00 02/04/20 20:59 12/29/19 21:12 Pantoprazole (Protonix) 40 mg EVERY 12 HOURS ORAL 12/29/19 21:00 01/22/20 09:54 12/30/19 08:57 Phosphorus (Phospha 250 Neutral) 500 mg THREE TIMES A DAY ORAL 12/29/19 13:00 01/26/20 12:59 12/30/19 08:56 Promethazine HCl (Phenergan [place]) 12.5 mg Q6H PRN ORAL For Cough 12/29/19 12:30 01/24/20 06:29 Zolpidem Tartrate (Ambien) 5 mg HSPRN PRN ORAL Insomnia 12/29/19 13:15 01/01/20 13:12 Jim Fisher MD December 30, 2019 10:34
--- NOTE | 2019-12-30 11:02 | Nephrology Progress Note ---
Assessment/Plan Problem List: (1) MATTHEW (acute kidney injury) Assessment: Serum creatinine livia to 2 (2) Hyponatremia Assessment: Likely depletional (3) Diabetes mellitus Assessment: With elevated hemoglobin A1c (4) UTI (urinary tract infection) (5) COVID-19 Assessment Patient presents with hyponatremia, urine spot sodium below 20. Hyponatremia most likely depletional Azotemia / dehydration Sepsis, positive COVID-19 test, UTI Diabetes mellitus [id number] with high hemoglobin A1c History of psych disease Plan December 29: Patient seen in ICU. Blood pressure stable. Not in any respiratory distress. Labs reviewed stable from renal standpoint of view. Okay to transfer to monitored bed in my opinion. Continue per consultants. December 28: Patient's condition deteriorated with low blood pressure and difficulty breathing Now on Venturi mask being transferred to ICU Renal parameters overall stable Continue per pulmonary We will follow-up on renal parameters On steroids and Cardizem drip December 27: Respiratory status improved Remains noncompliant with taking medication and blood draw December 26: Patient does not have an IV line Refuses p.o. 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 advice Previously: Will order a Kohler catheter and give 1 L of IV bolus Patient ejection fraction is normal on 2D echo Serum sodium now normalized Monitor electrolytes and renal parameters Antibiotics per ID Monitor electrolytes and renal parameters Per orders Per consultants Subjective ROS Limited/Unobtainable: No Constitutional: Reports: malaise Objective Objective Last 24 Hour Vital Signs Date Time Temp Pulse Resp B/P (MAP) Pulse Ox O2 Delivery O2 Flow Rate FiO2 12/30/19 10:00 64 11 137/71 (93) 100 12/30/19 09:00 93 20 151/84 (106) 96 12/30/19 08:56 66 121/64 12/30/19 08:00 53 12/30/19 08:00 Nasal Cannula 4.0 12/30/19 08:00 4.0 12/30/19 08:00 98.2 62 12 121/64 (83) 100 12/30/19 07:00 72 11 159/72 (101) 12/30/19 07:00 72 11 159/72 (101) 100 12/30/19 06:00 65 14 126/62 (83) 100 12/30/19 05:00 71 15 133/65 (87) 97 12/30/19 04:00 65 12/30/19 04:00 Nasal Cannula 3.0 12/30/19 04:00 4.0 12/30/19 04:00 98.4 70 15 135/66 (89) 95 12/30/19 03:00 68 18 149/132 (138) 95 12/30/19 02:00 66 16 120/60 (80) 93 12/30/19 01:00 64 15 128/60 (82) 93 12/30/19 00:00 59 12/30/19 00:00 98.3 61 12 123/65 (84) 95 12/30/19 00:00 3.0 12/30/19 00:00 Nasal Cannula 3.0 12/29/19 23:00 61 13 118/58 (78) 99 12/29/19 22:00 60 13 121/61 (81) 99 12/29/19 21:00 59 15 118/57 (77) 99 12/29/19 21:00 60 94/80 12/29/19 20:00 8.0 40 12/29/19 20:00 98.4 68 19 94/80 (85) 98 12/29/19 20:00 65 12/29/19 20:00 Venturi Mask 8.0 12/29/19 19:00 62 12 126/49 (74) 100 12/29/19 18:00 62 12 122/56 (78) 100 12/29/19 17:00 68 18 126/54 (78) 98 12/29/19 16:00 8.0 40 12/29/19 16:00 98.7 57 25 123/57 (79) 99 12/29/19 16:00 Venturi Mask 8.0 12/29/19 16:00 53 12/29/19 15:00 82 18 98/57 (71) 96 12/29/19 14:00 120 22 126/68 (87) 99 12/29/19 14:00 59 12/29/19 13:07 97.7 12/29/19 13:00 128 22 130/70 (90) 99 12/29/19 12:00 8.0 40 12/29/19 12:00 98.7 132 22 128/72 (90) 98 12/29/19 12:00 Venturi Mask 8.0 12/29/19 12:00 130 Intake and Output 12/29/19 12/30/19 19:00 07:00 Intake Total 1280 ml 120 ml Output Total 400 ml 380 ml Balance 880 ml -260 ml Intake Oral 250 ml 120 ml IV Total 1030 ml Output Urine Total 400 ml 380 ml # Bowel Movements 3 1 Laboratory Tests 12/30/19 04:25: White Blood Count 10.9H, Red Blood Count 3.96L, Hemoglobin 11.8L, Hematocrit 36.0L, Mean Corpuscular Volume 91, Mean Corpuscular Hemoglobin 29.8, Mean Corpuscular Hemoglobin Concent 32.8, Red Cell Distribution Width 11.9, Platelet Count 348, Mean Platelet Volume 5.3L, Neutrophils (%) (Auto) , Lymphocytes (%) ( Auto) , Monocytes (%) (Auto) , Eosinophils (%) (Auto) , Basophils (%) (Auto) , Differential Total Cells Counted 100, Neutrophils % (Manual) 88H, Lymphocytes % (Manual) 11L, Monocytes % (Manual) 1, Eosinophils % (Manual) 0, Basophils % ( Manual) 0, Band Neutrophils 0, Platelet Estimate Adequate, Platelet Morphology Normal, Anisocytosis 1+, Sodium Level 143, Potassium Level 4.4, Chloride Level 100, Carbon Dioxide Level 38H, Anion Gap 5, Blood Urea Nitrogen 33H, Creatinine 1.4H, Estimat Glomerular Filtration Rate 43.9, Glucose Level 331#H, Calcium Level 8.4L, Phosphorus Level 5.2H, Magnesium Level 1.9, Total Bilirubin 0.6, Aspartate Amino Transf (AST/SGOT) 34, Alanine Aminotransferase (ALT/SGPT) 30, Alkaline Phosphatase 66, C-Reactive Protein, Quantitative 3.1H, Pro-B-Type Natriuretic Peptide 5459H, Total Protein 6.3L, Albumin 2.3L, Globulin 4.0, Albumin/Globulin Ratio 0.6L Height (Feet): 5 Height (Inches): 6.00 Weight (Pounds): 158 General Appearance: no apparent distress, agitated - At times Cardiovascular: tachycardia Respiratory/Chest: decreased breath sounds Abdomen: soft, distended Objective No change Rolo Roldan MD December 30, 2019 11:02
--- NOTE | 2019-12-30 11:04 | Pulmonology Progress Note ---
Subjective ROS Limited/Unobtainable: No Interval Events: Transferred to ICU for SVT; much better now Constitutional: Reports: other - decreased appetite; Denies: fever HEENT: Repors: no symptoms Respiratory: Reports: dry cough Cardiovascular: Reports: no symptoms Gastrointestinal/Abdominal: Denies: diarrhea Allergies: Coded Allergies: ASPIRIN (Verified Allergy, Unknown, 12/19/19) PENICILLINS (Verified Allergy, Unknown, 12/19/19) Objective Last 24 Hour Vital Signs Date Time Temp Pulse Resp B/P (MAP) Pulse Ox O2 Delivery O2 Flow Rate FiO2 12/30/19 10:00 64 11 137/71 (93) 100 12/30/19 09:00 93 20 151/84 (106) 96 12/30/19 08:56 66 121/64 12/30/19 08:00 53 12/30/19 08:00 Nasal Cannula 4.0 12/30/19 08:00 4.0 12/30/19 08:00 98.2 62 12 121/64 (83) 100 12/30/19 07:00 72 11 159/72 (101) 12/30/19 07:00 72 11 159/72 (101) 100 12/30/19 06:00 65 14 126/62 (83) 100 12/30/19 05:00 71 15 133/65 (87) 97 12/30/19 04:00 65 12/30/19 04:00 Nasal Cannula 3.0 12/30/19 04:00 4.0 12/30/19 04:00 98.4 70 15 135/66 (89) 95 12/30/19 03:00 68 18 149/132 (138) 95 12/30/19 02:00 66 16 120/60 (80) 93 12/30/19 01:00 64 15 128/60 (82) 93 12/30/19 00:00 59 12/30/19 00:00 98.3 61 12 123/65 (84) 95 12/30/19 00:00 3.0 12/30/19 00:00 Nasal Cannula 3.0 12/29/19 23:00 61 13 118/58 (78) 99 12/29/19 22:00 60 13 121/61 (81) 99 12/29/19 21:00 59 15 118/57 (77) 99 12/29/19 21:00 60 94/80 5/23/20 20:00 8.0 40 12/29/19 20:00 98.4 68 19 94/80 (85) 98 12/29/19 20:00 65 12/29/19 20:00 Venturi Mask 8.0 12/29/19 19:00 62 12 126/49 (74) 100 12/29/19 18:00 62 12 122/56 (78) 100 12/29/19 17:00 68 18 126/54 (78) 98 12/29/19 16:00 8.0 40 12/29/19 16:00 98.7 57 25 123/57 (79) 99 12/29/19 16:00 Venturi Mask 8.0 12/29/19 16:00 53 12/29/19 15:00 82 18 98/57 (71) 96 12/29/19 14:00 120 22 126/68 (87) 99 12/29/19 14:00 59 12/29/19 13:07 97.7 12/29/19 13:00 128 22 130/70 (90) 99 12/29/19 12:00 8.0 40 12/29/19 12:00 98.7 132 22 128/72 (90) 98 12/29/19 12:00 Venturi Mask 8.0 12/29/19 12:00 130 Intake and Output 12/29/19 12/30/19 19:00 07:00 Intake Total 1280 ml 120 ml Output Total 400 ml 380 ml Balance 880 ml -260 ml Intake Oral 250 ml 120 ml IV Total 1030 ml Output Urine Total 400 ml 380 ml # Bowel Movements 3 1 HEENT: normocephalic Respiratory: chest wall non-tender, decreased breath sounds Cardiovascular: normal peripheral pulses Abdomen: normal bowel sounds Laboratory Tests 12/30/19 04:25: White Blood Count 10.9H, Red Blood Count 3.96L, Hemoglobin 11.8L, Hematocrit 36.0L, Mean Corpuscular Volume 91, Mean Corpuscular Hemoglobin 29.8, Mean Corpuscular Hemoglobin Concent 32.8, Red Cell Distribution Width 11.9, Platelet Count 348, Mean Platelet Volume 5.3L, Neutrophils (%) (Auto) , Lymphocytes (%) ( Auto) , Monocytes (%) (Auto) , Eosinophils (%) (Auto) , Basophils (%) (Auto) , Differential Total Cells Counted 100, Neutrophils % (Manual) 88H, Lymphocytes % (Manual) 11L, Monocytes % (Manual) 1, Eosinophils % (Manual) 0, Basophils % ( Manual) 0, Band Neutrophils 0, Platelet Estimate Adequate, Platelet Morphology Normal, Anisocytosis 1+, Sodium Level 143, Potassium Level 4.4, Chloride Level 100, Carbon Dioxide Level 38H, Anion Gap 5, Blood Urea Nitrogen 33H, Creatinine 1.4H, Estimat Glomerular Filtration Rate 43.9, Glucose Level 331#H, Calcium Level 8.4L, Phosphorus Level 5.2H, Magnesium Level 1.9, Total Bilirubin 0.6, Aspartate Amino Transf (AST/SGOT) 34, Alanine Aminotransferase (ALT/SGPT) 30, Alkaline Phosphatase 66, C-Reactive Protein, Quantitative 3.1H, Pro-B-Type Natriuretic Peptide 5459H, Total Protein 6.3L, Albumin 2.3L, Globulin 4.0, Albumin/Globulin Ratio 0.6L Current Medications Medications (Trade) Dose Ordered Sig/Daiana Route PRN Reason Start Time Stop Time Status Last Admin Dose Admin Acetaminophen (Tylenol) 650 mg Q6H PRN ORAL MILD/TEMP 12/29/19 12:30 01/24/20 06:29 Acetaminophen/ Hydrocodone Bitart (Rudolph 5/325) 1 tab Q4H PRN ORAL Moderate Pain (Pain Scale 4-6) 12/29/19 12:00 01/01/20 11:59 Clopidogrel Bisulfate (Plavix) 75 mg DAILY ORAL 12/30/19 09:00 01/19/20 08:59 12/30/19 08:57 Dextrose (Dextrose 50%) 25 ml Q30M PRN IV Hypoglycemia 12/29/19 11:45 03/24/20 13:10 Dextrose (Dextrose 50%) 50 ml Q30M PRN IV Hypoglycemia 12/29/19 12:00 03/18/20 23:29 Diltiazem HCl 125 ml @ 0 mls/hr Q24H IVPB 12/29/19 16:11 01/22/20 16:10 Docusate Sodium (Colace) 100 mg THREE TIMES A DAY ORAL 12/29/19 13:00 01/24/20 13:12 12/30/19 08:56 Enoxaparin Sodium (Lovenox) 40 mg DAILY SUBQ 12/30/19 09:00 03/19/20 08:59 Insulin Aspart (NovoLOG) BEFORE MEALS AND HS SUBQ 12/29/19 16:30 03/19/20 06:29 12/29/19 21:23 Lorazepam (Ativan) 1 mg Q6H PRN ORAL For Anxiety 12/29/19 12:30 01/01/20 06:29 12/29/19 12:36 Methylprednisolone Sodium Succinate (Solu-MEDROL) 40 mg EVERY 12 HOURS IVP 12/29/19 21:00 03/25/20 17:59 12/30/19 08:56 Metoprolol Tartrate (Lopressor) 50 mg EVERY 12 HOURS ORAL 12/29/19 21:00 03/22/20 09:54 12/30/19 08:56 Morphine Sulfate (Morphine Sulfate) 2 mg Q8H PRN IVP Severe Pain (Pain Scale 7-10) 12/29/19 12:00 01/01/20 11:59 12/29/19 12:37 Olanzapine (ZyPREXA) 2.5 mg DAILY ORAL 12/30/19 09:00 02/04/20 08:59 12/30/19 08:57 Olanzapine (ZyPREXA) 5 mg BEDTIME ORAL 12/29/19 21:00 02/04/20 20:59 12/29/19 21:12 Pantoprazole (Protonix) 40 mg EVERY 12 HOURS ORAL 12/29/19 21:00 01/22/20 09:54 12/30/19 08:57 Phosphorus (Phospha 250 Neutral) 500 mg THREE TIMES A DAY ORAL 12/29/19 13:00 01/26/20 12:59 12/30/19 08:56 Promethazine HCl (Phenergan Plain) 12.5 mg Q6H PRN ORAL For Cough 12/29/19 12:30 01/24/20 06:29 Zolpidem Tartrate (Ambien) 5 mg HSPRN PRN ORAL Insomnia 12/29/19 13:15 01/01/20 13:12 Assessment/Plan Assessment/Plan IMPRESSION: 1. Positive COVID-19. 2. COPD with exacerbation 3. Leukocytosis. 4. Hypoxemia. 5. Schizophrenia. 6. Hypertension. 7. Diabetes mellitus. 8. Respiratory failure 9. CHF. DISCUSSION: Continue broad-spectrum antibiotics. Continue oxygen and pulmonary hygiene. DVT prophylaxis. I will follow carefully. Transferred to ICU for SVT; now improved and off drips Transfer to tele Off Lasix On steroids for COPD; will taper No longer on BiPAP On nasal o2 Nava Benitez Omar Syed MD December 30, 2019 11:04
--- NOTE | 2019-12-30 11:30 | NUR ---
NURSE NOTES: Notified Dr. Barrow regarding SR w/ frequent PAC with lowest heart rate of 42. Tried to do EKG, but the patient refused. The patient is asymptomatic. The patient is sleeping. Will closely monitor the patient. Will continue plan of care.
--- NOTE | 2019-12-30 12:30 | NUR ---
NURSE NOTES: The patient is stable without acute distress or shortness of breath. Tolerating 4L NC well. Insulin administered per order. Will continue plan of care.
--- NOTE | 2019-12-30 13:30 | NUR ---
HAND-OFF: Report given to FLETCHER Cueva. The patient got safely transferred to [facility] with tele transfer order per Dr. Vincent. The patient is on stable condition. Endorsed plan of care.
--- NOTE | 2019-12-30 13:30 | NUR ---
NURSE NOTES: Received report from Tracie BYNUM. Pt transferred from ICU. Pt denied SOB on 4LPM via N/C. The patient's bed in the lowest position, call light in reach, and fall and aspiration precaution reinforced. The patient has R upper arm 20G and R hand 22G that is intact and patent and SL. Skin is intact. Will follow up the lab. Will continue plan of care.
[2019-12-30] MEDS ORDERED: LORazepam 1mg tab ORAL PRN (13:48)
[2019-12-30] MEDS ORDERED: Morphine Sulfate 2mg/ml Inj(IV/IM USE ONLY) IVP PRN (13:51)
[2019-12-30] MEDS ORDERED: Promethazine Plain 6.25mg/5ml ORAL PRN (14:00)
[2019-12-30] MEDS ORDERED: dilTIAZem Premix 125mg/125ml 125 ML IVPB SCH (15:00)
[2019-12-30] MEDS ORDERED: HYDROcodone/Acetamin 5/325 tab ORAL PRN (16:00)
--- NOTE | 2019-12-30 16:42 | Cardiac Electrophysiology PN ---
Assessment/Plan Assessment/Plan 1. Accelerated hypertension. Increase metoprolol to 100 mg bid and p.r.n. clonidine 2. History of CHF/ DD. Echo normal EF . 3. Recurrent SVT. Got .75 iv dig. Add Dig 0.125 daily and Lopressor 100 bid 4. Sepsis, on antibiotic per Dr. Daugherty. 5. Hyponatremia. 6. Hypercapnea and respiratory failure. VQ scan no PE. BIPAP changed to Venturi. FU Dr Vincent 7. Acute renal failure Cr up to 2. Off lasix down to 1.5 8. Psychiatric history. KARLY RN Subjective Subjective Alert in NAD in [facility] isolation. VQ scan was negative for PE. PCO2 up to high 70s on BIPAP that was changed to Venturi Mask Developed recurrent SVT that was unresponsive to Dig 0.5 iv or Cardizem 20 mg ivp. Transferred to ICU on Cardizem drip. Back to SDU DC Cardizem. BP 160s Objective Last 24 Hour Vital Signs Date Time Temp Pulse Resp B/P (MAP) Pulse Ox O2 Delivery O2 Flow Rate FiO2 12/30/19 15:21 85 12/30/19 14:00 98.1 91 23 160/88 (112) 98 12/30/19 13:29 92 18 100 Nasal Cannula 4.0 36 12/30/19 13:00 91 23 149/82 (104) 100 12/30/19 12:00 4.0 12/30/19 12:00 61 12/30/19 12:00 Nasal Cannula 4.0 12/30/19 12:00 98.0 72 12 144/64 (90) 100 12/30/19 11:00 62 23 157/92 (113) 100 12/30/19 10:00 64 11 137/71 (93) 100 12/30/19 09:00 93 20 151/84 (106) 96 12/30/19 08:56 66 121/64 12/30/19 08:00 53 12/30/19 08:00 Nasal Cannula 4.0 12/30/19 08:00 4.0 12/30/19 08:00 98.2 62 12 121/64 (83) 100 12/30/19 07:40 100 Nasal Cannula 4.0 36 12/30/19 07:00 72 11 159/72 (101) 12/30/19 07:00 72 11 159/72 (101) 100 12/30/19 06:00 65 14 126/62 (83) 100 12/30/19 05:00 71 15 133/65 (87) 97 12/30/19 04:00 65 12/30/19 04:00 Nasal Cannula 3.0 12/30/19 04:00 4.0 12/30/19 04:00 98.4 70 15 135/66 (89) 95 12/30/19 03:00 68 18 149/132 (138) 95 12/30/19 02:00 66 16 120/60 (80) 93 12/30/19 01:00 64 15 128/60 (82) 93 12/30/19 00:00 59 12/30/19 00:00 98.3 61 12 123/65 (84) 95 12/30/19 00:00 3.0 12/30/19 00:00 Nasal Cannula 3.0 12/29/19 23:00 61 13 118/58 (78) 99 12/29/19 22:00 60 13 121/61 (81) 99 12/29/19 21:00 59 15 118/57 (77) 99 12/29/19 21:00 60 94/80 12/29/19 20:00 8.0 40 12/29/19 20:00 98.4 68 19 94/80 (85) 98 12/29/19 20:00 65 12/29/19 20:00 Venturi Mask 8.0 12/29/19 19:00 62 12 126/49 (74) 100 12/29/19 18:00 62 12 122/56 (78) 100 12/29/19 17:00 68 18 126/54 (78) 98 Intake and Output 12/29/19 12/30/19 19:00 07:00 Intake Total 1280 ml 120 ml Output Total 400 ml 380 ml Balance 880 ml -260 ml Intake Oral 250 ml 120 ml IV Total 1030 ml Output Urine Total 400 ml 380 ml # Bowel Movements 3 1 Laboratory Tests Test 12/30/19 04:25 White Blood Count 10.9 K/UL (4.8-10.8) H Red Blood Count 3.96 M/UL (4.20-5.40) L Hemoglobin 11.8 G/DL (12.0-16.0) L Hematocrit 36.0 % (37.0-47.0) L Mean Corpuscular Volume 91 FL (80-99) Mean Corpuscular Hemoglobin 29.8 PG (27.0-31.0) Mean Corpuscular Hemoglobin Concent 32.8 G/DL (32.0-36.0) Red Cell Distribution Width 11.9 % (11.6-14.8) Platelet Count 348 K/UL (150-450) Mean Platelet Volume 5.3 FL (6.5-10.1) L Neutrophils (%) (Auto) % (45.0-75.0) Lymphocytes (%) (Auto) % (20.0-45.0) Monocytes (%) (Auto) % (1.0-10.0) Eosinophils (%) (Auto) % (0.0-3.0) Basophils (%) (Auto) % (0.0-2.0) Differential Total Cells Counted 100 Neutrophils % (Manual) 88 % (45-75) H Lymphocytes % (Manual) 11 % (20-45) L Monocytes % (Manual) 1 % (1-10) Eosinophils % (Manual) 0 % (0-3) Basophils % (Manual) 0 % (0-2) Band Neutrophils 0 % (0-8) Platelet Estimate Adequate Platelet Morphology Normal Anisocytosis 1+ Sodium Level 143 MMOL/L (136-145) Potassium Level 4.4 MMOL/L (3.5-5.1) Chloride Level 100 MMOL/L (98-107) Carbon Dioxide Level 38 MMOL/L (21-32) H Anion Gap 5 mmol/L (5-15) Blood Urea Nitrogen 33 mg/dL (7-18) H Creatinine 1.4 MG/DL (0.55-1.30) H Estimat Glomerular Filtration Rate 43.9 mL/min (>60) Glucose Level 331 MG/DL (74-106) #H Calcium Level 8.4 MG/DL (8.5-10.1) L Phosphorus Level 5.2 MG/DL (2.5-4.9) H Magnesium Level 1.9 MG/DL (1.8-2.4) Total Bilirubin 0.6 MG/DL (0.2-1.0) Aspartate Amino Transf (AST/SGOT) 34 U/L (15-37) Alanine Aminotransferase (ALT/SGPT) 30 U/L (12-78) Alkaline Phosphatase 66 U/L (46-116) C-Reactive Protein, Quantitative 3.1 mg/dL (0.00-0.90) H Pro-B-Type Natriuretic Peptide 5459 pg/mL (0-125) H Total Protein 6.3 G/DL (6.4-8.2) L Albumin 2.3 G/DL (3.4-5.0) L Globulin 4.0 g/dL Albumin/Globulin Ratio 0.6 (1.0-2.7) L Objective HEAD AND NECK: No JVD. LUNGS: Coarse rhonchi CARDIOVASCULAR: IrrRegular tachy S1 and S2 with no gallop. ABDOMEN: Soft. EXTREMITIES: No edema. Eusebio Barrow MD December 30, 2019 16:42
[2019-12-30] MEDS ORDERED: Docusate 100mg cap ORAL SCH (18:00)
[2019-12-30] MEDS ORDERED: Phospha 250 Neutral tab ORAL SCH (18:00)
--- NOTE | 2019-12-30 19:00 | NUR ---
NURSE NOTES: Noted sating 100% on 4LPM via N/C. O2 decreased to 3LPM via N/C and sating 98%
--- NOTE | 2019-12-30 19:15 | NUR ---
HAND-OFF: Report given to FLETCHER Castillo. Pt remains stable.
--- NOTE | 2019-12-30 19:16 | NUR ---
NURSE NOTES: Received patient from Hammad Marti RN. Patient is in bed, aaox 2 with no acute distress, on control clerk head, room air, and vss. Patient is calm, clean with Kohler intact and darning. No skin issues. Right upper arm 22g and right hand 22g intact with no signs of infection. Bed at its lowest position, call light in reach and x3 bed rails are up. Will continue to monitor.
[2019-12-30] MEDS ORDERED: Metoprolol Tartrate 50mg tab ORAL SCH (21:00)
[2019-12-30] MEDS: Zolpidem 5mg tab ORAL PRN ×2 (22:07→22:26)
[2019-12-30] MEDS: Metoprolol Tartrate 100mg tab ORAL SCH ×2 (22:08→22:26)
--- NOTE | 2019-12-30 22:38 | General Progress Note ---
Assessment/Plan Status: stable Assessment/Plan: S, O: poor historian, seems in mild sob. Declined cognition and poor historian . on O2 Mask PHYSICAL EXAMINATION:HEAD AND NECK: Atraumatic and normocephalic. CHEST: Bronchial breathing sounds.HEART: S1 and S2. Regular rate and rhythm. ABDOMEN: Soft. No organomegaly.MUSCULOSKELETAL: No gross focal motor deficit. NEUROLOGY: Patient is awake, alert x1. Easily distracted. LABORATORY DATA: Dated 12/29 reviewed Echo: Dated reviewed ASSESSMENT: 1. Sepsis 2. SVT with hypotension 3. metabolic encephalopathy 2. UTI - Gram negative 3. COVD 19- Pneumonia. 3. Renal failure, age indeterminate. 4. Diabetes type 2. 5. Hypertension. 6. Hyperlipidemia. 7. Coronary artery disease/peripheral arterial disease. Continue with antiplatelet. 8. GI and DVT prophylaxis. 9. Anemia: likely chronic disease 10. Refusal of treatment PLAN OF CARE: Notes from Infectious Disease, Nephrology, Pulmonary have been reviewed. Non tolerating BIPAP, seems agitated at times D/w grand daughter, on December 26 around 5 PM No capacity for making medical decisions at times, d/w RN to use soft restraint if needed for patient safety Re-Establish IV medication Transfer to ICU, notes from cardiology reviewed Off antibiotic , notes from ID reviewed Subjective Allergies: Coded Allergies: ASPIRIN (Verified Allergy, Unknown, 12/19/19) PENICILLINS (Verified Allergy, Unknown, 12/19/19) Objective Last 24 Hour Vital Signs Date Time Temp Pulse Resp B/P (MAP) Pulse Ox O2 Delivery O2 Flow Rate FiO2 12/30/19 22:26 102 164/81 12/30/19 20:00 98.8 102 20 164/81 (108) 94 12/30/19 19:21 100 12/30/19 16:00 4.0 12/30/19 16:00 98.4 80 23 169/96 (120) 98 12/30/19 15:21 85 12/30/19 14:00 98.1 91 23 160/88 (112) 98 12/30/19 13:29 92 18 100 Nasal Cannula 4.0 36 12/30/19 13:00 91 23 149/82 (104) 100 12/30/19 12:00 4.0 12/30/19 12:00 61 12/30/19 12:00 Nasal Cannula 4.0 12/30/19 12:00 98.0 72 12 144/64 (90) 100 12/30/19 11:00 62 23 157/92 (113) 100 12/30/19 10:00 64 11 137/71 (93) 100 12/30/19 09:00 93 20 151/84 (106) 96 12/30/19 08:56 66 121/64 12/30/19 08:00 53 12/30/19 08:00 Nasal Cannula 4.0 12/30/19 08:00 4.0 12/30/19 08:00 98.2 62 12 121/64 (83) 100 12/30/19 07:40 100 Nasal Cannula 4.0 36 12/30/19 07:00 72 11 159/72 (101) 12/30/19 07:00 72 11 159/72 (101) 100 12/30/19 06:00 65 14 126/62 (83) 100 12/30/19 05:00 71 15 133/65 (87) 97 12/30/19 04:00 65 12/30/19 04:00 Nasal Cannula 3.0 12/30/19 04:00 4.0 12/30/19 04:00 98.4 70 15 135/66 (89) 95 12/30/19 03:00 68 18 149/132 (138) 95 12/30/19 02:00 66 16 120/60 (80) 93 12/30/19 01:00 64 15 128/60 (82) 93 12/30/19 00:00 59 12/30/19 00:00 98.3 61 12 123/65 (84) 95 12/30/19 00:00 3.0 12/30/19 00:00 Nasal Cannula 3.0 12/29/19 23:00 61 13 118/58 (78) 99 Intake and Output 12/29/19 12/30/19 19:00 07:00 Intake Total 1280 ml 120 ml Output Total 400 ml 380 ml Balance 880 ml -260 ml Intake Oral 250 ml 120 ml IV Total 1030 ml Output Urine Total 400 ml 380 ml # Bowel Movements 3 1 Laboratory Tests 12/30/19 04:25: White Blood Count 10.9H, Red Blood Count 3.96L, Hemoglobin 11.8L, Hematocrit 36.0L, Mean Corpuscular Volume 91, Mean Corpuscular Hemoglobin 29.8, Mean Corpuscular Hemoglobin Concent 32.8, Red Cell Distribution Width 11.9, Platelet Count 348, Mean Platelet Volume 5.3L, Neutrophils (%) (Auto) , Lymphocytes (%) ( Auto) , Monocytes (%) (Auto) , Eosinophils (%) (Auto) , Basophils (%) (Auto) , Differential Total Cells Counted 100, Neutrophils % (Manual) 88H, Lymphocytes % (Manual) 11L, Monocytes % (Manual) 1, Eosinophils % (Manual) 0, Basophils % ( Manual) 0, Band Neutrophils 0, Platelet Estimate Adequate, Platelet Morphology Normal, Anisocytosis 1+, Sodium Level 143, Potassium Level 4.4, Chloride Level 100, Carbon Dioxide Level 38H, Anion Gap 5, Blood Urea Nitrogen 33H, Creatinine 1.4H, Estimat Glomerular Filtration Rate 43.9, Glucose Level 331#H, Calcium Level 8.4L, Phosphorus Level 5.2H, Magnesium Level 1.9, Total Bilirubin 0.6, Aspartate Amino Transf (AST/SGOT) 34, Alanine Aminotransferase (ALT/SGPT) 30, Alkaline Phosphatase 66, C-Reactive Protein, Quantitative 3.1H, Pro-B-Type Natriuretic Peptide 5459H, Total Protein 6.3L, Albumin 2.3L, Globulin 4.0, Albumin/Globulin Ratio 0.6L Height (Feet): 5 Height (Inches): 6.00 Weight (Pounds): 158 Jennifer Alberto MD December 30, 2019 22:38
--- NOTE | 2019-12-30 23:59 | NUR ---
NURSE NOTES: Patient is resting well with no complaints. Patient refuses vitals. Patient shows no sign of distress, saturation of 98% and states that "she is very sleepy." Will continue to monitor.
[2019-12-31 04:00] VITALS: BP 128/72
[2019-12-31] MEDS: NovoLOG Insulin Flexpen SUBQ SCH ×4 (06:33→21:00)
[2019-12-31] MEDS ORDERED: LORazepam 1mg tab ORAL PRN (08:00)
[2019-12-31] MEDS ORDERED: Promethazine Plain 6.25mg/5ml ORAL PRN (08:00)
[2019-12-31] MEDS ORDERED: HYDROcodone/Acetamin 5/325 tab ORAL PRN (08:00)
[2019-12-31] MEDS ORDERED: Morphine Sulfate 2mg/ml Inj(IV/IM USE ONLY) IVP PRN (08:00)
[2019-12-31] MEDS: Digoxin 0.125mg tab ORAL SCH (09:00)
[2019-12-31] MEDS ORDERED: Enoxaparin 40mg Inj SUBQ SCH (09:00)
[2019-12-31] MEDS ORDERED: OLANZapine 2.5mg tab ORAL SCH (09:00)
[2019-12-31] MEDS: OLANZapine 2.5mg tab ORAL SCH (09:00)
[2019-12-31] MEDS ORDERED: Metoprolol Tartrate 100mg tab ORAL SCH ×2 (09:00)
[2019-12-31] MEDS: Docusate 100mg cap ORAL SCH ×3 (09:00→17:15)
[2019-12-31] MEDS: Enoxaparin 40mg Inj SUBQ SCH (09:00)
[2019-12-31] MEDS ORDERED: Phospha 250 Neutral tab ORAL SCH (09:00)
[2019-12-31] MEDS ORDERED: Digoxin 0.125mg tab ORAL SCH (09:00)
--- NOTE | 2019-12-31 10:23 | Pulmonology Progress Note ---
Subjective ROS Limited/Unobtainable: No Interval Events: Now in tele Constitutional: Reports: other - decreased appetite; Denies: fever HEENT: Repors: no symptoms Respiratory: Reports: dry cough Cardiovascular: Reports: no symptoms Gastrointestinal/Abdominal: Denies: diarrhea Allergies: Coded Allergies: ASPIRIN (Verified Allergy, Unknown, 12/19/19) PENICILLINS (Verified Allergy, Unknown, 12/19/19) Objective Last 24 Hour Vital Signs Date Time Temp Pulse Resp B/P (MAP) Pulse Ox O2 Delivery O2 Flow Rate FiO2 12/31/19 09:00 72 128/72 12/31/19 09:00 72 12/31/19 08:30 100 Nasal Cannula 4.0 36 12/31/19 04:00 61 12/31/19 04:00 3.0 12/31/19 04:00 97.8 59 18 128/72 (90) 97 12/31/19 00:00 80 12/30/19 22:26 102 164/81 12/30/19 20:00 3.0 12/30/19 20:00 98.8 102 20 164/81 (108) 94 12/30/19 19:21 100 12/30/19 16:00 4.0 12/30/19 16:00 98.4 80 23 169/96 (120) 98 12/30/19 15:21 85 12/30/19 14:00 98.1 91 23 160/88 (112) 98 12/30/19 13:29 92 18 100 Nasal Cannula 4.0 36 12/30/19 13:00 91 23 149/82 (104) 100 12/30/19 12:00 4.0 12/30/19 12:00 61 12/30/19 12:00 Nasal Cannula 4.0 12/30/19 12:00 98.0 72 12 144/64 (90) 100 12/30/19 11:00 62 23 157/92 (113) 100 Intake and Output 12/30/19 12/31/19 18:59 06:59 Intake Total 450 ml Output Total 860 ml 575 ml Balance -410 ml -575 ml Intake Oral 450 ml Output Urine Total 860 ml 575 ml # Bowel Movements 1 HEENT: normocephalic Respiratory: chest wall non-tender, decreased breath sounds Cardiovascular: normal peripheral pulses Abdomen: normal bowel sounds Laboratory Tests 12/31/19 04:20: Digoxin Level 0.8L Current Medications Medications (Trade) Dose Ordered Sig/Daiana Route PRN Reason Start Time Stop Time Status Last Admin Dose Admin Acetaminophen (Tylenol) 650 mg Q6H PRN ORAL MILD PAIN (1-3)/T>100.5 12/31/19 08:00 01/24/20 07:59 Acetaminophen/ Hydrocodone Bitart ([place] 5/325) 1 tab Q4H PRN ORAL Moderate Pain (Pain Scale 4-6) 12/31/19 08:00 01/01/20 11:59 Clopidogrel Bisulfate (Plavix) 75 mg DAILY ORAL 12/31/19 09:00 01/19/20 08:59 12/31/19 09:00 Dextrose (Dextrose 50%) 25 ml Q30M PRN IV Hypoglycemia 12/31/19 07:45 03/24/20 13:10 Dextrose (Dextrose 50%) 50 ml Q30M PRN IV Hypoglycemia 12/31/19 08:00 03/18/20 23:29 Digoxin (Lanoxin) 0.125 mg DAILY ORAL 12/31/19 09:00 03/30/20 08:59 12/31/19 09:00 Docusate Sodium (Colace) 100 mg THREE TIMES A DAY ORAL 12/31/19 09:00 01/24/20 13:12 12/31/19 09:00 Enoxaparin Sodium (Lovenox) 40 mg DAILY SUBQ 12/31/19 09:00 03/19/20 08:59 12/31/19 09:00 Insulin Aspart (NovoLOG) BEFORE MEALS AND HS SUBQ 12/31/19 11:30 03/19/20 06:29 Lorazepam (Ativan) 1 mg Q6H PRN ORAL For Anxiety 12/31/19 08:00 01/01/20 13:47 Metoprolol Tartrate (Lopressor) 100 mg EVERY 12 HOURS ORAL 12/31/19 09:00 03/30/20 08:59 12/31/19 09:00 Morphine Sulfate (Morphine Sulfate) 2 mg Q8H PRN IVP Severe Pain (Pain Scale 7-10) 12/31/19 08:00 01/01/20 07:59 Olanzapine (ZyPREXA) 2.5 mg DAILY ORAL 12/31/19 09:00 02/04/20 08:59 12/31/19 09:00 Olanzapine (ZyPREXA) 5 mg BEDTIME ORAL 12/31/19 21:00 02/04/20 20:59 Pantoprazole (Protonix) 40 mg EVERY 12 HOURS ORAL 12/31/19 09:00 01/30/20 08:59 12/31/19 09:00 Phosphorus (Phospha 250 Neutral) 500 mg THREE TIMES A DAY ORAL 12/31/19 09:00 01/26/20 12:59 Future Hold Promethazine HCl (Phenergan Plain) 12.5 mg Q6H PRN ORAL For Cough 12/31/19 08:00 01/24/20 13:59 Zolpidem Tartrate (Ambien) 5 mg HSPRN PRN ORAL Insomnia 12/31/19 21:00 01/06/20 20:59 Assessment/Plan Assessment/Plan IMPRESSION: 1. Positive COVID-19. 2. COPD with exacerbation 3. Leukocytosis. 4. Hypoxemia. 5. Schizophrenia. 6. Hypertension. 7. Diabetes mellitus. 8. Respiratory failure 9. CHF. DISCUSSION: Continue broad-spectrum antibiotics. Continue oxygen and pulmonary hygiene. DVT prophylaxis. I will follow carefully. Now back in the [facility] Off Lasix On steroids for COPD; will continue taper No longer on BiPAP On nasal o2 4L/min; SaO2 100% Nava Benitez Omar Syed MD December 31, 2019 10:23
--- NOTE | 2019-12-31 10:58 | Nephrology Progress Note ---
Assessment/Plan Problem List: (1) MATTHEW (acute kidney injury) Assessment: Serum creatinine livia to 2 (2) Hyponatremia Assessment: Likely depletional (3) Diabetes mellitus Assessment: With elevated hemoglobin A1c (4) UTI (urinary tract infection) (5) COVID-19 Assessment Patient presents with hyponatremia, urine spot sodium below 20. Hyponatremia most likely depletional Azotemia / dehydration Sepsis, positive COVID-19 test, UTI Diabetes mellitus [id number] with high hemoglobin A1c History of psych disease Plan Patient is now back to telemetry unit Is awake responsive not in any distress No labs drawn today. Will check renal parameters and blood chemistries tomorrow Continue per current consultants December 29: Patient seen in ICU. Blood pressure stable. Not in any respiratory distress. Labs reviewed stable from renal standpoint of view. Okay to transfer to monitored bed in my opinion. Continue per consultants. December 28: Patient's condition deteriorated with low blood pressure and difficulty breathing Now on Venturi mask being transferred to ICU Renal parameters overall stable Continue per pulmonary We will follow-up on renal parameters On steroids and Cardizem drip December 27: Respiratory status improved Remains noncompliant with taking medication and blood draw December 26: Patient does not have an IV line Refuses p.o. medication and at times lab draw Today ABG not done as patient refused Serum creatinine down to 1.5 Will give oral phosphate supplement Continue per pulmonary December 25: ABG indicative of hypoxia, patient on BiPAP Serum creatinine down to 1.6 today Will replace potassium and phosphorus Continue per academic advisement director and supervisor dairy sanitation advice Previously: Will order a Kohler catheter and give 1 L of IV bolus Patient ejection fraction is normal on 2D echo Serum sodium now normalized Monitor electrolytes and renal parameters Antibiotics per ID Monitor electrolytes and renal parameters Per orders Per consultants Subjective ROS Limited/Unobtainable: No Constitutional: Reports: malaise, weakness Objective Objective Last 24 Hour Vital Signs Date Time Temp Pulse Resp B/P (MAP) Pulse Ox O2 Delivery O2 Flow Rate FiO2 12/31/19 09:00 72 128/72 12/31/19 09:00 72 12/31/19 08:30 100 Nasal Cannula 4.0 36 12/31/19 04:00 61 12/31/19 04:00 3.0 12/31/19 04:00 97.8 59 18 128/72 (90) 97 12/31/19 00:00 80 12/30/19 22:26 102 164/81 12/30/19 20:00 3.0 12/30/19 20:00 98.8 102 20 164/81 (108) 94 12/30/19 19:21 100 12/30/19 16:00 4.0 12/30/19 16:00 98.4 80 23 169/96 (120) 98 12/30/19 15:21 85 12/30/19 14:00 98.1 91 23 160/88 (112) 98 12/30/19 13:29 92 18 100 Nasal Cannula 4.0 36 12/30/19 13:00 91 23 149/82 (104) 100 12/30/19 12:00 4.0 12/30/19 12:00 61 12/30/19 12:00 Nasal Cannula 4.0 12/30/19 12:00 98.0 72 12 144/64 (90) 100 12/30/19 11:00 62 23 157/92 (113) 100 Intake and Output 12/30/19 12/31/19 19:00 07:00 Intake Total 450 ml Output Total 830 ml 575 ml Balance -380 ml -575 ml Intake Oral 450 ml Output Urine Total 830 ml 575 ml # Bowel Movements 1 Laboratory Tests 12/31/19 04:20: Digoxin Level 0.8L Height (Feet): 5 Height (Inches): 6.00 Weight (Pounds): 158 General Appearance: no apparent distress, confused Cardiovascular: normal rate Respiratory/Chest: decreased breath sounds Abdomen: soft Objective No change Rolo Roldan MD December 31, 2019 10:58
[2019-12-31 12:15] VITALS: BP 127/78
--- NOTE | 2019-12-31 13:11 | Infectious Diseases Prog Note ---
Assessment/Plan Assessment/Plan A; COVID19 pneumonia UTI treated COPD DM Chronic kidney disease Hypercapnic respiratory failure SVT P: Observe off antibiotic Will f/u repeated COVID19 test Subjective ROS Limited/Unobtainable: Yes Allergies: Coded Allergies: ASPIRIN (Verified Allergy, Unknown, 12/19/19) PENICILLINS (Verified Allergy, Unknown, 12/19/19) Objective Vital Signs Last 24 Hour Vital Signs Date Time Temp Pulse Resp B/P (MAP) Pulse Ox O2 Delivery O2 Flow Rate FiO2 12/31/19 12:15 98.6 74 20 127/78 (94) 97 12/31/19 09:00 72 128/72 12/31/19 09:00 72 12/31/19 08:30 100 Nasal Cannula 4.0 36 12/31/19 08:00 60 12/31/19 04:00 61 12/31/19 04:00 3.0 12/31/19 04:00 97.8 59 18 128/72 (90) 97 12/31/19 00:00 80 12/30/19 22:26 102 164/81 12/30/19 20:00 3.0 12/30/19 20:00 98.8 102 20 164/81 (108) 94 12/30/19 19:21 100 12/30/19 16:00 4.0 12/30/19 16:00 98.4 80 23 169/96 (120) 98 12/30/19 15:21 85 12/30/19 14:00 98.1 91 23 160/88 (112) 98 12/30/19 13:29 92 18 100 Nasal Cannula 4.0 36 Height (Feet): 5 Height (Inches): 6.00 Weight (Pounds): 158 General Appearance: no acute distress Respiratory/Chest: no respiratory distress Cardiovascular: normal rate Abdomen: soft, non tender Extremities: no edema Neurologic/Psychiatric: other - sleeping Laboratory Tests Test 12/31/19 04:20 Digoxin Level 0.8 NG/ML (0.9-2.0) L Current Medications Medications (Trade) Dose Ordered Sig/Daiana Route PRN Reason Start Time Stop Time Status Last Admin Dose Admin Acetaminophen (Tylenol) 650 mg Q6H PRN ORAL MILD PAIN (1-3)/T>100.5 12/31/19 08:00 01/24/20 07:59 Acetaminophen/ Hydrocodone Bitart ([place] 5/325) 1 tab Q4H PRN ORAL Moderate Pain (Pain Scale 4-6) 12/31/19 08:00 01/01/20 11:59 Clopidogrel Bisulfate (Plavix) 75 mg DAILY ORAL 12/31/19 09:00 01/19/20 08:59 12/31/19 09:00 Dextrose (Dextrose 50%) 25 ml Q30M PRN IV Hypoglycemia 12/31/19 07:45 03/24/20 13:10 Dextrose (Dextrose 50%) 50 ml Q30M PRN IV Hypoglycemia 12/31/19 08:00 03/18/20 23:29 Digoxin (Lanoxin) 0.125 mg DAILY ORAL 12/31/19 09:00 03/30/20 08:59 12/31/19 09:00 Docusate Sodium (Colace) 100 mg THREE TIMES A DAY ORAL 12/31/19 09:00 01/24/20 13:12 12/31/19 09:00 Enoxaparin Sodium (Lovenox) 40 mg DAILY SUBQ 12/31/19 09:00 03/19/20 08:59 12/31/19 09:00 Insulin Aspart (NovoLOG) BEFORE MEALS AND HS SUBQ 12/31/19 11:30 03/19/20 06:29 Lorazepam (Ativan) 1 mg Q6H PRN ORAL For Anxiety 12/31/19 08:00 01/01/20 13:47 Metoprolol Tartrate (Lopressor) 100 mg EVERY 12 HOURS ORAL 12/31/19 09:00 03/30/20 08:59 12/31/19 09:00 Morphine Sulfate (Morphine Sulfate) 2 mg Q8H PRN IVP Severe Pain (Pain Scale 7-10) 12/31/19 08:00 01/01/20 07:59 Olanzapine (ZyPREXA) 2.5 mg DAILY ORAL 12/31/19 09:00 02/04/20 08:59 12/31/19 09:00 Olanzapine (ZyPREXA) 5 mg BEDTIME ORAL 12/31/19 21:00 02/04/20 20:59 Pantoprazole (Protonix) 40 mg EVERY 12 HOURS ORAL 12/31/19 09:00 01/30/20 08:59 12/31/19 09:00 Phosphorus (Phospha 250 Neutral) 500 mg THREE TIMES A DAY ORAL 12/31/19 09:00 01/26/20 12:59 Future Hold Promethazine HCl (Phenergan Plain) 12.5 mg Q6H PRN ORAL For Cough 12/31/19 08:00 01/24/20 13:59 Zolpidem Tartrate (Ambien) 5 mg HSPRN PRN ORAL Insomnia 12/31/19 21:00 01/06/20 20:59 Jim Fisher MD December 31, 2019 13:11
--- NOTE | 2019-12-31 13:30 | Cardiac Electrophysiology PN ---
Assessment/Plan Assessment/Plan 1. Accelerated hypertension. On metoprolol 100 mg bid and p.r.n. clonidine 2. History of CHF/ DD. Echo normal EF . 3. Recurrent SVT and atrial fib. On Dig 0.125 daily and Lopressor 100 bid Increase Lopressor to 100 tid 4. Sepsis, on antibiotic per Dr. Daugherty. 5. Hyponatremia. 6. Hypercapnea and respiratory failure. VQ scan no PE. BIPAP changed to Venturi. FU Dr Vincent 7. Acute renal failure Cr up to 2. Off lasix down to 1.5 8. Psychiatric history. DW RN Subjective Subjective Alert in NAD in [facility]. VQ scan was negative for PE. Developed recurrent SVT that was unresponsive to Dig 0.5 iv or Cardizem 20 mg ivp. Had atrial fib with RVR 140s that self terminated Objective Last 24 Hour Vital Signs Date Time Temp Pulse Resp B/P (MAP) Pulse Ox O2 Delivery O2 Flow Rate FiO2 12/31/19 12:15 98.6 74 20 127/78 (94) 97 12/31/19 09:00 72 128/72 12/31/19 09:00 72 12/31/19 08:30 100 Nasal Cannula 4.0 36 12/31/19 08:00 60 12/31/19 04:00 61 12/31/19 04:00 3.0 12/31/19 04:00 97.8 59 18 128/72 (90) 97 12/31/19 00:00 80 12/30/19 22:26 102 164/81 12/30/19 20:00 3.0 12/30/19 20:00 98.8 102 20 164/81 (108) 94 12/30/19 19:21 100 12/30/19 16:00 4.0 12/30/19 16:00 98.4 80 23 169/96 (120) 98 12/30/19 15:21 85 12/30/19 14:00 98.1 91 23 160/88 (112) 98 12/30/19 13:29 92 18 100 Nasal Cannula 4.0 36 Intake and Output 12/30/19 12/31/19 19:00 07:00 Intake Total 450 ml Output Total 830 ml 575 ml Balance -380 ml -575 ml Intake Oral 450 ml Output Urine Total 830 ml 575 ml # Bowel Movements 1 Laboratory Tests Test 12/31/19 04:20 Digoxin Level 0.8 NG/ML (0.9-2.0) L Objective HEAD AND NECK: No JVD. LUNGS: Coarse rhonchi CARDIOVASCULAR: IrrRegular tachy S1 and S2 with no gallop. ABDOMEN: Soft. EXTREMITIES: No edema. Eusebio Barrow MD December 31, 2019 13:30
[2019-12-31] MEDS: Metoprolol Tartrate 100mg tab ORAL SCH ×2 (13:45→21:22)
[2019-12-31 16:00] VITALS: BP 128/68
--- NOTE | 2019-12-31 19:34 | NUR ---
NURSE NOTES: Received report from FLETCHER Wells. Patient is awake, alert and oriented x 2. Patient is on consistent carb (medium), [id number] soft. Patient has Kohler catheter f-16, draining yellow-orange urine. IV site on right forearm G-22 saline lock, and left hand g-20 saline lock that is patent and intact. Patient has oxygen @ 3Lpm via nasal cannula @ 3Lpm saturating 95% and no SOB noted at this time. desk monitor is on shows sinus rhythm with no chest pain reported. Safety measures are in placed, bed in lowest and locked position, Bed alarm is on, side rails up x 3. Call light and bedside table within reach. Will continue plan of care.
[2019-12-31 20:00] VITALS: BP 130/99
[2019-12-31] MEDS: Zolpidem 5mg tab ORAL PRN (21:22)
--- NOTE | 2019-12-31 22:01 | General Progress Note ---
Assessment/Plan Status: stable Assessment/Plan: S, O: poor historian, seems in mild sob. Declined cognition and poor historian . on O2 Mask PHYSICAL EXAMINATION:HEAD AND NECK: Atraumatic and normocephalic. CHEST: Bronchial breathing sounds.HEART: S1 and S2. Regular rate and rhythm. ABDOMEN: Soft. No organomegaly.MUSCULOSKELETAL: No gross focal motor deficit. NEUROLOGY: Patient is awake, alert x1. Easily distracted. LABORATORY DATA: Dated 12/30 reviewed Echo: Dated reviewed ASSESSMENT: 1. Sepsis 2. SVT with hypotension 3. metabolic encephalopathy 2. UTI - Gram negative 3. COVD 19- Pneumonia. 3. Renal failure, age indeterminate. 4. Diabetes type 2. 5. Hypertension. 6. Hyperlipidemia. 7. Coronary artery disease/peripheral arterial disease. Continue with antiplatelet. 8. GI and DVT prophylaxis. 9. Anemia: likely chronic disease 10. Refusal of treatment PLAN OF CARE: Notes from Infectious Disease, Nephrology, Pulmonary have been reviewed. Non tolerating BIPAP, seems agitated at times D/w grand daughter, on December 26 around 5 PM No capacity for making medical decisions at times, d/w RN to use soft restraint if needed for patient safety Transfer to Tele floor, notes from cardiology reviewed Off antibiotic , D/w ID Subjective Allergies: Coded Allergies: ASPIRIN (Verified Allergy, Unknown, 12/19/19) PENICILLINS (Verified Allergy, Unknown, 12/19/19) Objective Last 24 Hour Vital Signs Date Time Temp Pulse Resp B/P (MAP) Pulse Ox O2 Delivery O2 Flow Rate FiO2 12/31/19 21:22 68 132/61 12/31/19 20:56 98 Nasal Cannula 4.0 36 12/31/19 16:00 97.8 59 18 128/68 (88) 98 12/31/19 16:00 71 12/31/19 13:45 74 127/78 12/31/19 12:15 98.6 74 20 127/78 (94) 97 12/31/19 12:00 82 12/31/19 09:00 72 128/72 12/31/19 09:00 72 12/31/19 08:30 100 Nasal Cannula 4.0 36 12/31/19 08:00 60 12/31/19 04:00 61 12/31/19 04:00 3.0 12/31/19 04:00 97.8 59 18 128/72 (90) 97 12/31/19 00:00 80 12/30/19 22:26 102 164/81 Intake and Output 12/30/19 12/31/19 19:00 07:00 Intake Total 450 ml Output Total 830 ml 575 ml Balance -380 ml -575 ml Intake Oral 450 ml Output Urine Total 830 ml 575 ml # Bowel Movements 1 Laboratory Tests 12/31/19 04:20: Digoxin Level 0.8L Height (Feet): 5 Height (Inches): 6.00 Weight (Pounds): 158 Jennifer Alberto MD December 31, 2019 22:01
[2020-01-01] VITALS: BP 132/91
[2020-01-01 04:00] VITALS: BP 127/88
[2020-01-01] MEDS: Metoprolol Tartrate 100mg tab ORAL SCH ×3 (06:04→21:47)
[2020-01-01] MEDS: NovoLOG Insulin Flexpen SUBQ SCH ×4 (06:15→20:44)
[2020-01-01 06:46] LABS: BASOPHILS % (AUTO) 0.8 % (0.0-2.0); EOSINOPHILS % (AUTO) 0.7 % (0.0-3.0); HEMATOCRIT 38.3 % (37.0-47.0); HEMOGLOBIN 12.8 G/DL (12.0-16.0); LYMPHOCYTES % (AUTO) 14.6 % (20.0-45.0); MEAN CORPUSCULAR VOLUME 90 FL (80-99); MONOCYTES % (AUTO) 6.4 % (1.0-10.0); NEUTROPHILS % (AUTO) 77.5 % (45.0-75.0); PLATELET COUNT 385 K/UL (150-450); RED BLOOD COUNT 4.28 M/UL (4.20-5.40); RED CELL DISTRIBUTION WIDTH 11.7 % (11.6-14.8); WHITE BLOOD COUNT 9.2 K/UL (4.8-10.8)
[2020-01-01 07:27] LABS: ALANINE AMINOTRANSFERASE 20 U/L (12-78); ALBUMIN 2.3 G/DL (3.4-5.0); ALBUMIN/GLOBULIN RATIO 0.6 (1.0-2.7); ALKALINE PHOSPHATASE 66 U/L (46-116); ANION GAP 4 mmol/L (5-15); ASPARTATE AMINO TRANSFERASE 22 U/L (15-37); BILIRUBIN,TOTAL 0.5 MG/DL (0.2-1.0); BLOOD UREA NITROGEN 21 mg/dL (7-18); CALCIUM 8.6 MG/DL (8.5-10.1); CARBON DIOXIDE 37 MMOL/L (21-32); CHLORIDE 97 MMOL/L (98-107); CREATININE 1.3 MG/DL (0.55-1.30); PHOSPHORUS 2.8 MG/DL (2.5-4.9); POTASSIUM 3.8 MMOL/L (3.5-5.1); SODIUM 138 MMOL/L (136-145)
--- NOTE | 2020-01-01 07:38 | NUR ---
HAND-OFF: Report given to Tess/Ashley BYNUM. Patient is asleep, on stable condition. No complaints made at this time. Plan of care endorsed.
[2020-01-01 08:00] VITALS: BP 129/70
--- NOTE | 2020-01-01 08:35 | NUR ---
NURSE NOTES: Received report from FLETCHER Burt. Pt asleep comfortably in semi trevizo position in bed.No signs of acute respiratory and cardiac distress. F/C draining by gravity. SL on right upper arm and right hand both 22G, patent and intact. Bed in low position, side rails up x3 and call light within reach. Will continue with plan of care.
[2020-01-01] MEDS: Digoxin 0.125mg tab ORAL SCH (09:00)
[2020-01-01] MEDS: Enoxaparin 40mg Inj SUBQ SCH (09:54)
[2020-01-01] MEDS: OLANZapine 2.5mg tab ORAL SCH (09:56)
[2020-01-01] MEDS: Docusate 100mg cap ORAL SCH ×3 (09:56→18:00)
--- NOTE | 2020-01-01 10:27 | Infectious Diseases Prog Note ---
Assessment/Plan Assessment/Plan A; COVID19 pneumonia UTI treated COPD DM Chronic kidney disease Hypercapnic respiratory failure SVT P: Observe off antibiotic Case was D/W primary MD yesterday Subjective ROS Limited/Unobtainable: Yes Constitutional: Denies: fever Respiratory: Reports: no symptoms Cardiovascular: Reports: no symptoms Gastrointestinal/Abdominal: Reports: no symptoms Allergies: Coded Allergies: ASPIRIN (Verified Allergy, Unknown, 12/19/19) PENICILLINS (Verified Allergy, Unknown, 12/19/19) Objective Vital Signs Last 24 Hour Vital Signs Date Time Temp Pulse Resp B/P (MAP) Pulse Ox O2 Delivery O2 Flow Rate FiO2 01/01/20 09:00 58 01/01/20 06:04 72 137/88 01/01/20 04:00 67 01/01/20 04:00 98.5 68 19 127/88 (101) 96 01/01/20 00:00 64 01/01/20 00:00 98.3 61 17 132/91 (105) 97 12/31/19 21:22 68 132/61 12/31/19 20:56 98 Nasal Cannula 4.0 36 12/31/19 20:00 98.0 66 18 130/99 (109) 97 12/31/19 20:00 71 12/31/19 16:00 97.8 59 18 128/68 (88) 98 12/31/19 16:00 71 12/31/19 13:45 74 127/78 12/31/19 12:15 98.6 74 20 127/78 (94) 97 12/31/19 12:00 82 Height (Feet): 5 Height (Inches): 6.00 Weight (Pounds): 158 General Appearance: no acute distress HEENT: mucous membranes moist Respiratory/Chest: no respiratory distress, other - Oxygen by nasal cannula Cardiovascular: normal rate Abdomen: soft, non tender Extremities: no edema Neurologic/Psychiatric: alert, responsive Laboratory Tests Test 01/01/20 05:20 White Blood Count 9.2 K/UL (4.8-10.8) Red Blood Count 4.28 M/UL (4.20-5.40) Hemoglobin 12.8 G/DL (12.0-16.0) Hematocrit 38.3 % (37.0-47.0) Mean Corpuscular Volume 90 FL (80-99) Mean Corpuscular Hemoglobin 29.8 PG (27.0-31.0) Mean Corpuscular Hemoglobin Concent 33.3 G/DL (32.0-36.0) Red Cell Distribution Width 11.7 % (11.6-14.8) Platelet Count 385 K/UL (150-450) Mean Platelet Volume 5.5 FL (6.5-10.1) L Neutrophils (%) (Auto) 77.5 % (45.0-75.0) H Lymphocytes (%) (Auto) 14.6 % (20.0-45.0) L Monocytes (%) (Auto) 6.4 % (1.0-10.0) Eosinophils (%) (Auto) 0.7 % (0.0-3.0) Basophils (%) (Auto) 0.8 % (0.0-2.0) Sodium Level 138 MMOL/L (136-145) Potassium Level 3.8 MMOL/L (3.5-5.1) Chloride Level 97 MMOL/L (98-107) L Carbon Dioxide Level 37 MMOL/L (21-32) H Anion Gap 4 mmol/L (5-15) L Blood Urea Nitrogen 21 mg/dL (7-18) H Creatinine 1.3 MG/DL (0.55-1.30) Estimat Glomerular Filtration Rate 47.8 mL/min (>60) Glucose Level 178 MG/DL (74-106) H Calcium Level 8.6 MG/DL (8.5-10.1) Phosphorus Level 2.8 MG/DL (2.5-4.9) Magnesium Level 1.7 MG/DL (1.8-2.4) L Total Bilirubin 0.5 MG/DL (0.2-1.0) Aspartate Amino Transf (AST/SGOT) 22 U/L (15-37) Alanine Aminotransferase (ALT/SGPT) 20 U/L (12-78) Alkaline Phosphatase 66 U/L (46-116) C-Reactive Protein, Quantitative 2.2 mg/dL (0.00-0.90) H Pro-B-Type Natriuretic Peptide 5150 pg/mL (0-125) H Total Protein 6.2 G/DL (6.4-8.2) L Albumin 2.3 G/DL (3.4-5.0) L Globulin 3.9 g/dL Albumin/Globulin Ratio 0.6 (1.0-2.7) L Current Medications Medications (Trade) Dose Ordered Sig/Daiana Route PRN Reason Start Time Stop Time Status Last Admin Dose Admin Acetaminophen (Tylenol) 650 mg Q6H PRN ORAL MILD PAIN (1-3)/T>100.5 12/31/19 08:00 01/24/20 07:59 Acetaminophen/ Hydrocodone Bitart ([place] 5/325) 1 tab Q4H PRN ORAL Moderate Pain (Pain Scale 4-6) 12/31/19 08:00 01/01/20 11:59 Clopidogrel Bisulfate (Plavix) 75 mg DAILY ORAL 12/31/19 09:00 01/19/20 08:59 01/01/20 09:57 Dextrose (Dextrose 50%) 25 ml Q30M PRN IV Hypoglycemia 12/31/19 07:45 03/24/20 13:10 Dextrose (Dextrose 50%) 50 ml Q30M PRN IV Hypoglycemia 12/31/19 08:00 03/18/20 23:29 Digoxin (Lanoxin) 0.125 mg DAILY ORAL 12/31/19 09:00 03/30/20 08:59 12/31/19 09:00 Docusate Sodium (Colace) 100 mg THREE TIMES A DAY ORAL 12/31/19 09:00 01/24/20 13:12 01/01/20 09:56 Enoxaparin Sodium (Lovenox) 40 mg DAILY SUBQ 12/31/19 09:00 03/19/20 08:59 01/01/20 09:54 Insulin Aspart (NovoLOG) BEFORE MEALS AND HS SUBQ 12/31/19 11:30 03/19/20 06:29 01/01/20 06:15 Lorazepam (Ativan) 1 mg Q6H PRN ORAL For Anxiety 12/31/19 08:00 01/01/20 13:47 Magnesium Sulfate 100 ml @ 100 mls/hr Q1H IVPB 01/01/20 08:30 01/01/20 10:29 01/01/20 09:57 Metoprolol Tartrate (Lopressor) 100 mg EVERY 8 HOURS ORAL 12/31/19 14:00 03/30/20 08:59 01/01/20 06:04 Olanzapine (ZyPREXA) 2.5 mg DAILY ORAL 12/31/19 09:00 02/04/20 08:59 01/01/20 09:56 Olanzapine (ZyPREXA) 5 mg BEDTIME ORAL 12/31/19 21:00 02/04/20 20:59 12/31/19 20:43 Pantoprazole (Protonix) 40 mg EVERY 12 HOURS ORAL 12/31/19 09:00 01/30/20 08:59 01/01/20 09:56 Promethazine HCl (Phenergan Plain) 12.5 mg Q6H PRN ORAL For Cough 12/31/19 08:00 01/24/20 13:59 Zolpidem Tartrate (Ambien) 5 mg HSPRN PRN ORAL Insomnia 12/31/19 21:00 01/06/20 20:59 12/31/19 21:22 Jim Fisher MD January 01, 2020 10:27
--- NOTE | 2020-01-01 11:18 | General Progress Note ---
Assessment/Plan Status: stable Assessment/Plan: S, O: poor historian, seems in mild sob. Declined cognition and poor historian . on O2 Mask PHYSICAL EXAMINATION:HEAD AND NECK: Atraumatic and normocephalic. CHEST: Bronchial breathing sounds.HEART: S1 and S2. Regular rate and rhythm. ABDOMEN: Soft. No organomegaly.MUSCULOSKELETAL: No gross focal motor deficit. NEUROLOGY: Patient is awake, alert x1. Easily distracted. LABORATORY DATA: Dated 12/31 reviewed Echo: Dated reviewed ASSESSMENT: 1. Sepsis 2. SVT with hypotension 3. metabolic encephalopathy 2. UTI - Gram negative 3. COVD 19- Pneumonia. 3. Renal failure, age indeterminate. 4. Diabetes type 2. 5. Hypertension. 6. Hyperlipidemia. 7. Coronary artery disease/peripheral arterial disease. Continue with antiplatelet. 8. GI and DVT prophylaxis. 9. Anemia: likely chronic disease 10. Refusal of treatment PLAN OF CARE: Notes from Infectious Disease, Nephrology, Pulmonary have been reviewed. Non tolerating BIPAP, seems agitated at times D/w grand daughter, on December 26 around 5 PM No capacity for making medical decisions at times, d/w RN to use soft restraint if needed for patient safety Transfer to Tele floor, notes from cardiology reviewed Off antibiotic , D/w ID Subjective Allergies: Coded Allergies: ASPIRIN (Verified Allergy, Unknown, 12/19/19) PENICILLINS (Verified Allergy, Unknown, 12/19/19) Objective Last 24 Hour Vital Signs Date Time Temp Pulse Resp B/P (MAP) Pulse Ox O2 Delivery O2 Flow Rate FiO2 01/01/20 09:00 58 01/01/20 06:04 72 137/88 01/01/20 04:00 67 01/01/20 04:00 98.5 68 19 127/88 (101) 96 01/01/20 00:00 64 01/01/20 00:00 98.3 61 17 132/91 (105) 97 12/31/19 21:22 68 132/61 12/31/19 20:56 98 Nasal Cannula 4.0 36 12/31/19 20:00 98.0 66 18 130/99 (109) 97 12/31/19 20:00 71 12/31/19 16:00 97.8 59 18 128/68 (88) 98 12/31/19 16:00 71 12/31/19 13:45 74 127/78 12/31/19 12:15 98.6 74 20 127/78 (94) 97 12/31/19 12:00 82 Intake and Output 12/31/19 01/01/20 19:00 07:00 Intake Total 450 ml Output Total 700 ml 700 ml Balance -250 ml -700 ml Intake Oral 450 ml Output Urine Total 700 ml 700 ml # Voids 1 # Bowel Movements 1 1 Laboratory Tests 01/01/20 05:20: White Blood Count 9.2, Red Blood Count 4.28, Hemoglobin 12.8, Hematocrit 38.3, Mean Corpuscular Volume 90, Mean Corpuscular Hemoglobin 29.8, Mean Corpuscular Hemoglobin Concent 33.3, Red Cell Distribution Width 11.7, Platelet Count 385, Mean Platelet Volume 5.5L, Neutrophils (%) (Auto) 77.5H, Lymphocytes (%) (Auto) 14.6L, Monocytes (%) (Auto) 6.4, Eosinophils (%) (Auto) 0.7, Basophils (%) (Auto ) 0.8, Sodium Level 138, Potassium Level 3.8, Chloride Level 97L, Carbon Dioxide Level 37H, Anion Gap 4L, Blood Urea Nitrogen 21H, Creatinine 1.3, Estimat Glomerular Filtration Rate 47.8, Glucose Level 178H, Calcium Level 8.6, Phosphorus Level 2.8, Magnesium Level 1.7L, Total Bilirubin 0.5, Aspartate Amino Transf (AST/SGOT) 22, Alanine Aminotransferase (ALT/SGPT) 20, Alkaline Phosphatase 66, C-Reactive Protein, Quantitative 2.2H, Pro-B-Type Natriuretic Peptide 5150H, Total Protein 6.2L, Albumin 2.3L, Globulin 3.9, Albumin/Globulin Ratio 0.6L Height (Feet): 5 Height (Inches): 6.00 Weight (Pounds): 158 Jennifer Alberto MD January 01, 2020 11:18
--- NOTE | 2020-01-01 11:39 | NUR ---
*-* DISCHARGE PLANNING *-* PATIENT HAS BEEN REFERRED BACK TO: [facility] P: [phone] F: [phone]
[2020-01-01 12:00] VITALS: BP 154/61
--- NOTE | 2020-01-01 13:21 | Cardiac Electrophysiology PN ---
Assessment/Plan Assessment/Plan 1. Accelerated hypertension. On metoprolol 100 mg tid and p.r.n. clonidine 2. History of CHF/ DD. Echo normal EF . 3. Recurrent SVT and atrial fib. On Dig 0.125 daily and Lopressor 100 tid 4. Sepsis, on antibiotic per Dr. Daugherty. 5. Hyponatremia. 6. Hypercapnea and respiratory failure. VQ scan no PE. BIPAP changed to Venturi. FU Dr Vincent 7. Acute renal failure Cr up to 2. Off lasix down to 1.5 8. Psychiatric history. DW RN Subjective Subjective Alert in NAD in Covhi isolation. VQ scan was negative for PE. Developed recurrent SVT that was unresponsive to Dig 0.5 iv or Cardizem 20 mg ivp. Had atrial fib with RVR 140s that self terminated. On tele now in SR on Lopressor 100 tid Objective Last 24 Hour Vital Signs Date Time Temp Pulse Resp B/P (MAP) Pulse Ox O2 Delivery O2 Flow Rate FiO2 01/01/20 12:00 58 01/01/20 12:00 97.5 57 18 154/61 (92) 95 01/01/20 09:00 58 01/01/20 08:00 97.0 58 18 129/70 (89) 92 01/01/20 08:00 63 01/01/20 06:04 72 137/88 01/01/20 04:00 67 01/01/20 04:00 98.5 68 19 127/88 (101) 96 01/01/20 00:00 64 01/01/20 00:00 98.3 61 17 132/91 (105) 97 12/31/19 21:22 68 132/61 12/31/19 20:56 98 Nasal Cannula 4.0 36 12/31/19 20:00 98.0 66 18 130/99 (109) 97 12/31/19 20:00 71 12/31/19 16:00 97.8 59 18 128/68 (88) 98 12/31/19 16:00 71 12/31/19 13:45 74 127/78 Intake and Output 12/31/19 01/01/20 19:00 07:00 Intake Total 450 ml Output Total 700 ml 700 ml Balance -250 ml -700 ml Intake Oral 450 ml Output Urine Total 700 ml 700 ml # Voids 1 # Bowel Movements 1 1 Laboratory Tests Test 01/01/20 05:20 White Blood Count 9.2 K/UL (4.8-10.8) Red Blood Count 4.28 M/UL (4.20-5.40) Hemoglobin 12.8 G/DL (12.0-16.0) Hematocrit 38.3 % (37.0-47.0) Mean Corpuscular Volume 90 FL (80-99) Mean Corpuscular Hemoglobin 29.8 PG (27.0-31.0) Mean Corpuscular Hemoglobin Concent 33.3 G/DL (32.0-36.0) Red Cell Distribution Width 11.7 % (11.6-14.8) Platelet Count 385 K/UL (150-450) Mean Platelet Volume 5.5 FL (6.5-10.1) L Neutrophils (%) (Auto) 77.5 % (45.0-75.0) H Lymphocytes (%) (Auto) 14.6 % (20.0-45.0) L Monocytes (%) (Auto) 6.4 % (1.0-10.0) Eosinophils (%) (Auto) 0.7 % (0.0-3.0) Basophils (%) (Auto) 0.8 % (0.0-2.0) Sodium Level 138 MMOL/L (136-145) Potassium Level 3.8 MMOL/L (3.5-5.1) Chloride Level 97 MMOL/L (98-107) L Carbon Dioxide Level 37 MMOL/L (21-32) H Anion Gap 4 mmol/L (5-15) L Blood Urea Nitrogen 21 mg/dL (7-18) H Creatinine 1.3 MG/DL (0.55-1.30) Estimat Glomerular Filtration Rate 47.8 mL/min (>60) Glucose Level 178 MG/DL (74-106) H Calcium Level 8.6 MG/DL (8.5-10.1) Phosphorus Level 2.8 MG/DL (2.5-4.9) Magnesium Level 1.7 MG/DL (1.8-2.4) L Total Bilirubin 0.5 MG/DL (0.2-1.0) Aspartate Amino Transf (AST/SGOT) 22 U/L (15-37) Alanine Aminotransferase (ALT/SGPT) 20 U/L (12-78) Alkaline Phosphatase 66 U/L (46-116) C-Reactive Protein, Quantitative 2.2 mg/dL (0.00-0.90) H Pro-B-Type Natriuretic Peptide 5150 pg/mL (0-125) H Total Protein 6.2 G/DL (6.4-8.2) L Albumin 2.3 G/DL (3.4-5.0) L Globulin 3.9 g/dL Albumin/Globulin Ratio 0.6 (1.0-2.7) L Objective HEAD AND NECK: No JVD. LUNGS: Coarse rhonchi CARDIOVASCULAR: IrrRegular tachy S1 and S2 with no gallop. ABDOMEN: Soft. EXTREMITIES: No edema. Eusebio Barrow MD January 01, 2020 13:21
--- NOTE | 2020-01-01 13:22 | Nephrology Progress Note ---
Assessment/Plan Problem List: (1) MATTHEW (acute kidney injury) Assessment: Serum creatinine livia to 2 (2) Hyponatremia Assessment: Likely depletional (3) Diabetes mellitus Assessment: With elevated hemoglobin A1c (4) UTI (urinary tract infection) (5) COVID-19 Assessment Patient presents with hyponatremia, urine spot sodium below 20. Hyponatremia most likely depletional Azotemia / dehydration Sepsis, positive COVID-19 test, UTI Diabetes mellitus [id number] with high hemoglobin A1c History of psych disease Plan Patient is now back to telemetry unit Is awake responsive not in any distress Will check renal parameters and blood chemistries Continue per current consultants December 29: Patient seen in ICU. Blood pressure stable. Not in any respiratory distress. Labs reviewed stable from renal standpoint of view. Okay to transfer to monitored bed in my opinion. Continue per consultants. December 28: Patient's condition deteriorated with low blood pressure and difficulty breathing Now on Venturi mask being transferred to ICU Renal parameters overall stable Continue per pulmonary We will follow-up on renal parameters On steroids and Cardizem drip December 27: Respiratory status improved Remains noncompliant with taking medication and blood draw December 26: Patient does not have an IV line Refuses p.o. medication and at times lab draw Today ABG not done as patient refused Serum creatinine down to 1.5 Will give oral phosphate supplement Continue per pulmonary December 25: ABG indicative of hypoxia, patient on BiPAP Serum creatinine down to 1.6 today Will replace potassium and phosphorus Continue per shake cutter and formula technician advice Previously: Will order a Kohler catheter and give 1 L of IV bolus Patient ejection fraction is normal on 2D echo Serum sodium now normalized Monitor electrolytes and renal parameters Antibiotics per ID Monitor electrolytes and renal parameters Per orders Per consultants Subjective ROS Limited/Unobtainable: No Constitutional: Reports: malaise, weakness Objective Objective Last 24 Hour Vital Signs Date Time Temp Pulse Resp B/P (MAP) Pulse Ox O2 Delivery O2 Flow Rate FiO2 01/01/20 12:00 58 01/01/20 12:00 97.5 57 18 154/61 (92) 95 01/01/20 09:00 58 01/01/20 08:00 97.0 58 18 129/70 (89) 92 01/01/20 08:00 63 01/01/20 06:04 72 137/88 01/01/20 04:00 67 01/01/20 04:00 98.5 68 19 127/88 (101) 96 01/01/20 00:00 64 01/01/20 00:00 98.3 61 17 132/91 (105) 97 12/31/19 21:22 68 132/61 12/31/19 20:56 98 Nasal Cannula 4.0 36 12/31/19 20:00 98.0 66 18 130/99 (109) 97 12/31/19 20:00 71 12/31/19 16:00 97.8 59 18 128/68 (88) 98 12/31/19 16:00 71 12/31/19 13:45 74 127/78 Intake and Output 12/31/19 01/01/20 19:00 07:00 Intake Total 450 ml Output Total 700 ml 700 ml Balance -250 ml -700 ml Intake Oral 450 ml Output Urine Total 700 ml 700 ml # Voids 1 # Bowel Movements 1 1 Laboratory Tests 01/01/20 05:20: White Blood Count 9.2, Red Blood Count 4.28, Hemoglobin 12.8, Hematocrit 38.3, Mean Corpuscular Volume 90, Mean Corpuscular Hemoglobin 29.8, Mean Corpuscular Hemoglobin Concent 33.3, Red Cell Distribution Width 11.7, Platelet Count 385, Mean Platelet Volume 5.5L, Neutrophils (%) (Auto) 77.5H, Lymphocytes (%) (Auto) 14.6L, Monocytes (%) (Auto) 6.4, Eosinophils (%) (Auto) 0.7, Basophils (%) (Auto ) 0.8, Sodium Level 138, Potassium Level 3.8, Chloride Level 97L, Carbon Dioxide Level 37H, Anion Gap 4L, Blood Urea Nitrogen 21H, Creatinine 1.3, Estimat Glomerular Filtration Rate 47.8, Glucose Level 178H, Calcium Level 8.6, Phosphorus Level 2.8, Magnesium Level 1.7L, Total Bilirubin 0.5, Aspartate Amino Transf (AST/SGOT) 22, Alanine Aminotransferase (ALT/SGPT) 20, Alkaline Phosphatase 66, C-Reactive Protein, Quantitative 2.2H, Pro-B-Type Natriuretic Peptide 5150H, Total Protein 6.2L, Albumin 2.3L, Globulin 3.9, Albumin/Globulin Ratio 0.6L Height (Feet): 5 Height (Inches): 6.00 Weight (Pounds): 158 General Appearance: no apparent distress Cardiovascular: bradycardia Respiratory/Chest: decreased breath sounds Abdomen: distended Objective No change Rolo Roldan MD January 01, 2020 13:22
--- NOTE | 2020-01-01 14:25 | NUR ---
NURSE NOTES: Informed Dr. Barrow of drop of heart rate to 37 on classroom monitor. No new orders given.
--- NOTE | 2020-01-01 15:44 | Pulmonology Progress Note ---
Subjective ROS Limited/Unobtainable: No Interval Events: None new HEENT: Repors: no symptoms Respiratory: Reports: dry cough Cardiovascular: Reports: no symptoms Gastrointestinal/Abdominal: Reports: no symptoms Allergies: Coded Allergies: ASPIRIN (Verified Allergy, Unknown, 12/19/19) PENICILLINS (Verified Allergy, Unknown, 12/19/19) Objective Last 24 Hour Vital Signs Date Time Temp Pulse Resp B/P (MAP) Pulse Ox O2 Delivery O2 Flow Rate FiO2 01/01/20 14:00 57 01/01/20 12:00 58 01/01/20 12:00 97.5 57 18 154/61 (92) 95 01/01/20 09:00 58 01/01/20 08:00 97.0 58 18 129/70 (89) 92 01/01/20 08:00 63 01/01/20 06:04 72 137/88 01/01/20 04:00 67 01/01/20 04:00 98.5 68 19 127/88 (101) 96 01/01/20 00:00 64 01/01/20 00:00 98.3 61 17 132/91 (105) 97 12/31/19 21:22 68 132/61 12/31/19 20:56 98 Nasal Cannula 4.0 36 12/31/19 20:00 98.0 66 18 130/99 (109) 97 12/31/19 20:00 71 12/31/19 16:00 97.8 59 18 128/68 (88) 98 12/31/19 16:00 71 Intake and Output 12/31/19 01/01/20 19:00 07:00 Intake Total 450 ml Output Total 700 ml 700 ml Balance -250 ml -700 ml Intake Oral 450 ml Output Urine Total 700 ml 700 ml # Voids 1 # Bowel Movements 1 1 HEENT: normocephalic Respiratory: chest wall non-tender, decreased breath sounds Cardiovascular: normal peripheral pulses Abdomen: normal bowel sounds Laboratory Tests 01/01/20 05:20: White Blood Count 9.2, Red Blood Count 4.28, Hemoglobin 12.8, Hematocrit 38.3, Mean Corpuscular Volume 90, Mean Corpuscular Hemoglobin 29.8, Mean Corpuscular Hemoglobin Concent 33.3, Red Cell Distribution Width 11.7, Platelet Count 385, Mean Platelet Volume 5.5L, Neutrophils (%) (Auto) 77.5H, Lymphocytes (%) (Auto) 14.6L, Monocytes (%) (Auto) 6.4, Eosinophils (%) (Auto) 0.7, Basophils (%) (Auto ) 0.8, Sodium Level 138, Potassium Level 3.8, Chloride Level 97L, Carbon Dioxide Level 37H, Anion Gap 4L, Blood Urea Nitrogen 21H, Creatinine 1.3, Estimat Glomerular Filtration Rate 47.8, Glucose Level 178H, Calcium Level 8.6, Phosphorus Level 2.8, Magnesium Level 1.7L, Total Bilirubin 0.5, Aspartate Amino Transf (AST/SGOT) 22, Alanine Aminotransferase (ALT/SGPT) 20, Alkaline Phosphatase 66, C-Reactive Protein, Quantitative 2.2H, Pro-B-Type Natriuretic Peptide 5150H, Total Protein 6.2L, Albumin 2.3L, Globulin 3.9, Albumin/Globulin Ratio 0.6L Current Medications Medications (Trade) Dose Ordered Sig/Daiana Route PRN Reason Start Time Stop Time Status Last Admin Dose Admin Acetaminophen (Tylenol) 650 mg Q6H PRN ORAL MILD PAIN (1-3)/T>100.5 12/31/19 08:00 01/24/20 07:59 Clopidogrel Bisulfate (Plavix) 75 mg DAILY ORAL 12/31/19 09:00 01/19/20 08:59 01/01/20 09:57 Dextrose (Dextrose 50%) 25 ml Q30M PRN IV Hypoglycemia 12/31/19 07:45 03/24/20 13:10 Dextrose (Dextrose 50%) 50 ml Q30M PRN IV Hypoglycemia 12/31/19 08:00 03/18/20 23:29 Digoxin (Lanoxin) 0.125 mg DAILY ORAL 12/31/19 09:00 03/30/20 08:59 12/31/19 09:00 Docusate Sodium (Colace) 100 mg THREE TIMES A DAY ORAL 12/31/19 09:00 01/24/20 13:12 01/01/20 14:38 Enoxaparin Sodium (Lovenox) 40 mg DAILY SUBQ 12/31/19 09:00 03/19/20 08:59 01/01/20 09:54 Insulin Aspart (NovoLOG) BEFORE MEALS AND HS SUBQ 12/31/19 11:30 03/19/20 06:29 01/01/20 11:30 Metoprolol Tartrate (Lopressor) 100 mg EVERY 8 HOURS ORAL 12/31/19 14:00 03/30/20 08:59 01/01/20 06:04 Olanzapine (ZyPREXA) 2.5 mg DAILY ORAL 12/31/19 09:00 02/04/20 08:59 01/01/20 09:56 Olanzapine (ZyPREXA) 5 mg BEDTIME ORAL 12/31/19 21:00 02/04/20 20:59 12/31/19 20:43 Pantoprazole (Protonix) 40 mg EVERY 12 HOURS ORAL 12/31/19 09:00 01/30/20 08:59 01/01/20 09:56 Promethazine HCl (Phenergan Plain) 12.5 mg Q6H PRN ORAL For Cough 12/31/19 08:00 01/24/20 13:59 Zolpidem Tartrate (Ambien) 5 mg HSPRN PRN ORAL Insomnia 12/31/19 21:00 01/06/20 20:59 12/31/19 21:22 Assessment/Plan Assessment/Plan IMPRESSION: 1. Positive COVID-19. 2. COPD with exacerbation 3. Leukocytosis. 4. Hypoxemia. 5. Schizophrenia. 6. Hypertension. 7. Diabetes mellitus. 8. Respiratory failure 9. CHF. DISCUSSION: Continue broad-spectrum antibiotics. Continue oxygen and pulmonary hygiene. DVT prophylaxis. I will follow carefully. Now back in tele Off Lasix On steroids for COPD; will continue taper No longer on BiPAP On nasal o2 4L/min; SaO2 100% Nava Benitez Omar Syed MD January 01, 2020 15:44
[2020-01-01 16:00] VITALS: BP 135/74
--- NOTE | 2020-01-01 19:08 | NUR ---
HAND-OFF: Report given to FLETCHER Chavez. Endorsed plan of care..
--- NOTE | 2020-01-01 19:30 | NUR ---
HAND-OFF: Report given to Madeline Aly RN. Patient stable. Plan of care endorsed. Endorsed that patient had a BM, was offered to be cleaned but patient declined stating "later".
--- NOTE | 2020-01-01 19:51 | NUR ---
NURSE NOTES: RECEIVED REPORT FROM FLETCHER COLLIER. PATIENT AWAKE, ALERT, ORIENTED X 2, VERBALLY RESPONSIVE AND ABLE TO MAKE NEEDS KNOWN. NO COMPLAINTS OF PAIN OR DISCOMFORT AT THIS TIME. BREATHING IS EVEN AND UNLABORED ON 3L NC, NO S/SX OF DISTRESS NOTED. LOZANO CATHETER DRAINING WELL TO GRAVITY- URINE CLEAR AND DARK YELLOW IN COLOR. PATIENT NOTED TO BE SOILED, BUT IS CURRENTLY REFUSING TO BE CLEANED. EDUCATED THE PATIENT ON THE IMPORTANCE OF CLEANING HER TO PRESERVE SKIN INTEGRITY, BUT PATIENT STILL REFUSES AT THIS TIME. IV SITES ON TAMI AND RH ASYMPTOMATIC, PATENT AND INTACT- SALINE-LOCKED. FALL PRECAUTIONS IN PLACE. CONTACT AND DROPLET PRECAUTIONS IMPLEMENTED. BED LOCKED AND IN LOWEST POSITION, WITH SIDERAILS UP X 3. CALL LIGHT WITHIN REACH. WILL CONTINUE TO MONITOR.
[2020-01-01 20:00] VITALS: BP 141/68
[2020-01-01] MEDS: Zolpidem 5mg tab ORAL PRN (20:23)
--- NOTE | 2020-01-01 20:30 | NUR ---
NURSE NOTES: PATIENT AGREED TO BE CLEANED. OPTIFOAM ON SACRAL AREA CHANGED.
--- NOTE | 2020-01-01 20:45 | NUR ---
NURSE NOTES: PATIENT REFUSED TO HAVE HER BS CHECKED DESPITE BEING EDUCATED MULTIPLE TIMES ON IMPORTANCE.
[2020-01-02] VITALS: BP 130/78
--- NOTE | 2020-01-02 00:31 | Psych Consult Progress Note ---
Psychiatry Progress Note Psychiatry Progress Note Medications Current Medications Medications (Trade) Dose Ordered Sig/Daiana Route PRN Reason Start Time Stop Time Status Last Admin Dose Admin Acetaminophen (Tylenol) 650 mg Q6H PRN ORAL MILD PAIN (1-3)/T>100.5 12/31/19 08:00 01/24/20 07:59 Clopidogrel Bisulfate (Plavix) 75 mg DAILY ORAL 12/31/19 09:00 01/19/20 08:59 01/01/20 09:57 Dextrose (Dextrose 50%) 25 ml Q30M PRN IV Hypoglycemia 12/31/19 07:45 03/24/20 13:10 Dextrose (Dextrose 50%) 50 ml Q30M PRN IV Hypoglycemia 12/31/19 08:00 03/18/20 23:29 Digoxin (Lanoxin) 0.125 mg DAILY ORAL 12/31/19 09:00 03/30/20 08:59 12/31/19 09:00 Docusate Sodium (Colace) 100 mg THREE TIMES A DAY ORAL 12/31/19 09:00 01/24/20 13:12 01/01/20 14:38 Enoxaparin Sodium (Lovenox) 40 mg DAILY SUBQ 12/31/19 09:00 03/19/20 08:59 01/01/20 09:54 Insulin Aspart (NovoLOG) BEFORE MEALS AND HS SUBQ 12/31/19 11:30 03/19/20 06:29 01/01/20 11:30 Metoprolol Tartrate (Lopressor) 100 mg EVERY 8 HOURS ORAL 12/31/19 14:00 03/30/20 08:59 01/01/20 21:47 Olanzapine (ZyPREXA) 2.5 mg DAILY ORAL 12/31/19 09:00 02/04/20 08:59 01/01/20 09:56 Olanzapine (ZyPREXA) 5 mg BEDTIME ORAL 12/31/19 21:00 02/04/20 20:59 01/01/20 20:23 Pantoprazole (Protonix) 40 mg EVERY 12 HOURS ORAL 12/31/19 09:00 01/30/20 08:59 01/01/20 20:23 Promethazine HCl (Phenergan Plain) 12.5 mg Q6H PRN ORAL For Cough 12/31/19 08:00 01/24/20 13:59 Zolpidem Tartrate (Ambien) 5 mg HSPRN PRN ORAL Insomnia 12/31/19 21:00 01/06/20 20:59 01/01/20 20:23 Allergies: Coded Allergies: ASPIRIN (Verified Allergy, Unknown, 12/19/19) PENICILLINS (Verified Allergy, Unknown, 12/19/19) Objective Data Height (Feet): 5 Height (Inches): 6.00 Weight (Pounds): 158 Assessment/Plan Status: stable Assessment/Plan: PLAN: 1. Zyprexa, 3. Ativan p.r.n. 4. Continue to follow and readjust the medications. Larisa Vogel MD January 02, 2020 00:31
[2020-01-02 04:00] VITALS: BP 128/80
[2020-01-02] MEDS: Metoprolol Tartrate 100mg tab ORAL SCH ×2 (06:23→14:00)
[2020-01-02] MEDS: NovoLOG Insulin Flexpen SUBQ SCH ×2 (06:28→11:11)
--- NOTE | 2020-01-02 07:37 | NUR ---
HAND-OFF: Report given to FLETCHER LINDSEY. PLAN OF CARE ENDORSED.
--- NOTE | 2020-01-02 07:44 | NUR ---
NURSE NOTES: Received report from FLETCHER Chavez. Pt asleep comfortably in bed. No signs of acute respiratory and cardiac distress. SL on right arm asymptomatic, patent and intact. F/C draining by gravity. Bed in low position, side rails up x3 and call light within reach. Will continue plan of care.
[2020-01-02 08:00] VITALS: BP_SYST 114; BP_SYST 130; BP_DIAS 61; BP_DIAS 96
[2020-01-02] MEDS: Digoxin 0.125mg tab ORAL SCH (09:00)
[2020-01-02] MEDS: Docusate 100mg cap ORAL SCH ×2 (09:00→13:00)
[2020-01-02] MEDS: OLANZapine 2.5mg tab ORAL SCH (09:46)
[2020-01-02] MEDS: Enoxaparin 40mg Inj SUBQ SCH (09:48)
--- NOTE | 2020-01-02 09:53 | NUR ---
SLEEP TECHNOLOGIST NOTE CALL MADE TO CARLO SCHULER [facility] @ [phone] TO FOLLOW UP ON INQUIRY FAXED. STOCK RANCH SUPERVISOR, ARETHA, NOT AVAILABLE AT TIME OF CALL. WILL FOLLOW UP.
--- NOTE | 2020-01-02 11:01 | General Progress Note ---
Assessment/Plan Status: stable Assessment/Plan: S, O: poor historian, seems in mild sob. Declined cognition and poor historian . on O2 Mask PHYSICAL EXAMINATION:HEAD AND NECK: Atraumatic and normocephalic. CHEST: Bronchial breathing sounds.HEART: S1 and S2. Regular rate and rhythm. ABDOMEN: Soft. No organomegaly.MUSCULOSKELETAL: No gross focal motor deficit. NEUROLOGY: Patient is awake, alert x1. Easily distracted. LABORATORY DATA: Dated 01/01 reviewed Echo: Dated reviewed ASSESSMENT: 1. Sepsis 2. SVT with hypotension 3. metabolic encephalopathy 2. UTI - Gram negative 3. COVD 19- Pneumonia. 3. Renal failure, age indeterminate. 4. Diabetes type 2. 5. Hypertension. 6. Hyperlipidemia. 7. Coronary artery disease/peripheral arterial disease. Continue with antiplatelet. 8. GI and DVT prophylaxis. 9. Anemia: likely chronic disease 10. Refusal of treatment PLAN OF CARE: Notes from Infectious Disease, Nephrology, Pulmonary have been reviewed. Non tolerating BIPAP, seems agitated at times D/w grand daughter, on December 26 around 5 PM No capacity for making medical decisions at times, d/w RN to use soft restraint if needed for patient safety Transfer to Tele floor, notes from cardiology reviewed Off antibiotic , D/w ID Medically stable for return to originating facility , once bed available Subjective Allergies: Coded Allergies: ASPIRIN (Verified Allergy, Unknown, 12/19/19) PENICILLINS (Verified Allergy, Unknown, 12/19/19) Objective Last 24 Hour Vital Signs Date Time Temp Pulse Resp B/P (MAP) Pulse Ox O2 Delivery O2 Flow Rate FiO2 01/02/20 09:00 63 01/02/20 09:00 52 01/02/20 08:10 Nasal Cannula 3.0 01/02/20 08:00 98.1 52 20 130/61 (84) 97 01/02/20 06:23 57 137/71 01/02/20 04:00 98.0 60 20 128/80 (96) 96 01/02/20 04:00 56 01/02/20 00:00 98.1 65 20 130/78 (95) 95 01/02/20 00:00 65 01/01/20 21:47 100 141/68 01/01/20 21:00 Nasal Cannula 3.0 01/01/20 20:00 97.9 100 20 141/68 (92) 97 01/01/20 20:00 101 01/01/20 19:19 98 Nasal Cannula 4.0 36 01/01/20 16:00 97.5 65 18 135/74 (94) 93 01/01/20 16:00 62 01/01/20 14:00 57 01/01/20 12:00 58 01/01/20 12:00 97.5 57 18 154/61 (92) 95 Intake and Output 01/01/20 01/02/20 19:00 07:00 Intake Total 600 ml 240 ml Output Total 700 ml 500 ml Balance -100 ml -260 ml Intake Oral 400 ml 240 ml IV Total 200 ml Output Urine Total 700 ml 500 ml # Bowel Movements 1 2 Height (Feet): 5 Height (Inches): 6.00 Weight (Pounds): 162 Jennifer Alberto MD January 02, 2020 11:01
--- NOTE | 2020-01-02 11:03 | Pulmonology Progress Note ---
Subjective ROS Limited/Unobtainable: No Interval Events: None new HEENT: Repors: no symptoms Respiratory: Reports: dry cough Cardiovascular: Reports: no symptoms Gastrointestinal/Abdominal: Reports: no symptoms Allergies: Coded Allergies: ASPIRIN (Verified Allergy, Unknown, 12/19/19) PENICILLINS (Verified Allergy, Unknown, 12/19/19) Objective Last 24 Hour Vital Signs Date Time Temp Pulse Resp B/P (MAP) Pulse Ox O2 Delivery O2 Flow Rate FiO2 01/02/20 09:00 63 01/02/20 09:00 52 01/02/20 08:10 Nasal Cannula 3.0 01/02/20 08:00 98.1 52 20 130/61 (84) 97 01/02/20 06:23 57 137/71 01/02/20 04:00 98.0 60 20 128/80 (96) 96 01/02/20 04:00 56 01/02/20 00:00 98.1 65 20 130/78 (95) 95 01/02/20 00:00 65 01/01/20 21:47 100 141/68 01/01/20 21:00 Nasal Cannula 3.0 01/01/20 20:00 97.9 100 20 141/68 (92) 97 01/01/20 20:00 101 01/01/20 19:19 98 Nasal Cannula 4.0 36 01/01/20 16:00 97.5 65 18 135/74 (94) 93 01/01/20 16:00 62 01/01/20 14:00 57 01/01/20 12:00 58 01/01/20 12:00 97.5 57 18 154/61 (92) 95 Intake and Output 01/01/20 01/02/20 19:00 07:00 Intake Total 600 ml 240 ml Output Total 700 ml 500 ml Balance -100 ml -260 ml Intake Oral 400 ml 240 ml IV Total 200 ml Output Urine Total 700 ml 500 ml # Bowel Movements 1 2 HEENT: normocephalic Respiratory: chest wall non-tender, decreased breath sounds Cardiovascular: normal peripheral pulses Abdomen: normal bowel sounds Current Medications Medications (Trade) Dose Ordered Sig/Daiana Route PRN Reason Start Time Stop Time Status Last Admin Dose Admin Acetaminophen (Tylenol) 650 mg Q6H PRN ORAL MILD PAIN (1-3)/T>100.5 12/31/19 08:00 01/24/20 07:59 Clopidogrel Bisulfate (Plavix) 75 mg DAILY ORAL 12/31/19 09:00 01/19/20 08:59 01/02/20 09:47 Dextrose (Dextrose 50%) 25 ml Q30M PRN IV Hypoglycemia 12/31/19 07:45 03/24/20 13:10 Dextrose (Dextrose 50%) 50 ml Q30M PRN IV Hypoglycemia 12/31/19 08:00 03/18/20 23:29 Digoxin (Lanoxin) 0.125 mg DAILY ORAL 12/31/19 09:00 03/30/20 08:59 12/31/19 09:00 Docusate Sodium (Colace) 100 mg THREE TIMES A DAY ORAL 12/31/19 09:00 01/24/20 13:12 01/01/20 14:38 Enoxaparin Sodium (Lovenox) 40 mg DAILY SUBQ 12/31/19 09:00 03/19/20 08:59 01/02/20 09:48 Insulin Aspart (NovoLOG) BEFORE MEALS AND HS SUBQ 12/31/19 11:30 03/19/20 06:29 01/02/20 06:28 Metoprolol Tartrate (Lopressor) 100 mg EVERY 8 HOURS ORAL 12/31/19 14:00 03/30/20 08:59 01/02/20 06:23 Olanzapine (ZyPREXA) 2.5 mg DAILY ORAL 12/31/19 09:00 02/04/20 08:59 01/02/20 09:46 Olanzapine (ZyPREXA) 5 mg BEDTIME ORAL 12/31/19 21:00 02/04/20 20:59 01/01/20 20:23 Pantoprazole (Protonix) 40 mg EVERY 12 HOURS ORAL 12/31/19 09:00 01/30/20 08:59 01/02/20 09:47 Promethazine HCl (Phenergan Plain) 12.5 mg Q6H PRN ORAL For Cough 12/31/19 08:00 01/24/20 13:59 Zolpidem Tartrate (Ambien) 5 mg HSPRN PRN ORAL Insomnia 12/31/19 21:00 01/06/20 20:59 01/01/20 20:23 Assessment/Plan Assessment/Plan IMPRESSION: 1. Positive COVID-19. 2. COPD with exacerbation 3. Leukocytosis. 4. Hypoxemia. 5. Schizophrenia. 6. Hypertension. 7. Diabetes mellitus. 8. Respiratory failure 9. CHF. DISCUSSION: Continue broad-spectrum antibiotics. Continue oxygen and pulmonary hygiene. DVT prophylaxis. I will follow carefully. Now back in tele Off Lasix On steroids for COPD; will continue taper No longer on BiPAP On nasal o2 4L/min; SaO2 100% Javi Vincent M.D. Javi Vincent MD January 02, 2020 11:03
--- NOTE | 2020-01-02 11:27 | NUR ---
DIAGNOSTIC IMAGING MANAGER NOTE BED OBTAINED AT [facility] BED [address] LOYA INFORMED BED ACQUIRED AND GAVE DISCHARGE ORDER. NOTED AND CARRIED OUT. FLETCHER SINGH. Addendum: 01/02/20 at 1144 by CARMEN ROSS LVN LVN BLS AMBULANCE TRANSPORTATION SCHEDULED WITH [facility] EXT [id number] WITH ETA @ 1330 PM BED ASSIGNMENT AT [facility] CONFIRMED WITH BRITTANEY. Addendum: 01/02/20 at 1204 by CARMEN ROSS LVN LVN PER DR LOYA, [facility] ONLY
[2020-01-02 12:00] VITALS: BP 123/76
--- NOTE | 2020-01-02 13:16 | Nephrology Progress Note ---
Assessment/Plan Problem List: (1) MATTHEW (acute kidney injury) Assessment: Serum creatinine livia to 2 (2) Hyponatremia Assessment: Likely depletional (3) Diabetes mellitus Assessment: With elevated hemoglobin A1c (4) UTI (urinary tract infection) (5) COVID-19 Assessment Patient presents with hyponatremia, urine spot sodium below 20. Hyponatremia most likely depletional Azotemia / dehydration Sepsis, positive COVID-19 test, UTI Diabetes mellitus [id number] with high hemoglobin A1c History of psych disease Plan Remains stable from renal standpoint to view Is awake responsive not in any distress Will check renal parameters and blood chemistries Continue per current consultants December 29: Patient seen in ICU. Blood pressure stable. Not in any respiratory distress. Labs reviewed stable from renal standpoint of view. Okay to transfer to monitored bed in my opinion. Continue per consultants. December 28: Patient's condition deteriorated with low blood pressure and difficulty breathing Now on Venturi mask being transferred to ICU Renal parameters overall stable Continue per pulmonary We will follow-up on renal parameters On steroids and Cardizem drip December 27: Respiratory status improved Remains noncompliant with taking medication and blood draw December 26: Patient does not have an IV line Refuses p.o. medication and at times lab draw Today ABG not done as patient refused Serum creatinine down to 1.5 Will give oral phosphate supplement Continue per pulmonary December 25: ABG indicative of hypoxia, patient on BiPAP Serum creatinine down to 1.6 today Will replace potassium and phosphorus Continue per computer forensics analyst and doctor of veterinary medicine advice Previously: Will order a Kohler catheter and give 1 L of IV bolus Patient ejection fraction is normal on 2D echo Serum sodium now normalized Monitor electrolytes and renal parameters Antibiotics per ID Monitor electrolytes and renal parameters Per orders Per consultants Subjective ROS Limited/Unobtainable: No Objective Objective Last 24 Hour Vital Signs Date Time Temp Pulse Resp B/P (MAP) Pulse Ox O2 Delivery O2 Flow Rate FiO2 01/02/20 12:00 56 01/02/20 12:00 98.0 52 20 123/76 (92) 94 01/02/20 09:00 63 01/02/20 09:00 52 01/02/20 08:10 Nasal Cannula 3.0 01/02/20 08:00 98.1 52 20 130/61 (84) 97 01/02/20 06:23 57 137/71 01/02/20 04:00 98.0 60 20 128/80 (96) 96 01/02/20 04:00 56 01/02/20 00:00 98.1 65 20 130/78 (95) 95 01/02/20 00:00 65 01/01/20 21:47 100 141/68 01/01/20 21:00 Nasal Cannula 3.0 01/01/20 20:00 97.9 100 20 141/68 (92) 97 01/01/20 20:00 101 01/01/20 19:19 98 Nasal Cannula 4.0 36 01/01/20 16:00 97.5 65 18 135/74 (94) 93 01/01/20 16:00 62 01/01/20 14:00 57 Intake and Output 01/01/20 01/02/20 19:00 07:00 Intake Total 600 ml 240 ml Output Total 700 ml 500 ml Balance -100 ml -260 ml Intake Oral 400 ml 240 ml IV Total 200 ml Output Urine Total 700 ml 500 ml # Bowel Movements 1 2 No new labs today Height (Feet): 5 Height (Inches): 6.00 Weight (Pounds): 162 General Appearance: no apparent distress Respiratory/Chest: decreased breath sounds Abdomen: soft Objective No change Rolo Roldan MD January 02, 2020 13:16
--- NOTE | 2020-01-02 13:38 | Infectious Diseases Prog Note ---
Assessment/Plan Assessment/Plan A; COVID19 pneumonia UTI treated COPD DM Chronic kidney disease Hypercapnic respiratory failure SVT P: Observe off antibiotic Agree with discharge plan Subjective ROS Limited/Unobtainable: Yes Constitutional: Denies: fever Allergies: Coded Allergies: ASPIRIN (Verified Allergy, Unknown, 12/19/19) PENICILLINS (Verified Allergy, Unknown, 12/19/19) Objective Vital Signs Last 24 Hour Vital Signs Date Time Temp Pulse Resp B/P (MAP) Pulse Ox O2 Delivery O2 Flow Rate FiO2 01/02/20 12:00 56 01/02/20 12:00 98.0 52 20 123/76 (92) 94 01/02/20 09:00 63 01/02/20 09:00 52 01/02/20 08:10 Nasal Cannula 3.0 01/02/20 08:00 98.1 52 20 130/61 (84) 97 01/02/20 06:23 57 137/71 01/02/20 04:00 98.0 60 20 128/80 (96) 96 01/02/20 04:00 56 01/02/20 00:00 98.1 65 20 130/78 (95) 95 01/02/20 00:00 65 01/01/20 21:47 100 141/68 01/01/20 21:00 Nasal Cannula 3.0 01/01/20 20:00 97.9 100 20 141/68 (92) 97 01/01/20 20:00 101 01/01/20 19:19 98 Nasal Cannula 4.0 36 01/01/20 16:00 97.5 65 18 135/74 (94) 93 01/01/20 16:00 62 01/01/20 14:00 57 Height (Feet): 5 Height (Inches): 6.00 Weight (Pounds): 162 General Appearance: no acute distress HEENT: mucous membranes moist Respiratory/Chest: no respiratory distress, other - oxygen by nasal cannula Cardiovascular: bradycardia Abdomen: soft, non tender Neurologic/Psychiatric: alert, responsive Current Medications Medications (Trade) Dose Ordered Sig/Daiana Route PRN Reason Start Time Stop Time Status Last Admin Dose Admin Acetaminophen (Tylenol) 650 mg Q6H PRN ORAL MILD PAIN (1-3)/T>100.5 12/31/19 08:00 01/24/20 07:59 Clopidogrel Bisulfate (Plavix) 75 mg DAILY ORAL 12/31/19 09:00 01/19/20 08:59 01/02/20 09:47 Dextrose (Dextrose 50%) 25 ml Q30M PRN IV Hypoglycemia 12/31/19 07:45 03/24/20 13:10 Dextrose (Dextrose 50%) 50 ml Q30M PRN IV Hypoglycemia 12/31/19 08:00 03/18/20 23:29 Digoxin (Lanoxin) 0.125 mg DAILY ORAL 12/31/19 09:00 03/30/20 08:59 12/31/19 09:00 Docusate Sodium (Colace) 100 mg THREE TIMES A DAY ORAL 12/31/19 09:00 01/24/20 13:12 01/01/20 14:38 Enoxaparin Sodium (Lovenox) 40 mg DAILY SUBQ 12/31/19 09:00 03/19/20 08:59 01/02/20 09:48 Insulin Aspart (NovoLOG) BEFORE MEALS AND HS SUBQ 12/31/19 11:30 03/19/20 06:29 01/02/20 11:11 Metoprolol Tartrate (Lopressor) 100 mg EVERY 8 HOURS ORAL 12/31/19 14:00 03/30/20 08:59 01/02/20 06:23 Olanzapine (ZyPREXA) 2.5 mg DAILY ORAL 12/31/19 09:00 02/04/20 08:59 01/02/20 09:46 Olanzapine (ZyPREXA) 5 mg BEDTIME ORAL 12/31/19 21:00 02/04/20 20:59 01/01/20 20:23 Pantoprazole (Protonix) 40 mg EVERY 12 HOURS ORAL 12/31/19 09:00 01/30/20 08:59 01/02/20 09:47 Promethazine HCl (Phenergan Plain) 12.5 mg Q6H PRN ORAL For Cough 12/31/19 08:00 01/24/20 13:59 Zolpidem Tartrate (Ambien) 5 mg HSPRN PRN ORAL Insomnia 12/31/19 21:00 01/06/20 20:59 01/01/20 20:23 Jim Fisher MD January 02, 2020 13:38
[2020-01-02 14:00] VITALS: BP 123/76
--- NOTE | 2020-01-02 14:45 | NUR ---
NURSE NOTES: Pt discharged to [facility] room 8. Pt no s/s of acute respiratory and cardiac distress. Gave report to FLETCHER Greene. Removed equipment monitor phototypesetting and removed SL on TAMI. F/C in place. Called and spoke with daughter Lori and informed her pt the transfer.Pt picked up by [facility].
--- NOTE | 2020-01-03 12:47 | Discharge Summary ---
Discharge Summary Discharge Summary _ DATE OF ADMISSION: 12/19/2019 DATE OF DISCHARGE: 01/02/2020 DISCHARGED BY: Dr Alberto REASON FOR ADMISSION: 79 years old female with past medical history of hypertension, COPD, diabetes mellitus, heart failure, schizophrenia, resident of [facility], was sent for evaluation due to hypoxia and cough for the last few days. Coronavirus testing was sent from the facility and came back positive. Patient was sent to emergency room for further management. No fever or chills. No nausea and vomiting. At baseline patient on 2 L of oxygen and at this time was on 4 L of oxygen via nasal cannula. Vital signs revealed tachypnea with respiratory rate of 34, no fevers. Laboratory work-up revealed leukocytosis , no evidence of anemia. Lymphopenia with lymphocyte percentage 10%. Urinalysis revealed +2 protein, +3 leukocyte esterase, pyuria and many bacteria. Sodium 125, chloride 84. BUN 24, creatinine 1.4. Glucose 259. Lactic acid 1.8. AST 42 ALT 35. Troponin 0.01, pro BNP 785. EEG revealed sinus rhythm with incomplete right bundle branch block. Chest x-ray demonstrated COPD changes . Streaky opacity in the right base , which may be related to subsegmental atelectasis or scaring. Developing pneumonia not excluded. Patient subsequently admitted for further management. CONSULTANTS: international coordinator Dr. Ames pulmonary Dr. Vincent ID specialist Dr. Daugherty vault cashier Dr. Roldan psychiatrist Dr. Vogel [facility] COURSE: Patient admitted to telemetry floor to isolation room. Echocardiogram revealed preserved ejection fraction. No evidence of wall motion abnormality to the extent visualized. Serial troponin negative. EKG revealed no acute ischemic changes. Patient was ruled out for acute myocardial infarction. Patient noted to have to have elevated blood pressure. Blood pressure was managed with beta-marlyn. Additional antihypertensive was on board as needed for blood pressure spikes. Blood pressure stabilized and prior to discharge 123/76. Patient has a history of recurrent SVT and atrial fibrillation. Patient was continued on digoxin and Lopressor. Digoxin level stable prior to discharge. Supplemental oxygen provided and titrated to keep pulse oximetry above 92%. Pulmonary toilet provided. Patient initially showed worsening hypoxemia, requiring nonrebreathing mask and then BiPAP. Initial ABG revealed significant hypercapnia with PCO2 of 71.9 . Hypercapnia improved with the BiPAP. Patient was followed-up with chest x-ray, which revealed bibasilar disease with increased left basilar infiltrate. With VQ scan only perfusion exam was done, which showed no discrete segmental perfusion defect. Patient was on IV steroids with tapering as per finishing supervisor plastic sheets recommendation. Antibiotic provided as per ID recommendation. Blood culture came back negative. Urine culture revealed Klebsiella pneumonia, Providencia stuartii and mixed gram -positive organisms. Repeated SARS COV 2 by PCR on 12/19 and 12/26 was detected. Isolation continued. Repeated blood cultures were negative. Leukocytosis resolved. No fevers. As patient condition continued to improve , he was able to be weaned to oxygen 3 L via nasal cannula. Renal parameters and electrolytes were closely monitored, electrolytes corrected as needed . Hyponatremia work-up and urine studies were done. Hyponatremia was most likely depletional as per vault cashier , resolved . Prior to discharge sodium 138. Creatinine initially trended all the way up to 2.0. Lasix stopped. Creatinine started to trend down, prior to discharge 1.3. Manager Agency recommended avoid nephrotoxic. Electrolytes corrected as needed/potassium and magnesium. Blood sugar might was managed with sliding scale of insulin. DVT and GI prophylaxis provided. Supportive care provided. Psychiatric medication continued as per psychiatrist recommendation . Patient clinically stabilized and was ready for transfer to [facility] for continuation of care. FINAL DIAGNOSES: Sepsis Confirmed COVID-19 infection UTI COPD with exacerbation. Acute kidney injury-resolved Hyponatremia-resolved Acute hypoxemic hypercapnic respiratory failure resolved Accelerated hypertension History of CHF Recurrent SVT and atrial fibrillation Metabolic encephalopathy Hypertension Hyperlipidemia Coronary artery disease DISCHARGE MEDICATIONS: List of medication was sent to accepting facility. DISCHARGE INSTRUCTIONS: Patient was discharged to the [facility]. Follow up with medical doctor at the facility. I have been assigned to dictate discharge summary for this account. I was not involved in the patient's management. Lauren Trotter NP January 03, 2020 12:47
== END 2020-01-02 15:28 | DRG 871 ==
LOC: EDBD 13:45 → EMR 14:27 → 4E 14:36 → EDBEDREQ 20:21 → 2W 12-25 12:09 → 2E 12-29 06:00 → ICU 12-29 11:41 → 2W 12-30 13:23 → 2E 12-31 07:18
DX: A41.89 Other specified sepsis (principal); U07.1 COVID-19; J12.89 Other viral pneumonia; G93.41 Metabolic encephalopathy; J96.01 Acute respiratory failure with hypoxia; J96.02 Acute respiratory failure with hypercapnia; N39.0 Urinary tract infection, site not specified; E87.1 Hypo-osmolality and hyponatremia; N17.9 Acute kidney failure, unspecified; I47.1 Supraventricular tachycardia; J44.1 Chronic obstructive pulmonary disease with (acute) exacerbation; J44.0 Chronic obstructive pulmonary disease with (acute) lower respiratory infection; I13.0 Hypertensive heart and chronic kidney disease with heart failure and stage 1 through stage 4 chronic kidney disease, or unspecified chronic kidney disease; F03.91 Unspecified dementia, unspecified severity, with behavioral disturbance; I48.91 Unspecified atrial fibrillation; I50.9 Heart failure, unspecified; N18.9 Chronic kidney disease, unspecified; E11.22 Type 2 diabetes mellitus with diabetic chronic kidney disease; E11.65 Type 2 diabetes mellitus with hyperglycemia; F20.9 Schizophrenia, unspecified; E78.5 Hyperlipidemia, unspecified; I25.10 Atherosclerotic heart disease of native coronary artery without angina pectoris; E86.0 Dehydration; D64.9 Anemia, unspecified; I95.9 Hypotension, unspecified; Z91.19 Patient's noncompliance with other medical treatment and regimen; B96.1 Klebsiella pneumoniae [K. pneumoniae] as the cause of diseases classified elsewhere
CPT/HCPCS: 36415; 36600; 71045; 76770; 78580; 80053; 80061; 80162; 81003; 82550; 82553; 82607; 82728; 82746; 82803; 82962; 82977; 83036; 83540; 83550; 83605; 83615; 83735; 83880; 83930; 83935; 84100; 84300; 84443; 84484; 84550; 85007; 85025; 85379; 86140; 86705; 86709; 86803; 87040; 87081; 87086; 87181; 87340; 87635; 93005; 93306; 94660; 94664; 96365; 96367; 99291; C9399; J1815; J7030; J8499